=== PATIENT | male | born 1940 | race Caucasian/White ===

== ENCOUNTER 2017-01-03 06:49 | Day surgery (SDC) | payer OTHER ==
[~2017-01-03] VITALS: Ht 172.7 cm; Wt 67.7 kg
[~2017-01-03 06:49] MED LIST: AMLO5TAB96 PO; CLOP75 PO; LEVA500T33 PO; LOVA1TAB47 PO; METO25 PO
[2017-01-03] MEDS ORDERED: diphenhydrAMINE HCL 50 MG CAP PO SCH (07:15)
[2017-01-03] MEDS ORDERED: NS 1000P @30 MLS/HR (KVO) IV SCH (07:15)
[2017-01-03 07:23] VITALS: BP 145/77; PULSE 89; RESP 16; TEMP 97.9; O2SAT 95
[2017-01-03 07:30] LABS: AUTOMATED NEUTROPHIL # 6.4 TH/MM3 (1.8-7.7); BASOPHIL # 0.1 TH/MM3 (0-0.2); BASOPHIL % 0.6 % (0.0-2.0); EOSINOPHIL # 0.3 TH/MM3 (0-0.4); EOSINOPHIL % 3.9 % (0.0-4.0); HEMO FLAGS DIFF FINAL; LYMPH % 10.7 % (9.0-44.0); LYMPHOCYTE # 0.9 TH/MM3 (1.0-4.8); MEAN CELL VOLUME 94.4 FL (80.0-100.0); MEAN CORPUSCULAR HEMOGLOBIN 31.4 PG (27.0-34.0); MEAN CORPUSCULAR HGB CONC 33.3 % (32.0-36.0); MONO % 9.2 % (0.0-8.0); NEUT % 75.6 % (16.0-70.0); PLATELET COUNT 218 TH/MM3 (150-450); RED BLOOD COUNT 4.77 MIL/MM3 (4.50-5.90); RED CELL DISTRIBUTION WIDTH 14.3 % (11.6-17.2); WHITE BLOOD COUNT 8.5 TH/MM3 (4.0-11.0)
[2017-01-03] MEDS ORDERED: PRAM0.5T PO (07:32)
[2017-01-03] MEDS ORDERED: LISI10TA3 PO (07:32)
[2017-01-03] MEDS ORDERED: LAMO100T PO (07:32)
[2017-01-03] MEDS ORDERED: DICL1GEL TOPICAL (07:32)
[2017-01-03] MEDS ORDERED: OMEP20CA2 (07:32)
[2017-01-03] MEDS ORDERED: CYCL5TAB PO (07:32)
[2017-01-03] MEDS ORDERED: FERR1TAB36 PO (07:32)
[2017-01-03] MEDS ORDERED: DONE10TA7 PO (07:32)
[2017-01-03] MEDS ORDERED: ASPI1TAB69 PO (07:32)
[2017-01-03] MEDS ORDERED: AMLO2.5T PO (07:32)
[2017-01-03] MEDS ORDERED: COCO1000 PO (07:32)
[2017-01-03] MEDS ORDERED: B-650TAB (07:32)
[2017-01-03] MEDS ORDERED: HYDR-3583 PO (07:32)
[2017-01-03] MEDS ORDERED: TRAZ100T4 PO (07:32)
[2017-01-03] MEDS ORDERED: ESSE250T (07:32)
[2017-01-03] MEDS ORDERED: ZOCO20TA PO (07:32)
[2017-01-03] MEDS ORDERED: GLUT500T (07:32)
[2017-01-03] MEDS ORDERED: GABA300C5 PO (07:32)
[2017-01-03] MEDS ORDERED: CLON.5 PO (07:32)
[2017-01-03] MEDS ORDERED: [UNRECOGNIZED DRUG - CODE] PO (07:32)
[2017-01-03] MEDS ORDERED: CHEL50TA (07:32)
[2017-01-03] MEDS ORDERED: [UNRECOGNIZED DRUG - OTHER] PO (07:32)
[2017-01-03 07:37] LABS: APTT (PATIENT) 31.3 SEC (24.3-30.1); PROTHROMBIN TIME - PATIENT 10.7 SEC (9.8-11.6)
[2017-01-03 07:43] LABS: BICARBONATE 31.1 MEQ/L (21.0-32.0); POTASSIUM 4.4 MEQ/L (3.5-5.1)
[2017-01-03] MEDS ORDERED: IOHEXOL 350 MG/ML 50 ML BTL (for Cath Lab) OTHER ONE (08:27)
[2017-01-03] MEDS ORDERED: MIDAZOLAM HCL 2 MG/2 ML VIAL ONE (08:36)
[2017-01-03] MEDS ORDERED: HEPARIN-NS/PF INJ 500 ML ONE (08:36)
[2017-01-03] MEDS ORDERED: VERAPAMIL HCL 5 MG/2 ML VIAL ONE (08:41)
[2017-01-03] MEDS ORDERED: HEPARIN SODIUM - IV 10,000 UNITS/10 ML VIAL ONE (08:41)
[2017-01-03] MEDS ORDERED: ONDANSETRON HCL 4 MG/2 ML VIAL IV PRN (09:45)
[2017-01-03] MEDS ORDERED: ATROPINE SULFATE 1 MG/ML VIAL IV PRN (09:45)
--- NOTE | 2017-01-03 09:55 | MA ---
cc: PRATIBHA CARRILLO DATE: 01/03/2017 DATE OF : 1940 PROCEDURE PERFORMED 1. Left heart catheterization. 2. Selective right and left coronary angiography. 3. Right common femoral artery angiography. INDICATION Pre-op evaluation, severe aortic stenosis symptomatic, low ejection fraction PROCEDURE DESCRIPTION Consent was signed. The patient was brought into the cardiac laboratory secretary in a fasting state. The right groin was prepped and draped in a sterile fashion. Using 1% lidocaine for local anesthesia and a micropuncture kit a 5-Trinidadian sheath was inserted into the right common femoral artery. A right common femoral artery angiography was performed to confirm position of the sheath then selective right and left coronary angiography was performed with JR4 and JL4 diagnostic catheters. Angiography was taken in multiple views. The aortic valve was not crossed given that the patient has a history of known severe aortic stenosis calcified with preserved ejection fraction. The patient tolerated the procedure well without complications. Estimated blood loss less than 30 cc. Total contrast used was 40 cc. The right groin access site was closed with a Vascade closure device. RESULTS The aortic pressure was 145/62 with a mean of 95. ANGIOGRAPHY 1. The left main has minimal calcification with a 10% lesion proximally. 2. The LAD is a transapical vessel. It has minimal luminal irregularities throughout. It is patent with GEOVANNA-III flow. It has one prominent diagonal which has minimal luminal irregularities, however, no obstructive coronary artery disease. 3. The left circumflex artery has minimal luminal irregularities throughout. The AV groove segment of the circumflex is giving two OM vessels. OM1 has a patent stent in its proximal segment. This OM1 bifurcates in its midsegment. The OM2 is patent and small with minimal luminal irregularities. 4. The ramus is a small ramus vessel which is patent. 5. The right coronary artery is a dominant vessel which is tortuous and giving off the PDA. It has minimal luminal irregularities throughout and has a patent stent in its proximal segment. In this proximal segment there is 20% lesion in its proximal portion. There is another 20% lesion in its midportion and distally in the right coronary artery is a 10% lesion. CONCLUSIONS 1. [place] coronary artery disease with patent stents in the right coronary artery and the OM. RECOMMENDATIONS The patient will be consulted to CT surgery for AVR evaluation. He will go to the DOC unit for post-cath care and if stable he will be able to go home today. MD YAMILE Rae/BT /9:30 AM /9:46 AM YAJAIRA
[2017-01-03 12:30] LABS: BLOOD, URINE NEG (NEG); GLUCOSE,URINE NEG (NEG); KETONE, URINE NEG (NEG); NITRITE,URINE NEG (NEG); SQUAMOUS EPITHELIAL CELL URINE <1 /hpf (0-5); URINE COLOR YELLOW (YELLW/STRAW)
[2017-01-03 12:32] LABS: COMMENT (UR) CULT NOT INDICATED; CULTURE IF INDICATED CULT NOT INDICATED
--- NOTE | 2017-01-03 12:44 | RADRPT ---
EXAM DATE/TIME: 01/03/2017 11:54 [facility] COMPARISON: No previous studies available for comparison. INDICATIONS : Preop aortic valve replacement. MEDICAL HISTORY : Hypertension. CVA. SURGICAL HISTORY : Tonsillectomy. Appendectomy. Cholecystectomy. ENCOUNTER: Initial ACUITY: 1 day PAIN SCORE: 110 LOCATION: Bilateral neck PEAK SYSTOLIC VELOCITIES (cm/sec): ICA/CCA RATIO: Right: 1.7 Left: 1.0 ICA: Right: 86 Left: 63 CCA: Right: 50 Left: 65 ECA: Right: 88 Left: 65 VERTEBRAL: Right: 61 antegrade Left: 51 antegrade Elevated flow velocities and ICA/CCA ratios have been found to correlate with increased degrees of vessel stenosis, calculated as percentage of diameter relative to a normal segment of distal ICA/CCA FINDINGS: RIGHT CAROTID: Mild calcific plaquing. No significant stenosis is visualized. The waveforms are within normal limit s. LEFT CAROTID: Mild calcific plaquing. No significant stenosis is visualized. The waveforms are within normal limit s. VERTEBRAL ARTERIES: Antegrade flow is seen in both vertebral arteries. MISCELLANEOUS: None. CONCLUSION: No evidence of flow-limiting carotid stenosis. Jose Fernandez MD on January 03, 2017 at 12:41 Board Certified Radiologist. This report was verified electronically.
--- NOTE | 2017-01-03 12:44 | PD.CAR.PN ---
CVT Progress Note Subjective/Hospital Course: sts discussed with pt RISK SCORES About the STS Risk Calculator Procedure: AV Replacement Risk of Mortality: 2.26% Morbidity or Mortality: 15.794% Long Length of Stay: 6.04% Short Length of Stay: 38.523% Permanent Stroke: 1.263% Prolonged Ventilation: 8.84% DSW Infection: 0.411% Renal Failure: 3.365% Reoperation: 8.457% Objective: Vital Signs Date Time Temp Pulse Resp B/P Pulse Ox O2 Delivery O2 Flow Rate FiO2 01/03/17 10:29 94 Room Air 01/03/17 07:23 97.9 89 16 145/77 95 Labs: Laboratory Tests Test 01/03/17 01/03/17 07:15 11:45 White Blood Count 8.5 TH/MM3 (4.0-11.0) Red Blood Count 4.77 MIL/MM3 (4.50-5.90) Hemoglobin 15.0 GM/DL (13.0-17.0) Hematocrit 45.0 % (39.0-51.0) Mean Corpuscular Volume 94.4 FL (80.0-100.0) Mean Corpuscular Hemoglobin 31.4 PG (27.0-34.0) Mean Corpuscular Hemoglobin 33.3 % Concent (32.0-36.0) Red Cell Distribution Width 14.3 % (11.6-17.2) Platelet Count 218 TH/MM3 (150-450) Mean Platelet Volume 7.0 FL (7.0-11.0) Neutrophils (%) (Auto) 75.6 % (16.0-70.0) Lymphocytes (%) (Auto) 10.7 % (9.0-44.0) Monocytes (%) (Auto) 9.2 % (0.0-8.0) Eosinophils (%) (Auto) 3.9 % (0.0-4.0) Basophils (%) (Auto) 0.6 % (0.0-2.0) Neutrophils # (Auto) 6.4 TH/MM3 (1.8-7.7) Lymphocytes # (Auto) 0.9 TH/MM3 (1.0-4.8) Monocytes # (Auto) 0.8 TH/MM3 (0-0.9) Eosinophils # (Auto) 0.3 TH/MM3 (0-0.4) Basophils # (Auto) 0.1 TH/MM3 (0-0.2) CBC Comment DIFF FINAL Differential Comment Prothrombin Time 10.7 SEC (9.8-11.6) Prothromb Time International 1.0 RATIO Ratio Activated Partial 31.3 SEC Thromboplast Time (24.3-30.1) Sodium Level 137 MEQ/L (136-145) Potassium Level 4.4 MEQ/L (3.5-5.1) Chloride Level 101 MEQ/L (98-107) Carbon Dioxide Level 31.1 MEQ/L (21.0-32.0) Anion Gap 5 MEQ/L (5-15) Blood Urea Nitrogen 16 MG/DL (7-18) Creatinine 0.87 MG/DL (0.60-1.30) Estimat Glomerular Filtration 85 ML/MIN (>89) Rate Random Glucose 110 MG/DL (74-106) Calcium Level 9.1 MG/DL (8.5-10.1) Urine Color YELLOW (YELLW/STRAW) Urine Turbidity CLEAR (CLEAR) Urine pH 7.0 (5.0-8.5) Urine Specific [place] 1.045 (1.002-1.035) Urine Protein NEG mg/dL (NEG-TRACE) Urine Glucose (UA) NEG mg/dL (NEG) Urine Ketones NEG mg/dL (NEG) Urine Occult Blood NEG (NEG) Urine Nitrite NEG (NEG) Urine Bilirubin NEG (NEG) Urine Urobilinogen LESS THAN 2.0 MG/DL (LESS THAN 2.0) Urine Leukocyte Esterase NEG (NEG) Urine RBC LESS THAN 1 /hpf (0-3) Urine WBC 1 /hpf (0-5) Urine Squamous Epithelial <1 /hpf (0-5) Cells Microscopic Urinalysis Comment CULT NOT INDICATED Result Diagram: 01/03/17 0715 01/03/17 0715 Dilcia Saucedo January 03, 2017 12:44
--- NOTE | 2017-01-03 14:13 | RADRPT ---
EXAM DATE/TIME: 01/03/2017 13:55 [facility] COMPARISON: CHEST PA & LAT, January 03, 2017, 13:46. INDICATIONS : Evaluate for preop AVR. RADIATION DOSE: 4.13 CTDIvol (mGy) MEDICAL HISTORY : Cardiovascular disease. Hypertension. Hepatitis. SURGICAL HISTORY : Appendectomy. Cholecystectomy. ENCOUNTER: Initial ACUITY: 1 day PAIN SCALE: 1/10 LOCATION: Bilateral chest TECHNIQUE: Volumetric scanning of the chest was performed. Using automated exposure control and adjustment of t he mA and/or kV according to patient size, radiation dose was kept as low as reasonably achievable to obtain optimal diagnostic quality images. FINDINGS: There is linear scarring noted in the lingula and right middle lobe as well as right lower lobe. Ther e is no consolidation or effusion. Coronary artery calcification is noted, atherosclerotic calcificat ions of the aorta, and moderate elevation of the right hemidiaphragm. There is dense calcification at the expected location of the aortic valve as well as the mitral anulus. 6.2 cm right renal cyst. The re is a nodule of the left adrenal gland measuring 2.3 cm and 14 Hounsfield units, incompletely kayce cterized on this study but likely an adenoma in the absence of known malignancy. The osseous structur es are intact. CONCLUSION: 1. Atherosclerotic disease. 2. Right renal cysts. 3. Pulmonary scarring. 4. Elevated right hemidiaphragm. 5. Indeterminate left adrenal nodule likely an adenoma in the absence of known malignancy. This could be further characterized with MRI of the abdomen. Balwinder Mart MD on January 03, 2017 at 14:09 Board Certified Radiologist. This report was verified electronically.
--- NOTE | 2017-01-03 14:34 | RADRPT ---
EXAM DATE/TIME: 01/03/2017 13:46 [facility] COMPARISON: CT THORAX W/O CONTRAST, January 03, 2017, 13:55. INDICATIONS : Pre op aortic valve replacement. MEDICAL HISTORY : None. SURGICAL HISTORY : None. ENCOUNTER: Initial ACUITY: 1 day PAIN SCORE: 0/10 LOCATION: Bilateral chest FINDINGS: Streaky bibasilar parenchymal opacities are present, likely subsegmental atelectasis worse on the rig ht than the left. There is eventration or asymmetric elevation of the right diaphragm of undetermined chronicity. There is no evidence of effusion. Cardiac contours are satisfactory. Thoracic skeleton i s grossly intact. CONCLUSION: Mild basilar atelectasis. Elevated right diaphragm of undetermined chronicity. Jose Fernandez MD on January 03, 2017 at 14:30 Board Certified Radiologist. This report was verified electronically.
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
[2017-01-03 16:24] LABS: HEMOGLOBIN A1a 1.5 %; HEMOGLOBIN A1b 1.7 %; HEMOGLOBIN Ao 84.5 %; HEMOGLOBIN LA1C 2.2 %; HEMOGLOBIN P3 3.7 %
--- NOTE | 2017-01-03 19:25 | EKG ---
Date Performed: 01/03/2017 Time Performed: 07:41:06 PTAGE: 76 years EKG: Sinus rhythm Normal ECG NO PREVIOUS TRACING DOCTOR: Yanelis Mccallum Interpretating Date/Time 01/03/2017 19:22:55
--- NOTE | 2017-01-04 15:33 | CATHPROC ---
[facility] HIS Report Study Information Study Number Admission Scheduled Start Study Start [id number] 01/03/2017 01/03/2017 Jan 03 2017 8:30AM Referring Institution Admit Source Facility Department 1 Other [facility] - Senior Loan Officer Physician and Clinical Staff Initial Prashant Baez Counterintelligence Analyst Jaspreet MAHAJAN, Matt Mcdonough cathlab, cathlab Recorder Tano Brown RCIS(BS) Gabriela Tyson RCIS TECH2 Procedures Performed Procedure Location (Site) Vessel Name Coronary Angiograms LCA Left Coronary Coronary Angiograms RCA Right Coronary L Heart Cath Equipment Time Calender Wind Up Helper Description Size Mfg Part Number Used/Scraped TRANSDUCER, TRUWAVE 08:32 ALEGRE VALLE * [id number] Used W/[employer] [id number] 09:15 CARDI[employer] MEDICAL VASCADE, FR5 CLOSURE SYSTEM FR 5 Used *[id number]- INTRODUCER SET, 09:07 [employer]. FR 5 SC-NT-U-SST Used MICROPUNCTURE, STIFFENED *[id number] *[id number] [id number] *[id number] 08:32 [email or web address] PACK, CCL CUSTOM * Used *[id number] 08:42 [email or web address] PACK, CCL CUSTOM * Used *[id number] 08:42 Trellise MEDICAL WIRE, 3MMJ .035 180CM 180CM Used *[id number] 08:42 NAMIC MANIFOLD, 4 PORT * Used *[id number] 08:32 NYCOMED OMNIPAQUE, 350 MG, 150ML 150ML [id number] Used [id number] 08:32 ZELI[employer] MEDICAL BLANKET,WARM AIR CCL * Used *[id number] 08:51 TERUMO MEDICAL SHEATH, FR5 TERUMO (10CM) FR 5 [id number] Used SHEATH, FR6 TRANSRADIAL 08:42 TERUMO MEDICAL FR 6 [id number] Used SLENDER 10CM History: Allergies Allergy Reaction MRI PRECAUTION shrapnel in brain and orbit mpw per Dr Rincon No Known Allergies Namenda History: Risk Factors Family History of Hypertension Dyslipidemia Previous UT Previous Heart Failure Premature CAD Yes Yes No No No Prior Valve Prior PCI Prior PCIDate Prior CABG Surgery No Yes 08/13/2006 No Cerebrovascular Peripheral Artery Chronic Lung On Dialysis Diabetes Disease Disease Disease No No No No No History: Stress Tests Stress or Imaging Studies Performed No History: Other Current Smoker Method Packs a Day Years Used Pack Years Yes Cigarettes 1 60 60 Labs Hgb (g/dl) Hct (%) WBC (l/cumm) Platelets (thousands) 12.00-18.00 37.00-55.00 4.80-10.80 140.00-450.00 15.0 45 8.5 218 Glucose (mg/dl) BUN (mg/dl) Creatinine (mg/dl) BUN:Creatinine (1:x) 60.00-110.00 8.00-20.00 0.10-9.00 10.00-20.00 110 16 0.8 20 Na (meq/l) K (meq/l) 138.00-146.00 3.80-5.10 137 4.4 INR (PTT:PT) 0.50-2.00 1 CPK-MB (ng/ML) 0.00-7.00 Not Drawn Medication Medication Total Dose (Bolus/Oral) Medication Total Dosage/Unit 1% XYLOCAINE 20 mL FENTANYL 50 mcg OXYGEN 2 l/min VERSED 2 mg Medications (Bolus/Oral) Medication Time Given Dosage/Unit Administered By Reason FENTANYL 01/03/2017 9:03:02 AM 50 mcg Matt Vogel RN Patient arrived on 50 mcg FENTANYL given by Matt Vogel RN in Right Antecubital via Peripheral IV. O rdered by Prashant Giang. 1% XYLOCAINE 01/03/2017 9:03:30 AM 20 mL Prashant Giang Patient arrived on 20 mL 1% XYLOCAINE given by Prashant Giang in Right Groin via Subcutaneous. Ord ered by Prashant Giang. VERSED 01/03/2017 9:04:03 AM 2 mg Matt Vogel RN 2 mg VERSED given in lab by Matt Vogel RN in Right Antecubital via Peripheral IV. Ordered by Prashant Mason. OXYGEN 01/03/2017 9:07:49 AM 2 l/min Matt Vogel RN 2 l/min OXYGEN given in lab by Matt Vogel RN via Nasal. Ordered by Prashant Giang. Medication (Drip) Medication Time Given Dosage/Unit Concentration/Unit Diluent (ml) Solution IV Solutions 01/03/2017 8:32:34 AM 0 mL (IV) NaCl .9 Patient arrived on IV Solutions in Right Antecubital via Peripheral IV. Pump/Drip Flow = 20 ml/hr usi ng NaCl .9. Ordered by Prashant Giang. Initial Case Assessment Cardiovascular HR Rhythm NIBP Chest Pain 81 SR 145/79 0 Edema Present Skin color Skin None Normal Warm Dry Circulatory - Right Pulses Dorsalis Pedis Femoral Radial 2 2 2 Scale (0,1,2,3,4,d) Circulatory - Left Pulses Dorsalis Pedis Femoral Radial 2 2 Scale (0,1,2,3,4,d) Circulatory - Lower Extremities Color Lower Right Color Lower Left Normal Normal Neurological State Oriented to time-place- Alert Moves all extremities person Respiration - General Respiration Rate SpO2 (%) (B/min) 14 94 Final Case Assessment Cardiovascular HR Rhythm NIBP Chest Pain 103 SR 138/73 0 Edema Present Skin color Skin None Normal Warm Dry Circulatory - Right Pulses Dorsalis Pedis Femoral Radial 2 2 2 Scale (0,1,2,3,4,d) Circulatory - Left Pulses Dorsalis Pedis Femoral Radial 2 2 Scale (0,1,2,3,4,d) Circulatory - Lower Extremities Color Lower Right Color Lower Left Normal Normal Neurological State Oriented to time-place- Alert Moves all extremities person Respiration - General Respiration Rate SpO2 (%) (B/min) 14 94 Chronological Log Time Study Chronological Log 8:27:45 Patient arrived via Bed. 8:32:21 Patient Name, D.O.B, / Armband Verified By R.N. 8:32:22 Consent signed by the physician and the patient and verified by the Senior Loan Officer staff. 8:32:24 Pre-op and post- op instructions given; patient acknowledges understanding of instructions. 8:32:26 Patient has been NPO for More than 6Hrs. 8:32:26 Skin Breakdown- 8:32:29 Patient Warmer Placed on the Table. 8:32:30 Yumiko Prominences Protected 8:32:33 A # 20 IV was noted in the Antecubital (right). Grade = 0 Patient arrived on IV Solutions in Right Antecubital via Peripheral IV. Pump/Drip Flow = 20 ml/ hr using NaCl .9. Ordered 8:32:34 by Prashant Giang. 8:32:35 History and physical on the chart or being dictated. Vitals capture started with the following parameters, Patient=Adult, Interval=15 min, Initial P gjofnqg=426 mmHg, 8:33:07 Deflation Rate=5 mmHg 8:34:37 HR=86 bpm, JNHD=813/82 mmhg, SpO2=92.0 %, Resp=21 B/min, Pain=0, Jacquelyn=10, Rosa=2 8:38:41 HR=88 bpm, RXVV=170/82 mmhg, SpO2=94.0 %, Resp=25 B/min, Pain=0, Jacquelyn=10, Rosa=2 8:40:16 Reference ECG taken Assessment: Initial Case, HR=81 BPM, Rhythm=SR, LXMK=775/79 mmhg, Chest Pain=0, Edema=None, [place] r=Normal, Skin = Warm, Dry Right Pulses: Carmine Ped=2, Femoral=2, Radial=2 Left Pulses: Carmine Ped=2, Femoral=2 8:43:16 Lower Right Extremities: Color=Normal Lower Left Extremities: Color=Normal Neurological: State=Alert, Ox3, [place] Respiration: Resp=14 B/min, SpO2=94 % 8:43:44 HR=81 bpm, QIYB=211/79 mmhg, SpO2=92.0 %, Resp=32 B/min, Pain=0, Jacquelyn=10, Rosa=2 8:45:20 Pressure channel 1 zeroed. 8:45:42 MD arrived. 8:48:45 HR=79 bpm, MFUF=795/71 mmhg, SpO2=94.0 %, Resp=14 B/min, Pain=0, Jacquelyn=10, Rosa=2 8:53:44 HR=81 bpm, TOIA=774/71 mmhg, SpO2=93.0 %, Resp=15 B/min, Pain=0, Jacquelyn=10, Rosa=2 8:58:45 HR=82 bpm, THLI=621/76 mmhg, SpO2=92.0 %, Resp=14 B/min, Pain=0, Jacquelyn=10, Rosa=2 9:00:03 Right Radial and groin(s) prepped with 2% chlorhexidine, and with a 3 min. waiting time. Time Out. Correct patient, correct procedure,correct physician, power injector not loaded with c ontrast with surgical 9::44 team present. Time Out Concurred by , individual staff in procedure 9:02:51 Case Start Patient arrived on 50 mcg FENTANYL given by Matt Vogel RN in Right Antecubital via Peripheral IV. Ordered by Shasta 9:03:02 Prashant Wong. Patient arrived on 20 mL 1% XYLOCAINE given by Prashant Giang in Right Groin via Subcutaneous . Ordered by 9:03:30 Prashant Giang. 9::44 HR=87 bpm, THXG=367/80 mmhg, SpO2=97.0 %, Resp=17 B/min, Pain=0, Jacquelyn=10, Rosa=2 9:04:03 2 mg VERSED given in lab by Matt Vogel RN in Right Antecubital via Peripheral IV. Ordered by Prashant Giang. 9:06:13 Access site was Right Femoral Artery. A INTRODUCER SET, MICROPUNCTURE, STIFFENED FR 5 was advanced into the Fem Art (right) using the ::23 Percutaneous technique. Recorded Pressure: Ao, HR=90, Condition=Condition 1 9:06:53 (Aorta) Ao 145/62/95 A SHEATH, FR5 TERUMO (10CM) FR 5 was exchanged in the Fem Art (right). This was necessary in ord er to 9:07:03 accomodate a larger catheter. A JR 4.0 INFINITI CATHETER FR 5 was advanced over a wire. OMNIPAQUE, 350 MG, 150ML 150ML was use d for 9:07:22 injections. 9:07:49 2 l/min OXYGEN given in lab by Matt Vogel RN via Nasal. Ordered by Prashant Giang. 9:08:18 The RCA was injected and visualized at various angles. OMNIPAQUE, 350 MG, 150ML 150ML used. 9:08:43 HR=88 bpm, DOSU=193/80 mmhg, SpO2=86.0 %, Resp=14 B/min, Pain=0, Jacquelyn=10, Rosa=2 9:09:17 Catheter was removed A JL 4.0 INFINITI CATHETER FR 5 was advanced over a wire. OMNIPAQUE, 350 MG, 150ML 150ML was use d for 9:09:24 injections. 9:09:47 The LCA was injected and visualized at various angles. OMNIPAQUE, 350 MG, 150ML 150ML used. 9:13:46 HR=98 bpm, BBAI=274/73 mmhg, SpO2=86.0 %, Resp=14 B/min, Pain=0, Jacquelyn=10, Rosa=2 9:14:14 Catheter was removed Assessment: Final Case, PO=240 BPM, Rhythm=SR, RBGX=944/73 mmhg, Chest Pain=0, Edema=None, Color =Normal, Skin = Warm, Dry Right Pulses: Carmine Ped=2, Femoral=2, Radial=2 Left Pulses: Carmine Ped=2, Femoral=2 9:14:31 Lower Right Extremities: Color=Normal Lower Left Extremities: Color=Normal Neurological: State=Alert, Ox3, [place] Respiration: Resp=14 B/min, SpO2=94 % 9:14:58 VASCADE, FR5 CLOSURE SYSTEM FR 5 placement in the Fem Art (right) 9:16:24 Case End 9:16:25 Sterile dressing applied to site 9:16:26 No case complications noted. 9:16:27 Cine recording checked. 9:16:37 Contrast Scanned 9:18:45 HR=91 bpm, GEHW=291/74 mmhg, SpO2=90.0 %, Resp=15 B/min, Pain=0, Jacquelyn=10, Rosa=2 9:20:00 A Left Heart Cath was performed. 9:23:42 MZXH=755/79 mmhg, SpO2=91.0 %, Pain=0, Jacquelyn=10, Rosa=2 9:30:00 [facility] Study - Contrast Media Used In Study Contrast Total Opened (mL) Total Used (mL) Total Wasted (mL) Omnipaque 40 40 0 End Study - Maximum Contrast Load Max Contrast Load (mL) 423.0 End Study - Radiation Exposure Fluoro Time (minutes) 2.4 End Study - Patient Disposition Complications Transferred To Telemetry Bed
--- NOTE | 2017-01-09 08:57 | RSPPFT ---
DATE OF PROCEDURE: 01/03/17 COMMENTS: VOLUMES DYNAMIC: FVC and FEV1 severely reduced. FLOWS: FEV1% normal; FEF 25-75 normal. IMPRESSION: This appears to be a moderate to severe restrictive ventilatory defect although full lung volumes would be necessary if needed to clarify. No significant airways obstruction is noted.
== END 2017-01-03 14:35 | disposition home or self-care (01) ==
LOC: HDOC 06:49 → HDIC 06:49 → HDOC 14:35
PROVIDERS: ATTEND Radiology Vascular & Interventional Radiology
DX: I25.10 Atherosclerotic heart disease of native coronary artery without angina pectoris (principal); I25.84 Coronary atherosclerosis due to calcified coronary lesion; I13.10 Hypertensive heart and chronic kidney disease without heart failure, with stage 1 through stage 4 chronic kidney disease, or unspecified chronic kidney disease; N18.9 Chronic kidney disease, unspecified; I35.2 Nonrheumatic aortic (valve) stenosis with insufficiency; F41.9 Anxiety disorder, unspecified; J44.9 Chronic obstructive pulmonary disease, unspecified; E78.5 Hyperlipidemia, unspecified; E78.00 Pure hypercholesterolemia, unspecified; F17.210 Nicotine dependence, cigarettes, uncomplicated; Z85.038 Personal history of other malignant neoplasm of large intestine; Z95.5 Presence of coronary angioplasty implant and graft; Z79.82 Long term (current) use of aspirin; Z86.73 Personal history of transient ischemic attack (TIA), and cerebral infarction without residual deficits; Z79.51 Long term (current) use of inhaled steroids
CPT/HCPCS: 71020; 71250; 80048; 81001; 83036; 85025; 85610; 85730; 86850; 86900; 86901; 87641; 93005; 93454; 93880; 94060; C1760; C1769; C1893; G0269; J1644; J2250; J3010; J7030; Q0163; Q9967

== ENCOUNTER 2017-01-09 16:17 | Inpatient (IN) | payer OTHER, MEDICARE ==
[~2017-01-09] VITALS: Ht 172.1 cm; Wt 68.5 kg
[~2017-01-09 16:17] MED LIST changes: +AMLO2.5T PO; -AMLO5TAB96 PO; +ASPI1TAB69 PO; +B-650TAB; +CHEL50TA; +CLON.5 PO; -CLOP75 PO; +COCO1000 PO; +CYCL5TAB PO; +DICL1GEL TOPICAL; +DONE10TA7 PO; +ESSE250T; +FERR1TAB36 PO; +GABA300C5 PO; +GLUT500T; +HYDR-3583 PO; +LAMO100T PO; -LEVA500T33 PO; +LISI10TA3 PO; -LOVA1TAB47 PO; -METO25 PO; +OMEP20CA2; +PRAM0.5T PO; +TRAZ100T4 PO; +ZOCO20TA PO; +[UNRECOGNIZED DRUG - CODE] PO; +[UNRECOGNIZED DRUG - OTHER] PO
[2017-01-24] VITALS (14 sets, daily range): BP systolic 102–162; BP diastolic 49–77; PULSE 64–97; RESP 16–20; TEMP 97.8–98.6; O2SAT 90–100
[2017-01-24] MEDS ORDERED: PROTAMINE SULFATE 250 MG/25 ML VIAL IV ONE ×2 (05:00→11:52)
[2017-01-24] MEDS ORDERED: PHENYLEPHRINE HCL 10 MG/ML VIAL IV ONE (05:00)
[2017-01-24] MEDS ORDERED: AMINOCAPROIC ACID INJ 250 MG/ML 20 ML VIAL IV ONE (05:00)
[2017-01-24] MEDS ORDERED: HEPARIN SODIUM - SQ 10,000 UNITS/ML VIAL SQ ONE (05:00)
[2017-01-24] MEDS ORDERED: ACETAMINOPHEN 1000 MG/100 ML VIAL IV ONE (05:00)
[2017-01-24] MEDS ORDERED: GLYCOPYRROLATE 0.2 MG/ML VIAL IV ONE (05:00)
[2017-01-24] MEDS ORDERED: LIDOCAINE HCL 1% 30 ML VIAL OTHER ONE (05:00)
[2017-01-24] MEDS ORDERED: NITROGLYCERIN-DEXTROSE INJ 250 ML IV ONE (05:00)
[2017-01-24] MEDS ORDERED: MAGNESIUM SULFATE 1000 MG/2 ML VIAL (PED) IV ONE (05:00)
[2017-01-24] MEDS ORDERED: CALCIUM CHLORIDE 10% SOLN 1 GRAM/10 ML SYR IV ONE (05:00)
[2017-01-24] MEDS ORDERED: DEXMEDETOMIDINE INJ 50 ML IV ONE (05:00)
[2017-01-24] MEDS ORDERED: VECURONIUM BROMIDE 10 MG VIAL IV ONE (05:00)
[2017-01-24] MEDS ORDERED: ESMOLOL HCL 100 MG/10 ML VIAL IV ONE (05:00)
[2017-01-24] MEDS ORDERED: ceFAZolin 2 GM PREMIX 50 ML IV SCH ×2 (06:00→16:00)
[2017-01-24] MEDS ORDERED: POVIDONE IODINE 5% (ANTISEPSIS KIT) 4 APPLICATIONS EACH NARE PRN (06:00)
[2017-01-24] MEDS ORDERED: SODIUM CHLORIDE 0.9% FLUSH 10 ML FLUSH IV FLUSH PRN ×3 (06:00→12:15)
[2017-01-24] MEDS ORDERED: CEFAZOLIN 500 MG in NS IRR BTL 500 ML IRRIGATION SCH (06:00)
[2017-01-24] MEDS ORDERED: INSULIN REGULAR 100 UNITS in NS 100 ML IV SCH (06:00)
[2017-01-24] MEDS ORDERED: CHLORHEXIDINE GLUCONATE 2 % 1 PACK (2 CLOTHS) TOPICAL PRN (06:00)
[2017-01-24] MEDS ORDERED: CHLORHEXIDINE GLUCONATE 4% SOLN 120 ML BTL TOPICAL SCH (06:00)
[2017-01-24] MEDS ORDERED: METOPROLOL TARTRATE 25 MG TAB PO PRN (06:00)
[2017-01-24] MEDS ORDERED: METOPROLOL TARTRATE 25 MG TAB PO SCH (06:00)
[2017-01-24] MEDS ORDERED: INSULIN HUMAN REGULAR 1,000 UNITS/10 ML VIAL SQ PRN (06:00)
[2017-01-24] MEDS ORDERED: SODIUM CHLORID 0.9% 500 ML IV PRN (06:00)
[2017-01-24] MEDS ORDERED: LACTATED RINGER'S 1000 ML IV PRN (06:00)
[2017-01-24] MEDS ORDERED: HEPARIN SODIUM - SQ 10,000 UNITS/ML VIAL ONE (06:25)
[2017-01-24] MEDS ORDERED: ceFAZolin 2 GM PREMIX 50 ML ONE (06:25)
[2017-01-24] MEDS ORDERED: ASPI81CH CHEW (06:26)
[2017-01-24] MEDS ORDERED: TRAZ100T6 PO (06:26)
[2017-01-24] MEDS ORDERED: VITA10002 PO (06:26)
[2017-01-24] MEDS ORDERED: FERR200T PO (06:26)
[2017-01-24] MEDS ORDERED: MELO7.5T4 PO (06:26)
[2017-01-24] MEDS ORDERED: MANNITOL INJ 50 ML ONE (07:05)
[2017-01-24] MEDS ORDERED: SODIUM BICARBONATE 8.4% INJ 50 ML ONE (07:05)
[2017-01-24] MEDS ORDERED: CUSTODIOL HTK IRR SOLN 1,000 ML ONE (07:05)
[2017-01-24] MEDS ORDERED: POTASSIUM CHLORIDE 40 MEQ/20 ML VIAL ONE (07:06)
[2017-01-24] MEDS ORDERED: HEPARIN SODIUM - IV 10,000 UNITS/10 ML VIAL ONE (07:06)
[2017-01-24] MEDS ORDERED: ALBUMIN HUMAN 25% 12.5 GM/50 ML BAGP IV ONE (07:06)
[2017-01-24] MEDS ORDERED: BUPIVACAINE LIPOSO PF 1.3% INJ 20 ML, DEXAMETHASONE INJ 4 MG, MORPHINE INJ 10 MG in SOD... P-ARTICULR SCH (07:30)
--- NOTE | 2017-01-24 10:32 | PD.CAR.PN ---
CVT Progress Note Subjective/Hospital Course: 76/ male hx of CAD/ prior stent , heart Murmur and valvular heart disease. Severe with depressed LV function . underwent cardia cath / patent stents to RCA and OM . Here for elective Mini AVR today. PMH: CAD/ stent OM, RCA, AAA ( 3 CM) , iron deficiency anemia ( HGB 15/45) , anxiety , / EF 54 %, LINETTE, Strickland's palsy, COPD, CKD, HTN, HLP, ICH /fall Objective: Vital Signs Date Time Temp Pulse Resp B/P Pulse Ox O2 Delivery O2 Flow Rate FiO2 01/24/17 06:40 98.6 86 16 144/77 96 Labs: Laboratory Tests Test 01/24/17 06:18 Blood Type O POSITIVE Antibody Screen NEGATIVE Crossmatch Leukocyte-Reduced Red Blood Cells Blood Bank Comment Dilcia Saucedo Jan 24, 2017 10:32
[2017-01-24] MEDS ORDERED: VANCOMYCIN HCL 1000 MG VIAL ONE (10:50)
--- NOTE | 2017-01-24 11:08 | HHI.FF ---
Face to Face Verification Diagnosis: (1) Aortic stenosis (2) S/P AVR (aortic valve replacement) (3) Hyperlipemia (4) Hypertension (5) COPD (chronic obstructive pulmonary disease) (6) Anxiety Home Health Nursing Order: Signs/symptoms of disease process Wound care and dressing changes Nursing assessment with vital signs Instructions: Heart and Vascular Surgery patients *Special attention to sternal dressing Mandatory frequency Assess and evaluation, 4 days in a row The next week 3X week 2 times a week for 4 weeks 1 time a week for 5 weeks Schedule Heart and Vascular patients for full 60 day certification period Initial visit Review Open Heart Surgery Discharge Instructions (Sternal precautions, Activity, Elastic hose, Incision care, Driving, Incentive spirometry, Smoking, [place], Work and other) Need Betadine to paint incision Medication reconciliation Importance of follow up care/ check on appointments Make calendar record temperature daily When to call [facility] at Home nurse, review instructions, phone list Incentive Spirometry, demonstration Visit 1- Begin discharge instruction for patient family and/ or caregiver using teach back method- Signs and symptoms of infection Disease characteristics Medicines and side effects Foods and nutrition/ appetite Infection control/ hand washing/ hygiene Visit 2- Continue teaching Discharge instructions- include additional information on smoking cessation , sternal dressing (sternal vac) Visit 3- Continue teaching- Cough and deep breathing, incision monitoring. Choose my plate Visit 4- Continue teaching- Discuss limitations Discuss how they are feeling Discuss progress toward goals Remaining visits- continue teaching and monitoring Incentive spirometry Q1 hr x 10, while awake, also use acapella device hourly whole awake Sternal Breast Bone Precautions: NO pushing or pulling, ( pt must use sternal pillow to support chest with all activities and with coughing ( takes up to 3 months breast bone to heal ) Daily incision care: ok to shower daily, no tub bath. Wash all incisions with liquid dial soap, clean wash cloth to each site, rinse and pat dry. Observe for any signs of infection, such as drainage which is dark yellow, henriquez, green or foul smelling. Immediately report to the surgeon any drainage from the chest incision, or legs, and for any abnormal drainage from the chest tube sites. Notify surgeon if any temp >101.5 degrees F. When specialty dressing removed/ or if you do not have one, continue to shower daily as above, then rinse and pat incision dry and paint with betadine daily x 5 days. Allow steri strips to fall off if you have any. Avoid lotions, creams, salves, oils, etc. for the first month For Dr. Salgado patients , please obtain CBC, BMP, PA & Lat CXR in 2 weeks, results to Dr. Salgado ( prescription will be given) ( ) (Tele: [phone]) , Valve replacement pts will need 2decho in 2 weeks with results to Dr. Salgado . Please obtain 2 d echo at your financial compliance examiner office if possible F/U appointment: as per DC instructions: PCP in 2 weeks, CV surgeon 2 weeks, Manager Business Continuity 3-4 weeks For any questions regarding incisions/ dressing / meds / post op care or above Symptoms, Sunday 8am-5pm Heart & Vascular Surgery Office ( Dr. Demarco & Dr. Salgado), After Hours / Nights (5pm -8am) Weekends and Holidays Please call [facility] ([facility]) Charge Nurse I have seen patient Kar Estrada on 01/24/17. My clinical findings support the need for the requested home health care services because: Deconditioned w/ increased weakness I certify that my clinical findings support that this patient is homebound because: Post-op weakness Dilcia Saucedo Jan 24, 2017 11:08
[2017-01-24] MEDS ORDERED: SODIUM CHLOR 0.9% 250 ML INJ 250 ML IV ONE (11:52)
[2017-01-24] MEDS ORDERED: SODIUM CHLORID 0.9% 500 ML INJ 500 ML IV ONE (11:52)
[2017-01-24] MEDS ORDERED: LACTATED RINGER'S 1000 ML INJ 2,000 ML IV ONE (11:52)
[2017-01-24] MEDS ORDERED: PHENYLEPH/NS 1000 MCG/10 ML SYR IV ONE (11:52)
[2017-01-24] MEDS ORDERED: NEOSTIGMINE METHYLSULFATE 10 MG/10 ML VIAL IV PUSH ONE (11:52)
[2017-01-24] MEDS ORDERED: NORMOSOL R INJ 2,000 ML IV ONE (11:52)
[2017-01-24] MEDS ORDERED: SUGAMMADEX SODIUM 200 MG/2 ML VIAL IV PUSH ONE ×2 (11:52)
[2017-01-24] MEDS ORDERED: VECURONIUM BROMIDE 20 MG VIAL IV ONE (11:52)
[2017-01-24] MEDS ORDERED: DOBUTamine PREMIX DRIP 250 ML IV SCH (12:08)
[2017-01-24] MEDS ORDERED: LACTATED RINGER'S 1000 ML INJ 500 ML IV PRN (12:08)
[2017-01-24] MEDS ORDERED: INSULIN REGULAR (IV INFUSION) 100 UNITS in SODIUM CHLORIDE 0.9% INJ 99 ML IV SCH (12:15)
[2017-01-24] MEDS ORDERED: POTASSIUM CHLORIDE 20 MEQ CONTROLLED RELEASE TAB PO PRN ×2 (12:15)
[2017-01-24] MEDS ORDERED: ACETAMINOPHEN 650 MG SUPP RECTAL PRN (12:15)
[2017-01-24] MEDS ORDERED: DEXTROSE 50% IN WATER 50 ML VIAL(D50) IV PUSH PRN (12:15)
[2017-01-24] MEDS ORDERED: ACETAMINOPHEN 325 MG TAB PO PRN (12:15)
[2017-01-24] MEDS ORDERED: ALBUMIN HUMAN 5% 12.5 GM/250 ML BOTTLE IV PRN (12:15)
[2017-01-24] MEDS ORDERED: PHENYLEPHRINE INJ 40 MG in DEXTROSE 5% IN WATE 500 ML INJ 496 ML IV SCH ×2 (12:15)
[2017-01-24] MEDS ORDERED: ACETAMINOPHEN/HYDROcodone 325 MG/5 MG TAB PO PRN ×2 (12:15)
[2017-01-24] MEDS ORDERED: MAGNESIUM SULFATE INJ 2 GM in SODIUM CHLORIDE 0.9% INJ 100 ML IV PRN ×4 (12:15)
[2017-01-24] MEDS ORDERED: CALCIUM CHLORIDE 10% 1 GRAM/10 ML VIAL IV PRN (12:15)
[2017-01-24] MEDS ORDERED: CALCIUM CHLORIDE INJ 1 GM in SODIUM CHLORIDE 0.9% INJ 100 ML IV PRN (12:15)
[2017-01-24] MEDS ORDERED: DEXMEDETOMIDINE INJ 200 MCG in SODIUM CHLORIDE 0.9% INJ 50 ML IV SCH (12:15)
[2017-01-24] MEDS ORDERED: DOPamine INJ PREMIX 500 ML IV SCH (12:15)
[2017-01-24] MEDS ORDERED: METOPROLOL TARTRATE 5 MG/5 ML VIAL IV PUSH PRN (12:15)
[2017-01-24] MEDS ORDERED: RESP: RACEPINEPHRINE 2.25% 0.5 ML NEB NEB PRN ×2 (12:15→15:15)
[2017-01-24] MEDS ORDERED: RESP: ALBUTEROL 2.5 MG/IPRATROPIUM 0.5 MG NEB (PRN) NEB ×2 (12:15→15:15)
[2017-01-24] MEDS ORDERED: Post-op Orders (for Pharmacy) MISC OTHER ONE (12:15)
[2017-01-24] MEDS ORDERED: CLEVIDIPINE INJ 50 ML IV SCH (12:15)
[2017-01-24] MEDS ORDERED: MEPERIDINE HCL 25 MG/ML VIAL IV PRN (12:15)
[2017-01-24] MEDS ORDERED: KETOROLAC TROMETHAMINE 30 MG/ML (IVP) VIAL IV PUSH PRN (12:15)
[2017-01-24] MEDS ORDERED: POTASSIUM CHLOR 20 MEQ PREMIX 100 ML IV PRN ×3 (12:15)
[2017-01-24] MEDS ORDERED: NITROGLYCERIN-DEXTROSE INJ 250 ML IV SCH (12:15)
[2017-01-24] MEDS ORDERED: ONDANSETRON HCL 4 MG/2 ML VIAL IV PUSH PRN (12:15)
[2017-01-24] MEDS ORDERED: MORPHINE SULFATE 4 MG/ML INJ IV PRN (12:15)
[2017-01-24] MEDS ORDERED: EPINEPHrine (1:1000) INJ 4 MG in DEXTROSE 5% IN WATER INJ 246 ML IV SCH ×2 (12:15)
[2017-01-24] MEDS ORDERED: hydrALAZINE HCL 20 MG/ML VIAL IV PRN (12:15)
--- NOTE | 2017-01-24 12:39 | PD.OP ---
cc: Prashant Giang MD; Sommer Demarco MD Operative Report Date of Surgery: Jan 24, 2017 Preoperative Diagnosis: Postoperative Diagnosis: Procedure: 1. Ricardo-Sternotomy 2. Minimally Invasive Aortic Valve Replacement with a 23mm Mosaic Cinch II valve . Surgeon: Sommer Demarco Manager Diversity(s): Do Reynolds Operation and Findings: PREOPERATIVE DIAGNOSES 1. Severe Aortic Stenosis. 2. Moderate Aortic Insufficiency 3. CHF POSTOPERATIVE DIAGNOSES Same SURGICAL PROCEDURE 1. Ricardo-Sternotomy 2. Minimally Invasive Aortic Valve Replacement with a 23mm Mosaic Cinch II valve BACTERIOLOGIST INDUSTRIAL DORIS Sandoval ANESTHESIA General endotracheal. OPERATIONS SPECIALISTS Priscilla Diaz CRNA, Jonathan Morgan MD PREPARATION ChloraPrep. NEEDLE, SPONGE AND INSTRUMENT COUNT Correct. DRAINS One 24-Sinhala mediastinal Mick drain. COMPLICATIONS None. INDICATIONS The patient is an 77-year-old gentleman with severe aortic stenosis and CHF, presenting for surgical correction of the above pathology. DESCRIPTION OF PROCEDURE The patient was brought to the operating room and placed supine on the OR table. Following the induction of adequate general endotracheal anesthesia and placement of appropriate monitoring devices, the patient was then prepped and draped in the standard sterile fashion. Physical examination as well as direct ultrasound evaluation of bilateral femoral arteries revealed heavily calcified vessels with no palpable pulse. Pedal pulses were dopplerable but not palpable as well. Therefore, plans were made to proceed with a ricardo-sternotomy approach with central cannulation. A 7 cm incision was made overlying the manubrium and the superior aspect of the sternum. Ricardo-sternotomy was performed upto the 3rd ICS and the sternotomy T-ed at that point. The pericardium was divided in the midline and the cradle created. The patient was systemically heparinized and anticoagulation monitored by serial ACT measurements. Then 2 pursestring sutures of 2-0 Ethibond were placed on the aorta proximal to the takeoff of the innominate artery, another was placed in the right atrial appendage. At this point, aortic and 3-stage venous cannulas were introduced and attached to the arterial and venous components of the bypass circuit respectively. Antegrade cardioplegia cannula and a left ventricular vent, through the right superior pulmonary vein, were also placed. The patient was placed on cardiopulmonary bypass and core cooling initiated to a temperature of 32 degrees centigrade. The crossclamp was applied and 600 mL of antegrade cardioplegia solution ( Residential HTK) given in an antegrade fashion in addition to topical cooling with slushed saline. Due to his significant AI plans were made to give the remaining dose of cardioplegia directly into the ostia. A transverse aortotomy was performed and the remaining 1000 mls given intracoronary through the LM and RCA ostia with resultant excellent diastolic arrest of the myocardium. The aortic valve was then excised and sent for microbiologic analysis. The valve was very heavily calcified with the calcific process extending into the anterior leaflet of the mitral valve and the subannular space. Circumferential decalcification of the annulus was performed. Horizontal mattress sutures of interrupted 2-0 Ethibond were placed on the aortic annulus with pledgets on the ventricular side. After adequate sizing, a 23 mm Mosaic Cinch II tissue valve was brought in the surgical field and the sutures passed through the skirt and the valve was situated using the Cor-Knot device. This appeared to be a good fit. Gradual rewarming was initiated and the aortotomy closed in 2 layers. This was with 4-0 Prolene; the 1st layer being horizontal mattress, the 2nd layer being running baseball stitch. The cross clamp was removed and upon achieving normothermic cardiac activity, transesophageal echocardiography revealed a well- situated aortic prosthesis with no evidence of perivalvular leak and no aortic stenosis or aortic regurgitation. Protamine was administered. Decannulation was performed and all sites were inspected for hemostasis. At this point the closure was undertaken. The pericardium was reapproximated in the midline. Two ventricular pacing wires and 1 chest tube placed, and the sternum was reapproximated using stainless steel sternal wires. The musculo-fascial layer was then closed in 3 layers. The patient tolerated the procedure well and was transferred to open heart recovery in stable condition. Sommer Demarco MD Jan 24, 2017 12:39
[2017-01-24] MEDS ORDERED: ceFAZolin INJ 1,000 MG VIAL ONE (12:49)
[2017-01-24] MEDS ORDERED: MIDAZOLAM HCL 5 MG/5 ML VIAL ONE ×2 (13:04)
[2017-01-24] MEDS ORDERED: fentaNYL CITRATE 1000 MCG/20 ML VIAL ONE (13:04)
[2017-01-24] MEDS: GABAPENTIN 300 MG CAP PO SCH ×2 (14:00→17:14)
[2017-01-24] MEDS: CYCLOBENZAPRINE HCL 10 MG TAB PO SCH ×2 (14:00→17:14)
--- NOTE | 2017-01-24 14:33 | RADRPT ---
EXAM DATE/TIME: 01/24/2017 13:17 [facility] COMPARISON: CHEST PA & LAT, January 03, 2017, 13:46. INDICATIONS : S/p cabg. MEDICAL HISTORY : Cardiovascular disease. Hypertension SURGICAL HISTORY : None. ENCOUNTER: Initial ACUITY: 1 day PAIN SCORE: 0/10 LOCATION: Bilateral chest FINDINGS: The introducer sheath in the jugular veins in satisfactory position. There is a mediastinal drain. Th e patient is post median sternotomy. The lungs are clear. The osseous structures are grossly intact. There are degenerative changes in the shoulders CONCLUSION: 1. Stable post operative chest. Casey Yeung MD on January 24, 2017 at 14:30 Board Certified Radiologist. This report was verified electronically.
[2017-01-24] MEDS: ACETAMINOPHEN 1000 MG/100 ML VIAL IV SCH ×2 (15:47→20:49)
[2017-01-24] MEDS ORDERED: RESP: ALBUTEROL 2.5 MG/IPRATROPIUM 0.5 MG NEB (SCH) NEB (16:00)
[2017-01-24] MEDS: RESP: ALBUTEROL 2.5 MG/IPRATROPIUM 0.5 MG NEB (SCH) NEB ×2 (16:06→22:03)
[2017-01-24] MEDS: PRAMIPEXOLE DIHYDROCHLORIDE 0.25 MG TAB PO SCH (20:49)
[2017-01-24] MEDS: DONEPEZIL HCL 5 MG TAB PO SCH (20:49)
[2017-01-24] MEDS: lamoTRIgine 100 MG TAB PO SCH (20:49)
[2017-01-24] MEDS: AMIODARONE 200 MG TAB PO SCH (20:49)
[2017-01-24] MEDS: ceFAZolin 2 GM PREMIX 50 ML IV SCH (20:50)
[2017-01-24] MEDS: SODIUM CHLORIDE 0.9% FLUSH 10 ML FLUSH IV FLUSH SCH (20:50)
[2017-01-24] MEDS ORDERED: clonazePAM 0.5 MG TAB PO SCH (21:00)
[2017-01-24] MEDS ORDERED: traZODone HCL 100 MG TAB PO SCH (21:00)
[2017-01-25] VITALS (20 sets, daily range): BP systolic 71–150; BP diastolic 38–78; PULSE 67–104; RESP 14–18; TEMP 98–98.8; O2SAT 88–99
[2017-01-25] MEDS: ACETAMINOPHEN 1000 MG/100 ML VIAL IV SCH ×2 (02:00→08:55)
[2017-01-25] MEDS: RESP: ALBUTEROL 2.5 MG/IPRATROPIUM 0.5 MG NEB (SCH) NEB ×2 (03:46→20:08)
[2017-01-25 04:54] LABS: HEMATOCRIT 35.1 % (39.0-51.0); MEAN CELL VOLUME 95.5 FL (80.0-100.0); MEAN CORPUSCULAR HEMOGLOBIN 31.9 PG (27.0-34.0); MEAN CORPUSCULAR HGB CONC 33.4 % (32.0-36.0); PLATELET COUNT 164 TH/MM3 (150-450); RED BLOOD COUNT 3.68 MIL/MM3 (4.50-5.90); RED CELL DISTRIBUTION WIDTH 14.9 % (11.6-17.2); REVIEW FLAG FINAL; WHITE BLOOD COUNT 17.8 TH/MM3 (4.0-11.0)
--- NOTE | 2017-01-25 04:59 | RADRPT ---
EXAM DATE/TIME: 01/25/2017 03:29 [facility] COMPARISON: CHEST SINGLE AP, January 24, 2017, 13:17. INDICATIONS : Shortness of breath, possible pulmonary disease. MEDICAL HISTORY : Hypertension. Cardiovascular disease. SURGICAL HISTORY : CABG. ENCOUNTER: Subsequent ACUITY: 2 days PAIN SCORE: Non-responsive. LOCATION: Bilateral chest FINDINGS: Right IJ line is present with tip overlapping the expected region of the SVC. There is moderate pulmo nary edema not present previously. Pleural effusions are difficult to exclude. CONCLUSION: Interval development of moderate pulmonary edema. Chadwick Shields MD on January 25, 2017 at 4:57 Board Certified Radiologist. This report was verified electronically.
[2017-01-25 05:16] LABS: BICARBONATE 26.2 MEQ/L (21.0-32.0); MAGNESIUM 2.1 MG/DL (1.5-2.5); POTASSIUM 4.6 MEQ/L (3.5-5.1)
[2017-01-25] MEDS: PANTOPRAZOLE SOD 40 MG DELAYED RELEASE TAB PO SCH (07:28)
[2017-01-25] MEDS: ceFAZolin 2 GM PREMIX 50 ML IV SCH ×3 (07:28→22:32)
[2017-01-25] MEDS ORDERED: FUROSEMIDE 20 MG/2 ML VIAL IV PUSH ONE ×2 (08:30→14:00)
[2017-01-25] MEDS: CLOPIDOGREL 75 MG TAB PO SCH (08:53)
[2017-01-25] MEDS: CYCLOBENZAPRINE HCL 10 MG TAB PO SCH (08:53)
[2017-01-25] MEDS: lamoTRIgine 100 MG TAB PO SCH ×2 (08:53→22:34)
[2017-01-25] MEDS: ASPIRIN 81 MG CHEW TAB PO SCH (08:53)
[2017-01-25] MEDS: GABAPENTIN 300 MG CAP PO SCH ×3 (08:54→18:00)
[2017-01-25] MEDS: AMIODARONE 200 MG TAB PO SCH ×2 (08:54→22:33)
[2017-01-25] MEDS: FERROUS SULFATE 325 MG (65 MG ELEMENTAL IRON) TAB PO SCH (08:54)
[2017-01-25] MEDS: PRAVASTATIN SOD 40 MG TAB PO SCH (08:54)
[2017-01-25] MEDS: PRAMIPEXOLE DIHYDROCHLORIDE 0.25 MG TAB PO SCH ×2 (08:54→22:33)
[2017-01-25] MEDS: SODIUM CHLORIDE 0.9% FLUSH 10 ML FLUSH IV FLUSH SCH ×2 (08:55→22:32)
[2017-01-25] MEDS ORDERED: CYCLOBENZAPRINE HCL 10 MG TAB PO PRN (09:00)
[2017-01-25] MEDS ORDERED: amLODIPine BESYLATE 5 MG TAB PO SCH (09:00)
[2017-01-25] MEDS ORDERED: MELOXICAM 7.5 MG TAB PO SCH (09:00)
[2017-01-25] MEDS ORDERED: DEXTROSE 50% IN WATER 50 ML VIAL(D50) IV PRN (09:00)
[2017-01-25] MEDS ORDERED: SOD PHOSPHATE/SOD BIPHOSPHATE (ADULT) ENEMA 133ML RECTAL PRN (09:00)
[2017-01-25] MEDS ORDERED: METOPROLOL TARTRATE 25 MG TAB PO SCH (09:00)
[2017-01-25] MEDS ORDERED: GLUCAGON 1 MG/ML VIAL OTHER PRN (09:00)
[2017-01-25] MEDS: MULTIVITAMINS/MINERALS THERAPEUTIC TAB PO SCH (09:00)
[2017-01-25] MEDS ORDERED: BISACODYL 10 MG SUPP RECTAL PRN (09:00)
[2017-01-25] MEDS ORDERED: PILL SPLITTER OTHER PRN (09:30)
[2017-01-25] MEDS: DOCUSATE SODIUM 100 MG CAP PO SCH ×2 (09:35→21:00)
[2017-01-25] MEDS: MAGNESIUM HYDROXIDE SUSP 30 ML CUP PO SCH (09:35)
[2017-01-25] MEDS: INSULIN ASPART SUPPLEMENTAL SCALE SQ SCH ×4 (09:36→22:39)
[2017-01-25] MEDS ORDERED: DOPamine INJ PREMIX 500 ML ONE (13:17)
[2017-01-25] MEDS ORDERED: NALOXONE HCL 0.4 MG/ML AMP ONE (13:26)
[2017-01-25 13:41] LABS: HEMATOCRIT 31.3 % (39.0-51.0)
[2017-01-25] MEDS ORDERED: NOREPINEPHRINE-DEXTROSE DRIP 250 ML IV ONE (13:53)
[2017-01-25 13:56] LABS: BICARBONATE 29.1 MEQ/L (21.0-32.0); MAGNESIUM 2.6 MG/DL (1.5-2.5); POTASSIUM 4.6 MEQ/L (3.5-5.1)
[2017-01-25] MEDS ORDERED: POTASSIUM CHLORIDE 10 MEQ CONTROLLED RELEASE TAB PO ONE (14:00)
[2017-01-25] MEDS ORDERED: RESP: ALBUTEROL 2.5 MG/IPRATROPIUM 0.5 MG NEB (SCH) NEB (14:00)
[2017-01-25] MEDS ORDERED: NALOXONE HCL 0.4 MG/ML AMP IV ONE (14:00)
[2017-01-25] MEDS ORDERED: DOBUTamine 250 MG/D5W 250 ML PREMIX DRIP IV SCH (14:00)
[2017-01-25] MEDS ORDERED: MIDAZOLAM HCL 5 MG/ML VIAL (1 ML) ONE (14:06)
--- NOTE | 2017-01-25 14:15 | RADRPT ---
EXAM DATE/TIME: 01/25/2017 13:28 [facility] COMPARISON: CHEST SINGLE AP, January 25, 2017, 3:29. INDICATIONS : Shortness of breath. MEDICAL HISTORY : Hypertension. Cardiovascular disease. SURGICAL HISTORY : CABG. ENCOUNTER: Subsequent ACUITY: 2 days PAIN SCORE: 0/10 LOCATION: Bilateral chest FINDINGS: There is a large right pleural effusion and small left effusion these are similar previous exam. The patient's right jugular lines in good position. As mediastinal drain. The patient is post median ster notomy. The heart is enlarged. The bony structures are grossly intact. CONCLUSION: 1. Cardiomegaly and sizable bilateral effusions. Casey Yeung MD on January 25, 2017 at 14:12 Board Certified Radiologist. This report was verified electronically.
[2017-01-25] MEDS ORDERED: PROPOFOL 1000 MG/100 ML INJ 100 ML IV SCH (14:30)
[2017-01-25] MEDS ORDERED: fentaNYL DRIP 250 ML IV SCH (14:30)
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
--- NOTE | 2017-01-25 14:57 | PD.PROCEDR ---
Procedure Note Procedure DATE: 01/25/2017 PROCEDURE: Right femoral arterial catheter placement INDICATION: Hypertension/vascular access DETAILS OF PROCEDURE The patient was placed in supine position. The skin was cleansed with Chloraprep. Additional barrier precautions included large sterile drape, sterile gloves, sterile gown, face mask, and hat. 1% lidocaine was used for local anesthesia. Under direct ultrasound guidance and on the initial attempt, the artery was accessed with an introducer needle. The guide wire was advanced. Using Seldinger technique 20 gauge arterial catheter was placed. The guide wire was removed. The catheter was connected to a transducer line and flushed with saline. The video monitor displayed normal arterial wave forms. The catheter was secured with 2-0 silk. A sterile dressing with antibiotic disc was applied. ESTIMATED BLOOD LOSS: minimal COMPLICATIONS: None Scotty Zavala MD Jan 25, 2017 14:57
[2017-01-25 15:08] LABS: BLOOD GAS BASE EXCESS -2.6 mmol/L (-2-2); BLOOD GAS CARBOXYHEMOGLOBIN 1.3 % (0-4); BLOOD GAS HCO3 23 mmol/L (22-26); BLOOD GAS O2 HGB SATURATION 86 % (90-100); BLOOD GAS OXYGEN CONTENT 13.1 Vol % (12.0-20.0); BLOOD GAS PCO2 49 mmHg (38-42); BLOOD GAS PO2 62 mmHg (61-120); BLOOD GAS TOTAL HGB 10.8 G/DL (12.0-16.0); CRITICAL VALUE YES; TEMP CORR TO 98.6
[2017-01-25 15:09] LABS: DRAW SITE ART LINE; FIO2 100 %; LITER FLOW 15 L/M; STAT NO
[2017-01-25] MEDS ORDERED: PHENYLEPHRINE INJ 160 MG in DEXTROSE 5% IN WATE 500 ML INJ 484 ML IV SCH ×2 (15:15)
[2017-01-25] MEDS ORDERED: TERBUTALINE INJ 1 MG/ML AMP SQ PRN (15:15)
[2017-01-25] MEDS ORDERED: PHENYLEPHRINE HCL 10 MG/ML VIAL ONE (15:24)
--- NOTE | 2017-01-25 15:27 | EKG ---
Date Performed: 01/25/2017 Time Performed: 03:55:06 PTAGE: 77 years EKG: Sinus tachycardia Normal ECG except for rate Compared to prior tracing no significant chavez e PREVIOUS TRACING : 01/03/2017 07.41 DOCTOR: Benjamin Sun Interpretating Date/Time 01/25/2017 15:26:19
[2017-01-25 16:24] LABS: AUTOMATED NEUTROPHIL # 16.4 TH/MM3 (1.8-7.7); BASOPHIL % 0.1 % (0.0-2.0); HEMATOCRIT 32.7 % (39.0-51.0); HEMO FLAGS DIFF FINAL; LYMPH % 3.1 % (9.0-44.0); LYMPHOCYTE # 0.6 TH/MM3 (1.0-4.8); MEAN CELL VOLUME 95.3 FL (80.0-100.0); MEAN CORPUSCULAR HGB CONC 33.5 % (32.0-36.0); MONO % 9.2 % (0.0-8.0); NEUT % 87.6 % (16.0-70.0); PLATELET COUNT 172 TH/MM3 (150-450); RED BLOOD COUNT 3.43 MIL/MM3 (4.50-5.90); RED CELL DISTRIBUTION WIDTH 14.7 % (11.6-17.2); WHITE BLOOD COUNT 18.8 TH/MM3 (4.0-11.0)
--- NOTE | 2017-01-25 16:44 | ECHRPT ---
Indication: EVALUATE EF CONCLUSIONS BP: / HR: 86 Rhythm: Sinus MEASUREMENTS (Male / Female) Normal Values Technical Quality:Good 2D ECHO LV Diastolic Diameter PLAX 3.9 cm 4.2 - 5.9 / 3.9 - 5.3 cm LV Systolic Diameter PLAX 3.1 cm IVS Diastolic Thickness 1.1 cm 0.6 - 1.0 / 0.6 - 0.9 cm LVPW Diastolic Thickness 1.1 cm 0.6 - 1.0 / 0.6 - 0.9 cm LV Relative Wall Thickness 0.6 LV Ejection Fraction MOD BP 52.1 % >= 55 % LV Cardiac Index MOD BP 1808.3 cm/minm LV Ejection Fraction MOD 4C 52.7 % LV Cardiac Index MOD 4C 1906.1 cm/minm LV Ejection Fraction 4C AL 51.7 % LV Cardiac Index 4C AL 1932.7 cm/minm LV Ejection Fraction MOD 2C 46.6 % LV Cardiac Index MOD 2C 1319.6 cm/minm LV Ejection Fraction 2C AL 48.9 % LV Cardiac Index 2C AL 1441.4 cm/minm FINDINGS LEFT VENTRICLE The left ventricular systolic function is normal with an estimated ejection fraction in the range of 60-65%. The left ventricular systolic function is low normal with an estimated ejection fraction in the rang e of 50- 55%. Wall thickness is measured at the upper limits of normal. Normal left ventricular size. MITRAL VALVE Moderate mitral annular calcification. Dinesh Bhardwaj MD (Electronically Signed) Final Date:25 January 2017 16:43
[2017-01-25 17:00] LABS: ALT (GPT) 64 U/L (12-78); ANION GAP 10 MEQ/L (5-15); AST (GOT) 50 U/L (15-37); BLOOD UREA NITROGEN 28 MG/DL (7-18); CHLORIDE 101 MEQ/L (98-107); GLOMERULAR FILTRATION RATE 55 ML/MIN (>89); MAGNESIUM 2.6 MG/DL (1.5-2.5); POTASSIUM 4.5 MEQ/L (3.5-5.1); SODIUM (NA) 136 MEQ/L (136-145)
[2017-01-25 17:10] LABS: ALKALINE PHOSPHATASE 79 U/L (45-117); CREATINE KINASE 560 U/L (39-308); TOTAL BILIRUBIN ADULT 0.5 MG/DL (0.2-1.0)
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
--- NOTE | 2017-01-25 17:37 | PD.PROCEDR ---
Procedure Note Procedure DATE: 01/25/2017 PROCEDURE: Orotracheal intubation INDICATION: Aspiration with acute hypoxia and respiratory failure DETAILS OF PROCEDURE The patient was placed in optimal position and preoxygenated with 100% FiO2 via bag valve mask. At the start oxygen saturation was 92%. The patient was administered 25 g fentanyl IV and 2 mg Versed IV. I entered the oropharynx with a size 4 GVL glidescope blade and obtained a grade 3 view of the airway. On single attempt a size 7.5 cuffed endotracheal tube was passed through the vocal cords. Correct tube location was confirmed with end tidal CO2 detector and by auscultating over bilateral lung aguirre. The endotracheal tube was secured with adhesive tape at a depth of 23 cm at the lips. The patient was connected to the ventilator. The patient tolerated the procedure well without any apparent complications. Oxygen saturations were maintained greater than 88% all times. STAT chest x-ray pending at time of dictation. Scotty Zavala MD Jan 25, 2017 17:37
--- NOTE | 2017-01-25 18:12 | RADRPT ---
EXAM DATE/TIME: 01/25/2017 17:38 [facility] COMPARISON: No previous studies available for comparison. INDICATIONS : Post intubation. MEDICAL HISTORY : None. SURGICAL HISTORY : None. ENCOUNTER: Subsequent ACUITY: 1 day PAIN SCORE: 0/10 LOCATION: Bilateral chest FINDINGS: Patient is now intubated. Endotracheal tube tip is about 4 cm above the anna. Unchanged right inter nal jugular central venous catheter, tip at atriocaval junction. Moderate right and small left pleural effusions are again noted with basilar consolidation, not signi ficantly changed. No pneumothorax. CONCLUSION: Endotracheal tube tip is about 4 cm above the anna. No significant change bibasilar consolidation a nd pleural effusions. Jose Hernandez MD on January 25, 2017 at 18:09 Board Certified Radiologist. This report was verified electronically.
[2017-01-25] MEDS ORDERED: VANCOMYCIN INJ 1,000 MG in SODIUM CHLOR 0.9% 250 ML INJ 250 ML IV ONE (18:30)
[2017-01-25] MEDS: PIPERACIL-TAZO 4.5 GM PREMIX 100 ML IV SCH (18:35)
[2017-01-25 18:50] LABS: BLOOD GAS CARBOXYHEMOGLOBIN 1.4 % (0-4); BLOOD GAS HCO3 23 mmol/L (22-26); BLOOD GAS METHEMOGLOBIN 1.2 % (0-2); BLOOD GAS O2 HGB SATURATION 94 % (90-100); BLOOD GAS OXYGEN CONTENT 14.3 Vol % (12.0-20.0); BLOOD GAS PCO2 35 mmHg (38-42); BLOOD GAS PO2 86 mmHg (61-120); BLOOD GAS TOTAL HGB 10.7 G/DL (12.0-16.0); CRITICAL VALUE NO; FIO2 100 %; OXYGEN DEVICE VENTILATOR; TEMP CORR TO 98.6; VENT SETTINGS PRVC18/600/5PEEP
[2017-01-25 18:51] LABS: DRAW SITE ART LINE; STAT NO
[2017-01-25 19:58] LABS: CKMB 13.7 NG/ML (0.5-3.6)
[2017-01-25] MEDS: CHLORHEXIDINE 0.12% (ORAL KIT) 15 ML CUP MT SCH (22:32)
[2017-01-25] MEDS: SENNOSIDES 8.6 MG TAB PO SCH (22:33)
[2017-01-25] MEDS: DONEPEZIL HCL 5 MG TAB PO SCH (22:33)
[2017-01-26] VITALS (14 sets, daily range): BP systolic 102–145; BP diastolic 47–67; PULSE 78–137; RESP 16–20; TEMP 98.2–100.5; O2SAT 83–99
[2017-01-26] MEDS: PIPERACIL-TAZO 4.5 GM PREMIX 100 ML IV SCH ×3 (01:21→17:00)
[2017-01-26] MEDS: INSULIN ASPART SUPPLEMENTAL SCALE SQ SCH ×5 (02:00→22:00)
[2017-01-26] MEDS: ceFAZolin 2 GM PREMIX 50 ML IV SCH (04:27)
[2017-01-26] MEDS: PANTOPRAZOLE SOD 40 MG DELAYED RELEASE TAB PO SCH (04:27)
[2017-01-26 04:36] LABS: AUTOMATED NEUTROPHIL # 14.2 TH/MM3 (1.8-7.7); BASOPHIL % 0.2 % (0.0-2.0); EOSINOPHIL % 0.1 % (0.0-4.0); HEMATOCRIT 30.9 % (39.0-51.0); HEMO FLAGS DIFF FINAL; LYMPH % 4.9 % (9.0-44.0); LYMPHOCYTE # 0.8 TH/MM3 (1.0-4.8); MEAN CELL VOLUME 94.8 FL (80.0-100.0); MEAN CORPUSCULAR HEMOGLOBIN 31.2 PG (27.0-34.0); MEAN CORPUSCULAR HGB CONC 32.9 % (32.0-36.0); MONO % 7.5 % (0.0-8.0); NEUT % 87.3 % (16.0-70.0); PLATELET COUNT 149 TH/MM3 (150-450); RED BLOOD COUNT 3.26 MIL/MM3 (4.50-5.90); RED CELL DISTRIBUTION WIDTH 14.7 % (11.6-17.2); WHITE BLOOD COUNT 16.3 TH/MM3 (4.0-11.0)
[2017-01-26] MEDS: RESP: ALBUTEROL 2.5 MG/IPRATROPIUM 0.5 MG NEB (SCH) NEB ×4 (04:46→21:49)
[2017-01-26 05:01] LABS: BICARBONATE 27.8 MEQ/L (21.0-32.0); MAGNESIUM 2.5 MG/DL (1.5-2.5); POTASSIUM 3.7 MEQ/L (3.5-5.1)
--- NOTE | 2017-01-26 05:44 | RADRPT ---
EXAM DATE/TIME: 01/26/2017 04:30 [facility] COMPARISON: CHEST SINGLE AP, January 25, 2017, 17:38. INDICATIONS : Evaluate intubation and respiratory failure. MEDICAL HISTORY : None. SURGICAL HISTORY : None. ENCOUNTER: Subsequent ACUITY: 3 days PAIN SCORE: Non-responsive. LOCATION: Bilateral chest FINDINGS: The cardiac silhouette is enlarged in transverse diameter. Support lines and tubes are in satisfactor y position. Moderate size bilateral pleural effusions are identified. There is bilateral lower lobe a telectasis versus pneumonia. CONCLUSION: 1. Bilateral lower lobe atelectasis versus pneumonia. Bilateral effusions. There has been no signific ant change when compared to the prior exam. Jonathan Gimenez MD on January 26, 2017 at 5:42 Board Certified Radiologist. This report was verified electronically.
[2017-01-26] MEDS ORDERED: TERBUTALINE INJ 1 MG/ML AMP SQ PRN (07:15)
[2017-01-26] MEDS ORDERED: POTASSIUM CHLOR 20 MEQ PREMIX 100 ML IV ONE ×2 (07:15→08:00)
[2017-01-26] MEDS ORDERED: Vancomycin Consult Pharmacy 1 EA OTHER SCH (07:15)
[2017-01-26] MEDS ORDERED: NOREPINEPHRINE INJ 4 MG in SODIUM CHLOR 0.9% 250 ML INJ 246 ML IV SCH (07:15)
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
[2017-01-26] MEDS ORDERED: AMIODARONE 150 MG/D5W 97 ML BOLUS 10 MINUTES IV ONE ×2 (07:45)
[2017-01-26] MEDS: CHLORHEXIDINE 0.12% (ORAL KIT) 15 ML CUP MT SCH ×2 (08:00→20:00)
[2017-01-26] MEDS ORDERED: VANCOMYCIN 1,000 MG/NS 250 ML IV ONE ×2 (08:00)
[2017-01-26] MEDS: PRAVASTATIN SOD 40 MG TAB PO SCH (08:13)
[2017-01-26] MEDS: ASPIRIN 81 MG CHEW TAB PO SCH (08:14)
[2017-01-26] MEDS: DOCUSATE SODIUM 100 MG CAP PO SCH ×2 (08:14→21:00)
[2017-01-26] MEDS: GABAPENTIN 300 MG CAP PO SCH ×2 (08:14→13:00)
[2017-01-26] MEDS: lamoTRIgine 100 MG TAB PO SCH ×2 (08:14→21:00)
[2017-01-26] MEDS: MAGNESIUM HYDROXIDE SUSP 30 ML CUP PO SCH (08:15)
[2017-01-26] MEDS: CLOPIDOGREL 75 MG TAB PO SCH (08:15)
[2017-01-26] MEDS: PRAMIPEXOLE DIHYDROCHLORIDE 0.25 MG TAB PO SCH ×2 (08:18→21:00)
[2017-01-26] MEDS: AMIODARONE INJ 450 MG in D5W (EXCEL BAG) 241 ML IV SCH (08:19)
[2017-01-26] MEDS: POLYETHYLENE GLYCOL 17 GM PKG PO SCH (09:00)
[2017-01-26] MEDS: SODIUM CHLORIDE 0.9% FLUSH 10 ML FLUSH IV FLUSH SCH ×2 (09:00→21:00)
[2017-01-26] MEDS: AMIODARONE 200 MG TAB PO SCH ×2 (09:00→21:00)
[2017-01-26] MEDS: MULTIVITAMINS/MINERALS THERAPEUTIC TAB PO SCH (09:00)
[2017-01-26] MEDS: FERROUS SULFATE 325 MG (65 MG ELEMENTAL IRON) TAB PO SCH (09:00)
[2017-01-26] MEDS ORDERED: DILTIAZEM HCL 25 MG/5 ML VIAL IV ONE (12:30)
[2017-01-26] MEDS ORDERED: DILTIAZEM INJ 125 MG in SODIUM CHLORIDE 0.9% INJ 100 ML IV SCH (12:45)
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
[2017-01-26] MEDS: SODIUM CHLOR 0.9% 1000 ML INJ 1,000 ML IV SCH (20:00)
[2017-01-26] MEDS: DONEPEZIL HCL 5 MG TAB PO SCH (21:00)
[2017-01-26] MEDS: SENNOSIDES 8.6 MG TAB PO SCH (21:00)
--- NOTE | 2017-01-26 22:23 | EKG ---
Date Performed: 01/26/2017 Time Performed: 07:27:54 PTAGE: 77 years EKG: Atrial fibrillation with rapid ventricular response. Abnormal ECG PREVIOUS TRACING : 01/25/2017 19.34 DOCTOR: Kim Zuniga Interpretating Date/Time 01/26/2017 22:22:43
--- NOTE | 2017-01-26 22:39 | EKG ---
Date Performed: 01/25/2017 Time Performed: 19:34:58 PTAGE: 77 years EKG: Sinus rhythm with bigeminal PACs with borderline 1st degree A-V block. Consider left atrial abnormality Abnormal ECG PREVIOUS TRACING : 01/25/2017 13.18 DOCTOR: Kim Zuniga Interpretating Date/Time 01/26/2017 22:38:19
--- NOTE | 2017-01-26 22:52 | EKG ---
Date Performed: 01/25/2017 Time Performed: 13:18:46 PTAGE: 77 years EKG: Sinus rhythm with frequent PACs. Borderline ECG PREVIOUS TRACING : 01/25/2017 03.55 DOCTOR: Kim Zuniga Interpretating Date/Time 01/26/2017 22:50:24
[2017-01-27] VITALS (11 sets, daily range): BP systolic 124–166; BP diastolic 50–118; PULSE 69–122; RESP 16–24; TEMP 97.6–98.8; O2SAT 92–99
[2017-01-27] MEDS ORDERED: VANCOMYCIN INJ 1,500 MG in SODIUM CHLORID 0.9% 500 ML INJ 500 ML IV SCH ×2
[2017-01-27] MEDS: RESP: ALBUTEROL 2.5 MG/IPRATROPIUM 0.5 MG NEB (SCH) NEB ×4 (03:07→21:02)
[2017-01-27] MEDS: PIPERACIL-TAZO 4.5 GM PREMIX 100 ML IV SCH ×3 (04:15→17:25)
[2017-01-27 04:27] LABS: BASOPHIL % 0.3 % (0.0-2.0); EOSINOPHIL % 0.2 % (0.0-4.0); HEMATOCRIT 25.8 % (39.0-51.0); HEMO FLAGS DIFF FINAL; LYMPH % 4.9 % (9.0-44.0); LYMPHOCYTE # 0.6 TH/MM3 (1.0-4.8); MEAN CELL VOLUME 95.2 FL (80.0-100.0); MEAN CORPUSCULAR HEMOGLOBIN 31.5 PG (27.0-34.0); MONO % 7.6 % (0.0-8.0); PLATELET COUNT 116 TH/MM3 (150-450); RED BLOOD COUNT 2.71 MIL/MM3 (4.50-5.90); RED CELL DISTRIBUTION WIDTH 14.6 % (11.6-17.2); WHITE BLOOD COUNT 11.6 TH/MM3 (4.0-11.0)
--- NOTE | 2017-01-27 04:27 | RADRPT ---
EXAM DATE/TIME: 01/27/2017 03:10 [facility] COMPARISON: CHEST SINGLE AP, January 26, 2017, 4:30. INDICATIONS : Shortness of breath, possible pulmonary disease. MEDICAL HISTORY : None. SURGICAL HISTORY : None. ENCOUNTER: Subsequent ACUITY: 4 - 6 days PAIN SCORE: Non-responsive. LOCATION: Bilateral chest FINDINGS: Right central line in superior vena cava. Bilateral mostly basilar airspace disease present with pleu ral effusions. No pneumothorax. Heart size mildly enlarged. CONCLUSION: 1. Right central line in superior vena cava. Bilateral mostly basilar airspace disease with small eff usions. Mehdi Michaels MD on January 27, 2017 at 4:24 Board Certified Radiologist. This report was verified electronically.
[2017-01-27 04:50] LABS: MAGNESIUM 2.4 MG/DL (1.5-2.5); POTASSIUM 4.3 MEQ/L (3.5-5.1)
[2017-01-27 05:12] LABS: CALCIUM-PROTEIN CORRECTED 8.4 MG/DL (8.5-10.1)
[2017-01-27] MEDS: INSULIN ASPART SUPPLEMENTAL SCALE SQ SCH ×5 (06:00→23:46)
[2017-01-27] MEDS: PANTOPRAZOLE SOD 40 MG DELAYED RELEASE TAB PO SCH ×2 (06:00→14:01)
[2017-01-27] MEDS: CHLORHEXIDINE 0.12% (ORAL KIT) 15 ML CUP MT SCH ×2 (08:00→20:00)
[2017-01-27] MEDS: AMIODARONE INJ 450 MG in D5W (EXCEL BAG) 241 ML IV SCH ×2 (08:27→23:33)
--- NOTE | 2017-01-27 08:40 | PQ ---
Physician Query Response Document PATIENT: AILYN BE : 1940 ADMIT DATE: 01/24/2017 5:28 AM DISCH DATE: RESPONDING PROVIDER #: [email or web address] QUERY TEXT: CHF Acuity and Type Congestive Heart Failure is documented in the Medical Record. Please document the type and acuity (in cludes probable or suspected) Such as: Type: -- Systolic -- Diastolic -- Combined -- Other, please specify Acuity: -- Acute -- Chronic -- Acute on chronic -- Other, please specify The patient's Clinical Indicators include: PER OPERATIVE RESPORT: PREOPERATIVE DIAGNOSES 1. Severe Aortic Stenosis. 2. Moderate Aortic Insufficiency 3. CHF PER [facility] PROGRESS NOTE 02/23/17: Severe with depressed LV function PMH: / EF 54 % CHEST X RAY 01/25/17 SHOWS INTERVAL DEVELOPMENT OF MODERATE PULMONARY EDEMA LASIX ADMINISTERED NO BNP REPORTED NO ECHO IN MEDICAL RECORD Query created by: Keily Vincent on 01/25/2017 11:22 AM RESPONSE TEXT: Acute exacerbation of chronic combined CHF Electronically signed by: Sommer Demarco MD 01/27/2017 8:37 AM
[2017-01-27] MEDS ORDERED: ACETAMINOPHEN 1000 MG/100 ML VIAL IV PRN (09:00)
[2017-01-27] MEDS ORDERED: GLUCAGON 1 MG/ML VIAL OTHER PRN (09:00)
[2017-01-27] MEDS: AMIODARONE 200 MG TAB PO SCH ×3 (09:00→20:06)
[2017-01-27] MEDS: POLYETHYLENE GLYCOL 17 GM PKG PO SCH (09:00)
[2017-01-27] MEDS ORDERED: BISACODYL 10 MG SUPP RECTAL PRN (09:00)
[2017-01-27] MEDS: MULTIVITAMINS/MINERALS THERAPEUTIC TAB PO SCH ×3 (09:00→14:13)
[2017-01-27] MEDS ORDERED: SOD PHOSPHATE/SOD BIPHOSPHATE (ADULT) ENEMA 133ML RECTAL PRN (09:00)
[2017-01-27] MEDS: SODIUM CHLOR 0.9% 1000 ML INJ 1,000 ML IV SCH ×2 (09:00→23:33)
[2017-01-27] MEDS ORDERED: DEXTROSE 50% IN WATER 50 ML VIAL(D50) IV PRN (09:00)
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
[2017-01-27 10:22] LABS: BLOOD GAS BASE EXCESS -0.7 mmol/L (-2-2); BLOOD GAS CARBOXYHEMOGLOBIN 1.7 % (0-4); BLOOD GAS HCO3 23 mmol/L (22-26); BLOOD GAS METHEMOGLOBIN 1.2 % (0-2); BLOOD GAS O2 HGB SATURATION 96 % (90-100); BLOOD GAS OXYGEN CONTENT 12.8 Vol % (12.0-20.0); BLOOD GAS PCO2 38 mmHg (38-42); BLOOD GAS PO2 140 mmHg (61-120); BLOOD GAS TOTAL HGB 9.3 G/DL (12.0-16.0); TEMP CORR TO 98.6
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
[2017-01-27 10:23] LABS: CRITICAL VALUE NO
[2017-01-27 10:24] LABS: DRAW SITE ART LINE; LITER FLOW 15 L/M; OXYGEN DEVICE PRB MASK; STAT NO
[2017-01-27] MEDS ORDERED: SODIUM PHOSPHATE INJ 30 MMOL in SODIUM CHLOR 0.9% 250 ML INJ 250 ML IV ONE (11:00)
--- NOTE | 2017-01-27 13:29 | RADRPT ---
EXAM DATE/TIME: 01/27/2017 11:36 [facility] COMPARISON: CHEST SINGLE AP, January 27, 2017, 3:10. INDICATIONS : Post NG tube placement MEDICAL HISTORY : None. SURGICAL HISTORY : None. ENCOUNTER: Initial ACUITY: 1 day PAIN SCORE: Non-responsive. LOCATION: Left upper quadrant FINDINGS: Single frontal view of the abdomen demonstrates feeding tube with weighted tip overlying the gastric cardia region of the stomach. There is a nonobstructive bowel gas pattern. There are pleural-parenchy mal opacities at both lung bases. CONCLUSION: Feeding tube distal tip is in the proximal stomach in the gastric cardia region. Jose Mcmahan MD on January 27, 2017 at 13:25 Board Certified Radiologist. This report was verified electronically.
[2017-01-27] MEDS: MAGNESIUM HYDROXIDE SUSP 30 ML CUP PO SCH ×2 (14:01→14:05)
[2017-01-27] MEDS: lamoTRIgine 100 MG TAB PO SCH ×2 (14:02→20:50)
[2017-01-27] MEDS: GABAPENTIN 300 MG CAP PO SCH ×2 (14:02→17:26)
[2017-01-27] MEDS: PRAMIPEXOLE DIHYDROCHLORIDE 0.25 MG TAB PO SCH ×2 (14:02→20:08)
[2017-01-27] MEDS: ASPIRIN 81 MG CHEW TAB PO SCH (14:02)
[2017-01-27] MEDS: CLOPIDOGREL 75 MG TAB PO SCH (14:03)
[2017-01-27] MEDS: PRAVASTATIN SOD 40 MG TAB PO SCH (14:03)
[2017-01-27] MEDS: DOCUSATE SODIUM 100 MG CAP PO SCH ×3 (14:11→20:06)
[2017-01-27] MEDS: FERROUS SULFATE 325 MG (65 MG ELEMENTAL IRON) TAB PO SCH (14:11)
[2017-01-27] MEDS: SODIUM CHLORIDE 0.9% FLUSH 10 ML FLUSH IV FLUSH SCH ×2 (14:44→20:50)
--- NOTE | 2017-01-27 15:51 | RADRPT ---
EXAM DATE/TIME: 01/27/2017 15:12 [facility] COMPARISON: CT THORAX W/O CONTRAST, January 03, 2017, 13:55. ABDOMEN SINGLE VIEW, January 27, 2017, 11:36. INDICATIONS : Evaluate NG tube placement. MEDICAL HISTORY : None. SURGICAL HISTORY : None. ENCOUNTER: Subsequent ACUITY: 1 day PAIN SCORE: 0/10 LOCATION: abdomen FINDINGS: There has been interval repositioning of the feeding-type nasoenteric catheter. The catheter appears coiled in the stomach although review of prior chest CT demonstrates a nearly C-shaped stomach. Remai nder of the exam is unchanged. CONCLUSION: 1. Interval repositioning of feeding type nasoenteric catheter. The catheter appears coiled in the st omach although it may be in the duodenal jejunal junction given gastric anatomy on prior CT exam. Adv ancing catheter with repeat radiograph may more definitively confirm position. Alternatively, a small amount of contrast may be injected through the catheter prior to radiograph to determine tip positio nDonna Velasco MD on January 27, 2017 at 15: 2. 45 Board Certified Radiologist. This report was verified electronically.
[2017-01-27] MEDS: RESP: ALBUTEROL 2.5 MG/IPRATROPIUM 0.5 MG NEB (PRN) NEB ×3 (16:24→23:51)
[2017-01-27] MEDS: RESP: SODIUM CHLORIDE 3% 4 ML NEB NEB SCH (16:25)
[2017-01-27] MEDS: NYSTATIN SUSP 500,000 U/5 ML CUP SWISH-SPIT SCH ×2 (18:34→20:06)
[2017-01-27] MEDS: DONEPEZIL HCL 5 MG TAB PO SCH (20:06)
[2017-01-27] MEDS: SENNOSIDES 8.6 MG TAB PO SCH ×2 (20:06)
[2017-01-27] MEDS ORDERED: ISOPROTERENOL INJ 2 MG in DEXTROSE 5% IN WATER INJ 250 ML IV SCH ×2 (20:30)
[2017-01-27] MEDS ORDERED: ENALAPRILAT 1.25 MG/ML VIAL IV PUSH PRN (21:30)
[2017-01-27] MEDS ORDERED: ENALAPRILAT 2.5 MG/2 ML VIAL ONE (21:32)
[2017-01-27] MEDS: methylPREDNISolone SOD SUCC 40 MG/1 ML VIAL IV PUSH SCH (22:00)
[2017-01-27] MEDS ORDERED: DEXMEDETOMIDINE HCL 200 MCG/2 ML VIAL ONE (23:03)
[2017-01-27] MEDS: DEXMEDETOMIDINE INJ 200 MCG in SODIUM CHLORIDE 0.9% INJ 50 ML IV SCH (23:33)
[2017-01-28] VITALS (8 sets, daily range): BP systolic 106–136; BP diastolic 47–67; PULSE 68–80; RESP 16–20; TEMP 97.4–98.2; O2SAT 90–97
[2017-01-28] MEDS: PIPERACIL-TAZO 4.5 GM PREMIX 100 ML IV SCH ×3 (01:55→17:00)
[2017-01-28] MEDS: DEXMEDETOMIDINE INJ 200 MCG in SODIUM CHLORIDE 0.9% INJ 50 ML IV SCH ×2 (02:24→09:41)
[2017-01-28] MEDS: INSULIN ASPART SUPPLEMENTAL SCALE SQ SCH ×6 (02:32→22:35)
[2017-01-28] MEDS: RESP: SODIUM CHLORIDE 3% 4 ML NEB NEB SCH ×4 (03:38→20:44)
[2017-01-28 04:49] LABS: AUTOMATED NEUTROPHIL # 9.8 TH/MM3 (1.8-7.7); BASOPHIL % 0.1 % (0.0-2.0); HEMATOCRIT 25.9 % (39.0-51.0); LYMPH % 1.9 % (9.0-44.0); LYMPHOCYTE # 0.2 TH/MM3 (1.0-4.8); MEAN CELL VOLUME 94.5 FL (80.0-100.0); MEAN CORPUSCULAR HEMOGLOBIN 31.6 PG (27.0-34.0); MEAN CORPUSCULAR HGB CONC 33.4 % (32.0-36.0); MONO % 3.6 % (0.0-8.0); NEUT % 94.4 % (16.0-70.0); PLATELET COUNT 134 TH/MM3 (150-450); RED BLOOD COUNT 2.74 MIL/MM3 (4.50-5.90); RED CELL DISTRIBUTION WIDTH 14.5 % (11.6-17.2); WHITE BLOOD COUNT 10.3 TH/MM3 (4.0-11.0)
--- NOTE | 2017-01-28 04:54 | RADRPT ---
EXAM DATE/TIME: 01/28/2017 03:32 [facility] COMPARISON: CHEST SINGLE AP, January 27, 2017, 3:10. INDICATIONS : Evaluate for aspiration, shortness of breath. MEDICAL HISTORY : None. SURGICAL HISTORY : None. ENCOUNTER: Subsequent ACUITY: 1 week PAIN SCORE: 8/10 LOCATION: Bilateral chest FINDINGS: Single AP view of the chest. Nasogastric tube is now in place with tip below the [id number] of the radiograph. Right IJ central venous catheter remains in place and unchanged. Median sternotomy wires noted. Bilateral perihilar and basilar pulmonary opacity is again seen with slight increase in perih ilar component from prior study. Small bilateral pleural effusions unchanged. No evidence of pneumoth orax. CONCLUSION: Persistent bilateral pulmonary opacity with slight increase in perihilar component in dicating possible increased pulmonary edema. Feliciano Addison MD on January 28, 2017 at 4:51 Board Certified Radiologist. This report was verified electronically.
[2017-01-28 04:55] LABS: HEMO FLAGS DIFF FINAL
[2017-01-28 05:18] LABS: MAGNESIUM 2.6 MG/DL (1.5-2.5); POTASSIUM 3.8 MEQ/L (3.5-5.1)
[2017-01-28] MEDS: PANTOPRAZOLE SOD 40 MG DELAYED RELEASE TAB PO SCH (05:43)
[2017-01-28] MEDS: methylPREDNISolone SOD SUCC 40 MG/1 ML VIAL IV PUSH SCH (05:43)
[2017-01-28] MEDS ORDERED: POTASSIUM PHOSPHATE INJ 15 MMOL in SODIUM CHLORIDE 0.9% INJ 150 ML IV ONE (06:45)
[2017-01-28] MEDS ORDERED: POTASSIUM CHLORIDE 20 MEQ PWD PACKET PO ONE (06:45)
[2017-01-28] MEDS ORDERED: POTASSIUM CHLOR 20 MEQ PREMIX 100 ML IV ONE ×2 (06:45→17:15)
[2017-01-28] MEDS ORDERED: FUROSEMIDE 40 MG/4 ML VIAL IV PUSH ONE (06:45)
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
[2017-01-28] MEDS ORDERED: LABETALOL HCL 100 MG/20 ML VIAL IV PUSH PRN (07:00)
[2017-01-28] MEDS: RESP: ALBUTEROL 2.5 MG/IPRATROPIUM 0.5 MG NEB (SCH) NEB ×3 (07:38→20:44)
[2017-01-28] MEDS: CHLORHEXIDINE 0.12% (ORAL KIT) 15 ML CUP MT SCH ×2 (08:00→20:00)
[2017-01-28] MEDS: AMIODARONE 200 MG TAB PO SCH ×2 (09:00→20:52)
[2017-01-28] MEDS: POLYETHYLENE GLYCOL 17 GM PKG PO SCH (09:00)
[2017-01-28] MEDS: MAGNESIUM HYDROXIDE SUSP 30 ML CUP PO SCH (09:00)
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
[2017-01-28] MEDS: NYSTATIN SUSP 500,000 U/5 ML CUP SWISH-SPIT SCH ×4 (09:40→20:52)
[2017-01-28] MEDS: GABAPENTIN 300 MG CAP PO SCH ×3 (09:41→18:27)
[2017-01-28] MEDS: PRAMIPEXOLE DIHYDROCHLORIDE 0.25 MG TAB PO SCH ×2 (09:41→20:52)
[2017-01-28] MEDS: CLOPIDOGREL 75 MG TAB PO SCH (09:41)
[2017-01-28] MEDS: PRAVASTATIN SOD 40 MG TAB PO SCH (09:41)
[2017-01-28] MEDS: LANSOPRAZOLE SOLUTAB 30 MG TAB NG SCH (09:41)
[2017-01-28] MEDS: LISINOPRIL 5 MG TAB NG SCH ×2 (09:41→20:52)
[2017-01-28] MEDS: lamoTRIgine 100 MG TAB PO SCH ×2 (09:41→20:52)
[2017-01-28] MEDS: amLODIPine BESYLATE 5 MG TAB PO SCH (09:41)
[2017-01-28] MEDS: MULTIVITAMINS/MINERALS THERAPEUTIC TAB PO SCH (09:41)
[2017-01-28] MEDS: ASPIRIN 81 MG CHEW TAB PO SCH (09:42)
[2017-01-28] MEDS: DOCUSATE SODIUM 100 MG CAP PO SCH ×2 (09:42→20:52)
[2017-01-28] MEDS: SODIUM CHLORIDE 0.9% FLUSH 10 ML FLUSH IV FLUSH SCH ×2 (09:42→20:53)
[2017-01-28] MEDS: FERROUS SULFATE 300 MG /5ML UDC PO SCH (10:18)
[2017-01-28] MEDS: AMIODARONE INJ 450 MG in D5W (EXCEL BAG) 241 ML IV SCH (14:08)
[2017-01-28] MEDS: guaiFENesin SOLUTION 200 MG/10 ML CUP NG SCH ×2 (14:36→21:27)
[2017-01-28 16:05] LABS: BICARBONATE 27.8 MEQ/L (21.0-32.0); POTASSIUM 3.8 MEQ/L (3.5-5.1)
[2017-01-28] MEDS: DONEPEZIL HCL 5 MG TAB PO SCH (20:52)
[2017-01-28] MEDS: SENNOSIDES 8.6 MG TAB PO SCH (20:53)
[2017-01-28] MEDS ORDERED: PHARMACY ORDERED LAB ONE (23:45)
[2017-01-29] VITALS (8 sets, daily range): BP systolic 123–159; BP diastolic 58–71; PULSE 67–88; RESP 16–24; TEMP 97.3–98.7; O2SAT 92–97
[2017-01-29] MEDS: PIPERACIL-TAZO 4.5 GM PREMIX 100 ML IV SCH ×3 (01:19→16:55)
[2017-01-29] MEDS: INSULIN ASPART SUPPLEMENTAL SCALE SQ SCH ×5 (02:28→22:40)
[2017-01-29] MEDS: RESP: SODIUM CHLORIDE 3% 4 ML NEB NEB SCH ×4 (03:27→21:38)
[2017-01-29] MEDS: AMIODARONE INJ 450 MG in D5W (EXCEL BAG) 241 ML IV SCH (05:38)
[2017-01-29] MEDS: guaiFENesin SOLUTION 200 MG/10 ML CUP NG SCH ×3 (05:38→21:19)
--- NOTE | 2017-01-29 06:39 | RADRPT ---
EXAM DATE/TIME: 01/29/2017 04:59 [facility] COMPARISON: CHEST SINGLE AP, January 28, 2017, 3:32. INDICATIONS : Shortness of breath, possible pulmonary disease. MEDICAL HISTORY : None. SURGICAL HISTORY : None. ENCOUNTER: Subsequent ACUITY: 1 week PAIN SCORE: 6/10 LOCATION: Bilateral chest FINDINGS: Mild to moderate bibasilar consolidation and small effusions persist without significant change. No p neumothorax. Heart size stable, mildly enlarged. Nasogastric tube remains, tip in the stomach. There is a right internal jugular central venous cathet er again noted, tip in the right atrium. CONCLUSION: No significant change. Jose Hernandez MD on January 29, 2017 at 6:37 Board Certified Radiologist. This report was verified electronically.
[2017-01-29 06:43] LABS: AUTOMATED NEUTROPHIL # 10.5 TH/MM3 (1.8-7.7); BASOPHIL % 0.1 % (0.0-2.0); EOSINOPHIL % 0.3 % (0.0-4.0); HEMATOCRIT 25.8 % (39.0-51.0); HEMO FLAGS DIFF FINAL; LYMPH % 4.5 % (9.0-44.0); LYMPHOCYTE # 0.5 TH/MM3 (1.0-4.8); MEAN CELL VOLUME 96.1 FL (80.0-100.0); MEAN CORPUSCULAR HEMOGLOBIN 30.8 PG (27.0-34.0); MEAN CORPUSCULAR HGB CONC 32.1 % (32.0-36.0); MONO % 9.5 % (0.0-8.0); NEUT % 85.6 % (16.0-70.0); PLATELET COUNT 180 TH/MM3 (150-450); RED BLOOD COUNT 2.69 MIL/MM3 (4.50-5.90); RED CELL DISTRIBUTION WIDTH 14.4 % (11.6-17.2); WHITE BLOOD COUNT 12.2 TH/MM3 (4.0-11.0)
[2017-01-29 06:57] LABS: BICARBONATE 28.9 MEQ/L (21.0-32.0); MAGNESIUM 2.6 MG/DL (1.5-2.5); POTASSIUM 4.3 MEQ/L (3.5-5.1)
[2017-01-29] MEDS: RESP: ALBUTEROL 2.5 MG/IPRATROPIUM 0.5 MG NEB (SCH) NEB (07:25)
[2017-01-29 07:29] LABS: CALCIUM-PROTEIN CORRECTED 8.5 MG/DL (8.5-10.1)
[2017-01-29] MEDS: CHLORHEXIDINE 0.12% (ORAL KIT) 15 ML CUP MT SCH (08:00)
[2017-01-29] MEDS: AMIODARONE 200 MG TAB PO SCH ×2 (08:52→21:19)
[2017-01-29] MEDS: PRAMIPEXOLE DIHYDROCHLORIDE 0.25 MG TAB PO SCH ×2 (08:52→21:19)
[2017-01-29] MEDS: ASPIRIN 81 MG CHEW TAB PO SCH (08:52)
[2017-01-29] MEDS: POLYETHYLENE GLYCOL 17 GM PKG PO SCH (08:52)
[2017-01-29] MEDS: NYSTATIN SUSP 500,000 U/5 ML CUP SWISH-SPIT SCH ×4 (08:52→21:19)
[2017-01-29] MEDS: MAGNESIUM HYDROXIDE SUSP 30 ML CUP PO SCH (08:52)
[2017-01-29] MEDS: LISINOPRIL 5 MG TAB NG SCH ×2 (08:52→21:22)
[2017-01-29] MEDS: GABAPENTIN 300 MG CAP PO SCH ×3 (08:52→18:24)
[2017-01-29] MEDS: FERROUS SULFATE 300 MG /5ML UDC PO SCH (08:52)
[2017-01-29] MEDS: CLOPIDOGREL 75 MG TAB PO SCH (08:52)
[2017-01-29] MEDS: PRAVASTATIN SOD 40 MG TAB PO SCH (08:52)
[2017-01-29] MEDS: lamoTRIgine 100 MG TAB PO SCH ×2 (08:53→21:19)
[2017-01-29] MEDS: amLODIPine BESYLATE 5 MG TAB PO SCH (08:53)
[2017-01-29] MEDS: MULTIVITAMINS/MINERALS THERAPEUTIC TAB PO SCH (08:53)
[2017-01-29] MEDS: LANSOPRAZOLE SOLUTAB 30 MG TAB NG SCH (08:53)
[2017-01-29] MEDS: DOCUSATE SODIUM 100 MG CAP PO SCH ×2 (08:53→21:20)
[2017-01-29] MEDS: SODIUM CHLORIDE 0.9% FLUSH 10 ML FLUSH IV FLUSH SCH ×2 (08:54→21:21)
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
[2017-01-29] MEDS: RESP: ALBUTEROL 2.5 MG/IPRATROPIUM 0.5 MG NEB (PRN) NEB ×3 (11:02→21:38)
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
--- NOTE | 2017-01-29 12:45 | RADRPT ---
EXAM DATE/TIME: 01/29/2017 12:02 [facility] COMPARISON: CT THORAX W/O CONTRAST, January 03, 2017, 13:55. INDICATIONS : Evaluate for Pleural effusion. RADIATION DOSE: 5.6 CTDIvol (mGy) MEDICAL HISTORY : Cardiovascular disease. Hypertension. Alzheimer's. SURGICAL HISTORY : Appendectomy. ENCOUNTER: Subsequent ACUITY: 1 day PAIN SCALE: 0/10 LOCATION: Chest TECHNIQUE: Volumetric scanning of the chest was performed. Using automated exposure control and adjustment of t he mA and/or kV according to patient size, radiation dose was kept as low as reasonably achievable to obtain optimal diagnostic quality images. FINDINGS: There has been deterioration in the appearance of the chest. Patchy airspace disease is seen in both the right and left lungs. Consolidative changes present in both lung bases. Small bilateral pleural effusions are evident. These are larger on the left than the right. The effusion on the left occupies approximately 15% of the le ft hemithorax. Most of the consolidative changes seen by chest radiograph are in the lung. There is elevation of th e left hemidiaphragm. Marked coronary artery calcifications are noted. Valvular calcifications are evident as well. CONCLUSION: Deterioration in appearance of the chest with increasing consolidative changes in both lung bases and small bilateral pleural effusions worse on the left than the right. Eris Yeung MD FACR on January 29, 2017 at 12:15 Board Certified Radiologist. This report was verified electronically.
[2017-01-29] MEDS ORDERED: FUROSEMIDE 40 MG/4 ML VIAL IV PUSH STA (14:44)
--- NOTE | 2017-01-29 14:44 | PD.PROCEDR ---
Procedure Note Procedure PROCEDURE PERFORMED: Thoracentesis. INDICATIONS FOR PROCEDURE: Moderate L Pleural effusion. The patient has dyspnea , with hypoxemic respiratory failure and aspiration pneumonia DESCRIPTION OF PROCEDURE: After obtaining written informed consent, the Left lower chest site was marked with US and sterilely prepared. Full barrier and sterile precautions were used. 1% lidocaine was used for local anesthesia to infiltrate skin and subcutaneous tissue. A small skin thang was made with scalpel and thoracentesis Angiocath was introduced into pleural fluid under US guidance. Slightly blood tinged pleural fluid was aspirated. Needle was removed leaving catheter in pleural space. Approximately 30 ml pleural fluid was collected for lab studies. Catheter was connected to Vacutainer via tubing. A total of 700 mL of blood-tinged, slightly cloudy fluid was removed without difficulty. There were no immediate complications. Patient tolerated procedure well. Blood loss for the procedure was less than 1 mL Ricardo Garcia MD Jan 29, 2017 14:44
[2017-01-29] MEDS ORDERED: MORPHINE SULFATE 4 MG/ML INJ IV PUSH ONE (15:00)
--- NOTE | 2017-01-29 15:11 | RADRPT ---
EXAM DATE/TIME: 01/29/2017 14:29 [facility] COMPARISON: CT THORAX W/O CONTRAST, January 29, 2017, 12:02. CHEST SINGLE AP, January 29, 2017, 4:59. INDICATIONS : Status post thoracentesis. MEDICAL HISTORY : Cardiovascular disease. Hypertension. Alzheimer's. SURGICAL HISTORY : Appendectomy. ENCOUNTER: Subsequent ACUITY: 1 week PAIN SCORE: Non-responsive. LOCATION: Bilateral chest FINDINGS: The heart is enlarged the patient is post median sternotomy. There are bilateral effusions and diffus e interstitial prominence suggesting congestive failure. The nasogastric tube has been removed. Right jugular lines in good position. CONCLUSION: 1. Congestive failure. Stable compared to previous examination. Casey Yeung MD on January 29, 2017 at 15:08 Board Certified Radiologist. This report was verified electronically.
[2017-01-29] MEDS ORDERED: methylPREDNISolone SOD SUCC 125 MG/2 ML VIAL IV PUSH ONE (16:00)
[2017-01-29] MEDS: POTASSIUM CHLORIDE 25 MEQ EFFERVESCENT TAB PO SCH (16:55)
[2017-01-29 16:59] LABS: PLEURAL FLUID LYMPHS 0 %
[2017-01-29] MEDS: TIOTROPIUM BROMIDE 18 MCG INH INH SCH (17:00)
[2017-01-29 17:21] LABS: BLOOD, URINE MOD (NEG); GLUCOSE,URINE NEG (NEG); KETONE, URINE NEG (NEG); NITRITE,URINE NEG (NEG); PH, URINE 7.5 (5.0-8.5); URINE COLOR YELLOW (YELLW/STRAW)
[2017-01-29 17:23] LABS: COMMENT (UR) CATH-CULTURE IND; CULTURE IF INDICATED CATH CULTURE IND
[2017-01-29] MEDS: FUROSEMIDE 40 MG/4 ML VIAL IV PUSH SCH (18:24)
[2017-01-29] MEDS: SENNOSIDES 8.6 MG TAB PO SCH (21:00)
[2017-01-29] MEDS: methylPREDNISolone SOD SUCC 125 MG/2 ML VIAL IV PUSH SCH (21:19)
[2017-01-29] MEDS: DONEPEZIL HCL 5 MG TAB PO SCH (21:20)
[2017-01-29] MEDS: BUDESONIDE-FORMOTEROL 160/4.5 MCG INHALER INH SCH (21:21)
[2017-01-29] MEDS: METOPROLOL TARTRATE 25 MG TAB PO SCH (21:22)
[2017-01-30] VITALS (10 sets, daily range): BP systolic 128–145; BP diastolic 57–72; PULSE 62–78; RESP 15–18; TEMP 97.9–98.5; O2SAT 91–99
[2017-01-30] MEDS: PIPERACIL-TAZO 4.5 GM PREMIX 100 ML IV SCH ×3 (01:48→16:53)
[2017-01-30] MEDS: INSULIN ASPART SUPPLEMENTAL SCALE SQ SCH ×5 (01:51→20:37)
[2017-01-30] MEDS: RESP: SODIUM CHLORIDE 3% 4 ML NEB NEB SCH (04:17)
[2017-01-30] MEDS: RESP: ALBUTEROL 2.5 MG/IPRATROPIUM 0.5 MG NEB (PRN) NEB ×2 (04:17→09:25)
[2017-01-30 04:27] LABS: HEMATOCRIT 25.2 % (39.0-51.0); MEAN CELL VOLUME 93.6 FL (80.0-100.0); MEAN CORPUSCULAR HEMOGLOBIN 31.9 PG (27.0-34.0); MEAN CORPUSCULAR HGB CONC 34.1 % (32.0-36.0); PLATELET COUNT 248 TH/MM3 (150-450); RED BLOOD COUNT 2.69 MIL/MM3 (4.50-5.90); RED CELL DISTRIBUTION WIDTH 14.6 % (11.6-17.2); REVIEW FLAG FINAL; WHITE BLOOD COUNT 13.3 TH/MM3 (4.0-11.0)
[2017-01-30 04:50] LABS: BICARBONATE 35.1 MEQ/L (21.0-32.0); POTASSIUM 4.3 MEQ/L (3.5-5.1)
[2017-01-30] MEDS: guaiFENesin SOLUTION 200 MG/10 ML CUP NG SCH ×3 (06:33→21:05)
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
[2017-01-30] MEDS: NYSTATIN SUSP 500,000 U/5 ML CUP SWISH-SPIT SCH ×4 (10:08→20:34)
[2017-01-30] MEDS: LISINOPRIL 5 MG TAB NG SCH ×2 (10:08→20:34)
[2017-01-30] MEDS: lamoTRIgine 100 MG TAB PO SCH ×2 (10:08→20:35)
[2017-01-30] MEDS: MAGNESIUM HYDROXIDE SUSP 30 ML CUP PO SCH (10:08)
[2017-01-30] MEDS: POLYETHYLENE GLYCOL 17 GM PKG PO SCH (10:08)
[2017-01-30] MEDS: GABAPENTIN 300 MG CAP PO SCH ×2 (10:09→13:50)
[2017-01-30] MEDS: PRAVASTATIN SOD 40 MG TAB PO SCH (10:09)
[2017-01-30] MEDS: DOCUSATE SODIUM 100 MG CAP PO SCH ×2 (10:09→20:35)
[2017-01-30] MEDS: AMIODARONE 200 MG TAB PO SCH ×2 (10:09→20:35)
[2017-01-30] MEDS: POTASSIUM CHLORIDE 25 MEQ EFFERVESCENT TAB PO SCH (10:10)
[2017-01-30] MEDS: METOPROLOL TARTRATE 25 MG TAB PO SCH ×2 (10:11→20:35)
[2017-01-30] MEDS: FERROUS SULFATE 300 MG /5ML UDC PO SCH (10:12)
[2017-01-30] MEDS: DONEPEZIL HCL 5 MG TAB PO SCH ×2 (10:12→20:34)
[2017-01-30] MEDS: BUDESONIDE-FORMOTEROL 160/4.5 MCG INHALER INH SCH (10:12)
[2017-01-30] MEDS: PRAMIPEXOLE DIHYDROCHLORIDE 0.25 MG TAB PO SCH ×2 (10:14→20:33)
[2017-01-30] MEDS: TIOTROPIUM BROMIDE 18 MCG INH INH SCH (10:15)
--- NOTE | 2017-01-30 10:31 | RADRPT ---
EXAM DATE/TIME: 01/30/2017 09:18 [place] COMPARISON: CHEST SINGLE AP, January 29, 2017, 14:29. INDICATIONS : Patient is short of breath. MEDICAL HISTORY : Cardiovascular disease. Hypertension SURGICAL HISTORY : None. ENCOUNTER: Subsequent ACUITY: 1 week PAIN SCORE: 0/10 LOCATION: Bilateral chest FINDINGS: The patient is status-post sternotomy. There is a right internal jugular central line in place with the tip overlying the SVC. The heart size is upper limits of normal. There is increased density at the right base with some elevation of the right hemidiaphragm. There is also some increased density in the medial left base and the retrocardiac region. There is degenerative change at the glenohumera l joints. CONCLUSION: 1. Right base atelectasis or consolidation. Some degree of effusion on the right side can not be exc luded. 2. Mild increased density at the medial left base representing some focal consolidation or atelectasi s. Jose Stephens MD on January 30, 2017 at 9:58 Board Certified Radiologist. This report was verified electronically.
[2017-01-30] MEDS: methylPREDNISolone SOD SUCC 125 MG/2 ML VIAL IV PUSH SCH ×2 (10:33→20:34)
[2017-01-30] MEDS: FUROSEMIDE 40 MG/4 ML VIAL IV PUSH SCH ×2 (10:34→18:00)
[2017-01-30] MEDS: CLOPIDOGREL 75 MG TAB PO SCH (10:48)
[2017-01-30] MEDS: LANSOPRAZOLE SOLUTAB 30 MG TAB NG SCH (10:48)
[2017-01-30] MEDS: ASPIRIN 81 MG CHEW TAB PO SCH (10:48)
[2017-01-30] MEDS: MULTIVITAMINS/MINERALS THERAPEUTIC TAB PO SCH (10:48)
[2017-01-30] MEDS: amLODIPine BESYLATE 5 MG TAB PO SCH (10:49)
[2017-01-30] MEDS: SODIUM CHLORIDE 0.9% FLUSH 10 ML FLUSH IV FLUSH SCH ×2 (10:50→20:34)
[2017-01-30] MEDS: RESP: ALBUTEROL 2.5 MG/IPRATROPIUM 0.5 MG NEB (SCH) NEB ×2 (13:12→19:37)
[2017-01-30] MEDS ORDERED: ALPRAZolam 0.25 MG TAB PO PRN (16:30)
[2017-01-30] MEDS: SENNOSIDES 8.6 MG TAB PO SCH (20:34)
[2017-01-31] VITALS (17 sets, daily range): BP systolic 147–156; BP diastolic 64–80; PULSE 58–78; RESP 15–18; TEMP 97.3–98.4; O2SAT 92–96
[2017-01-31] MEDS: PIPERACIL-TAZO 4.5 GM PREMIX 100 ML IV SCH ×3 (00:56→15:32)
[2017-01-31] MEDS: guaiFENesin SOLUTION 200 MG/10 ML CUP NG SCH ×3 (06:16→20:42)
[2017-01-31] MEDS: INSULIN ASPART SUPPLEMENTAL SCALE SQ SCH ×4 (06:18→20:54)
[2017-01-31] MEDS ORDERED: RESP: ALBUTEROL 2.5 MG/3 ML NEB (PRN) NEB (07:00)
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
[2017-01-31 07:55] LABS: AUTOMATED NEUTROPHIL # 14.3 TH/MM3 (1.8-7.7); BASOPHIL # 0.1 TH/MM3 (0-0.2); BASOPHIL % 0.6 % (0.0-2.0); HEMATOCRIT 29.1 % (39.0-51.0); LYMPH % 3.9 % (9.0-44.0); LYMPHOCYTE # 0.6 TH/MM3 (1.0-4.8); MEAN CELL VOLUME 93.3 FL (80.0-100.0); MEAN CORPUSCULAR HEMOGLOBIN 31.4 PG (27.0-34.0); MEAN CORPUSCULAR HGB CONC 33.6 % (32.0-36.0); MONO % 6.6 % (0.0-8.0); NEUT % 88.9 % (16.0-70.0); PLATELET COUNT 368 TH/MM3 (150-450); RED BLOOD COUNT 3.11 MIL/MM3 (4.50-5.90); RED CELL DISTRIBUTION WIDTH 14.6 % (11.6-17.2); WHITE BLOOD COUNT 16.1 TH/MM3 (4.0-11.0)
[2017-01-31 08:07] LABS: HEMO FLAGS AUTO DIFF
[2017-01-31 08:27] LABS: BICARBONATE 33.8 MEQ/L (21.0-32.0); POTASSIUM 3.6 MEQ/L (3.5-5.1)
[2017-01-31] MEDS: POLYETHYLENE GLYCOL 17 GM PKG PO SCH (08:37)
[2017-01-31] MEDS: FERROUS SULFATE 300 MG /5ML UDC PO SCH (08:37)
[2017-01-31] MEDS: NYSTATIN SUSP 500,000 U/5 ML CUP SWISH-SPIT SCH ×4 (08:37→20:42)
[2017-01-31] MEDS: methylPREDNISolone SOD SUCC 125 MG/2 ML VIAL IV PUSH SCH (08:37)
[2017-01-31] MEDS: MAGNESIUM HYDROXIDE SUSP 30 ML CUP PO SCH (08:37)
[2017-01-31] MEDS: PRAVASTATIN SOD 40 MG TAB PO SCH (08:38)
[2017-01-31] MEDS: PRAMIPEXOLE DIHYDROCHLORIDE 0.25 MG TAB PO SCH ×2 (08:38→20:41)
[2017-01-31] MEDS: PANTOPRAZOLE SOD 40 MG DELAYED RELEASE TAB PO SCH (08:38)
[2017-01-31] MEDS: LISINOPRIL 5 MG TAB NG SCH ×2 (08:38→20:41)
[2017-01-31] MEDS: MULTIVITAMINS/MINERALS THERAPEUTIC TAB PO SCH (08:38)
[2017-01-31] MEDS: CLOPIDOGREL 75 MG TAB PO SCH (08:38)
[2017-01-31] MEDS: DOCUSATE SODIUM 100 MG CAP PO SCH ×2 (08:38→20:41)
[2017-01-31] MEDS: SODIUM CHLORIDE 0.9% FLUSH 10 ML FLUSH IV FLUSH SCH ×2 (08:38→20:54)
[2017-01-31] MEDS: METOPROLOL TARTRATE 25 MG TAB PO SCH ×2 (08:39→20:41)
[2017-01-31] MEDS: ASPIRIN 81 MG CHEW TAB PO SCH (08:39)
[2017-01-31] MEDS: amLODIPine BESYLATE 5 MG TAB PO SCH (08:39)
[2017-01-31] MEDS: AMIODARONE 200 MG TAB PO SCH ×2 (08:39→20:41)
[2017-01-31] MEDS: lamoTRIgine 100 MG TAB PO SCH ×2 (08:39→20:41)
[2017-01-31] MEDS: TIOTROPIUM BROMIDE 18 MCG INH INH SCH (08:40)
[2017-01-31] MEDS ORDERED: POTASSIUM CHLORIDE 25 MEQ EFFERVESCENT TAB PO ONE (09:30)
[2017-01-31] MEDS: RESP: ALBUTEROL 2.5 MG/IPRATROPIUM 0.5 MG NEB (SCH) NEB ×3 (09:44→20:00)
[2017-01-31 10:04] LABS: POLYCHROMASIA 2.1 % (0.0-1.9); SCAN/DIFF AUTO DIFF CONFIRMED
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
[2017-01-31 15:01] LABS: BODY FLUID LDH 313 U/L (()); BODY FLUID LDH SOURCE PLEURAL (())
[2017-01-31] MEDS: SENNOSIDES 8.6 MG TAB PO SCH (20:42)
[2017-01-31] MEDS: DONEPEZIL HCL 5 MG TAB PO SCH (20:49)
[2017-02-01] VITALS (26 sets, daily range): BP systolic 122–159; BP diastolic 46–76; PULSE 55–72; RESP 16–20; TEMP 97.5–98.6; O2SAT 91–95
[2017-02-01] MEDS: PIPERACIL-TAZO 4.5 GM PREMIX 100 ML IV SCH ×2 (00:13→07:46)
--- NOTE | 2017-02-01 05:40 | RADRPT ---
EXAM DATE/TIME: 02/01/2017 04:18 [facility] COMPARISON: CHEST SINGLE AP, January 30, 2017, 9:18. INDICATIONS : Shortness of breath, possible pulmonary disease. MEDICAL HISTORY : Cardiovascular disease. Hypertension SURGICAL HISTORY : CABG. ENCOUNTER: Subsequent ACUITY: 2 weeks PAIN SCORE: Non-responsive. LOCATION: Bilateral chest FINDINGS: Mild bibasilar atelectasis not significantly changed. No large effusion. No pneumothorax. Heart size stable, upper limits of normal. Median sternotomy changes are again noted. The right internal jugular central venous catheter seen yesterday has been intermittent. CONCLUSION: Right IJ line out. Otherwise no significant change. Mild bibasilar atelectasis again noted. Jose Hernandez MD on February 01, 2017 at 5:37 Board Certified Radiologist. This report was verified electronically.
[2017-02-01 06:23] LABS: AUTOMATED NEUTROPHIL # 9.6 TH/MM3 (1.8-7.7); BASOPHIL % 0.3 % (0.0-2.0); EOSINOPHIL # 0.3 TH/MM3 (0-0.4); EOSINOPHIL % 2.6 % (0.0-4.0); HEMATOCRIT 30.9 % (39.0-51.0); HEMO FLAGS DIFF FINAL; LYMPH % 8.2 % (9.0-44.0); MEAN CELL VOLUME 93.7 FL (80.0-100.0); MEAN CORPUSCULAR HEMOGLOBIN 31.2 PG (27.0-34.0); MEAN CORPUSCULAR HGB CONC 33.3 % (32.0-36.0); MONO % 9.4 % (0.0-8.0); NEUT % 79.5 % (16.0-70.0); PLATELET COUNT 448 TH/MM3 (150-450); RED CELL DISTRIBUTION WIDTH 14.4 % (11.6-17.2); WHITE BLOOD COUNT 12.1 TH/MM3 (4.0-11.0)
[2017-02-01 06:48] LABS: ALT (GPT) 58 U/L (12-78); ANION GAP 10 MEQ/L (5-15); AST (GOT) 33 U/L (15-37); BICARBONATE 28.5 MEQ/L (21.0-32.0); BLOOD UREA NITROGEN 24 MG/DL (7-18); CHLORIDE 97 MEQ/L (98-107); GLOMERULAR FILTRATION RATE 115 ML/MIN (>89); MAGNESIUM 2.3 MG/DL (1.5-2.5); POTASSIUM 3.5 MEQ/L (3.5-5.1); SODIUM (NA) 135 MEQ/L (136-145)
[2017-02-01 06:49] LABS: ALKALINE PHOSPHATASE 81 U/L (45-117); TOTAL BILIRUBIN ADULT 0.3 MG/DL (0.2-1.0)
[2017-02-01] MEDS: INSULIN ASPART SUPPLEMENTAL SCALE SQ SCH ×4 (06:50→21:00)
[2017-02-01] MEDS: guaiFENesin SOLUTION 200 MG/10 ML CUP NG SCH ×3 (06:50→21:50)
[2017-02-01] MEDS: SODIUM CHLORIDE 0.9% FLUSH 10 ML FLUSH IV FLUSH SCH ×2 (07:46→21:00)
[2017-02-01] MEDS: LEVOFLOXACIN 750 MG TAB PO SCH (07:46)
[2017-02-01] MEDS: FERROUS SULFATE 300 MG /5ML UDC PO SCH (07:46)
[2017-02-01] MEDS: POLYETHYLENE GLYCOL 17 GM PKG PO SCH (07:46)
[2017-02-01] MEDS: NYSTATIN SUSP 500,000 U/5 ML CUP SWISH-SPIT SCH ×4 (07:46→21:51)
[2017-02-01] MEDS: PANTOPRAZOLE SOD 40 MG DELAYED RELEASE TAB PO SCH (07:46)
[2017-02-01] MEDS: MAGNESIUM HYDROXIDE SUSP 30 ML CUP PO SCH (07:46)
[2017-02-01] MEDS: PRAVASTATIN SOD 40 MG TAB PO SCH (07:47)
[2017-02-01] MEDS: AMIODARONE 200 MG TAB PO SCH ×2 (07:47→21:52)
[2017-02-01] MEDS: PRAMIPEXOLE DIHYDROCHLORIDE 0.25 MG TAB PO SCH ×2 (07:47→21:52)
[2017-02-01] MEDS: CLOPIDOGREL 75 MG TAB PO SCH (07:47)
[2017-02-01] MEDS: predniSONE 20 MG TAB PO SCH (07:47)
[2017-02-01] MEDS: MULTIVITAMINS/MINERALS THERAPEUTIC TAB PO SCH (07:47)
[2017-02-01] MEDS: LISINOPRIL 5 MG TAB NG SCH ×2 (07:47→21:53)
[2017-02-01] MEDS: lamoTRIgine 100 MG TAB PO SCH ×2 (07:48→21:53)
[2017-02-01] MEDS: DOCUSATE SODIUM 100 MG CAP PO SCH ×2 (07:48→21:52)
[2017-02-01] MEDS: METOPROLOL TARTRATE 25 MG TAB PO SCH ×2 (07:48→21:52)
[2017-02-01] MEDS: TIOTROPIUM BROMIDE 18 MCG INH INH SCH (07:48)
[2017-02-01] MEDS: amLODIPine BESYLATE 5 MG TAB PO SCH (07:48)
[2017-02-01] MEDS: ASPIRIN 81 MG CHEW TAB PO SCH (07:48)
[2017-02-01] MEDS: RESP: ALBUTEROL 2.5 MG/IPRATROPIUM 0.5 MG NEB (SCH) NEB ×3 (08:27→20:00)
[2017-02-01] MEDS ORDERED: LEVA750T9 PO (08:49)
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
[2017-02-01] MEDS: DONEPEZIL HCL 5 MG TAB PO SCH (21:51)
[2017-02-01] MEDS: SENNOSIDES 8.6 MG TAB PO SCH (21:52)
[2017-02-02] VITALS (21 sets, daily range): BP systolic 116–151; BP diastolic 51–72; PULSE 55–71; RESP 16–18; TEMP 97.5–98.6; O2SAT 92–100
[2017-02-02] MEDS: guaiFENesin SOLUTION 200 MG/10 ML CUP NG SCH ×2 (05:58→14:30)
[2017-02-02] MEDS: INSULIN ASPART SUPPLEMENTAL SCALE SQ SCH ×3 (06:04→16:00)
[2017-02-02] MEDS: RESP: ALBUTEROL 2.5 MG/IPRATROPIUM 0.5 MG NEB (SCH) NEB ×2 (07:55→13:51)
[2017-02-02] MEDS: SODIUM CHLORIDE 0.9% FLUSH 10 ML FLUSH IV FLUSH SCH (09:53)
[2017-02-02] MEDS: ASPIRIN 81 MG CHEW TAB PO SCH (09:53)
[2017-02-02] MEDS: PRAVASTATIN SOD 40 MG TAB PO SCH (09:53)
[2017-02-02] MEDS: PANTOPRAZOLE SOD 40 MG DELAYED RELEASE TAB PO SCH (09:54)
[2017-02-02] MEDS: DOCUSATE SODIUM 100 MG CAP PO SCH (09:54)
[2017-02-02] MEDS: MULTIVITAMINS/MINERALS THERAPEUTIC TAB PO SCH (09:54)
[2017-02-02] MEDS: amLODIPine BESYLATE 5 MG TAB PO SCH (09:55)
[2017-02-02] MEDS: CLOPIDOGREL 75 MG TAB PO SCH (09:55)
[2017-02-02] MEDS: predniSONE 20 MG TAB PO SCH (09:56)
[2017-02-02] MEDS: LEVOFLOXACIN 750 MG TAB PO SCH (09:56)
[2017-02-02] MEDS: FERROUS SULFATE 300 MG /5ML UDC PO SCH (09:56)
[2017-02-02] MEDS: AMIODARONE 200 MG TAB PO SCH (09:56)
[2017-02-02] MEDS: MAGNESIUM HYDROXIDE SUSP 30 ML CUP PO SCH (09:57)
[2017-02-02] MEDS: LISINOPRIL 5 MG TAB NG SCH (09:57)
[2017-02-02] MEDS: TIOTROPIUM BROMIDE 18 MCG INH INH SCH (09:58)
[2017-02-02] MEDS: NYSTATIN SUSP 500,000 U/5 ML CUP SWISH-SPIT SCH ×3 (09:58→17:55)
[2017-02-02] MEDS: POLYETHYLENE GLYCOL 17 GM PKG PO SCH (09:59)
[2017-02-02] MEDS: lamoTRIgine 100 MG TAB PO SCH (09:59)
[2017-02-02] MEDS: METOPROLOL TARTRATE 25 MG TAB PO SCH (09:59)
[2017-02-02] MEDS: PRAMIPEXOLE DIHYDROCHLORIDE 0.25 MG TAB PO SCH (09:59)
== END 2017-02-02 18:19 | DRG 219 ==
LOC: HSDI 01-24 05:28 → HCVR 01-24 12:51 → HCIN 01-25 10:00 → HCVR 01-25 14:20 → HCIN 01-31 11:52
PROVIDERS: ADMIT Thoracic Surgery (Cardiothoracic Vascular Surgery); ATTEND Thoracic Surgery (Cardiothoracic Vascular Surgery)
PROC: 5A1221Z Performance of Cardiac Output, Continuous (ICD-10-PCS; 2017-01-24)
PROC: B246ZZ4 Ultrasonography of Right and Left Heart, Transesophageal (ICD-10-PCS; 2017-01-24)
PROC: 02RF08Z Replacement of Aortic Valve with Zooplastic Tissue, Open Approach (ICD-10-PCS; principal; 2017-01-24 06:58)
PROC: 5A1935Z Respiratory Ventilation, Less than 24 Consecutive Hours (ICD-10-PCS; 2017-01-25)
PROC: 0BH17EZ Insertion of Endotracheal Airway into Trachea, Via Natural or Artificial Opening (ICD-10-PCS; 2017-01-25)
PROC: 04HY32Z Insertion of Monitoring Device into Lower Artery, Percutaneous Approach (ICD-10-PCS; 2017-01-25)
PROC: 0W9B3ZZ Drainage of Left Pleural Cavity, Percutaneous Approach (ICD-10-PCS; 2017-01-29)
DX: I35.0 Nonrheumatic aortic (valve) stenosis (principal); I50.43 Acute on chronic combined systolic (congestive) and diastolic (congestive) heart failure; J96.01 Acute respiratory failure with hypoxia; J69.0 Pneumonitis due to inhalation of food and vomit; J90 Pleural effusion, not elsewhere classified; N17.9 Acute kidney failure, unspecified; I95.9 Hypotension, unspecified; E87.2 Acidosis; D69.6 Thrombocytopenia, unspecified; I13.0 Hypertensive heart and chronic kidney disease with heart failure and stage 1 through stage 4 chronic kidney disease, or unspecified chronic kidney disease; J44.9 Chronic obstructive pulmonary disease, unspecified; J44.1 Chronic obstructive pulmonary disease with (acute) exacerbation; I25.10 Atherosclerotic heart disease of native coronary artery without angina pectoris; I35.1 Nonrheumatic aortic (valve) insufficiency; N18.9 Chronic kidney disease, unspecified; R13.10 Dysphagia, unspecified; I48.91 Unspecified atrial fibrillation; D50.9 Iron deficiency anemia, unspecified; I71.4 Abdominal aortic aneurysm, without rupture; G47.33 Obstructive sleep apnea (adult) (pediatric); E78.5 Hyperlipidemia, unspecified; I65.21 Occlusion and stenosis of right carotid artery; K21.9 Gastro-esophageal reflux disease without esophagitis; R73.9 Hyperglycemia, unspecified; E87.6 Hypokalemia; E83.39 Other disorders of phosphorus metabolism; R74.8 Abnormal levels of other serum enzymes; I65.29 Occlusion and stenosis of unspecified carotid artery; F17.210 Nicotine dependence, cigarettes, uncomplicated; F03.90 Unspecified dementia, unspecified severity, without behavioral disturbance, psychotic disturbance, mood disturbance, and anxiety; F32.9 Major depressive disorder, single episode, unspecified; F41.9 Anxiety disorder, unspecified; Z90.01 Acquired absence of eye; Z91.19 Patient's noncompliance with other medical treatment and regimen; Z95.5 Presence of coronary angioplasty implant and graft
CPT/HCPCS: 31500; 71010; 71250; 74000; 76937; 80048; 80053; 81001; 82150; 82550; 82552; 82805; 82945; 82948; 83605; 83615; 83735; 83986; 84100; 84132; 84155; 84157; 84443; 84484; 85014; 85018; 85025; 85027; 86850; 86900; 86901; 86920; 87015; 87070; 87077; 87086; 87102; 87116; 87186; 87205; 87206; 88112; 88305; 88311; 89051; 93005; 93308; 93318; 94002; 94003; 94150; 94640; 94664; 94667; 94668; C9290; C9399; J0131; J0282; J0360; J0690; J1100; J1265; J1644; J1815; J1940; J2150; J2250; J2270; J2310; J2370; J2543; J2710; J2720; J2920; J2930; J3010; J3370; J3475; J3480; J7030; J7040; J7050; J7060; J7120; J7512; P9047

== ENCOUNTER 2017-04-01 19:18 | Inpatient (IN) | payer OTHER, MEDICARE ==
[~2017-04-01] VITALS: Ht 170.2 cm; Wt 68.2 kg
[~2017-04-01 19:18] MED LIST changes: -ASPI1TAB69 PO; +ASPI81CH CHEW; -DICL1GEL TOPICAL; -FERR1TAB36 PO; +FERR200T PO; +LEVA750T9 PO; +MELO7.5T4 PO; -TRAZ100T4 PO; +TRAZ100T6 PO; +VITA10002 PO; -[UNRECOGNIZED DRUG - CODE] PO; -[UNRECOGNIZED DRUG - OTHER] PO
[2017-04-01 19:40] VITALS: BP 153/70; PULSE 59; RESP 18; O2SAT 95
[2017-04-01] MEDS ORDERED: CYCL5TAB PO (19:56)
[2017-04-01] MEDS ORDERED: SODIUM CHLOR 0.9% 1000 ML INJ 1,000 ML IV SCH ×3 (19:59→23:20)
[2017-04-01] MEDS ORDERED: SODIUM CHLORIDE 0.9% FLUSH 5 ML FLUSH IV FLUSH PRN ×2 (20:00→21:30)
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
--- NOTE | 2017-04-01 20:22 | RADRPT ---
EXAM DATE/TIME: 04/01/2017 20:15 [facility] COMPARISON: CHEST SINGLE AP, February 01, 2017, 4:18. INDICATIONS : Chest pain. MEDICAL HISTORY : Cardiovascular disease. Hypertension SURGICAL HISTORY : CABG. ENCOUNTER: Initial ACUITY: 1 day PAIN SCORE: 0/10 LOCATION: Bilateral chest FINDINGS: Mild right lung base atelectasis and/or infiltrate is seen. There is evidence for prior median sterno alejandro. There are atherosclerotic calcifications of the aorta due to chronic atherosclerotic disease. H eart and mediastinum are unremarkable for technique. Chronic degenerative changes are present in the left shoulder and not changed. CONCLUSION: Mild right lung base atelectasis and/or infiltrate is seen. Chadwick Shields MD on April 01, 2017 at 20:20 Board Certified Radiologist. This report was verified electronically.
[2017-04-01] MEDS ORDERED: cefTRIAXone INJ 1,000 MG in SODIUM CHLORIDE 0.9% INJ 100 ML IV ONE (20:30)
[2017-04-01] MEDS ORDERED: AZITHROMYCIN INJ 500 MG in SODIUM CHLOR 0.9% 250 ML INJ 250 ML IV ONE (20:30)
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
[2017-04-01 20:43] LABS: AUTOMATED NEUTROPHIL # 21.6 TH/MM3 (1.8-7.7); BASOPHIL # 0.1 TH/MM3 (0-0.2); BASOPHIL % 0.5 % (0.0-2.0); EOSINOPHIL # 0.1 TH/MM3 (0-0.4); EOSINOPHIL % 0.4 % (0.0-4.0); HEMATOCRIT 34.1 % (39.0-51.0); HEMO FLAGS DIFF FINAL; LYMPH % 3.9 % (9.0-44.0); LYMPHOCYTE # 0.9 TH/MM3 (1.0-4.8); MEAN CELL VOLUME 88.4 FL (80.0-100.0); MEAN CORPUSCULAR HEMOGLOBIN 26.4 PG (27.0-34.0); MONO % 5.3 % (0.0-8.0); NEUT % 89.9 % (16.0-70.0); PLATELET COUNT 296 TH/MM3 (150-450); RED BLOOD COUNT 3.86 MIL/MM3 (4.50-5.90); RED CELL DISTRIBUTION WIDTH 19.7 % (11.6-17.2); WHITE BLOOD COUNT 24.1 TH/MM3 (4.0-11.0)
[2017-04-01 20:48] LABS: MEAN CORPUSCULAR HGB CONC 29.9 % (32.0-36.0)
[2017-04-01 20:54] LABS: APTT (PATIENT) 24.6 SEC (24.3-30.1); INTERNATIONAL NORMALIZED RATIO 1.1 RATIO; PROTHROMBIN TIME - PATIENT 12.2 SEC (9.8-11.6)
[2017-04-01 21:12] LABS: ANION GAP 6 MEQ/L (5-15); AST (GOT) 30 U/L (15-37); BICARBONATE 28.6 MEQ/L (21.0-32.0); BLOOD UREA NITROGEN 21 MG/DL (7-18); CHLORIDE 100 MEQ/L (98-107); GLOMERULAR FILTRATION RATE 75 ML/MIN (>89); POTASSIUM 4.5 MEQ/L (3.5-5.1); SODIUM (NA) 135 MEQ/L (136-145)
[2017-04-01 21:13] LABS: ALT (GPT) 21 U/L (12-78)
[2017-04-01 21:15] LABS: ALKALINE PHOSPHATASE 113 U/L (45-117); CREATINE KINASE 355 U/L (39-308); TOTAL BILIRUBIN ADULT 0.5 MG/DL (0.2-1.0)
[2017-04-01 21:36] LABS: CKMB 4.1 NG/ML (0.5-3.6)
--- NOTE | 2017-04-01 21:38 | EKG ---
Date Performed: 04/01/2017 Time Performed: 19:42:02 PTAGE: 77 years EKG: SINUS BRADYCARDIA NONSPECIFIC ST & T-WAVE ABNORMALITY BORDERLINE ECG PREVIOUS TRACING : 01/26/2017 07.27 Compared to previous tracing, Sinus rhythm has replaced atrial fibrillation, heart rate has slowed. DOCTOR: Valentin Hill Interpretating Date/Time 04/01/2017 21:35:55
[2017-04-01 21:56] LABS: BLOOD, URINE NEG (NEG); GLUCOSE,URINE NEG (NEG); KETONE, URINE NEG (NEG); MUCUS URINE FEW /lpf (OCC); NITRITE,URINE NEG (NEG); SQUAMOUS EPITHELIAL CELL URINE 1 /hpf (0-5); URINE COLOR YELLOW (YELLW/STRAW)
[2017-04-01 21:57] LABS: COMMENT (UR) CATH-CULT NOT IND; CULTURE IF INDICATED CATH CULTURE NOT IND
[2017-04-01] MEDS ORDERED: SODIUM CHLORIDE 0.9% FLUSH 10 ML FLUSH IV FLUSH PRN (23:30)
[2017-04-01] MEDS ORDERED: CALCIUM CARBONATE 500 MG CHEWABLE TAB CHEW PRN (23:30)
[2017-04-01] MEDS ORDERED: MAGNESIUM HYDROXIDE SUSP 30 ML CUP PO PRN (23:30)
[2017-04-01] MEDS ORDERED: guaiFENesin/DEXTROMETHORPHAN 200 MG/20 MG/10 ML CUP PO PRN (23:30)
[2017-04-01] MEDS ORDERED: LACTULOSE SYRUP 20 GM/30 ML CUP PO PRN (23:30)
[2017-04-01] MEDS ORDERED: RESP: ALBUTEROL 2.5 MG/IPRATROPIUM 0.5 MG NEB (PRN) INH (23:30)
[2017-04-01] MEDS ORDERED: ONDANSETRON HCL 4 MG/2 ML VIAL IV PRN (23:30)
[2017-04-01] MEDS ORDERED: ACETAMINOPHEN/HYDROcodone 325 MG/10 MG TAB PO PRN (23:30)
[2017-04-01] MEDS ORDERED: SENNOSIDES 8.6 MG TAB PO PRN (23:30)
[2017-04-01] MEDS ORDERED: ACETAMINOPHEN 325 MG TAB PO PRN (23:30)
[2017-04-02] VITALS (26 sets, daily range): BP systolic 162–204; BP diastolic 64–81; PULSE 62–120; RESP 16–18; TEMP 97.7–98.6; O2SAT 92–99
[2017-04-02] MEDS: HEPARIN SODIUM - SQ 10,000 UNITS/ML VIAL SQ SCH ×3 (00:18→15:30)
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
[2017-04-02 04:13] LABS: AUTOMATED NEUTROPHIL # 13.7 TH/MM3 (1.8-7.7); BASOPHIL # 0.1 TH/MM3 (0-0.2); BASOPHIL % 0.6 % (0.0-2.0); EOSINOPHIL # 0.3 TH/MM3 (0-0.4); EOSINOPHIL % 1.7 % (0.0-4.0); HEMATOCRIT 26.2 % (39.0-51.0); HEMO FLAGS DIFF FINAL; LYMPH % 4.8 % (9.0-44.0); LYMPHOCYTE # 0.7 TH/MM3 (1.0-4.8); MEAN CELL VOLUME 88.7 FL (80.0-100.0); MEAN CORPUSCULAR HEMOGLOBIN 27.8 PG (27.0-34.0); MEAN CORPUSCULAR HGB CONC 31.3 % (32.0-36.0); MONO % 5.5 % (0.0-8.0); NEUT % 87.4 % (16.0-70.0); PLATELET COUNT 229 TH/MM3 (150-450); RED BLOOD COUNT 2.96 MIL/MM3 (4.50-5.90); RED CELL DISTRIBUTION WIDTH 19.3 % (11.6-17.2); WHITE BLOOD COUNT 15.7 TH/MM3 (4.0-11.0)
[2017-04-02 04:36] LABS: BICARBONATE 28.6 MEQ/L (21.0-32.0); POTASSIUM 3.9 MEQ/L (3.5-5.1)
[2017-04-02] MEDS: SODIUM CHLORIDE 0.9% FLUSH 10 ML FLUSH IV FLUSH SCH ×2 (09:00→22:22)
[2017-04-02] MEDS ORDERED: GABAPENTIN 300 MG CAP PO SCH (09:00)
[2017-04-02] MEDS: DOCUSATE SODIUM 50 MG/SENNA 8.6 MG TAB PO SCH ×2 (10:40→22:21)
[2017-04-02] MEDS: PRAMIPEXOLE DIHYDROCHLORIDE 0.25 MG TAB PO SCH ×2 (10:40→22:21)
[2017-04-02] MEDS: GABAPENTIN 300 MG CAP PO SCH ×3 (10:41→16:58)
[2017-04-02] MEDS: PRAVASTATIN SOD 20 MG TAB PO SCH (10:42)
[2017-04-02] MEDS: PANTOPRAZOLE SOD 40 MG DELAYED RELEASE TAB PO SCH (10:42)
[2017-04-02] MEDS: lamoTRIgine 100 MG TAB PO SCH ×2 (10:43→22:21)
[2017-04-02] MEDS: FERROUS SULFATE 300 MG /5ML UDC PO SCH (10:43)
[2017-04-02] MEDS: ACETAMINOPHEN/HYDROcodone 325 MG/10 MG TAB PO PRN (10:43)
[2017-04-02] MEDS: ASPIRIN 81 MG CHEW TAB CHEW SCH (10:43)
[2017-04-02] MEDS ORDERED: LISINOPRIL 20 MG TAB PO ONE (11:45)
[2017-04-02] MEDS: LISINOPRIL 10 MG TAB PO SCH (13:08)
[2017-04-02] MEDS ORDERED: cefTRIAXone INJ 1,000 MG in SODIUM CHLORIDE 0.9% INJ 100 ML IV SCH (21:00)
[2017-04-02] MEDS ORDERED: traZODone HCL 100 MG TAB PO SCH (21:00)
[2017-04-02] MEDS ORDERED: AZITHROMYCIN INJ 500 MG in SODIUM CHLOR 0.9% 250 ML INJ 250 ML IV SCH (22:00)
[2017-04-02] MEDS: traZODone HCL 100 MG TAB PO SCH (22:22)
[2017-04-02] MEDS: DONEPEZIL HCL 5 MG TAB PO SCH (22:22)
[2017-04-03] VITALS (20 sets, daily range): BP systolic 142–187; BP diastolic 65–82; PULSE 72–96; RESP 16–20; TEMP 97.6–98.3; O2SAT 90–97
[2017-04-03] MEDS: HEPARIN SODIUM - SQ 10,000 UNITS/ML VIAL SQ SCH ×4 (00:02→23:27)
[2017-04-03] MEDS: ACETAMINOPHEN/HYDROcodone 325 MG/10 MG TAB PO PRN ×2 (00:11→21:19)
[2017-04-03] MEDS ORDERED: LISINOPRIL 20 MG TAB PO SCH (09:00)
[2017-04-03] MEDS: SODIUM CHLORIDE 0.9% FLUSH 10 ML FLUSH IV FLUSH SCH ×2 (09:00→21:00)
[2017-04-03] MEDS: PANTOPRAZOLE SOD 40 MG DELAYED RELEASE TAB PO SCH (09:04)
[2017-04-03] MEDS: ASPIRIN 81 MG CHEW TAB CHEW SCH (09:04)
[2017-04-03] MEDS: PRAVASTATIN SOD 20 MG TAB PO SCH (09:04)
[2017-04-03] MEDS: lamoTRIgine 100 MG TAB PO SCH ×2 (09:05→21:19)
[2017-04-03] MEDS: DOCUSATE SODIUM 50 MG/SENNA 8.6 MG TAB PO SCH ×2 (09:05→21:19)
[2017-04-03] MEDS: PRAMIPEXOLE DIHYDROCHLORIDE 0.25 MG TAB PO SCH ×2 (09:05→21:00)
[2017-04-03] MEDS: GABAPENTIN 100 MG CAP PO SCH ×3 (09:05→15:10)
[2017-04-03] MEDS: LISINOPRIL 10 MG TAB PO SCH (09:05)
[2017-04-03] MEDS: FERROUS SULFATE 300 MG /5ML UDC PO SCH (09:06)
--- NOTE | 2017-04-03 17:48 | HHI.PR ---
Subjective Remarks Follow up for generalized weakness, probable aspiration pneumonia. Patient is currently doing well. No fever, chills. Tolerating diet well. We discussed about his home situation. He has caregivers who provides care 24 hours a day. Objective Vitals Vital Signs Date Time Temp Pulse Resp B/P (MAP) Pulse Ox O2 Delivery O2 Flow Rate FiO2 04/03/17 16:00 97.7 85 20 182/76 (111) 93 04/03/17 13:00 87 04/03/17 12:00 80 04/03/17 11:42 98.3 83 16 142/65 (90) 90 04/03/17 11:23 96 21 04/03/17 11:00 83 04/03/17 10:00 82 04/03/17 09:00 72 04/03/17 08:05 97.6 74 16 161/82 (108) 95 04/03/17 08:00 78 04/03/17 07:00 83 04/03/17 05:00 79 04/03/17 04:00 75 04/03/17 03:00 85 04/03/17 02:00 81 04/03/17 01:00 83 04/03/17 00:00 96 04/03/17 00:00 98.1 96 18 158/74 (102) 97 04/02/17 23:00 90 04/02/17 22:00 83 04/02/17 21:00 79 04/02/17 20:00 98.0 72 18 162/81 (108) 97 04/02/17 20:00 72 04/02/17 19:44 94 21 04/02/17 19:00 78 04/02/17 18:36 97 04/02/17 18:00 68 I/O 04/02/17 04/02/17 04/02/17 04/03/17 04/03/17 04/03/17 07:00 15:00 23:00 07:00 15:00 23:00 Intake Total 1070 ml 420 ml 800 ml Output Total 700 ml 975 ml 400 ml Balance 370 ml -555 ml 400 ml Intake Oral 420 ml IV Total 1070 ml 800 ml Output Urine Total 700 ml 975 ml 400 ml # Voids 6 # Bowel Movements 1 0 Result Diagram: 04/02/170 04/02/17 0400 Imaging Last Impressions Head CT 04/01/171958 Signed Impressions: Service Date/Time: Saturday, April 01, 2017 20:13 - CONCLUSION: Chronic changes without hemorrhage or mass effect. Chadwick Shields MD Chest X-Ray 04/01/171958 Signed Impressions: Service Date/Time: Saturday, April 01, 2017 20:15 - CONCLUSION: Mild right lung base atelectasis and/or infiltrate is seen. Chadwick Shields MD Objective Remarks GENERAL: Alert, NAD. SKIN: Warm and dry. HEAD: Normocephalic. EYES: No scleral icterus. No injection or drainage. NECK: Supple, trachea midline. No JVD or lymphadenopathy. CARDIOVASCULAR: Regular rate and rhythm without murmurs, gallops, or rubs. RESPIRATORY: Breath sounds equal bilaterally. No accessory muscle use. GASTROINTESTINAL: Abdomen soft, non-tender, nondistended. MUSCULOSKELETAL: No cyanosis, or edema. BACK: Nontender without obvious deformity. No CVA tenderness. Procedures None. A/P Problem List: (1) Acute aspiration pneumonia ICD Code: J69.0 - Pneumonitis due to inhalation of food and vomit Status: Acute (2) Hypertension ICD Code: I10 - Essential (primary) hypertension Status: Acute Assessment and Plan Mr. Estrada is a 77 year old male with multiple medical problems who was brought to the hospital by the caregivers due to declining functional status. Chest x- ray with right lower lung atelectasis and possible infiltrate. - Probable acute aspiration pneumonia - D/C Ceftriaxone and Azithromycin - Start Levaquin 750mg Qday + Flagyl 500mg Q8hrs. - Continue breathing tx, supplemental O2 to keep O2 sat > 90%. - Hypertension - Continue Lisinopril 20mg Qday. - Hyperlipidemia - Continue statin. Full code. Heparin SQ. Discharge plan: Possible discharge tomorrow with oral abx. Crystal Carey DO Apr 03, 2017 17:48
[2017-04-03] MEDS: LEVOFLOXACIN 750 MG TAB PO SCH (20:00)
[2017-04-03] MEDS: DONEPEZIL HCL 5 MG TAB PO SCH (21:18)
[2017-04-03] MEDS: metroNIDAZOLE 500 MG TAB PO SCH (21:18)
[2017-04-03] MEDS: traZODone HCL 100 MG TAB PO SCH (21:20)
[2017-04-04 04:39] VITALS: BP 169/86; PULSE 95; RESP 16; TEMP 97.3; O2SAT 92
[2017-04-04] MEDS: ACETAMINOPHEN/HYDROcodone 325 MG/10 MG TAB PO PRN (04:48)
[2017-04-04] MEDS: metroNIDAZOLE 500 MG TAB PO SCH (04:48)
[2017-04-04 08:00] VITALS: BP 196/96; PULSE 88; RESP 20; TEMP 97.5; O2SAT 93
[2017-04-04] MEDS ORDERED: amLODIPine BESYLATE 5 MG TAB PO SCH (09:00)
[2017-04-04] MEDS: PANTOPRAZOLE SOD 40 MG DELAYED RELEASE TAB PO SCH (09:17)
[2017-04-04] MEDS: DOCUSATE SODIUM 50 MG/SENNA 8.6 MG TAB PO SCH (09:17)
[2017-04-04] MEDS: PRAVASTATIN SOD 20 MG TAB PO SCH (09:17)
[2017-04-04] MEDS: LEVOFLOXACIN 750 MG TAB PO SCH (09:18)
[2017-04-04] MEDS: lamoTRIgine 100 MG TAB PO SCH (09:18)
[2017-04-04] MEDS: GABAPENTIN 100 MG CAP PO SCH (09:18)
[2017-04-04] MEDS: PRAMIPEXOLE DIHYDROCHLORIDE 0.25 MG TAB PO SCH (09:19)
[2017-04-04] MEDS: ASPIRIN 81 MG CHEW TAB CHEW SCH (09:20)
[2017-04-04] MEDS: SODIUM CHLORIDE 0.9% FLUSH 10 ML FLUSH IV FLUSH SCH (09:21)
[2017-04-04] MEDS: HEPARIN SODIUM - SQ 10,000 UNITS/ML VIAL SQ SCH (09:21)
[2017-04-04] MEDS: FERROUS SULFATE 300 MG /5ML UDC PO SCH (09:22)
[2017-04-04] MEDS: LISINOPRIL 10 MG TAB PO SCH (09:25)
--- NOTE | 2017-04-04 09:36 | HHI.PR ---
Subjective Remarks Follow up for generalized weakness, probable aspiration pneumonia. Patient is currently doing well. He is ambulating some in the room. Sitting in the chair. Caregiver is at bedside. No fever or chills. He is not requiring any supplemental oxygen. Objective Vitals Vital Signs Date Time Temp Pulse Resp B/P (MAP) Pulse Ox O2 Delivery O2 Flow Rate FiO2 04/04/17 08:00 97.5 88 20 196/96 (129) 93 04/04/17 04:39 97.3 95 16 169/86 (113) 92 04/04/17 04:26 Room Air 04/04/17 00:53 Room Air 04/04/17 00:14 21 04/03/17 23:05 97.7 86 16 167/74 (105) 92 04/03/17 20:24 86 04/03/17 20:00 Room Air 04/03/17 19:32 97.9 90 16 187/78 (114) 93 148/78 (101) 04/03/17 16:00 97.7 85 20 182/76 (111) 93 04/03/17 13:00 87 04/03/17 12:00 80 04/03/17 11:42 98.3 83 16 142/65 (90) 90 04/03/17 11:23 96 21 04/03/17 11:00 83 04/03/17 10:00 82 I/O 04/03/17 04/03/17 04/03/17 04/04/17 04/04/17 04/04/17 06:59 14:59 22:59 06:59 14:59 22:59 Intake Total 420 ml 800 ml 240 ml 240 ml Output Total 975 ml 400 ml 400 ml 1300 ml Balance -555 ml 400 ml -160 ml -1060 ml Intake Oral 420 ml 240 ml 240 ml IV Total 800 ml Output Urine Total 975 ml 400 ml 400 ml 1300 ml # Bowel Movements 0 0 0 Result Diagram: 04/02/1739904/02/17399 Imaging Last Impressions Head CT 04/01/171958 Signed Impressions: Service Date/Time: Saturday, April 01, 2017 20:13 - CONCLUSION: Chronic changes without hemorrhage or mass effect. Chadwick Shields MD Chest X-Ray 04/01/171958 Signed Impressions: Service Date/Time: Saturday, April 01, 2017 20:15 - CONCLUSION: Mild right lung base atelectasis and/or infiltrate is seen. Chadwick Shields MD Objective Remarks GENERAL: Alert, NAD. SKIN: Warm and dry. HEAD: Normocephalic. EYES: No scleral icterus. No injection or drainage. NECK: Supple, trachea midline. No JVD or lymphadenopathy. CARDIOVASCULAR: Regular rate and rhythm without murmurs, gallops, or rubs. RESPIRATORY: Breath sounds equal bilaterally. No accessory muscle use. GASTROINTESTINAL: Abdomen soft, non-tender, nondistended. MUSCULOSKELETAL: No cyanosis, or edema. BACK: Nontender without obvious deformity. No CVA tenderness. Procedures None. A/P Problem List: (1) Acute aspiration pneumonia ICD Code: J69.0 - Pneumonitis due to inhalation of food and vomit Status: Acute (2) Hypertension ICD Code: I10 - Essential (primary) hypertension Status: Acute Assessment and Plan Mr. Estrada is a 77 year old male with multiple medical problems who was brought to the hospital by the caregivers due to declining functional status. Chest x- ray with right lower lung atelectasis and possible infiltrate. - Probable acute aspiration pneumonia - D/C Ceftriaxone and Azithromycin -Continue Levaquin 750mg Qday + Flagyl 500mg Q8hrs. - Continue breathing tx, supplemental O2 to keep O2 sat > 90%. - Repeat chest x-ray in 3 weeks. - Discussed with caregiver regarding the importance of eating food upright to reduce chances of aspiration. - Hypertension - Continue Lisinopril 20mg Qday. -Start amlodipine 5 mg daily. Titrate up as necessary. - Hyperlipidemia - Continue statin. Full code. Heparin SQ. Discharge plan: If the blood pressure is improved (equal or less than 160/90), patient can be discharged home. Crystal Carey DO Apr 04, 2017 09:35
[2017-04-04] MEDS ORDERED: AMLO5 PO (09:59)
[2017-04-04] MEDS ORDERED: LEVA750T9 PO (09:59)
[2017-04-04] MEDS ORDERED: METR-1 PO (09:59)
[2017-04-04] MEDS ORDERED: REST15CA PO (09:59)
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
[2017-04-04] MEDS ORDERED: cloNIDine HCL 0.1 MG TAB PO PRN (10:30)
[2017-04-04 11:41] VITALS: BP 140/64; PULSE 94; RESP 20; TEMP 97.8; O2SAT 93
[2017-04-04 11:45] VITALS: PULSE 90
[2017-04-04 11:47] VITALS: O2SAT 95
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
== END 2017-04-04 13:16 | disposition home health service (06) | DRG 177 ==
LOC: NEPC 19:18 → NEDA 23:25 → NEDH 04-02 03:28 → HCIS 04-02 06:07 → N04B 04-03 13:50
PROVIDERS: ADMIT Hospitalist; ATTEND Hospitalist
DX: J69.0 Pneumonitis due to inhalation of food and vomit (principal); G93.40 Encephalopathy, unspecified; G20 Parkinson's disease; I13.0 Hypertensive heart and chronic kidney disease with heart failure and stage 1 through stage 4 chronic kidney disease, or unspecified chronic kidney disease; I50.22 Chronic systolic (congestive) heart failure; F02.80 Dementia in other diseases classified elsewhere, unspecified severity, without behavioral disturbance, psychotic disturbance, mood disturbance, and anxiety; J44.9 Chronic obstructive pulmonary disease, unspecified; E86.0 Dehydration; E78.5 Hyperlipidemia, unspecified; I25.10 Atherosclerotic heart disease of native coronary artery without angina pectoris; F41.9 Anxiety disorder, unspecified; K21.9 Gastro-esophageal reflux disease without esophagitis; N18.9 Chronic kidney disease, unspecified; I65.29 Occlusion and stenosis of unspecified carotid artery; I71.4 Abdominal aortic aneurysm, without rupture; F17.210 Nicotine dependence, cigarettes, uncomplicated; H54.0 Blindness, both eyes; Z95.5 Presence of coronary angioplasty implant and graft; Z95.2 Presence of prosthetic heart valve; Z86.73 Personal history of transient ischemic attack (TIA), and cerebral infarction without residual deficits; Z95.1 Presence of aortocoronary bypass graft
CPT/HCPCS: 70450; 71010; 76937; 80048; 80053; 81001; 82550; 82552; 83605; 85025; 85610; 85730; 87040; 87070; 87205; 87449; 87804; 93005; 94150; 96361; 96365; 96367; J0456; J0696; J1644; J7030; J7050

== ENCOUNTER 2018-03-28 12:34 | Inpatient (IN) ==
[2018-03-28] MEDS ORDERED: MethylPREDNISolone Sod Succinate Inj 125 MG/2 ML Vial IV.PUSH ONE ×2 (13:13→23:42)
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
[2018-03-28 14:00] LABS: Baso # (Auto) 0.1 th/mm3 (0.0-0.2); Baso % (Auto) 0.4 % (0.0-2.0); Eos # (Auto) 0.2 th/mm3 (0.0-0.4); Eos % (Auto) 0.9 % (0.0-4.0); Hematocrit 31.5 % (39.0-51.0); Hemoglobin 10.3 gm/dL (13.0-17.0); Lymph # (Auto) 0.6 th/mm3 (1.0-4.8); Lymph % (Auto) 3.1 % (9.0-44.0); Mean Corpuscular HGB Conc 32.7 % (32.0-36.0); Mean Corpuscular Hemoglobin 27.8 pg (27.0-34.0); Mean Corpuscular Volume 84.9 fL (80.0-100.0); Mean Platelet Volume 6.8 fL (7.0-11.0); Mono # (Auto) 1.7 th/mm3 (0.0-0.9); Mono % (Auto) 9.2 % (0.0-8.0); Neut % (Auto) 86.4 % (16.0-70.0); Platelet Count 321 th/mm3 (150-450); Red Blood Count 3.71 mil/mm3 (4.50-5.90); Red Cell Distribution Width 15.2 % (11.6-17.2); White Blood Count 18.4 th/mm3 (4.0-11.0)
[2018-03-28 14:11] LABS: Activated Partial Thrombo Time 29.1 sec (24.3-30.1); INR 1.1 Ratio
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
[2018-03-28 14:15] LABS: Magnesium 2.3 mg/dL (1.5-2.5)
[2018-03-28 14:16] LABS: Alkaline Phosphatase 89 U/L (45-117)
[2018-03-28 14:17] LABS: Alanine Aminotransferase 29 U/L (12-78); Albumin 3.6 g/dL (3.4-5.0); Anion Gap 5 meq/L (5-15); Aspartate Aminotransferase 25 U/L (15-37); Blood Urea Nitrogen 25 mg/dL (7-18); Calcium 8.3 mg/dL (8.5-10.1); Carbon Dioxide 28.6 meq/L (21.0-32.0); Chloride 100 meq/L (98-107); Glomerular Filtration Rate 61 mL/min (>89); Glucose,Random 124 mg/dL (74-106); Potassium 5.4 meq/L (3.5-5.1); Sodium 134 meq/L (136-145)
[2018-03-28 14:18] LABS: Creatine Kinase 224 U/L (39-308)
--- NOTE | 2018-03-28 14:27 | XR ---
EXAM DATE: 03/28/2018 2:22 PM EDT AGE/SEX: 78 years / Male INDICATIONS: Fever CLINICAL DATA: This is the patient's initial encounter. Patient reports that signs and symptoms have been present for 1 day and indicates a pain score of 0/10. MEDICAL/SURGICAL HISTORY: Cardiovascular disease. Hypertension. CABG. COMPARISON: [facility], XR CHEST PA AND LAT, 02/07/2018. . FINDINGS: There is persistent elevation of the right diaphragm. Mild bibasilar parenchymal opacities are presen t, similar to prior. Cardiac contours are grossly unchanged accounting for differences in technique a nd projection. There are sternotomy wires present.. Significant degenerative changes in the shoulders . CONCLUSION: Elevated right diaphragm and persistent bibasilar parenchymal opacities Electronically signed by: Jose Fernandez MD 03/28/2018 2:26 PM EDT
[2018-03-28 14:30] LABS: Creatine Kinase MB 5.4 ng/mL (0.5-3.6)
[2018-03-28] MEDS ORDERED: Azithromycin Inj 500 MG in Sodium Chlor 0.9% Inj 250 ML IV.SIG STA (14:35)
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
--- NOTE | 2018-03-28 15:03 | CT ---
EXAM DATE: 03/28/2018 2:57 PM EDT AGE/SEX: 78 years / Male INDICATIONS: Altered mental status. CLINICAL DATA: This is the patient's initial encounter. Patient reports that signs and symptoms have been present for 1 day and indicates a pain score of 8/10. MEDICAL/SURGICAL HISTORY: None. None. RADIATION DOSE: 43.15 CTDI (mGy) COMPARISON: [facility] [place], CT BRAIN W/O CONTRAST, 04/01/2017. . TECHNIQUE: CT of the head without contrast. Using automated exposure control and adjustment of the mA and/or kV according to patient size, radiation dose was kept as low as reasonably achievable to ob tain optimal diagnostic quality images. DICOM format image data is available electronically for revi ew and comparison. FINDINGS: There is stable right temporoparietal encephalomalacia with metallic fragments unchanged in position within the temporal brain and Carrillo region of the posterior fossa. There has been previous right tem poral craniotomy. There is mild right orbital frontal encephalomalacia. Some type of calvarial recons truction has occurred in the right supraorbital region and there are small metallic fragments in the orbit itself. Prosthetic globes are present bilaterally. There is stable symmetric mild ventriculomegaly and diminished periventricular white matter density w hich appears stable and benign. There is no evidence of intracranial hemorrhage. No evidence of brain mass. Nothing to suggest acute infarction. CONCLUSION: No acute intracranial findings. Basically stable abnormal brain appearance as above. . Electronically signed by: Jose Fernandez MD 03/28/2018 3:01 PM EDT
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
[2018-03-28] MEDS ORDERED: Enoxaparin Inj 30 MG/0.3 ML Syringe SQ ONE (17:00)
[2018-03-28 23:00] LABS: Thyroid Stimulating Hormone 0.869 uIU/mL (0.358-3.740)
[2018-03-29] MEDS: Budesonide-Formoterol 160/4.5 MCG 6 GM Inhaler INH SCH ×3 (03:28→21:56)
[2018-03-29 07:17] LABS: Baso # (Auto) 0.1 th/mm3 (0.0-0.2); Baso % (Auto) 0.3 % (0.0-2.0); Hematocrit 28.9 % (39.0-51.0); Hemoglobin 9.2 gm/dL (13.0-17.0); Lymph # (Auto) 0.4 th/mm3 (1.0-4.8); Lymph % (Auto) 1.9 % (9.0-44.0); Mean Corpuscular HGB Conc 31.9 % (32.0-36.0); Mean Corpuscular Hemoglobin 27.3 pg (27.0-34.0); Mean Corpuscular Volume 85.6 fL (80.0-100.0); Mean Platelet Volume 7.2 fL (7.0-11.0); Mono # (Auto) 0.6 th/mm3 (0.0-0.9); Neut # (Auto) 20.5 th/mm3 (1.8-7.7); Neut % (Auto) 94.8 % (16.0-70.0); Platelet Count 298 th/mm3 (150-450); Red Blood Count 3.37 mil/mm3 (4.50-5.90); Red Cell Distribution Width 15.1 % (11.6-17.2); White Blood Count 21.6 th/mm3 (4.0-11.0)
[2018-03-29 07:37] LABS: Calcium 8.8 mg/dL (8.5-10.1); Carbon Dioxide 25.8 meq/L (21.0-32.0); Potassium 3.8 meq/L (3.5-5.1)
[2018-03-29] MEDS ORDERED: Dextrose 50% in Water 50 ML Vial IV.PUSH PRN (07:50)
[2018-03-29] MEDS: Insulin NovoLOG Aspart Correctional Sugar Inj SQ SCH ×5 (08:00→21:53)
[2018-03-29] MEDS: MethylPREDNISolone Sod Succinate Inj 125 MG/2 ML Vial IV.PUSH SCH ×2 (09:04→21:54)
--- NOTE | 2018-03-29 13:01 | ECG ---
Date Performed: 03/28/2018 Time Performed: 14:23:20 PTAGE: 78 years EKG: Sinus rhythm WITH OCCASIONAL VENTRICULAR PREMATURE COMPLEXES BORDERLINE ECG Compared to PREVIOUS TRACING , ST-T abnormalities have resolved. PREVIOUS TRACIN04/01/2017 19.42 DOCTOR: Dinesh Bhardwaj Interpretating Date/Time 03/29/2018 13:00:56
[2018-03-29 14:36] LABS: Hemoglobin A1c 6.5 % (4.3-6.0)
[2018-03-29] MEDS: Azithromycin Inj 500 MG in Sodium Chlor 0.9% Inj 250 ML IV.SIG SCH (16:42)
--- NOTE | 2018-03-29 18:05 | P.PN ---
Subjective Interval history: late entry, patient seen earlier today. Patient seen and examined. Demanding he be discharged today. He states his breathing is much improved. He denies any complaints of shortness of breath. He denies any fever or chills. He denies chest pain or shortness of breath. He denies any nausea, vomiting or abdominal pain. He does report pain in the left foot. Physical Exam Vital signs: Vital Signs 03/28/18 18:21 03/28/18 19:01 03/28/18 20:00 Temperature 98.8 F 97.9 F Pulse Rate 94 H 99 H 117 H Respiratory Rate 23 18 18 Blood Pressure 139/67 137/63 140/65 Pulse Oximetry 94 L 96 92 L 03/28/18 21:00 03/28/18 21:09 03/29/18 00:00 Temperature 97.8 F Pulse Rate 90 97 H Respiratory Rate 18 18 Blood Pressure 143/67 H Pulse Oximetry 98 98 95 03/29/18 04:00 03/29/18 05:26 03/29/18 08:00 Temperature 98.1 F 98.7 F Pulse Rate 91 H 85 109 H Respiratory Rate 18 20 16 Blood Pressure 133/61 134/62 Pulse Oximetry 98 96 03/29/18 09:52 03/29/18 10:17 03/29/18 12:00 Temperature 97.4 F L Pulse Rate 104 H 79 Respiratory Rate 14 18 Blood Pressure 125/84 Pulse Oximetry 97 97 Intake & Output 03/28/18 03/29/18 03/29/18 18:59 06:59 18:59 Intake Total 450 / 450 480 / 480 Output Total 250 / 250 Balance 450 / 450 230 / 230 Weight 75.296 kg 75.296 kg Intake: IV 450 / 450 Azithromycin Inj 500 MG In NS 250 / 250 Inj 250 ML @ 250 mls/hr IV.SIG STAT STA Rx#:[id number] Rocephin Inj 1,000 MG In NS Inj 100 / 100 100 ML @ 200 mls/hr IV.SIG ONCE ONE Rx#:[id number] Flagyl 500 MG Inj 100 ML @ 100 100 / 100 mls/hr IV.SIG STAT STA Rx#: [id number] Oral 480 / 480 Output: Urine 250 / 250 Narrative: GENERAL: WDWN elderly male, INAD. Awake and alert. Appears comfortable at present on 3L NC. Oriented. SKIN: Warm and dry. +steristrips in place on left anterior stokes and sutures on top of left foot with mild erythema noted over top of foot. +Mild edema left foot. HEAD: Atraumatic. Normocephalic. EYES: Patient is blind in both eyes, pupils nonreactive. No scleral icterus. No injection or drainage. ENT: No nasal bleeding or discharge. Mucous membranes pink and moist. NECK: Trachea midline. CARDIOVASCULAR: Regular rate and rhythm. RESPIRATORY: No accessory muscle use. Mild diffuse wheezing noted with expiration, coarse BS at bases. GASTROINTESTINAL: Abdomen soft, non-tender, nondistended. +BS. MUSCULOSKELETAL: Extremities without clubbing, cyanosis, or edema. No obvious deformities. NEUROLOGICAL: Awake and alert. No obvious cranial nerve deficits. Motor grossly within normal limits. Able to move all extremities spontaneously. Normal speech. PSYCHIATRIC: Agitated but cooperative with exam. Results - Labs CBC & Chem 7: 03/29/18 06:33 03/29/18 06:33 Laboratory Results - last 24 hr 03/28/18 03/29/18 03/29/18 13:50 06:33 06:33 WBC 21.6 H RBC 3.37 L Hgb 9.2 L Hct 28.9 L MCV 85.6 MCH 27.3 MCHC 31.9 L RDW 15.1 Plt Count 298 MPV 7.2 Neut % (Auto) 94.8 H Lymph % (Auto) 1.9 L [place] % (Auto) 3.0 Eos % (Auto) 0.0 Baso % (Auto) 0.3 Neut # (Auto) 20.5 H Lymph # (Auto) 0.4 L [place] # (Auto) 0.6 Eos # (Auto) 0.0 Baso # (Auto) 0.1 WBC Differential . Differential Comment Auto diff final Sodium 134 L Potassium 3.8 D Chloride 100 Carbon Dioxide 25.8 Anion Gap 8 BUN 24 H Creatinine 0.90 Estimated GFR 81 L POC Glucose Random Glucose 192 H Hemoglobin A1c Calcium 8.8 Vitamin B12 1290 H TSH 0.869 03/29/18 03/29/18 06:33 13:19 WBC RBC Hgb Hct MCV MCH MCHC RDW Plt Count MPV Neut % (Auto) Lymph % (Auto) [place] % (Auto) Eos % (Auto) Baso % (Auto) Neut # (Auto) Lymph # (Auto) [place] # (Auto) Eos # (Auto) Baso # (Auto) WBC Differential Differential Comment Sodium Potassium Chloride Carbon Dioxide Anion Gap BUN Creatinine Estimated GFR POC Glucose 201 H Random Glucose Hemoglobin A1c 6.5 H Calcium Vitamin B12 TSH Microbiology 03/28/18 13:55 Blood - Peripheral Aerobic Blood Culture - Preliminary No growth in 1 day 03/28/18 13:55 Blood - Peripheral Anaerobic Blood Culture - Preliminary No growth in 1 day 03/28/18 13:50 Blood - Peripheral Aerobic Blood Culture - Preliminary No growth in 1 day 03/28/18 13:50 Blood - Peripheral Anaerobic Blood Culture - Preliminary No growth in 1 day - Imaging ITS Impressions Chest X-Ray 03/28/18 13:12 CONCLUSION: Elevated right diaphragm and persistent bibasilar parenchymal opacities Tibia/Fibula X-Ray 03/28/18 13:13 CONCLUSION: 1. No acute fracture or radiopaque foreign bodies. Venous Doppler Study 03/28/18 13:13 CONCLUSION: No venous thrombosis is identified in the left lower extremity. Head CT 03/28/18 13:18 CONCLUSION: No acute intracranial findings. Basically stable abnormal brain appearance as above. . Assessment and Plan - Assessment (1) Encephalopathy Code(s): G93.40 - Encephalopathy, unspecified Status: Acute (2) COPD exacerbation Code(s): J44.1 - Chronic obstructive pulmonary disease with (acute) exacerbation Status: Acute (3) Pneumonia Code(s): J18.9 - Pneumonia, unspecified organism Status: Acute (4) Leukocytosis Code(s): D72.829 - Elevated white blood cell count, unspecified Status: Acute - Plan 78-year-old white male being admitted for acute COPD exacerbation and PNA Sepsis at admission with elevated white count, tachycardia, elevated RR with source of PNA -blood cx show no growth x 1 day, continue to follow -white count trending up but patient is on steroids Acute COPD exacerbation Pneumonia Ongoing tobaccoism CXR shows bibasilar opacities -Continue high-dose IV steroids, begin to taper -Continue on IV Ceftriaxone and Azithromycin -monitor respiratory status -continue on supplemental oxygen -discussed smoking cessation Hypertension, controlled Continue home medications of lisinopril and amlodipine Hyperglycemia, possibly due to steroid effect -obtain HgbA1c -accuchek and ISS Confusion, resolved suspect secondary to infection and hypoxia -monitor DVT prophylaxis -Heparin Code Status: FULL Discussed Condition With: patient, RN, Dr. Cox Discharge Planning: Not ready for discharge (3) Pneumonia Qualifiers: Pneumonia type: due to unspecified organism Laterality: bilateral Lung location: lower lobe of lung Qualified Code(s): J18.1 - Lobar pneumonia, unspecified organism (4) Leukocytosis Qualifiers: Leukocytosis type: unspecified Qualified Code(s): D72.829 - Elevated white blood cell count, unspecified
[2018-03-29 18:48] LABS: Bilirubin,Urine Negative (Negative); Clarity,Urine Clear (Clear); Color,Urine Yellow (Yellw/Straw); Glucose,Urine (UA) 50 mg/dL (Negative); Leukocyte Esterase,Urine Negative (Negative); Mucus,Urine Few /lpf (Occasional); Nitrite,Urine Negative (Negative); Specific Gravity,Urine 1.021 (1.002-1.035)
--- NOTE | 2018-03-30 07:32 | P.PN ---
Subjective Interval history: Follow up on patient with PNA, AECOPD. Patient seen and examined. Patient denies any complaints and states he wants to go home. Discussed diabetic diagnosis with patient - patient adamantly denies that he has diabetes. Discussed smoking cessation with patient again today and he replied by telling me he is "going to go smoke as soon as he can". He denies any fever or chills. He denies any chest pain or shortness of breath. He denies any complaints of claudication but reports "sciatica" He remains on 3L NC with sats of 97%. His caregiver is at the bedside and is requesting a pulmonary consultation. DW nursing staff, episodes of confusion last night and early this am. Physical Exam Vital signs: Vital Signs 03/29/18 08:00 03/29/18 09:52 03/29/18 10:17 Temperature 98.7 F Pulse Rate 109 H 104 H Respiratory Rate 16 14 Blood Pressure 134/62 Pulse Oximetry 96 97 03/29/18 12:00 03/29/18 16:00 03/29/18 20:00 Temperature 97.4 F L 98.4 F 97.6 F Pulse Rate 79 102 H 91 H Respiratory Rate 18 20 18 Blood Pressure 125/84 119/56 L 128/60 Pulse Oximetry 97 96 96 03/29/18 21:10 03/30/18 00:00 03/30/18 01:20 Temperature 97.8 F Pulse Rate 64 106 H Respiratory Rate 16 18 20 Blood Pressure 119/57 L Pulse Oximetry 98 96 03/30/18 04:00 03/30/18 05:20 Temperature 98.4 F Pulse Rate 96 H 96 H Respiratory Rate 20 16 Blood Pressure 116/56 L Pulse Oximetry 95 Intake & Output 03/29/18 03/30/18 03/30/18 18:59 06:59 18:59 Intake Total 350 / 350 Output Total 1300 / 1300 Balance -950 / -950 Weight 77.9 kg Intake: IV 350 / 350 Azithromycin Inj 500 MG In NS 250 / 250 Inj 250 ML @ 250 mls/hr IV.SIG Q24H LUCIANA Rx#:[id number] Rocephin Inj 1,000 MG In NS Inj 100 / 100 100 ML @ 200 mls/hr IV.SIG Q24H LUCIANA Rx#:[id number] Output: Urine 1300 / 1300 Other: # Voids 5 Date of Last Bowel Movement 03/30/18 # Bowel Movements 1 Narrative: GENERAL: WDWN elderly male, INAD. Awake and alert. Appears comfortable at present on 3L NC. Oriented. Caregiver at the bedside. SKIN: Warm and dry. +steristrips in place on left anterior stokes and sutures on top of left foot with worsening erythema noted over top of foot extending up the lower leg to mid stokes. +sutures on top of foot with small amount of purulence noted. +Edema left foot. Unable to palpate distal pulses. HEAD: Atraumatic. Normocephalic. EYES: Patient is blind in both eyes, pupils nonreactive. No scleral icterus. No injection or drainage. ENT: No nasal bleeding or discharge. Mucous membranes pink and moist. NECK: Trachea midline. CARDIOVASCULAR: Regular rate and rhythm. RESPIRATORY: No accessory muscle use. Tight air entry. Mild diffuse wheezing noted with expiration. GASTROINTESTINAL: Abdomen soft, non-tender, nondistended. +BS. MUSCULOSKELETAL: Extremities without clubbing, cyanosis, or edema except as stated above. No obvious deformities. NEUROLOGICAL: Awake and alert. No obvious cranial nerve deficits. Motor grossly within normal limits. Able to move all extremities spontaneously. Normal speech. PSYCHIATRIC: Agitated but cooperative with exam. Results - Labs CBC & Chem 7: 03/30/18 09:11 03/29/18 06:33 Laboratory Results - last 24 hr 03/29/18 03/29/18 03/29/18 06:33 06:33 13:19 Sodium 134 L Potassium 3.8 D Chloride 100 Carbon Dioxide 25.8 Anion Gap 8 BUN 24 H Creatinine 0.90 Estimated GFR 81 L POC Glucose 201 H Random Glucose 192 H Hemoglobin A1c 6.5 H Calcium 8.8 Urine Color Urine Clarity Urine pH Ur Specific [place] Urine Protein Urine Glucose (UA) Urine Ketones Urine Occult Blood Urine Nitrate Urine Bilirubin Urine Urobilinogen Ur Leukocyte Esterase Urine RBC Urine WBC Urine Mucus Micro UA Comment Urine Culture Comments 03/29/18 03/29/18 03/29/18 18:12 18:20 21:53 Sodium Potassium Chloride Carbon Dioxide Anion Gap BUN Creatinine Estimated GFR POC Glucose 173 H 148 H Random Glucose Hemoglobin A1c Calcium Urine Color Yellow Urine Clarity Clear Urine pH 6.0 Ur Specific [place] 1.021 Urine Protein Negative Urine Glucose (UA) 50 Urine Ketones Negative Urine Occult Blood Negative Urine Nitrate Negative Urine Bilirubin Negative Urine Urobilinogen 2.0 H Ur Leukocyte Esterase Negative Urine RBC Less than 1 Urine WBC 2 Urine Mucus Few H Micro UA Comment Cath-culture not ind Urine Culture Comments Cath-cult not ind Microbiology 03/28/18 13:55 Blood - Peripheral Aerobic Blood Culture - Preliminary No growth in 1 day 03/28/18 13:55 Blood - Peripheral Anaerobic Blood Culture - Preliminary No growth in 1 day 03/28/18 13:50 Blood - Peripheral Aerobic Blood Culture - Preliminary No growth in 1 day 03/28/18 13:50 Blood - Peripheral Anaerobic Blood Culture - Preliminary No growth in 1 day Assessment and Plan - Assessment (1) Encephalopathy Code(s): G93.40 - Encephalopathy, unspecified Status: Acute (2) COPD exacerbation Code(s): J44.1 - Chronic obstructive pulmonary disease with (acute) exacerbation Status: Acute (3) Pneumonia Code(s): J18.9 - Pneumonia, unspecified organism Status: Acute (4) Leukocytosis Code(s): D72.829 - Elevated white blood cell count, unspecified Status: Acute - Plan 78-year-old white male being admitted for acute COPD exacerbation and PNA Sepsis at admission with elevated white count, tachycardia, elevated RR with source of PNA -blood cx show no growth x 2 days, continue to follow -white count remains elevated but patient is on steroids Acute COPD exacerbation Pneumonia Ongoing tobaccoism CXR shows bibasilar opacities -Continue IV steroids -Continue on IV Ceftriaxone and Azithromycin -Consult Pulmonary medicine, appreciate assistance -continue on Symbicort. Add Spiriva. Add Mucinex. IS and acapella. -monitor respiratory status -continue on supplemental oxygen, wean down as tolerated -discussed smoking cessation Hypertension, controlled Continue home medications of lisinopril and amlodipine Diabetes, new diagnosis A1c 6.5 hyperglycemia worse while on steroids -discussed lifestyle modification -changed to diabetic diet -consult referral rn for diabetes -continue on accuchek and ISS -begin NPH 5u BID while on steroids -recommend patient have A1c rechecked in 3 mos LLE cellulitis, concern for underlying abscess -Consult ID, appreciate assistance -obtain soft tissue US Suspected PVD patient denies any complaints of claudication but reports "sciatica" unable to palpate distal pulses -obtain arterial studies Dementia, chronic Confusion, acute, suspect secondary to infection and hypoxia, improved -patient resumed on home dose of Aricept Anemia, chronic Hgb appears stable -no active bleeding -monitor as indicated DVT prophylaxis -Heparin Code Status: FULL Discussed Condition With: patient, nursing staff, Dr. Cox, caregiver at bedside Discharge Planning: Not ready for discharge. D/C pending clinical improvement, pulmonary and ID clearance. (3) Pneumonia Qualifiers: Pneumonia type: due to unspecified organism Laterality: bilateral Lung location: lower lobe of lung Qualified Code(s): J18.1 - Lobar pneumonia, unspecified organism (4) Leukocytosis Qualifiers: Leukocytosis type: unspecified Qualified Code(s): D72.829 - Elevated white blood cell count, unspecified
[2018-03-30] MEDS: Gabapentin 300 MG Capsule PO SCH ×3 (09:41→17:07)
[2018-03-30] MEDS: Metoprolol Tartrate 25 MG Tablet PO SCH (09:41)
[2018-03-30] MEDS: FLUoxetine 10 MG Capsule PO SCH (09:42)
[2018-03-30] MEDS: Pantoprazole Sodium 20 MG DR Tablet PO SCH (09:42)
[2018-03-30] MEDS: MethylPREDNISolone Sod Succinate Inj 125 MG/2 ML Vial IV.PUSH SCH (09:43)
[2018-03-30 09:44] LABS: Baso % (Auto) 0.2 % (0.0-2.0); Hematocrit 28.4 % (39.0-51.0); Lymph # (Auto) 0.3 th/mm3 (1.0-4.8); Lymph % (Auto) 1.7 % (9.0-44.0); Mean Corpuscular HGB Conc 31.9 % (32.0-36.0); Mean Corpuscular Hemoglobin 27.3 pg (27.0-34.0); Mean Corpuscular Volume 85.6 fL (80.0-100.0); Mean Platelet Volume 6.9 fL (7.0-11.0); Mono # (Auto) 0.7 th/mm3 (0.0-0.9); Neut # (Auto) 17.3 th/mm3 (1.8-7.7); Neut % (Auto) 94.1 % (16.0-70.0); Platelet Count 331 th/mm3 (150-450); Red Blood Count 3.31 mil/mm3 (4.50-5.90); Red Cell Distribution Width 15.3 % (11.6-17.2); White Blood Count 18.4 th/mm3 (4.0-11.0)
[2018-03-30] MEDS: Insulin NovoLOG Aspart Correctional Sugar Inj SQ SCH ×3 (09:44→18:12)
[2018-03-30] MEDS: Tiotropium Bromide 18 MCG/ACT Inhaler INH SCH (11:05)
[2018-03-30] MEDS: Budesonide-Formoterol 160/4.5 MCG 6 GM Inhaler INH SCH (11:05)
[2018-03-30] MEDS: guaiFENesin 600 MG ER Tablet PO SCH (11:05)
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
[2018-03-30 14:17] LABS: Bilirubin,Urine Negative (Negative); Clarity,Urine Clear (Clear); Color,Urine Yellow (Yellw/Straw); Glucose,Urine (UA) 500 or Greater mg/dL (Negative); Leukocyte Esterase,Urine Negative (Negative); Mucus,Urine Few /lpf (Occasional); Nitrite,Urine Negative (Negative); Specific Gravity,Urine 1.021 (1.002-1.035); Squamous Epithelial Cell,Urine <1 /hpf (0-5)
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
[2018-03-30] MEDS: Azithromycin Inj 500 MG in Sodium Chlor 0.9% Inj 250 ML IV.SIG SCH (17:06)
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
[2018-03-30] MEDS ORDERED: Bisacodyl 10 MG Supp RECTAL PRN (20:08)
[2018-03-31] MEDS: MethylPREDNISolone Sod Succinate Inj 125 MG/2 ML Vial IV.PUSH SCH ×2 (00:40→09:55)
[2018-03-31] MEDS: Senna/Docusate Sodium 8.6/50 MG Tablet PO SCH ×3 (00:41→22:43)
[2018-03-31] MEDS: guaiFENesin 600 MG ER Tablet PO SCH ×3 (00:41→22:43)
[2018-03-31] MEDS: Metoprolol Tartrate 25 MG Tablet PO SCH ×3 (00:41→22:44)
[2018-03-31] MEDS: Budesonide-Formoterol 160/4.5 MCG 6 GM Inhaler INH SCH ×3 (00:44→22:47)
[2018-03-31] MEDS: Insulin NovoLOG Aspart Correctional Sugar Inj SQ SCH ×5 (00:45→22:47)
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
[2018-03-31] MEDS: FLUoxetine 10 MG Capsule PO SCH (09:55)
[2018-03-31] MEDS: Gabapentin 300 MG Capsule PO SCH ×3 (09:55→17:56)
[2018-03-31] MEDS: Pantoprazole Sodium 20 MG DR Tablet PO SCH (09:55)
[2018-03-31] MEDS: Tiotropium Bromide 18 MCG/ACT Inhaler INH SCH (09:55)
[2018-03-31] MEDS ORDERED: MethylPREDNISolone Sod Succinate Inj 40 MG/ML Vial IV.PUSH SCH (15:12)
--- NOTE | 2018-03-31 16:06 | P.PN ---
Subjective Interval history: Better today . Off o2 sat 96. On antibiotics for cellulitis. CT chest noted . Stable chronic diaphragm elevation Physical Exam Vital signs: Vital Signs 03/30/18 20:00 03/30/18 21:24 03/31/18 00:00 Temperature 97.6 F 97.8 F Pulse Rate 81 90 96 H Respiratory Rate 18 22 20 Blood Pressure 131/80 112/57 L Pulse Oximetry 96 95 03/31/18 03:05 03/31/18 04:00 03/31/18 08:00 Temperature 97.5 F L 98.4 F Pulse Rate 75 73 80 Respiratory Rate 18 17 18 Blood Pressure 135/63 151/75 H Pulse Oximetry 92 L 93 L 03/31/18 09:36 03/31/18 12:00 Temperature 97.4 F L Pulse Rate 78 68 Respiratory Rate 18 18 Blood Pressure 133/65 Pulse Oximetry 95 Intake & Output 03/30/18 03/31/18 03/31/18 18:59 06:59 18:59 Intake Total 100 / 100 730 / 730 Output Total 300 / 300 650 / 650 Balance -200 / -200 80 / 80 Weight 77.5 kg Intake: IV 100 / 100 250 / 250 Azithromycin Inj 500 MG In NS 250 / 250 Inj 250 ML @ 250 mls/hr IV.SIG Q24H [facility] Rx#:[id number] Rocephin Inj 1,000 MG In NS Inj 100 / 100 100 ML @ 200 mls/hr IV.SIG Q24H [facility] Rx#:[id number] Oral 480 / 480 Output: Urine 300 / 300 650 / 650 Other: Date of Last Bowel Movement 03/30/18 03/30/18 Narrative: GENERAL: WDWN elderly male, INAD. Awake and alert. Appears comfortable on RA. Oriented GENERAL: SKIN: Warm and dry. has healing lesions of left foot.Dressings noted HEAD: Atraumatic. Normocephalic. EYES: Pupils equal and round. No scleral icterus. No injection or drainage. ENT: No nasal bleeding or discharge. Mucous membranes pink and moist. NECK: Trachea midline. No JVD. CARDIOVASCULAR: Regular rate and rhythm. RESPIRATORY: No accessory muscle use. Occ wheeze upper chest. Breath sounds equal bilaterally. GASTROINTESTINAL: Abdomen soft, non-tender, nondistended. Hepatic and splenic margins not palpable. MUSCULOSKELETAL: Extremities without clubbing, cyanosis, or edema. No obvious deformities. NEUROLOGICAL: Awake and alert. No obvious cranial nerve deficits. Motor grossly within normal limits. Five out of 5 muscle strength in the arms and legs. Normal speech. PSYCHIATRIC: Appropriate mood and affect. PSYCHIATRIC: Calm and cooperative. Results - Labs CBC & Chem 7: 03/30/18 09:11 03/29/18 06:33 Laboratory Results - last 24 hr 03/30/18 03/31/18 03/31/18 17:05 00:44 08:03 POC Glucose 188 H 186 H 194 H 03/31/18 11:51 POC Glucose 396 H Microbiology 03/30/18 12:50 Sputum - Expectorated Sputum Gram Stain - Final 03/30/18 12:50 Sputum - Expectorated Sputum Sputum Culture - Preliminary Heavy growth normal respiratory chen at 24 hours 03/28/18 13:55 Blood - Peripheral Aerobic Blood Culture - Preliminary No growth in 3 days 03/28/18 13:55 Blood - Peripheral Anaerobic Blood Culture - Preliminary No growth in 3 days 03/28/18 13:50 Blood - Peripheral Aerobic Blood Culture - Preliminary No growth in 3 days 03/28/18 13:50 Blood - Peripheral Anaerobic Blood Culture - Preliminary No growth in 3 days - Imaging Impressions Chest CT 03/30/18 00:00 CONCLUSION: 1. Moderate L1 vertebral body compression fracture, new since February 2017. If patient has pain on palpation of the spinous process, consider MRI examination to determine acuity. 2. Otherwise, stable CT examination of the chest. 3. Stable elevation of the right hemidiaphragm with right lower lobe atelectasis/scarring. 4. Minimal left lung base atelectasis/scarring. 5. Stable 17 mm left adrenal adenoma. Assessment and Plan - Assessment (1) Cellulitis and abscess of foot excluding toe Code(s): L03.119 - Cellulitis of unspecified part of limb; L02.619 - Cutaneous abscess of unspecified foot Status: Acute (2) Foot laceration involving tendon Code(s): S91.319A - Laceration without foreign body, unspecified foot, initial encounter; S96.929A - Laceration of unspecified muscle and tendon at ankle and foot level, unspecified foot, initial encounter Status: Acute (3) Pneumonia Code(s): J18.9 - Pneumonia, unspecified organism Status: Acute (4) Leukocytosis Code(s): D72.829 - Elevated white blood cell count, unspecified Status: Acute (5) Altered mental status Code(s): R41.82 - Altered mental status, unspecified Status: Acute (6) Encephalopathy Code(s): G93.40 - Encephalopathy, unspecified Status: Acute (7) COPD exacerbation Code(s): J44.1 - Chronic obstructive pulmonary disease with (acute) exacerbation Status: Acute - Plan 1. O2 PRN 1 L. 2. Continue Duonebs qid . and PRN 3. Antibiotics per ID 4. IS at Bedside qid 5. Adv to quit smoking 6. Symbicort 160/4.5 mcg , 2 puffs BID 7. PFT in am. (3) Pneumonia Qualifiers: Pneumonia type: due to unspecified organism Laterality: bilateral Lung location: lower lobe of lung Qualified Code(s): J18.1 - Lobar pneumonia, unspecified organism (4) Leukocytosis Qualifiers: Leukocytosis type: unspecified Qualified Code(s): D72.829 - Elevated white blood cell count, unspecified (5) Altered mental status Qualifiers: Altered mental status type: unspecified Qualified Code(s): R41.82 - Altered mental status, unspecified
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
--- NOTE | 2018-03-31 16:45 | P.DCO ---
- Physical Therapy Order: Evaluate and treat, Improve ambulation, Strength and gait training - Occupational Therapy Order: Evaluate and treat, Improve ADL, Gross motor coordination, Fine motor coordination - Home Health Nursing Order: Signs/symptoms of disease process, Diabetic education, Medication education-adverse effect, Wound care and dressing changes, Nursing assessment with vital signs - Hand Spring Repairer Helper Order: To evaluate: Living conditions/environment (please assess home safety) - Certification I have seen patient Kar Estrada on 03/31/18. My clinical findings support the need for the requested home health care services because: Patient has SOB, Deconditioned with increased weakness, Medication compliance is questionable, Limited ability to care for self, Impaired cognition/judgement , High risk of falls I certify that my clinical findings support that this patient is homebound because: Impaired cognitive ability/safety, Hx COPD - exertion dyspnea/weakness, Unsteady gait/balance, Unsafe to leave home unassisted, Unable to use public transportation, Poor cardiac reserve
[2018-03-31] MEDS: Azithromycin Inj 500 MG in Sodium Chlor 0.9% Inj 250 ML IV.SIG SCH (18:58)
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
[2018-03-31] MEDS: DOXYCYCLINE 25 MG/5 ML PO SCH (22:45)
[2018-04-01] MEDS: Senna/Docusate Sodium 8.6/50 MG Tablet PO SCH ×2 (09:17→20:25)
[2018-04-01] MEDS: guaiFENesin 600 MG ER Tablet PO SCH ×2 (09:17→20:26)
[2018-04-01] MEDS: Pantoprazole Sodium 20 MG DR Tablet PO SCH (09:17)
[2018-04-01] MEDS: Metoprolol Tartrate 25 MG Tablet PO SCH ×2 (09:17→20:26)
[2018-04-01] MEDS: predniSONE 20 MG Tablet PO SCH (09:17)
[2018-04-01] MEDS: Gabapentin 300 MG Capsule PO SCH ×3 (09:17→17:41)
[2018-04-01] MEDS: FLUoxetine 10 MG Capsule PO SCH (09:17)
[2018-04-01] MEDS: Insulin NovoLOG Aspart Correctional Sugar Inj SQ SCH ×4 (09:18→20:27)
[2018-04-01] MEDS: DOXYCYCLINE 25 MG/5 ML PO SCH ×2 (09:19→20:27)
[2018-04-01] MEDS: Budesonide-Formoterol 160/4.5 MCG 6 GM Inhaler INH SCH ×2 (09:19→20:27)
[2018-04-01] MEDS: Tiotropium Bromide 18 MCG/ACT Inhaler INH SCH (09:19)
--- NOTE | 2018-04-01 12:51 | US ---
EXAM DATE: 04/01/2018 12:25 PM EDT AGE/SEX: 78 years / Male INDICATIONS: Stenosis. CLINICAL DATA: This is the patient's initial encounter. Patient reports that signs and symptoms have been present for 1 day and indicates a pain score of 0/10. MEDICAL/SURGICAL HISTORY: . Blindness. COPD. Hypertension. None. COMPARISON: No prior exams available for comparison. VELOCITY PARAMETERS: ICA/CCA Ratio: Right 0.96 , Left 0.79 ICA: Right 48 cm/sec, Left 58 cm/sec CCA: Right 50 cm/sec, Left 73 cm/sec ECA: Right 90 cm/sec, Left 96 cm/sec Vertebral: Right 57 cm/sec antegrade, Left 65 cm/sec antegrade FINDINGS: Right Carotid: Mild arteriosclerotic plaque is visualized.The waveforms are within normal limits. Left Carotid: Mild arteriosclerotic plaque is visualized. The waveforms are within normal limits. Other: None. CONCLUSION: Mild plaque without a significant stenosis seen. Electronically signed by: Jose Stephens MD 04/01/2018 12:50 PM EDT
--- NOTE | 2018-04-01 16:24 | P.PNID ---
Subjective Remarks: Mr. Estrada is a 78-year-old white male who was admitted for acute shortness of breath secondary to COPD exacerbation and possible pneumonia. Patient was in his usual state of health until about 1-2 days prior to admission when he started experiencing short of breath. He went to an urgent care and was referred to an emergency department. Patient goes on to report that approximately 2 days prior to his admission he had an injury at home. He goes on to report that he is legally blind and has a caregiver at home and may have injured himself while trying to navigate. He went to the urgent care at that time and got sutures in place. Per his caregiver and notes it appears that patient was initially more confused on admission. At the present time patient is alert oriented 3 and is able to provide me the entire history. Reportedly has a caregiver that is present at home 24 7 for nursing care. Patient otherwise has no relatives at home and lives by himself. At baseline it appears that patient uses a walker at home. In the emergency department he was noted to have a white count of about 18,000. Patient underwent evaluation for sepsis. Patient underwent an ultrasound of his leg which shows fluid collection possible tenosynovitis of the foot. Patient was started on empiric antibiotics due to his recent injury and concern for cellulitis in his left leg as well as left foot. Pulmonology has been consulted as a chest x-ray shows some degree of atelectasis. This appears to be chronic there is no obvious mucous plug. Patient is currently asymptomatic at the time of my evaluation. Infectious disease is consulted for evaluation of left lower extremity infection. Overnight events reviewed No fever No rash No diarrhea Left leg improved but left foot suture site with blistering of skin and swelling noted. Diminished pulses. Antibiotics: Ceftriaxone Iv Azithro Lines: Line sites okay Past Medical History: Reviewed Allergies/Adverse Reactions: Allergies memantine Allergy (Unknown, Verified 03/28/18 14:38) Rash MRI PRECAUTION Adverse Reaction (Severe, Uncoded 04/01/17 19:48) shrapnel in brain and orbit mpw per Dr Rincon Objective Vital Signs 03/31/18 17:29 03/31/18 20:00 03/31/18 20:42 Temperature 98.3 F Pulse Rate 96 H 80 79 Respiratory Rate 22 20 20 Blood Pressure 146/70 H Pulse Oximetry 96 97 04/01/18 00:00 04/01/18 04:00 04/01/18 08:00 Temperature 98.1 F 97.6 F 98.0 F Pulse Rate 92 H 85 79 Respiratory Rate 18 18 18 Blood Pressure 131/61 140/91 H 159/72 H Pulse Oximetry 94 L 94 L 96 04/01/18 10:34 04/01/18 12:00 04/01/18 15:56 Temperature 99.3 F 98.5 F Pulse Rate 74 84 83 Respiratory Rate 08 01 18 Blood Pressure 132/55 L 148/62 H Pulse Oximetry 98 95 95 Intake & Output 03/31/18 04/01/18 04/01/18 18:59 06:59 18:59 Intake Total 100 / 100 Output Total 100 / 100 Balance 0 / 0 Weight 77.2 kg Intake: IV 100 / 100 Rocephin Inj 2,000 MG In NS Inj 100 / 100 100 ML @ 200 mls/hr IV.SIG Q24H [facility] Rx#:[id number] Output: Urine 100 / 100 Other: # Voids 1 3 # Incontinent Voids 1 Date of Last Bowel Movement 03/30/18 04/01/18 03/30/18 12:50 Sputum - Expectorated Sputum Gram Stain - Final 03/30/18 12:50 Sputum - Expectorated Sputum Sputum Culture - Final Heavy growth normal respiratory chen 03/28/18 13:55 Blood - Peripheral Aerobic Blood Culture - Preliminary No growth in 4 days 03/28/18 13:55 Blood - Peripheral Anaerobic Blood Culture - Preliminary No growth in 4 days 03/28/18 13:50 Blood - Peripheral Aerobic Blood Culture - Preliminary No growth in 4 days 03/28/18 13:50 Blood - Peripheral Anaerobic Blood Culture - Preliminary No growth in 4 days Lab - Chemistry Results 03/30/18 03/31/18 03/31/18 17:05 00:44 08:03 POC Glucose 188 H 186 H 194 H 03/31/18 03/31/18 03/31/18 11:51 17:19 22:43 POC Glucose 396 H 126 H 173 H 04/01/18 04/01/18 07:16 11:16 POC Glucose 82 117 H Imaging: ITS Impressions Chest X-Ray 03/28/18 13:12 CONCLUSION: Elevated right diaphragm and persistent bibasilar parenchymal opacities Tibia/Fibula X-Ray 03/28/18 13:13 CONCLUSION: 1. No acute fracture or radiopaque foreign bodies. Venous Doppler Study 03/28/18 13:13 CONCLUSION: No venous thrombosis is identified in the left lower extremity. Head CT 03/28/18 13:18 CONCLUSION: No acute intracranial findings. Basically stable abnormal brain appearance as above. . Chest CT 03/30/18 00:00 CONCLUSION: 1. Moderate L1 vertebral body compression fracture, new since February 2017. If patient has pain on palpation of the spinous process, consider MRI examination to determine acuity. 2. Otherwise, stable CT examination of the chest. 3. Stable elevation of the right hemidiaphragm with right lower lobe atelectasis/scarring. 4. Minimal left lung base atelectasis/scarring. 5. Stable 17 mm left adrenal adenoma. Extremity Arterial Study 03/30/18 00:00 CONCLUSION: 1. Moderately reduced left lower extremity ankle-brachial indices. Consider CTA examination if patient has left-sided symptoms. 2. Normal range right ankle-brachial index. 3. Normal range bilateral toe brachial indices. Lower Extremity Ultrasound 03/30/18 00:00 CONCLUSION: 1. Complex fluid collection surrounding extensor tendons of the foot adjacent to area of wound. Findings suggest tenosynovitis. MRI of the foot could be performed to further evaluate integrity of the tendons. 2. Negative ultrasound in the area of the anterior lower leg wound. Carotid Doppler Study 04/01/18 00:00 CONCLUSION: Mild plaque without a significant stenosis seen. Physical Exam: GENERAL: Sedated, on the vent, NAD SKIN: Cool and dry, no generalized rash HEAD: Atraumatic. Normocephalic. No temporal or scalp tenderness. EYES: Pupils equal round and reactive. Scleral icterus. No injection or drainage. No petechia ENT: Orally intubated NECK: Trachea midline. Supple, nontender, no meningeal signs. CARDIOVASCULAR: HS audible. RESPIRATORY: Air entry equal bilaterally. Clear to auscultation bilaterally. GASTROINTESTINAL: Abdomen soft,NT MUSCULOSKELETAL: Left leg with minimal erythema noted at this site of sutures. Left foot induration area minimal erythema and swelling noted but skin over sutures is blistering. NEUROLOGICAL: Sedated Psych cooperative IV line sites ok. Assessment and Plan - Plan Left lower extremity cellulitis Left foot possible tenosynovitis versus hematoma Possible pneumonia versus atelectasis Recommendations Continue Rocephin Continue Doxy oral (helps COPD and foot) Await vascular workup Needs podiatry follow up. elaina Zavala PA-C
--- NOTE | 2018-04-01 17:13 | P.PN ---
Subjective Interval history: Late entry patient seen earlier today. Patient seen and examined. He appears comfortable sitting up in bedside chair. Caregivers at the bedside. Patient denies any medical complaints. He states he feels well and is hoping he can go home. Discussed with nursing staff, no acute issues. Physical Exam Vital signs: Vital Signs 03/31/18 17:29 03/31/18 20:00 03/31/18 20:42 Temperature 98.3 F Pulse Rate 96 H 80 79 Respiratory Rate 22 20 20 Blood Pressure 146/70 H Pulse Oximetry 96 97 04/01/18 00:00 04/01/18 04:00 04/01/18 08:00 Temperature 98.1 F 97.6 F 98.0 F Pulse Rate 92 H 85 79 Respiratory Rate 18 18 18 Blood Pressure 131/61 140/91 H 159/72 H Pulse Oximetry 94 L 94 L 96 04/01/18 10:34 04/01/18 12:00 04/01/18 15:56 Temperature 99.3 F 98.5 F Pulse Rate 74 84 83 Respiratory Rate 12 20 18 Blood Pressure 132/55 L 148/62 H Pulse Oximetry 98 95 95 Intake & Output 03/31/18 04/01/18 04/01/18 18:59 06:59 18:59 Intake Total 100 / 100 Output Total 100 / 100 Balance 0 / 0 Weight 77.2 kg Intake: IV 100 / 100 Rocephin Inj 2,000 MG In NS Inj 100 / 100 100 ML @ 200 mls/hr IV.SIG Q24H [facility] Rx#:[id number] Output: Urine 100 / 100 Other: # Voids 1 3 # Incontinent Voids 1 Date of Last Bowel Movement 03/30/18 04/01/18 Narrative: GENERAL: WDWN elderly male, INAD. Awake and alert. Caregivers at the bedside. SKIN: Warm and dry. +steristrips in place on left anterior stokes and sutures on top of left foot with less erythema noted over top of foot extending up the lower leg to mid stokes. +sutures on top of foot with worsening purulence noted and blistering of the skin. +Edema left foot much improved. Unable to palpate distal pulses. HEAD: Atraumatic. Normocephalic. EYES: Patient is blind in both eyes, pupils nonreactive. No scleral icterus. No injection or drainage. ENT: No nasal bleeding or discharge. Mucous membranes pink and moist. NECK: Trachea midline. CARDIOVASCULAR: Regular rate and rhythm. RESPIRATORY: No accessory muscle use. Fair air entry. No wheezing. GASTROINTESTINAL: Abdomen soft, non-tender, nondistended. +BS. MUSCULOSKELETAL: Extremities without clubbing, cyanosis, or edema except as stated above. No obvious deformities. NEUROLOGICAL: Awake and alert. No obvious cranial nerve deficits. Motor grossly within normal limits. Able to move all extremities spontaneously. Normal speech. PSYCHIATRIC: Calm and cooperative. Results - Labs CBC & Chem 7: 03/30/18 09:11 03/29/18 06:33 Laboratory Results - last 24 hr 03/31/18 03/31/18 04/01/18 17:19 22:43 07:16 POC Glucose 126 H 173 H 82 04/01/18 11:16 POC Glucose 117 H Microbiology 03/30/18 12:50 Sputum - Expectorated Sputum Gram Stain - Final 03/30/18 12:50 Sputum - Expectorated Sputum Sputum Culture - Final Heavy growth normal respiratory chen 03/28/18 13:55 Blood - Peripheral Aerobic Blood Culture - Preliminary No growth in 4 days 03/28/18 13:55 Blood - Peripheral Anaerobic Blood Culture - Preliminary No growth in 4 days 03/28/18 13:50 Blood - Peripheral Aerobic Blood Culture - Preliminary No growth in 4 days 03/28/18 13:50 Blood - Peripheral Anaerobic Blood Culture - Preliminary No growth in 4 days - Imaging Impressions Extremity Arterial Study 03/30/18 00:00 CONCLUSION: 1. Moderately reduced left lower extremity ankle-brachial indices. Consider CTA examination if patient has left-sided symptoms. 2. Normal range right ankle-brachial index. 3. Normal range bilateral toe brachial indices. Carotid Doppler Study 04/01/18 00:00 CONCLUSION: Mild plaque without a significant stenosis seen. Assessment and Plan - Assessment (1) Blind in both eyes Code(s): H54.3 - Unqualified visual loss, both eyes Status: Acute (2) Impaired activities of daily living Status: Acute (3) Risk for falls Code(s): Z91.81 - History of falling Status: Acute (4) Gait instability Code(s): R26.81 - Unsteadiness on feet Status: Acute (5) Poor balance Code(s): R26.89 - Other abnormalities of gait and mobility Status: Acute (6) Pneumonia Code(s): J18.9 - Pneumonia, unspecified organism Status: Acute (7) Leukocytosis Code(s): D72.829 - Elevated white blood cell count, unspecified Status: Acute (8) Encephalopathy Code(s): G93.40 - Encephalopathy, unspecified Status: Acute (9) COPD exacerbation Code(s): J44.1 - Chronic obstructive pulmonary disease with (acute) exacerbation Status: Acute - Plan 78-year-old white male being admitted for acute COPD exacerbation and PNA Sepsis at admission with elevated white count, tachycardia, elevated RR with source of PNA -blood cx show no growth x 3 days, continue to follow -white count remains elevated but patient is on steroids Acute COPD exacerbation Pneumonia Ongoing tobaccoism CXR shows bibasilar opacities Chest CT stable, elevated right hemidiaphragm, possible phrenic nerve palsy sputum cx with heavy growth of nl resp chen Patient satting well on RA -Continue po steroids per pulmonary -Continue on IV Ceftriaxone and doxycycline per ID -Pulmonary medicine following, appreciate assistance. They have signed off -continue on Symbicort, Spiriva and Mucinex. IS and acapella. -monitor respiratory status -discussed smoking cessation Hypertension, controlled Continue home medications of lisinopril and amlodipine Diabetes, new diagnosis A1c 6.5 hyperglycemia worse while on steroids -discussed lifestyle modification -consult caramel cutter hand for diabetes -continue on accuchek and ISS -Blood sugars much improved now that IV steroids have been discontinued. Hold NPH. Doubt patient will require insulin off of IV steroids. -recommend patient have A1c rechecked in 3 mos LLE cellulitis Left foot possible tenosynovitis versus hematoma soft tissue US's complex fluid collection surrounding extensor tendons of the foot adjacent to the wound, MRI recommended patient unable to have secondary to shrapnel her head. -ID following, appreciate assistance -Podiatry following, appreciate assistance Suspected PVD patient denies any complaints of claudication but reports "sciatica" unable to palpate distal pulses -abnormal left ROSHNI -Consult vascular surgery, appreciate assistance Dementia, chronic Confusion, acute, suspect secondary to infection and hypoxia, improved -patient resumed on home dose of Aricept Anemia, chronic Hgb appears stable -no active bleeding -monitor as indicated DVT prophylaxis -Heparin Code Status: FULL Discussed Condition With: patient, caregiver, Dr. Navas, Dr. Grieper Discharge Planning: Not ready for discharge. D/C pending clinical improvement, vascular, podiatry and ID clearance. (6) Pneumonia Qualifiers: Pneumonia type: due to unspecified organism Laterality: bilateral Lung location: lower lobe of lung Qualified Code(s): J18.1 - Lobar pneumonia, unspecified organism (7) Leukocytosis Qualifiers: Leukocytosis type: unspecified Qualified Code(s): D72.829 - Elevated white blood cell count, unspecified
--- NOTE | 2018-04-01 17:46 | P.PN ---
Subjective Interval history: Alert and breathing better. Off O2 now. On antibiotics for cellulitis. Physical Exam Vital signs: Vital Signs 03/31/18 20:00 03/31/18 20:42 04/01/18 00:00 Temperature 98.3 F 98.1 F Pulse Rate 80 79 92 H Respiratory Rate 20 20 18 Blood Pressure 146/70 H 131/61 Pulse Oximetry 96 97 94 L 04/01/18 04:00 04/01/18 08:00 04/01/18 10:34 Temperature 97.6 F 98.0 F Pulse Rate 85 79 74 Respiratory Rate 18 18 12 Blood Pressure 140/91 H 159/72 H Pulse Oximetry 94 L 96 98 04/01/18 12:00 04/01/18 15:56 Temperature 99.3 F 98.5 F Pulse Rate 84 83 Respiratory Rate 20 18 Blood Pressure 132/55 L 148/62 H Pulse Oximetry 95 95 Intake & Output 03/31/18 04/01/18 04/01/18 18:59 06:59 18:59 Intake Total 100 / 100 Output Total 100 / 100 Balance 0 / 0 Weight 77.2 kg Intake: IV 100 / 100 Rocephin Inj 2,000 MG In NS Inj 100 / 100 100 ML @ 200 mls/hr IV.SIG Q24H LUCIANA Rx#:[id number] Output: Urine 100 / 100 Other: # Voids 1 3 # Incontinent Voids 1 Date of Last Bowel Movement 03/30/18 04/01/18 Narrative: GENERAL: Alert elderly male, no distress. SKIN: Warm and dry. +steri strips in place on left anterior stokes and sutures on top of left foot with less erythema noted over top of foot extending up the lower leg to mid stokes. + Edema left foot much improved. HEAD: Atraumatic. Normocephalic. EYES: Patient is blind in both eyes, pupils nonreactive. No scleral icterus. No injection or drainage. ENT: No nasal bleeding or discharge. Mucous membranes pink and moist. NECK: Trachea midline. CARDIOVASCULAR: Regular rate and rhythm. RESPIRATORY: No accessory muscle use. Occ wheezing. GASTROINTESTINAL: Abdomen soft, non-tender, nondistended. +BS. MUSCULOSKELETAL: Extremities without clubbing, cyanosis, or edema except as stated above. No obvious deformities. NEUROLOGICAL: Awake and alert. No cranial nerve deficits. Motor grossly within normal limits. Able to move all extremities spontaneously. Normal speech. PSYCHIATRIC: Calm and cooperative. Results - Labs CBC & Chem 7: 03/30/18 09:11 03/29/18 06:33 Laboratory Results - last 24 hr 03/31/18 04/01/18 04/01/18 22:43 07:16 11:16 POC Glucose 173 H 82 117 H 04/01/18 17:24 POC Glucose 239 H Microbiology 03/30/18 12:50 Sputum - Expectorated Sputum Gram Stain - Final 03/30/18 12:50 Sputum - Expectorated Sputum Sputum Culture - Final Heavy growth normal respiratory chen 03/28/18 13:55 Blood - Peripheral Aerobic Blood Culture - Preliminary No growth in 4 days 03/28/18 13:55 Blood - Peripheral Anaerobic Blood Culture - Preliminary No growth in 4 days 03/28/18 13:50 Blood - Peripheral Aerobic Blood Culture - Preliminary No growth in 4 days 03/28/18 13:50 Blood - Peripheral Anaerobic Blood Culture - Preliminary No growth in 4 days - Imaging Impressions Extremity Arterial Study 03/30/18 00:00 CONCLUSION: 1. Moderately reduced left lower extremity ankle-brachial indices. Consider CTA examination if patient has left-sided symptoms. 2. Normal range right ankle-brachial index. 3. Normal range bilateral toe brachial indices. Carotid Doppler Study 04/01/18 00:00 CONCLUSION: Mild plaque without a significant stenosis seen. Assessment and Plan - Assessment (1) Cellulitis and abscess of foot excluding toe Code(s): L03.119 - Cellulitis of unspecified part of limb; L02.619 - Cutaneous abscess of unspecified foot Status: Acute (2) Foot laceration involving tendon Code(s): S91.319A - Laceration without foreign body, unspecified foot, initial encounter; S96.929A - Laceration of unspecified muscle and tendon at ankle and foot level, unspecified foot, initial encounter Status: Acute (3) Pneumonia Code(s): J18.9 - Pneumonia, unspecified organism Status: Acute (4) Leukocytosis Code(s): D72.829 - Elevated white blood cell count, unspecified Status: Acute (5) Altered mental status Code(s): R41.82 - Altered mental status, unspecified Status: Acute (6) Encephalopathy Code(s): G93.40 - Encephalopathy, unspecified Status: Acute (7) COPD exacerbation Code(s): J44.1 - Chronic obstructive pulmonary disease with (acute) exacerbation Status: Acute - Plan 1. O2 PRN 1 L. at HS 2. Continue Symbicort 160/4.5 mcg 2 puffs bid 3. Antibiotics per ID 4. IS at Bedside qid 5. Nicotine patch 14 mg / day 6. Symbicort 160/4.5 mcg , 2 puffs BID 7. To rehab soon. (3) Pneumonia Qualifiers: Pneumonia type: due to unspecified organism Laterality: bilateral Lung location: lower lobe of lung Qualified Code(s): J18.1 - Lobar pneumonia, unspecified organism (4) Leukocytosis Qualifiers: Leukocytosis type: unspecified Qualified Code(s): D72.829 - Elevated white blood cell count, unspecified (5) Altered mental status Qualifiers: Altered mental status type: unspecified Qualified Code(s): R41.82 - Altered mental status, unspecified
--- NOTE | 2018-04-02 07:00 | P.PN ---
Subjective Interval history: Follow-up on patient with COPD exacerbation, left partially cellulitis. Patient seen and examined. Patient denies any medical complaints. States he feels well. He denies any fever chills. Denies any chest pain or shortness of breath. Denies any nausea, vomiting or abdominal pain. He is afebrile. Vital signs are stable. Physical Exam Vital signs: Vital Signs 04/01/18 08:00 04/01/18 10:34 04/01/18 12:00 Temperature 98.0 F 99.3 F Pulse Rate 79 74 84 Respiratory Rate 18 12 20 Blood Pressure 159/72 H 132/55 L Pulse Oximetry 96 98 95 04/01/18 15:56 04/01/18 20:01 04/01/18 21:06 Temperature 98.5 F 97.9 F Pulse Rate 83 83 19 L Respiratory Rate 18 18 Blood Pressure 148/62 H 137/83 Pulse Oximetry 95 95 Intake & Output 04/01/18 04/02/18 04/02/18 18:59 06:59 18:59 Intake Total 580 / 580 Output Total 800 / 800 450 / 450 Balance -220 / -220 -450 / -450 Intake: IV 100 / 100 Rocephin Inj 2,000 MG In NS Inj 100 / 100 100 ML @ 200 mls/hr IV.SIG Q24H LUCIANA Rx#:[id number] Oral 480 / 480 Output: Urine 800 / 800 450 / 450 Other: # Voids 3 Date of Last Bowel Movement 04/01/18 04/01/18 # Bowel Movements 1 Narrative: GENERAL: WDWN elderly male patient. Awake and alert. Sitting up in bedside chair eating breakfast. Not in any distress. Caregiver at the bedside. SKIN: Warm and dry. +steri strips in place on left anterior stokes with less erythema, left foot with increased erythema and edema over the site of the sutures with blistering of the skin suture line. HEAD: Atraumatic. Normocephalic. EYES: Patient is blind in both eyes, pupils nonreactive. No scleral icterus. No injection or drainage. ENT: No nasal bleeding or discharge. Mucous membranes pink and moist. NECK: Trachea midline. CARDIOVASCULAR: Regular rate and rhythm. RESPIRATORY: No accessory muscle use. Fair air entry. Occ wheezing. GASTROINTESTINAL: Abdomen soft, non-tender, nondistended. +BS. MUSCULOSKELETAL: Extremities without clubbing, cyanosis, or edema except as stated above. No obvious deformities. NEUROLOGICAL: Awake and alert. No cranial nerve deficits. Motor grossly within normal limits. Able to move all extremities spontaneously. Normal speech. PSYCHIATRIC: Calm and cooperative. Results - Labs CBC & Chem 7: 03/30/18 09:11 03/29/18 06:33 Laboratory Results - last 24 hr 04/01/18 04/01/18 04/01/18 07:16 11:16 17:24 POC Glucose 82 117 H 239 H 04/01/18 20:18 POC Glucose 197 H Microbiology 03/30/18 12:50 Sputum - Expectorated Sputum Gram Stain - Final 03/30/18 12:50 Sputum - Expectorated Sputum Sputum Culture - Final Heavy growth normal respiratory chen 03/28/18 13:55 Blood - Peripheral Aerobic Blood Culture - Preliminary No growth in 4 days 03/28/18 13:55 Blood - Peripheral Anaerobic Blood Culture - Preliminary No growth in 4 days 03/28/18 13:50 Blood - Peripheral Aerobic Blood Culture - Preliminary No growth in 4 days 03/28/18 13:50 Blood - Peripheral Anaerobic Blood Culture - Preliminary No growth in 4 days - Imaging Impressions Carotid Doppler Study 04/01/18 00:00 CONCLUSION: Mild plaque without a significant stenosis seen. Assessment and Plan - Assessment (1) Blind in both eyes Code(s): H54.3 - Unqualified visual loss, both eyes Status: Acute (2) Impaired activities of daily living Status: Acute (3) Risk for falls Code(s): Z91.81 - History of falling Status: Acute (4) Gait instability Code(s): R26.81 - Unsteadiness on feet Status: Acute (5) Poor balance Code(s): R26.89 - Other abnormalities of gait and mobility Status: Acute (6) Pneumonia Code(s): J18.9 - Pneumonia, unspecified organism Status: Acute (7) Leukocytosis Code(s): D72.829 - Elevated white blood cell count, unspecified Status: Acute (8) Encephalopathy Code(s): G93.40 - Encephalopathy, unspecified Status: Acute (9) COPD exacerbation Code(s): J44.1 - Chronic obstructive pulmonary disease with (acute) exacerbation Status: Acute - Plan 78-year-old white male being admitted for acute COPD exacerbation and PNA Sepsis at admission with elevated white count, tachycardia, elevated RR with source of PNA, resolved -blood cx show no growth -white count remains elevated but patient is on steroids LLE cellulitis Left foot possible tenosynovitis versus hematoma soft tissue US's complex fluid collection surrounding extensor tendons of the foot adjacent to the wound, MRI recommended patient unable to have secondary to shrapnel her head. -ID following, appreciate assistance. 04/02 area over foot clinically worsening with more induration, erythema and edema. Rocephin and doxycycline discontinued. Patient started on IV Zosyn and Vancomycin (target 10-15). Monitor kidney function. -Podiatry following, appreciate assistance. Dr. Markham to see patient today. Suspected PVD patient denies any complaints of claudication but reports "sciatica" unable to palpate distal pulses -abnormal left ROSHNI -Vascular surgery following, appreciate assistance. Carotid Doppler ordered showing mild plaque without any significant stenosis. Acute COPD exacerbation, resolved Pneumonia Ongoing tobaccoism CXR shows bibasilar opacities Chest CT stable, elevated right hemidiaphragm, possible phrenic nerve palsy sputum cx with heavy growth of nl resp chen Patient satting well on RA -Continue po steroids per pulmonary -Pulmonary medicine following, appreciate assistance. -continue on Symbicort, Spiriva and Mucinex. IS and acapella. -monitor respiratory status -discussed smoking cessation Hypertension, controlled Continue home medications of lisinopril and amlodipine Diabetes, new diagnosis A1c 6.5 hyperglycemia worse while on steroids -discussed lifestyle modification -consult dj instructor for diabetes -continue on accuchek and ISS -Blood sugars running in low 200s. Resume NPH 5u BID. -recommend patient have A1c rechecked in 3 mos Dementia, chronic Confusion, acute, suspect secondary to infection and hypoxia, improved -patient resumed on home dose of Aricept Anemia, chronic Hgb appears stable -no active bleeding -monitor as indicated DVT prophylaxis -Heparin Code Status: FULL Discussed Condition With: patient, nursing staff, healthcare social worker, Dr. Ng, Dr. Navas Discharge Planning: Not ready for discharge. D/C pending clinical improvement, vascular, podiatry and ID clearance. (6) Pneumonia Qualifiers: Pneumonia type: due to unspecified organism Laterality: bilateral Lung location: lower lobe of lung Qualified Code(s): J18.1 - Lobar pneumonia, unspecified organism (7) Leukocytosis Qualifiers: Leukocytosis type: unspecified Qualified Code(s): D72.829 - Elevated white blood cell count, unspecified
[2018-04-02] MEDS: Gabapentin 300 MG Capsule PO SCH ×3 (08:46→17:57)
[2018-04-02] MEDS: Metoprolol Tartrate 25 MG Tablet PO SCH ×2 (08:47→23:49)
[2018-04-02] MEDS: guaiFENesin 600 MG ER Tablet PO SCH ×2 (08:48→23:49)
[2018-04-02] MEDS: predniSONE 20 MG Tablet PO SCH (08:48)
[2018-04-02] MEDS: FLUoxetine 10 MG Capsule PO SCH (08:48)
[2018-04-02] MEDS: Senna/Docusate Sodium 8.6/50 MG Tablet PO SCH ×2 (08:48→23:51)
[2018-04-02] MEDS: Pantoprazole Sodium 20 MG DR Tablet PO SCH (08:48)
[2018-04-02] MEDS: Budesonide-Formoterol 160/4.5 MCG 6 GM Inhaler INH SCH ×2 (08:49→23:51)
[2018-04-02] MEDS: Insulin NovoLOG Aspart Correctional Sugar Inj SQ SCH ×4 (08:49→23:43)
[2018-04-02] MEDS: Tiotropium Bromide 18 MCG/ACT Inhaler INH SCH (08:50)
[2018-04-02] MEDS ORDERED: Vancomycin Consult Pharmacy 1 EACH OTHER SCH (09:30)
--- NOTE | 2018-04-02 09:36 | P.PNID ---
Subjective Remarks: Mr. Estrada is a 78-year-old white male who was admitted for acute shortness of breath secondary to COPD exacerbation and possible pneumonia. Patient was in his usual state of health until about 1-2 days prior to admission when he started experiencing short of breath. He went to an urgent care and was referred to an emergency department. Patient goes on to report that approximately 2 days prior to his admission he had an injury at home. He goes on to report that he is legally blind and has a caregiver at home and may have injured himself while trying to navigate. He went to the urgent care at that time and got sutures in place. Per his caregiver and notes it appears that patient was initially more confused on admission. At the present time patient is alert oriented 3 and is able to provide me the entire history. Reportedly has a caregiver that is present at home 24 7 for nursing care. Patient otherwise has no relatives at home and lives by himself. At baseline it appears that patient uses a walker at home. In the emergency department he was noted to have a white count of about 18,000. Patient underwent evaluation for sepsis. Patient underwent an ultrasound of his leg which shows fluid collection possible tenosynovitis of the foot. Patient was started on empiric antibiotics due to his recent injury and concern for cellulitis in his left leg as well as left foot. Pulmonology has been consulted as a chest x-ray shows some degree of atelectasis. This appears to be chronic there is no obvious mucous plug. Patient is currently asymptomatic at the time of my evaluation. Infectious disease is consulted for evaluation of left lower extremity infection. Overnight events reviewed No fever No rash No diarrhea Left leg improved but left foot suture site with blistering of skin and swelling noted. Appears more erythematous and swollen today. Antibiotics: Ceftriaxone Iv Azithro Lines: Line sites okay Past Medical History: Reviewed Allergies/Adverse Reactions: Allergies memantine Allergy (Unknown, Verified 03/28/18 14:38) Rash MRI PRECAUTION Adverse Reaction (Severe, Uncoded 04/01/17 19:48) shrapnel in brain and orbit mpw per Dr Rincon Objective Vital Signs 04/01/18 10:34 04/01/18 12:00 04/01/18 15:56 Temperature 99.3 F 98.5 F Pulse Rate 74 84 83 Respiratory Rate 12 20 18 Blood Pressure 132/55 L 148/62 H Pulse Oximetry 98 95 95 04/01/18 20:01 04/01/18 21:06 04/02/18 08:00 Temperature 97.9 F 98.2 F Pulse Rate 83 19 L 82 Respiratory Rate 18 20 Blood Pressure 137/83 147/66 H Pulse Oximetry 95 95 Intake & Output 04/01/18 04/02/18 04/02/18 18:59 06:59 18:59 Intake Total 580 / 580 480 / 480 Output Total 800 / 800 1250 / 1250 Balance -220 / -220 -770 / -770 Weight 77.2 kg Intake: IV 100 / 100 Rocephin Inj 2,000 MG In NS Inj 100 / 100 100 ML @ 200 mls/hr IV.SIG Q24H LUCIANA Rx#:[id number] Oral 480 / 480 480 / 480 Output: Urine 800 / 800 1250 / 1250 Other: # Voids 4 Date of Last Bowel Movement 04/01/18 04/01/18 # Bowel Movements 1 1 03/30/18 12:50 Sputum - Expectorated Sputum Gram Stain - Final 03/30/18 12:50 Sputum - Expectorated Sputum Sputum Culture - Final Heavy growth normal respiratory chen 03/28/18 13:55 Blood - Peripheral Aerobic Blood Culture - Preliminary No growth in 4 days 03/28/18 13:55 Blood - Peripheral Anaerobic Blood Culture - Preliminary No growth in 4 days 03/28/18 13:50 Blood - Peripheral Aerobic Blood Culture - Preliminary No growth in 4 days 03/28/18 13:50 Blood - Peripheral Anaerobic Blood Culture - Preliminary No growth in 4 days Lab - Chemistry Results 03/31/18 03/31/18 03/31/18 11:51 17:19 22:43 POC Glucose 396 H 126 H 173 H 04/01/18 04/01/18 04/01/18 07:16 11:16 17:24 POC Glucose 82 117 H 239 H 04/01/18 04/02/18 20:18 08:06 POC Glucose 197 H 232 H Imaging: ITS Impressions Chest X-Ray 03/28/18 13:12 CONCLUSION: Elevated right diaphragm and persistent bibasilar parenchymal opacities Tibia/Fibula X-Ray 03/28/18 13:13 CONCLUSION: 1. No acute fracture or radiopaque foreign bodies. Venous Doppler Study 03/28/18 13:13 CONCLUSION: No venous thrombosis is identified in the left lower extremity. Head CT 03/28/18 13:18 CONCLUSION: No acute intracranial findings. Basically stable abnormal brain appearance as above. . Chest CT 03/30/18 00:00 CONCLUSION: 1. Moderate L1 vertebral body compression fracture, new since February 2017. If patient has pain on palpation of the spinous process, consider MRI examination to determine acuity. 2. Otherwise, stable CT examination of the chest. 3. Stable elevation of the right hemidiaphragm with right lower lobe atelectasis/scarring. 4. Minimal left lung base atelectasis/scarring. 5. Stable 17 mm left adrenal adenoma. Extremity Arterial Study 03/30/18 00:00 CONCLUSION: 1. Moderately reduced left lower extremity ankle-brachial indices. Consider CTA examination if patient has left-sided symptoms. 2. Normal range right ankle-brachial index. 3. Normal range bilateral toe brachial indices. Lower Extremity Ultrasound 03/30/18 00:00 CONCLUSION: 1. Complex fluid collection surrounding extensor tendons of the foot adjacent to area of wound. Findings suggest tenosynovitis. MRI of the foot could be performed to further evaluate integrity of the tendons. 2. Negative ultrasound in the area of the anterior lower leg wound. Carotid Doppler Study 04/01/18 00:00 CONCLUSION: Mild plaque without a significant stenosis seen. Physical Exam: GENERAL: Sedated, on the vent, NAD SKIN: Cool and dry, no generalized rash HEAD: Atraumatic. Normocephalic. No temporal or scalp tenderness. EYES: Pupils equal round and reactive. Scleral icterus. No injection or drainage. No petechia ENT: Orally intubated NECK: Trachea midline. Supple, nontender, no meningeal signs. CARDIOVASCULAR: HS audible. RESPIRATORY: Air entry equal bilaterally. Clear to auscultation bilaterally. GASTROINTESTINAL: Abdomen soft,NT MUSCULOSKELETAL: Left leg with minimal erythema noted at this site of sutures. Left foot induration area increased erythema and swelling noted skin over sutures is blistering. NEUROLOGICAL: Sedated Psych cooperative IV line sites ok. Assessment and Plan - Plan Left lower extremity cellulitis Left foot possible tenosynovitis versus hematoma Possible pneumonia versus atelectasis Recommendations DC rocephin and doxy Start Zosyn IV Start Vanco IV (10-15 target) CBC with diff,CMP stat, CRP Await vascular workup Nadeem Pérez he will see pt today. nadeem Zavala PA-C
[2018-04-02] MEDS: Piperacil/Tazo 4.5 GM Premix 4.5 GM/100 ML BAG IV.SIG SCH ×2 (11:16→17:56)
[2018-04-02 11:28] LABS: Baso % (Auto) 0.2 % (0.0-2.0); Eos # (Auto) 0.2 th/mm3 (0.0-0.4); Eos % (Auto) 1.3 % (0.0-4.0); Hematocrit 34.4 % (39.0-51.0); Lymph # (Auto) 0.5 th/mm3 (1.0-4.8); Lymph % (Auto) 3.9 % (9.0-44.0); Mean Corpuscular HGB Conc 32.1 % (32.0-36.0); Mean Corpuscular Volume 84.2 fL (80.0-100.0); Mean Platelet Volume 6.8 fL (7.0-11.0); Mono # (Auto) 1.4 th/mm3 (0.0-0.9); Mono % (Auto) 10.2 % (0.0-8.0); Neut # (Auto) 11.3 th/mm3 (1.8-7.7); Neut % (Auto) 84.4 % (16.0-70.0); Platelet Count 429 th/mm3 (150-450); Red Blood Count 4.08 mil/mm3 (4.50-5.90); Red Cell Distribution Width 15.6 % (11.6-17.2); White Blood Count 13.3 th/mm3 (4.0-11.0)
[2018-04-02 11:57] LABS: Alanine Aminotransferase 80 U/L (12-78); Anion Gap 4 meq/L (5-15); Aspartate Aminotransferase 24 U/L (15-37); Blood Urea Nitrogen 19 mg/dL (7-18); Calcium 8.3 mg/dL (8.5-10.1); Carbon Dioxide 30.9 meq/L (21.0-32.0); Chloride 97 meq/L (98-107); Glomerular Filtration Rate 84 mL/min (>89); Glucose,Random 120 mg/dL (74-106); Potassium 3.9 meq/L (3.5-5.1); Sodium 132 meq/L (136-145)
[2018-04-02 11:58] LABS: Alkaline Phosphatase 96 U/L (45-117); Total Protein 6.5 g/dL (6.4-8.2)
[2018-04-02] MEDS: DOXYCYCLINE 25 MG/5 ML PO SCH (12:02)
[2018-04-02] MEDS: Vancomycin Inj 1,000 MG in Sodium Chlor 0.9% Inj 250 ML IV.SIG SCH (14:04)
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
[2018-04-02] MEDS ORDERED: Chlorhexidine Gluconate 2% 1 Pack (2 Cloths) TOPICAL SCH (18:45)
[2018-04-02] MEDS ORDERED: Sodium Chlor 0.9% Inj 500 ML IV.SIG SCH (19:00)
--- NOTE | 2018-04-02 19:13 | P.PN ---
Subjective Interval history: He is alert and sitting up. Off O2 . leg swelling and tissue redness is worse. No Fever Physical Exam Vital signs: Vital Signs 04/01/18 20:01 04/01/18 21:06 04/02/18 08:00 Temperature 97.9 F 98.2 F Pulse Rate 83 19 L 82 Respiratory Rate 18 20 Blood Pressure 137/83 147/66 H Pulse Oximetry 95 95 04/02/18 12:00 04/02/18 16:00 Temperature 97.5 F L 97.6 F Pulse Rate 93 H 78 Respiratory Rate 18 18 Blood Pressure 137/65 130/68 Pulse Oximetry 92 L 96 Intake & Output 04/02/18 04/02/18 04/03/18 06:59 18:59 06:59 Intake Total 480 / 480 1070 / 1070 Output Total 1250 / 1250 700 / 700 Balance -770 / -770 370 / 370 Weight 77.2 kg Intake: IV 350 / 350 Zosyn 4.5 GM Premix 4.5 gm In 100 / 100 100 ml @ 200 mls/hr IV.SIG Q8H [facility] Rx#:[id number] Vancomycin Inj 1,000 MG In NS 250 / 250 Inj 250 ML @ 250 mls/hr IV.SIG Q18H [facility] Rx#:[id number] Oral 480 / 480 720 / 720 Output: Urine 1250 / 1250 700 / 700 Other: # Voids 4 Date of Last Bowel Movement 04/01/18 04/02/18 # Bowel Movements 1 1 Narrative: GENERAL: elderly male, In NAD. SKIN: Warm and dry. +steri strips in place on left anterior stokes and sutures on top of left foot . +sutures on top of foot with small amount of purulence noted. +Edema left foot much improved. Unable to palpate distal pulses. HEAD: Atraumatic. Normocephalic. EYES: Patient is blind in both eyes, pupils nonreactive. No scleral icterus. No injection or drainage. ENT: No nasal bleeding or discharge. Mucous membranes pink and moist. NECK: Trachea midline. CARDIOVASCULAR: Regular rate and rhythm. RESPIRATORY: No accessory muscle use. Decreased BS. Mild bilateral wheezing noted with prolonged expiration. GASTROINTESTINAL: Abdomen soft, non-tender, nondistended. +BS. MUSCULOSKELETAL: Extremities without clubbing, cyanosis, or edema except as stated above. No obvious deformities. NEUROLOGICAL: Awake and alert. No obvious cranial nerve deficits. Motor grossly within normal limits. Normal speech. PSYCHIATRIC: Calm and cooperative. Results - Labs CBC & Chem 7: 04/02/18 11:02 04/02/18 11:02 Laboratory Results - last 24 hr 04/01/18 04/02/18 04/02/18 20:18 08:06 11:02 WBC 13.3 H RBC 4.08 L Hgb 11.0 L Hct 34.4 L MCV 84.2 MCH 27.0 MCHC 32.1 RDW 15.6 Plt Count 429 MPV 6.8 L Neut % (Auto) 84.4 H Lymph % (Auto) 3.9 L [place] % (Auto) 10.2 H Eos % (Auto) 1.3 Baso % (Auto) 0.2 Neut # (Auto) 11.3 H Lymph # (Auto) 0.5 L [place] # (Auto) 1.4 H Eos # (Auto) 0.2 Baso # (Auto) 0.0 WBC Differential . Differential Comment Auto diff final Sodium Potassium Chloride Carbon Dioxide Anion Gap BUN Creatinine Estimated GFR POC Glucose 197 H 232 H Random Glucose Calcium Total Bilirubin AST ALT Alkaline Phosphatase C-Reactive Protein Total Protein Albumin 04/02/18 04/02/18 04/02/18 11:02 11:02 12:30 WBC RBC Hgb Hct MCV MCH MCHC RDW Plt Count MPV Neut % (Auto) Lymph % (Auto) [place] % (Auto) Eos % (Auto) Baso % (Auto) Neut # (Auto) Lymph # (Auto) [place] # (Auto) Eos # (Auto) Baso # (Auto) WBC Differential Differential Comment Sodium 132 L Potassium 3.9 Chloride 97 L Carbon Dioxide 30.9 Anion Gap 4 L BUN 19 H Creatinine 0.88 Estimated GFR 84 L POC Glucose 117 H Random Glucose 120 H Calcium 8.3 L Total Bilirubin 0.3 AST 24 ALT 80 H Alkaline Phosphatase 96 C-Reactive Protein 2.80 H Total Protein 6.5 Albumin 3.0 L 04/02/18 16:23 WBC RBC Hgb Hct MCV MCH MCHC RDW Plt Count MPV Neut % (Auto) Lymph % (Auto) [place] % (Auto) Eos % (Auto) Baso % (Auto) Neut # (Auto) Lymph # (Auto) [place] # (Auto) Eos # (Auto) Baso # (Auto) WBC Differential Differential Comment Sodium Potassium Chloride Carbon Dioxide Anion Gap BUN Creatinine Estimated GFR POC Glucose 167 H Random Glucose Calcium Total Bilirubin AST ALT Alkaline Phosphatase C-Reactive Protein Total Protein Albumin Microbiology 03/28/18 13:55 Blood - Peripheral Aerobic Blood Culture - Final No growth in 5 days 03/28/18 13:55 Blood - Peripheral Anaerobic Blood Culture - Final No growth in 5 days 03/28/18 13:50 Blood - Peripheral Aerobic Blood Culture - Final No growth in 5 days 03/28/18 13:50 Blood - Peripheral Anaerobic Blood Culture - Final No growth in 5 days Assessment and Plan - Assessment (1) Cellulitis and abscess of foot excluding toe Code(s): L03.119 - Cellulitis of unspecified part of limb; L02.619 - Cutaneous abscess of unspecified foot Status: Acute (2) Foot laceration involving tendon Code(s): S91.319A - Laceration without foreign body, unspecified foot, initial encounter; S96.929A - Laceration of unspecified muscle and tendon at ankle and foot level, unspecified foot, initial encounter Status: Acute (3) Pneumonia Code(s): J18.9 - Pneumonia, unspecified organism Status: Acute (4) Leukocytosis Code(s): D72.829 - Elevated white blood cell count, unspecified Status: Acute (5) Altered mental status Code(s): R41.82 - Altered mental status, unspecified Status: Acute (6) Encephalopathy Code(s): G93.40 - Encephalopathy, unspecified Status: Acute (7) COPD exacerbation Code(s): J44.1 - Chronic obstructive pulmonary disease with (acute) exacerbation Status: Acute - Plan 1. Cont O2 PRN 1 L. at HS 2. Continue Symbicort 160/4.5 mcg 2 puffs bid 3. Antibiotics per ID 4. IS at Bedside qid 5. Vascular surgical consult 6. Symbicort 160/4.5 mcg , 2 puffs BID (3) Pneumonia Qualifiers: Pneumonia type: due to unspecified organism Laterality: bilateral Lung location: lower lobe of lung Qualified Code(s): J18.1 - Lobar pneumonia, unspecified organism (4) Leukocytosis Qualifiers: Leukocytosis type: unspecified Qualified Code(s): D72.829 - Elevated white blood cell count, unspecified (5) Altered mental status Qualifiers: Altered mental status type: unspecified Qualified Code(s): R41.82 - Altered mental status, unspecified
--- NOTE | 2018-04-02 19:18 | P.PNVS ---
Subjective Subjective/Hospital Course: Patient seen and full consult has been dictated CTA with runoff is pending and we will see how we can improve the blood supply to the feet. Patient has barely detectable distal pulses and poor proximal pulses Thanks J Objective Vital Signs / I&O: Vital Signs 04/01/18 20:01 04/01/18 21:06 04/02/18 08:00 Temperature 97.9 F 98.2 F Pulse Rate 83 19 L 82 Respiratory Rate 18 20 Blood Pressure 137/83 147/66 H Pulse Oximetry 95 95 04/02/18 12:00 04/02/18 16:00 Temperature 97.5 F L 97.6 F Pulse Rate 93 H 78 Respiratory Rate 18 18 Blood Pressure 137/65 130/68 Pulse Oximetry 92 L 96 Intake & Output 04/02/18 04/02/18 04/03/18 06:59 18:59 06:59 Intake Total 480 / 480 1170 / 1170 Output Total 1250 / 1250 700 / 700 Balance -770 / -770 470 / 470 Weight 77.2 kg Intake: IV 450 / 450 Zosyn 4.5 GM Premix 4.5 gm In 200 / 200 100 ml @ 200 mls/hr IV.SIG Q8H [facility] Rx#:[id number] Vancomycin Inj 1,000 MG In NS 250 / 250 Inj 250 ML @ 250 mls/hr IV.SIG Q18H [facility] Rx#:[id number] Oral 480 / 480 720 / 720 Output: Urine 1250 / 1250 700 / 700 Other: # Voids 4 Date of Last Bowel Movement 04/01/18 04/02/18 # Bowel Movements 1 1 Laboratory Results - last 24 hr 04/01/18 04/02/18 04/02/18 20:18 08:06 11:02 WBC 13.3 H RBC 4.08 L Hgb 11.0 L Hct 34.4 L MCV 84.2 MCH 27.0 MCHC 32.1 RDW 15.6 Plt Count 429 MPV 6.8 L Neut % (Auto) 84.4 H Lymph % (Auto) 3.9 L [place] % (Auto) 10.2 H Eos % (Auto) 1.3 Baso % (Auto) 0.2 Neut # (Auto) 11.3 H Lymph # (Auto) 0.5 L [place] # (Auto) 1.4 H Eos # (Auto) 0.2 Baso # (Auto) 0.0 WBC Differential . Differential Comment Auto diff final Sodium Potassium Chloride Carbon Dioxide Anion Gap BUN Creatinine Estimated GFR POC Glucose 197 H 232 H Random Glucose Calcium Total Bilirubin AST ALT Alkaline Phosphatase C-Reactive Protein Total Protein Albumin 04/02/18 04/02/18 04/02/18 11:02 11:02 12:30 WBC RBC Hgb Hct MCV MCH MCHC RDW Plt Count MPV Neut % (Auto) Lymph % (Auto) [place] % (Auto) Eos % (Auto) Baso % (Auto) Neut # (Auto) Lymph # (Auto) [place] # (Auto) Eos # (Auto) Baso # (Auto) WBC Differential Differential Comment Sodium 132 L Potassium 3.9 Chloride 97 L Carbon Dioxide 30.9 Anion Gap 4 L BUN 19 H Creatinine 0.88 Estimated GFR 84 L POC Glucose 117 H Random Glucose 120 H Calcium 8.3 L Total Bilirubin 0.3 AST 24 ALT 80 H Alkaline Phosphatase 96 C-Reactive Protein 2.80 H Total Protein 6.5 Albumin 3.0 L 04/02/18 16:23 WBC RBC Hgb Hct MCV MCH MCHC RDW Plt Count MPV Neut % (Auto) Lymph % (Auto) [place] % (Auto) Eos % (Auto) Baso % (Auto) Neut # (Auto) Lymph # (Auto) [place] # (Auto) Eos # (Auto) Baso # (Auto) WBC Differential Differential Comment Sodium Potassium Chloride Carbon Dioxide Anion Gap BUN Creatinine Estimated GFR POC Glucose 167 H Random Glucose Calcium Total Bilirubin AST ALT Alkaline Phosphatase C-Reactive Protein Total Protein Albumin Microbiology 03/28/18 13:55 Aerobic Blood Culture - Final Blood - Peripheral No growth in 5 days Anaerobic Blood Culture - Final No growth in 5 days 03/28/18 13:50 Aerobic Blood Culture - Final Blood - Peripheral No growth in 5 days Anaerobic Blood Culture - Final No growth in 5 days Impressions Carotid Doppler Study 04/01/18 00:00 CONCLUSION: Mild plaque without a significant stenosis seen.
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
[2018-04-03] MEDS: Piperacil/Tazo 4.5 GM Premix 4.5 GM/100 ML BAG IV.SIG SCH ×3 (01:27→19:20)
--- NOTE | 2018-04-03 04:10 | CT ---
EXAM DATE: 04/03/2018 2:59 AM EDT AGE/SEX: 78 years / Male INDICATIONS: Left lower extremity pain for one week. CLINICAL DATA: This is the patient's initial encounter. Patient reports that signs and symptoms have been present for 1 week and indicates a pain score of 7/10. MEDICAL/SURGICAL HISTORY: Chronic obstructive pulmonary disease. Hypertension. None. RADIATION DOSE: 10.10 CTDI (mGy) COMPARISON: No prior exams available for comparison. TECHNIQUE: Volumetric scanning was performed using a multi-row detector CT scanner during bolus infu hermelindo of 99 ml Omnipaque 350 (iohexol) nonionic water-soluble contrast as a single exam dose. The d pal was post processed with a variety of visualization algorithms including full volume maximum inten sity projection, multi-planar sliding thin slab reformation, curved planar reformation, and surface r endering techniques. Using automated exposure control and adjustment of the mA and/or kV according t o patient size, radiation dose was kept as low as reasonably achievable to obtain optimal diagnostic quality images. DICOM format image data is available electronically for review and comparison. FINDINGS: AORTA: Diffuse calcified atherosclerotic plaque throughout the aorta and its major branches includin g inflow vessels. No aneurysmal change. There is a 40% stenosis involving the left common iliac arter y origin. There is a 50% stenosis involving the distal right common iliac artery. Both are secondary to calcified plaque. A 50% stenosis is seen at the junction of the external iliac artery and common f emoral artery on the right. This occurs at the origin of the inferior epigastric artery. A similar st enosis is seen on the contralateral side. There is variant anatomy involving the celiac origin. 3 sep arate origins are seen involving the common hepatic, left gastric, and splenic arteries. All show mil d luminal narrowing. The SMA shows a 30% stenosis due to calcified plaque. Both renal arteries are pa tent. RIGHT LOWER EXTREMITY: Heavily calcified plaque involving the common femoral artery generating a 20% stenosis. There is a high-grade stenosis involving the profunda femoris origin secondary to calcified plaque. Scattered calcified and noncalcified atheromatous plaque throughout the SFA most pronounced within the abductor canal. The most significant stenosis is within the abductor canal measuring 40%. The popliteal artery is patent. Three-vessel runoff is seen to the foot. The posterior tibial artery is dominant. LEFT LOWER EXTREMITY: Heavily calcified plaque is seen involving the common femoral artery generating a 50% stenosis superiorly within that vessel but a high-grade stenosis more inferiorly. There is a h igh-grade stenosis involving the profunda femoris origin. Scattered calcified plaque throughout the S FA most abundant within the abductor canal. The most significant stenosis is 60-70% at the beginning of the abductor canal secondary to calcified plaque. Multiple areas of 50% stenosis is seen throughou t the canal and into the immediate [id number] popliteal artery. The remaining popliteal artery is patent. Three-vessel runoff to the foot. OTHER STRUCTURES: Linear atelectasis involving both lung bases. The gallbladder is absent. Bilateral cortical renal cysts. CONCLUSION: 1. Calcified atherosclerotic plaque generating bilateral inflow and outflow stenoses as detailed abo ve. This is more pronounced on the left. Three-vessel runoff to each foot. 2. Prior cholecystectomy. Electronically signed by: Tae Pedraza MD 04/03/2018 4:09 AM EDT
[2018-04-03 06:26] LABS: Calcium 8.1 mg/dL (8.5-10.1); Carbon Dioxide 29.3 meq/L (21.0-32.0); Potassium 3.6 meq/L (3.5-5.1)
[2018-04-03] MEDS: Vancomycin Inj 1,000 MG in Sodium Chlor 0.9% Inj 250 ML IV.SIG SCH (07:27)
--- NOTE | 2018-04-03 07:39 | P.PN ---
Subjective Interval history: Patient states he is doing well. He denies any new complaints. He is n.p.o. for podiatry surgical intervention later today. He is afebrile. Vital signs stable. Physical Exam Vital signs: Vital Signs 04/02/18 08:00 04/02/18 12:00 04/02/18 16:00 Temperature 98.2 F 97.5 F L 97.6 F Pulse Rate 82 93 H 78 Respiratory Rate 20 18 18 Blood Pressure 147/66 H 137/65 130/68 Pulse Oximetry 95 92 L 96 04/02/18 21:45 04/03/18 00:40 Temperature 98 F 98 F Pulse Rate 88 80 Respiratory Rate 18 20 Blood Pressure 140/70 138/67 Pulse Oximetry 96 95 Intake & Output 04/02/18 04/03/18 04/03/18 18:59 06:59 18:59 Intake Total 1170 / 1170 542 / 542 Output Total 700 / 700 200 / 200 Balance 470 / 470 342 / 342 Intake: IV 450 / 450 100 / 100 Zosyn 4.5 GM Premix 4.5 gm In 200 / 200 100 / 100 100 ml @ 200 mls/hr IV.SIG Q8H LUCIANA Rx#:[id number] Vancomycin Inj 1,000 MG In NS 250 / 250 Inj 250 ML @ 250 mls/hr IV.SIG Q18H LUCIANA Rx#:[id number] Oral 720 / 720 442 / 442 Output: Urine 700 / 700 200 / 200 Other: # Incontinent Voids 1 Date of Last Bowel Movement 04/02/18 04/02/18 # Bowel Movements 1 0 Narrative: GENERAL: WDWN elderly male patient. Awake and alert. Sitting up in bedside chair. Not in any distress. SKIN: Warm and dry. +steri strips in place on left anterior stokes with less erythema, left foot with increased erythema and edema over the site of the sutures with blistering of the skin suture line. +increased fluctuance. HEAD: Atraumatic. Normocephalic. EYES: Patient is blind in both eyes, pupils nonreactive. No scleral icterus. No injection or drainage. ENT: No nasal bleeding or discharge. Mucous membranes pink and moist. NECK: Trachea midline. CARDIOVASCULAR: Regular rate and rhythm. RESPIRATORY: No accessory muscle use. Fair air entry. Occ expiratory wheezing. GASTROINTESTINAL: Abdomen soft, non-tender, nondistended. +BS. MUSCULOSKELETAL: Extremities without clubbing, cyanosis, or edema except as stated above. No obvious deformities. NEUROLOGICAL: Awake and alert. No cranial nerve deficits. Motor grossly within normal limits. Able to move all extremities spontaneously. Normal speech. PSYCHIATRIC: Calm and cooperative. Results - Labs CBC & Chem 7: 04/02/18 11:02 04/03/18 05:30 Laboratory Results - last 24 hr 04/02/18 04/02/18 04/02/18 08:06 11:02 11:02 WBC 13.3 H RBC 4.08 L Hgb 11.0 L Hct 34.4 L MCV 84.2 MCH 27.0 MCHC 32.1 RDW 15.6 Plt Count 429 MPV 6.8 L Neut % (Auto) 84.4 H Lymph % (Auto) 3.9 L Lassen % (Auto) 10.2 H Eos % (Auto) 1.3 Baso % (Auto) 0.2 Neut # (Auto) 11.3 H Lymph # (Auto) 0.5 L Lassen # (Auto) 1.4 H Eos # (Auto) 0.2 Baso # (Auto) 0.0 WBC Differential . Differential Comment Auto diff final Sodium 132 L Potassium 3.9 Chloride 97 L Carbon Dioxide 30.9 Anion Gap 4 L BUN 19 H Creatinine 0.88 Estimated GFR 84 L POC Glucose 232 H Random Glucose 120 H Calcium 8.3 L Total Bilirubin 0.3 AST 24 ALT 80 H Alkaline Phosphatase 96 C-Reactive Protein Total Protein 6.5 Albumin 3.0 L 04/02/18 04/02/18 04/02/18 11:02 12:30 16:23 WBC RBC Hgb Hct MCV MCH MCHC RDW Plt Count MPV Neut % (Auto) Lymph % (Auto) Lassen % (Auto) Eos % (Auto) Baso % (Auto) Neut # (Auto) Lymph # (Auto) Lassen # (Auto) Eos # (Auto) Baso # (Auto) WBC Differential Differential Comment Sodium Potassium Chloride Carbon Dioxide Anion Gap BUN Creatinine Estimated GFR POC Glucose 117 H 167 H Random Glucose Calcium Total Bilirubin AST ALT Alkaline Phosphatase C-Reactive Protein 2.80 H Total Protein Albumin 04/02/18 04/03/18 23:41 05:30 WBC RBC Hgb Hct MCV MCH MCHC RDW Plt Count MPV Neut % (Auto) Lymph % (Auto) Lassen % (Auto) Eos % (Auto) Baso % (Auto) Neut # (Auto) Lymph # (Auto) Lassen # (Auto) Eos # (Auto) Baso # (Auto) WBC Differential Differential Comment Sodium 134 L Potassium 3.6 Chloride 98 Carbon Dioxide 29.3 Anion Gap 7 BUN 19 H Creatinine 0.89 Estimated GFR 82 L POC Glucose 144 H Random Glucose 91 Calcium 8.1 L Total Bilirubin AST ALT Alkaline Phosphatase C-Reactive Protein Total Protein Albumin Microbiology 03/28/18 13:55 Blood - Peripheral Aerobic Blood Culture - Final No growth in 5 days 03/28/18 13:55 Blood - Peripheral Anaerobic Blood Culture - Final No growth in 5 days 03/28/18 13:50 Blood - Peripheral Aerobic Blood Culture - Final No growth in 5 days 03/28/18 13:50 Blood - Peripheral Anaerobic Blood Culture - Final No growth in 5 days - Imaging Impressions Aorta w/Runoff CTA 04/03/18 00:00 CONCLUSION: 1. Calcified atherosclerotic plaque generating bilateral inflow and outflow stenoses as detailed above. This is more pronounced on the left. Three-vessel runoff to each foot. 2. Prior cholecystectomy. Assessment and Plan - Assessment (1) Encephalopathy Code(s): G93.40 - Encephalopathy, unspecified Status: Acute (2) COPD exacerbation Code(s): J44.1 - Chronic obstructive pulmonary disease with (acute) exacerbation Status: Acute (3) Pneumonia Code(s): J18.9 - Pneumonia, unspecified organism Status: Acute (4) Leukocytosis Code(s): D72.829 - Elevated white blood cell count, unspecified Status: Acute - Plan 78-year-old white male being admitted for acute COPD exacerbation and PNA Sepsis at admission with elevated white count, tachycardia, elevated RR with source of PNA, resolved -blood cx show no growth -white count remains elevated but patient is on steroids LLE cellulitis Left foot possible tenosynovitis versus hematoma soft tissue US's complex fluid collection surrounding extensor tendons of the foot adjacent to the wound, MRI recommended patient unable to have secondary to shrapnel her head. -ID following, appreciate assistance. 04/02 area over foot clinically worsening with more induration, erythema and edema. Rocephin and doxycycline discontinued. Patient started on IV Zosyn and Vancomycin (target 10-15). Monitor kidney function. -Podiatry following, appreciate assistance. Dr. Markham to take patient to the OR today. PVD patient denies any complaints of claudication but reports "sciatica" unable to palpate distal pulses -abnormal left ROSHNI -Vascular surgery following, appreciate assistance. Carotid Doppler ordered showing mild plaque without any significant stenosis. CTA runoff Shows calcified atherosclerotic plaque generating bilateral inflow and outflow stenosis, more pronounced on the left Acute COPD exacerbation, resolved Pneumonia Ongoing tobaccoism CXR shows bibasilar opacities Chest CT stable, elevated right hemidiaphragm, possible phrenic nerve palsy sputum cx with heavy growth of nl resp chen Patient satting well on RA -Continue po steroids per pulmonary -Pulmonary medicine following, appreciate assistance. -continue on Symbicort, Spiriva and Mucinex. IS and acapella. -monitor respiratory status -discussed smoking cessation Hypertension, controlled Continue home medications of lisinopril and amlodipine Diabetes, new diagnosis A1c 6.5 hyperglycemia worse while on steroids -discussed lifestyle modification -consult dross skimmer for diabetes -continue on accuchek and ISS -Blood sugars running in low 200s. Hold NPH, patient is NPO for surgical intervention. -recommend patient have A1c rechecked in 3 mos Dementia, chronic Confusion, acute, suspect secondary to infection and hypoxia, improved -patient resumed on home dose of Aricept Anemia, chronic Hgb appears stable -no active bleeding -monitor as indicated DVT prophylaxis -Heparin Code Status: FULL Discussed Condition With: patient, nursing staff, Dr. Ng Discharge Planning: Not ready for discharge. D/C pending clinical improvement, podiatry, ID and vascular sx clearance. (3) Pneumonia Qualifiers: Pneumonia type: due to unspecified organism Laterality: bilateral Lung location: lower lobe of lung Qualified Code(s): J18.1 - Lobar pneumonia, unspecified organism (4) Leukocytosis Qualifiers: Leukocytosis type: unspecified Qualified Code(s): D72.829 - Elevated white blood cell count, unspecified
[2018-04-03] MEDS: Insulin NovoLOG Aspart Correctional Sugar Inj SQ SCH ×4 (08:38→22:09)
[2018-04-03] MEDS: FLUoxetine 10 MG Capsule PO SCH (09:40)
[2018-04-03] MEDS: Senna/Docusate Sodium 8.6/50 MG Tablet PO SCH ×2 (09:40→22:08)
[2018-04-03] MEDS: guaiFENesin 600 MG ER Tablet PO SCH ×2 (09:40→22:07)
[2018-04-03] MEDS: Gabapentin 300 MG Capsule PO SCH ×3 (09:41→19:20)
[2018-04-03] MEDS: Pantoprazole Sodium 20 MG DR Tablet PO SCH (09:41)
[2018-04-03] MEDS: predniSONE 20 MG Tablet PO SCH (09:41)
[2018-04-03] MEDS: Metoprolol Tartrate 25 MG Tablet PO SCH ×2 (09:42→22:07)
[2018-04-03] MEDS: Budesonide-Formoterol 160/4.5 MCG 6 GM Inhaler INH SCH ×2 (09:43→22:11)
[2018-04-03] MEDS: Tiotropium Bromide 18 MCG/ACT Inhaler INH SCH (09:43)
--- NOTE | 2018-04-03 10:35 | P.DIET ---
Nutritional Evaluation Screening comments: MDC for diet education acknowledged. Pt is currently npo for procedure. He has been on an 1800 ADA diet and has a HgA1c of 6.5 (on prednisone). RD will instruct on diet at a later date. RD following.
[2018-04-03] MEDS ORDERED: Phenylephrine/NS 1000 MCG/10ML Syringe IV.PUSH ONE (12:00)
[2018-04-03] MEDS ORDERED: Lidocaine PF 1% Inj 5 ML Syringe INFILTRATN ONE (12:00)
--- NOTE | 2018-04-03 16:40 | P.PNID ---
Subjective Remarks: Mr. Estrada is a 78-year-old white male who was admitted for acute shortness of breath secondary to COPD exacerbation and possible pneumonia. Patient was in his usual state of health until about 1-2 days prior to admission when he started experiencing short of breath. He went to an urgent care and was referred to an emergency department. Patient goes on to report that approximately 2 days prior to his admission he had an injury at home. He goes on to report that he is legally blind and has a caregiver at home and may have injured himself while trying to navigate. He went to the urgent care at that time and got sutures in place. Per his caregiver and notes it appears that patient was initially more confused on admission. At the present time patient is alert oriented 3 and is able to provide me the entire history. Reportedly has a caregiver that is present at home 24 7 for nursing care. Patient otherwise has no relatives at home and lives by himself. At baseline it appears that patient uses a walker at home. In the emergency department he was noted to have a white count of about 18,000. Patient underwent evaluation for sepsis. Patient underwent an ultrasound of his leg which shows fluid collection possible tenosynovitis of the foot. Patient was started on empiric antibiotics due to his recent injury and concern for cellulitis in his left leg as well as left foot. Pulmonology has been consulted as a chest x-ray shows some degree of atelectasis. This appears to be chronic there is no obvious mucous plug. Patient is currently asymptomatic at the time of my evaluation. Infectious disease is consulted for evaluation of left lower extremity infection. Delayed entry patient seen prior to surgery. Overnight events reviewed No fever No rash No diarrhea Left leg improved but left foot suture site with blistering of skin and swelling noted. Appears more erythematous and swollen today. Antibiotics: Ceftriaxone Iv Azithro Lines: Line sites okay Past Medical History: Reviewed Allergies/Adverse Reactions: Allergies memantine Allergy (Unknown, Verified 03/28/18 14:38) Rash MRI PRECAUTION Adverse Reaction (Severe, Uncoded 04/01/17 19:48) shrapnel in brain and orbit mpw per Dr Rincon Objective Vital Signs 04/02/18 21:45 04/03/18 00:40 04/03/18 04:45 Temperature 98 F 98 F 98 F Pulse Rate 88 80 80 Respiratory Rate 18 20 19 Blood Pressure 140/70 138/67 123/65 Pulse Oximetry 96 95 96 04/03/18 08:00 04/03/18 12:00 Temperature 98.5 F 97.9 F Pulse Rate 78 77 Respiratory Rate 18 18 Blood Pressure 155/70 H 147/69 H Pulse Oximetry 96 95 Intake & Output 04/02/18 04/03/18 04/03/18 18:59 06:59 18:59 Intake Total 1170 / 1170 892 / 892 350 / 350 Output Total 700 / 700 850 / 850 Balance 470 / 470 42 / 42 350 / 350 Weight 77.5 kg Intake: IV 450 / 450 100 / 100 350 / 350 Zosyn 4.5 GM Premix 4.5 gm In 200 / 200 100 / 100 100 / 100 100 ml @ 200 mls/hr IV.SIG Q8H LUCIANA Rx#:[id number] Vancomycin Inj 1,000 MG In NS 250 / 250 250 / 250 Inj 250 ML @ 250 mls/hr IV.SIG Q18H LUCIANA Rx#:[id number] Oral 720 / 720 792 / 792 Output: Urine 700 / 700 850 / 850 Other: # Incontinent Voids 3 Date of Last Bowel Movement 04/02/18 04/02/18 04/02/18 # Bowel Movements 1 0 03/28/18 13:55 Blood - Peripheral Aerobic Blood Culture - Final No growth in 5 days 03/28/18 13:55 Blood - Peripheral Anaerobic Blood Culture - Final No growth in 5 days 03/28/18 13:50 Blood - Peripheral Aerobic Blood Culture - Final No growth in 5 days 03/28/18 13:50 Blood - Peripheral Anaerobic Blood Culture - Final No growth in 5 days 03/30/18 12:50 Sputum - Expectorated Sputum Gram Stain - Final 03/30/18 12:50 Sputum - Expectorated Sputum Sputum Culture - Final Heavy growth normal respiratory chen Lab - Hematology Results 04/02/18 11:02 WBC 13.3 H RBC 4.08 L Hgb 11.0 L Hct 34.4 L MCV 84.2 MCH 27.0 MCHC 32.1 RDW 15.6 Plt Count 429 MPV 6.8 L Neut % (Auto) 84.4 H Lymph % (Auto) 3.9 L Hodgeman % (Auto) 10.2 H Eos % (Auto) 1.3 Baso % (Auto) 0.2 Neut # (Auto) 11.3 H Lymph # (Auto) 0.5 L Hodgeman # (Auto) 1.4 H Eos # (Auto) 0.2 Baso # (Auto) 0.0 WBC Differential . Differential Comment Auto diff final Lab - Chemistry Results 04/01/18 04/01/18 04/02/18 17:24 20:18 08:06 Sodium Potassium Chloride Carbon Dioxide Anion Gap BUN Creatinine Estimated GFR POC Glucose 239 H 197 H 232 H Random Glucose Calcium Total Bilirubin AST ALT Alkaline Phosphatase C-Reactive Protein Total Protein Albumin 04/02/18 04/02/18 04/02/18 11:02 11:02 12:30 Sodium 132 L Potassium 3.9 Chloride 97 L Carbon Dioxide 30.9 Anion Gap 4 L BUN 19 H Creatinine 0.88 Estimated GFR 84 L POC Glucose 117 H Random Glucose 120 H Calcium 8.3 L Total Bilirubin 0.3 AST 24 ALT 80 H Alkaline Phosphatase 96 C-Reactive Protein 2.80 H Total Protein 6.5 Albumin 3.0 L 04/02/18 04/02/18 04/03/18 16:23 23:41 05:30 Sodium 134 L Potassium 3.6 Chloride 98 Carbon Dioxide 29.3 Anion Gap 7 BUN 19 H Creatinine 0.89 Estimated GFR 82 L POC Glucose 167 H 144 H Random Glucose 91 Calcium 8.1 L Total Bilirubin AST ALT Alkaline Phosphatase C-Reactive Protein Total Protein Albumin 04/03/18 04/03/18 08:37 12:38 Sodium Potassium Chloride Carbon Dioxide Anion Gap BUN Creatinine Estimated GFR POC Glucose 118 H 156 H Random Glucose Calcium Total Bilirubin AST ALT Alkaline Phosphatase C-Reactive Protein Total Protein Albumin Imaging: ITS Impressions Chest X-Ray 03/28/18 13:12 CONCLUSION: Elevated right diaphragm and persistent bibasilar parenchymal opacities Tibia/Fibula X-Ray 03/28/18 13:13 CONCLUSION: 1. No acute fracture or radiopaque foreign bodies. Venous Doppler Study 03/28/18 13:13 CONCLUSION: No venous thrombosis is identified in the left lower extremity. Head CT 03/28/18 13:18 CONCLUSION: No acute intracranial findings. Basically stable abnormal brain appearance as above. . Chest CT 03/30/18 00:00 CONCLUSION: 1. Moderate L1 vertebral body compression fracture, new since February 2017. If patient has pain on palpation of the spinous process, consider MRI examination to determine acuity. 2. Otherwise, stable CT examination of the chest. 3. Stable elevation of the right hemidiaphragm with right lower lobe atelectasis/scarring. 4. Minimal left lung base atelectasis/scarring. 5. Stable 17 mm left adrenal adenoma. Extremity Arterial Study 03/30/18 00:00 CONCLUSION: 1. Moderately reduced left lower extremity ankle-brachial indices. Consider CTA examination if patient has left-sided symptoms. 2. Normal range right ankle-brachial index. 3. Normal range bilateral toe brachial indices. Lower Extremity Ultrasound 03/30/18 00:00 CONCLUSION: 1. Complex fluid collection surrounding extensor tendons of the foot adjacent to area of wound. Findings suggest tenosynovitis. MRI of the foot could be performed to further evaluate integrity of the tendons. 2. Negative ultrasound in the area of the anterior lower leg wound. Carotid Doppler Study 04/01/18 00:00 CONCLUSION: Mild plaque without a significant stenosis seen. Aorta w/Runoff CTA 04/03/18 00:00 CONCLUSION: 1. Calcified atherosclerotic plaque generating bilateral inflow and outflow stenoses as detailed above. This is more pronounced on the left. Three-vessel runoff to each foot. 2. Prior cholecystectomy. Physical Exam: GENERAL: Sedated, on the vent, NAD SKIN: Cool and dry, no generalized rash HEAD: Atraumatic. Normocephalic. No temporal or scalp tenderness. EYES: Pupils equal round and reactive. Scleral icterus. No injection or drainage. No petechia ENT: Orally intubated NECK: Trachea midline. Supple, nontender, no meningeal signs. CARDIOVASCULAR: HS audible. RESPIRATORY: Air entry equal bilaterally. Clear to auscultation bilaterally. GASTROINTESTINAL: Abdomen soft,NT MUSCULOSKELETAL: Left leg with minimal erythema noted at this site of sutures. Left foot induration area increased erythema and swelling noted skin over sutures is blistering. NEUROLOGICAL: Sedated Psych cooperative IV line sites ok. Assessment and Plan - Plan Left lower extremity cellulitis Left foot possible tenosynovitis versus hematoma Possible pneumonia versus atelectasis Recommendations Continue Zosyn IV Continue Vanco IV (10-15 target) elaina Pérez plan for surgery today. elaina Zavala PA-C
[2018-04-03] MEDS ORDERED: Bupivacaine PF 0.25% Inj 30 ML Vial ONE (16:58)
--- NOTE | 2018-04-03 19:04 | P.BOP ---
- Preoperative Diagnosis (1) Cellulitis and abscess of foot excluding toe (2) Foot laceration involving tendon (3) Laceration of ankle, left - Postoperative Diagnosis (1) Cellulitis and abscess of foot excluding toe (2) Foot laceration involving tendon (3) Laceration of ankle, left Date of procedure: 04/03/18 Procedure: Incision drainage debridement of tendon wound exploration left ankle, repair of distal leg proximal ankle laceration Anesthesia: GETA Surgeon: Glen Trevizo DPM Estimated blood loss (mL): 10 (ml) Tourniquet time (min): 0 Pathology: other (Deep culture left ankle) Condition: stable Disposition: floor
[2018-04-03] MEDS ORDERED: fentaNYL Citrate Inj 100 MCG/2 ML Ampul ONE (19:05)
[2018-04-04] MEDS: Vancomycin Inj 1,000 MG in Sodium Chlor 0.9% Inj 250 ML IV.SIG SCH ×2 (02:15→19:13)
[2018-04-04] MEDS: Piperacil/Tazo 4.5 GM Premix 4.5 GM/100 ML BAG IV.SIG SCH ×3 (02:16→17:24)
--- NOTE | 2018-04-04 07:27 | P.PN ---
Subjective Interval history: Patient status post I&D left lower extremity by Dr. Trevizo yesterday. Patient states left leg feels good. He denies any acute medical complaints. He is afebrile. Physical Exam Vital signs: Vital Signs 04/03/18 08:00 04/03/18 12:00 04/03/18 19:00 Temperature 98.5 F 97.9 F 97.7 F Pulse Rate 78 77 83 Respiratory Rate 18 18 16 Blood Pressure 155/70 H 147/69 H 147/72 H Pulse Oximetry 96 95 96 04/03/18 19:15 04/04/18 00:00 04/04/18 04:00 Temperature 97.5 F L 97.2 F L 97.2 F L Pulse Rate 79 69 64 Respiratory Rate 14 16 18 Blood Pressure 157/78 H 153/70 H 126/61 Pulse Oximetry 93 L 96 94 L Intake & Output 04/03/18 04/04/18 04/04/18 18:59 06:59 18:59 Intake Total 350 / 350 900 / 900 Output Total 300 / 300 110 / 110 Balance 50 / 50 790 / 790 Weight 77.8 kg Intake: IV 350 / 350 350 / 350 Zosyn 4.5 GM Premix 4.5 gm In 100 / 100 100 / 100 100 ml @ 200 mls/hr IV.SIG Q8H LUCIANA Rx#:[id number] Vancomycin Inj 1,000 MG In NS 250 / 250 250 / 250 Inj 250 ML @ 250 mls/hr IV.SIG Q18H LUCIANA Rx#:[id number] Anesthesia Amount 550 / 550 Output: Urine 300 / 300 100 / 100 Estimated Blood Loss 10 / 10 Other: Date of Last Bowel Movement 04/02/18 Narrative: GENERAL: WDWN elderly male patient. Awake and alert, lying in bed Not in any distress. SKIN: Warm and dry. +s/p I&D LLE, in postop dressing. HEENT: Atraumatic. Normocephalic. Patient is blind in both eyes, pupils nonreactive. No nasal bleeding or discharge. Mucous membranes pink and moist. NECK: Trachea midline. CARDIOVASCULAR: Regular rate and rhythm. RESPIRATORY: No accessory muscle use. Fair air entry. Occ expiratory wheezing. GASTROINTESTINAL: Abdomen soft, non-tender, nondistended. +BS. MUSCULOSKELETAL: Extremities without clubbing, cyanosis, or edema except as stated above. No obvious deformities. NEUROLOGICAL: Awake and alert. No cranial nerve deficits. Motor grossly within normal limits. Able to move all extremities spontaneously. Normal speech. PSYCHIATRIC: Calm and cooperative. Results - Labs CBC & Chem 7: 04/02/18 11:02 04/04/18 10:12 Laboratory Results - last 24 hr 04/03/18 04/03/18 04/03/18 08:37 12:38 19:17 POC Glucose 118 H 156 H 129 H 04/03/18 21:10 POC Glucose 178 H - Procedures - Preoperative Diagnosis (1) Cellulitis and abscess of foot excluding toe (2) Foot laceration involving tendon (3) Laceration of ankle, left - Postoperative Diagnosis (1) Cellulitis and abscess of foot excluding toe (2) Foot laceration involving tendon (3) Laceration of ankle, left Date of procedure: 04/03/18 Procedure: Incision drainage debridement of tendon wound exploration left ankle, repair of distal leg proximal ankle laceration Anesthesia: GETA Surgeon: Glen Trevizo DPM Estimated blood loss (mL): 10 (ml) Tourniquet time (min): 0 Pathology: other (Deep culture left ankle) Condition: stable Disposition: floor Assessment and Plan - Assessment (1) Encephalopathy Code(s): G93.40 - Encephalopathy, unspecified Status: Acute (2) COPD exacerbation Code(s): J44.1 - Chronic obstructive pulmonary disease with (acute) exacerbation Status: Acute (3) Pneumonia Code(s): J18.9 - Pneumonia, unspecified organism Status: Acute (4) Leukocytosis Code(s): D72.829 - Elevated white blood cell count, unspecified Status: Acute - Plan 78-year-old white male being admitted for acute COPD exacerbation and PNA Sepsis at admission with elevated white count, tachycardia, elevated RR with source of PNA, resolved -blood cx show no growth -white count remains elevated but patient is on steroids LLE cellulitis Left foot possible tenosynovitis versus hematoma soft tissue US's complex fluid collection surrounding extensor tendons of the foot adjacent to the wound, MRI recommended patient unable to have secondary to shrapnel her head. -ID following, appreciate assistance. 04/02 area over foot clinically worsening with more induration, erythema and edema. Rocephin and doxycycline discontinued. Patient started on IV Zosyn and Vancomycin (target 10-15). Monitor kidney function. -Podiatry following, appreciate assistance. s/p I&D LLE 04/03. Await intraop cx results. PVD patient denies any complaints of claudication but reports "sciatica" unable to palpate distal pulses -abnormal left ROSHNI -Vascular surgery following, appreciate assistance. Carotid Doppler ordered showing mild plaque without any significant stenosis. CTA runoff Shows calcified atherosclerotic plaque generating bilateral inflow and outflow stenosis, more pronounced on the left. Plan for left common femoral and distal external iliac endarterectomy with profundoplasty and patch placement. Acute COPD exacerbation, resolved Pneumonia Ongoing tobaccoism CXR shows bibasilar opacities Chest CT stable, elevated right hemidiaphragm, possible phrenic nerve palsy sputum cx with heavy growth of nl resp chen Patient satting well on RA -Continue po steroids per pulmonary -Pulmonary medicine following, appreciate assistance. -continue on Symbicort, Spiriva and Mucinex. IS and acapella. -monitor respiratory status -discussed smoking cessation Hypertension overall controlled Continue home medications of lisinopril and amlodipine -Clonidine as needed with parameters -Continue to monitor BP and adjust treatment accordingly Diabetes, new diagnosis A1c 6.5 hyperglycemia worse while on steroids -discussed lifestyle modification -consult petroleum engineering teacher for diabetes -continue on accuchek and ISS -Blood sugars controlled. Continue to hold NPH. -recommend patient have A1c rechecked in 3 mos Dementia, chronic Confusion, acute, suspect secondary to infection and hypoxia, improved -patient resumed on home dose of Aricept Anemia, chronic Hgb appears stable -no active bleeding -monitor as indicated DVT prophylaxis -Heparin Code Status: FULL Discussed Condition With: patient, nursing staff, Dr. Ng Discharge Planning: Not ready for discharge. D/C pending clinical improvement, podiatry, ID and vascular sx clearance. (3) Pneumonia Qualifiers: Pneumonia type: due to unspecified organism Laterality: bilateral Lung location: lower lobe of lung Qualified Code(s): J18.1 - Lobar pneumonia, unspecified organism (4) Leukocytosis Qualifiers: Leukocytosis type: unspecified Qualified Code(s): D72.829 - Elevated white blood cell count, unspecified
--- NOTE | 2018-04-04 07:52 | MP ---
cc: Glen Markham DPM DATE OF OPERATION: 04/03/2018 PREOPERATIVE DIAGNOSIS: Left foot and ankle abscess cellulitis. Laceration involving tendon, distal leg laceration. POSTOPERATIVE DIAGNOSIS: Left foot and ankle abscess cellulitis. Laceration involving tendon, distal leg laceration. PROCEDURE PERFORMED: Incision, drainage, debridement deep to tendon, wound exploration foot and ankle, and repair of distal leg laceration proximal ankle. Deep culture was taken. ESTIMATED BLOOD LOSS: Less than 10 mL. TOURNIQUET: No tourniquet was used. COMPLICATIONS: None. DISPOSITION: Returned to floor, monitor wound. Continue medical workup and possible improvement of circulation pending vascular workup. JUSTIFICATION OF PROCEDURE: A 78-year-old male who sustained an injury. The patient is blind, unsure of the mechanism of injury, but apparently was repaired at an urgent care center. There has been worsening cellulitis. The patient has other medical comorbidities. The patient could not have an MRI; however, ultrasound showed fluid collection along the tendon. The patient was not improving. There was noted to be worsening cellulitis and edema of the ankle. We devised a plan to move forward with wound exploration and hoping to get a deep culture to further help guidance of antimicrobial intervention. No guarantees were given, or implied regarding the outcome. The patient understood. There may be a prolonged healing period due to the patient's poor circulation, as well as depth and severity of the wound, likely a puncture cavitation-type wound. PROCEDURE IN DETAIL: Under mild sedation, the patient was brought to the operating room, placed on the operating table in the supine position. Following the induction of general anesthesia, the left lower extremity was scrubbed, prepped and draped in the usual aseptic fashion. The foot was elevated and examined. There was noted to be mixed fibrotic tissue and approximately 4-5 sutures over the dorsal aspect of the foot at the midfoot area. Upon removing the sutures, there is noted to be readily exposed anterior tibialis tendon that appeared to be partially severed, but for the most part intact. Further retraction and wound exploration took place. Easily, there was a cavitation that went to the dorsum of the ankle. It appeared to stay superficial to the ankle joint and along the plantar medial aspect of the first ray. There was noted to be mixed serosanguineous type drainage. There was no obvious salma purulence. A deep culture was taken at this area. The tendon was debrided. Deep curettage of the extensor retinaculum, the deep dermis and fascial planes took place at the entrance site of the wound. The wound was then flushed with copious amounts of normal saline. Then, attention was directed to the distal tibia. There was noted to be a linear skin tear that went down to the periosteum of the tibia. There was noted to be central fibrotic tissue. This was then sharply debrided to viable bleeding tissue. Above the ankle, there was actually noted to be pretty good bleeding. The wound was flushed with copious amounts of normal saline. The laceration was then repaired utilizing 3-0 interrupted nylon suture. The distal foot wound was then packed open. A bulky bandage applied. No complications were noted. We will continue to follow the wound culture and the patient's clinical progress. No anticipation at this time for repeat surgery. We will continue to follow. DOMINICK Colmenares/nancy/jethro , 07:04 PM , 07:13 PM
[2018-04-04] MEDS: predniSONE 20 MG Tablet PO SCH (09:09)
[2018-04-04] MEDS: Metoprolol Tartrate 25 MG Tablet PO SCH ×2 (09:09→22:57)
[2018-04-04] MEDS: guaiFENesin 600 MG ER Tablet PO SCH ×2 (09:09→22:58)
[2018-04-04] MEDS: FLUoxetine 10 MG Capsule PO SCH (09:09)
[2018-04-04] MEDS: Senna/Docusate Sodium 8.6/50 MG Tablet PO SCH ×2 (09:10→22:58)
[2018-04-04] MEDS: Insulin NovoLOG Aspart Correctional Sugar Inj SQ SCH ×4 (09:10→23:00)
[2018-04-04] MEDS: Pantoprazole Sodium 20 MG DR Tablet PO SCH (09:10)
[2018-04-04] MEDS: Gabapentin 300 MG Capsule PO SCH ×3 (09:10→17:25)
[2018-04-04] MEDS: Tiotropium Bromide 18 MCG/ACT Inhaler INH SCH (09:14)
[2018-04-04] MEDS: Budesonide-Formoterol 160/4.5 MCG 6 GM Inhaler INH SCH ×2 (09:16→23:00)
[2018-04-04 11:32] LABS: Glomerular Filtration Rate Greater Than 89 mL/min (>89)
--- NOTE | 2018-04-04 12:56 | P.PNVS ---
Subjective Subjective/Hospital Course: Patient seen and full consult has been dictated CTA with runoff is pending and we will see how we can improve the blood supply to the feet. Patient has barely detectable distal pulses and poor proximal pulses Thanks J 04/04/2018 CTA with runoff confirms the clinical impression Patient has significant peripheral vascular disease left more than right While the inflow is sclerotic and diffuse stenotic areas are present in common iliac and external iliac arteries, these are not hemodynamically significant and blood flow is present. Patient has a very tight hemodynamically significant stenosis and almost occlusion of the left common femoral artery just above the and alongside the takeoff of the deep femoral artery. In addition patient has multilevel stenosis of the SFA on the left more so in the distal portion. At this point the most appropriate procedure to consider is the left common femoral and distal external iliac endarterectomy with profundoplasty and patch placement. This will probably give enough inflow for the patient to heal the rest of his wounds and if that is not sufficient in the long run, patient might need balloon angioplasty of his SFA but that is probably unlikely. We will proceed with left common femoral endarterectomy patch angioplasty this weekend. Objective Vital Signs / I&O: Vital Signs 04/03/18 19:00 04/03/18 19:15 04/04/18 00:00 Temperature 97.7 F 97.5 F L 97.2 F L Pulse Rate 83 79 69 Respiratory Rate 16 14 16 Blood Pressure 147/72 H 157/78 H 153/70 H Pulse Oximetry 96 93 L 96 04/04/18 04:00 04/04/18 08:00 04/04/18 12:00 Temperature 97.2 F L 98.0 F 97.4 F L Pulse Rate 64 63 72 Respiratory Rate 18 20 20 Blood Pressure 126/61 152/71 H 154/67 H Pulse Oximetry 94 L 93 L 93 L Intake & Output 04/03/18 04/04/18 04/04/18 18:59 06:59 18:59 Intake Total 350 / 350 900 / 900 100 / 100 Output Total 300 / 300 110 / 110 Balance 50 / 50 790 / 790 100 / 100 Weight 77.8 kg Intake: IV 350 / 350 350 / 350 100 / 100 Zosyn 4.5 GM Premix 4.5 gm In 100 / 100 100 / 100 100 / 100 100 ml @ 200 mls/hr IV.SIG Q8H LUCIANA Rx#:[id number] Vancomycin Inj 1,000 MG In NS 250 / 250 250 / 250 Inj 250 ML @ 250 mls/hr IV.SIG Q18H LUCIANA Rx#:[id number] Anesthesia Amount 550 / 550 Output: Urine 300 / 300 100 / 100 Estimated Blood Loss Other: Date of Last Bowel Movement 04/02/18 Laboratory Results - last 24 hr 04/03/18 04/03/18 04/04/18 19:17 21:10 07:49 Creatinine Estimated GFR POC Glucose 129 H 178 H 83 04/04/18 04/04/18 10:12 11:32 Creatinine 0.81 Estimated GFR Greater than 89 POC Glucose 122 H Microbiology 04/03/18 18:35 Gram Stain - Final Wound - Foot 04/03/18 18:35 Fungal Smear - Final Wound - Foot No fungal elements seen Impressions Aorta w/Runoff CTA 04/03/18 00:00 CONCLUSION: 1. Calcified atherosclerotic plaque generating bilateral inflow and outflow stenoses as detailed above. This is more pronounced on the left. Three-vessel runoff to each foot. 2. Prior cholecystectomy.
[2018-04-04] MEDS ORDERED: Pharmacy Ordered Lab Info OTHER ONE (18:45)
--- NOTE | 2018-04-04 19:13 | P.PN ---
Subjective Interval history: Breathing easy and off O2 . Had wound cleaned. will have left femoral artery endarterectomy and patch done. No SOB at rest Physical Exam Vital signs: Vital Signs 04/03/18 19:15 04/04/18 00:00 04/04/18 04:00 Temperature 97.5 F L 97.2 F L 97.2 F L Pulse Rate 79 69 64 Respiratory Rate 14 16 18 Blood Pressure 157/78 H 153/70 H 126/61 Pulse Oximetry 93 L 96 94 L 04/04/18 08:00 04/04/18 12:00 04/04/18 16:00 Temperature 98.0 F 97.4 F L 99.2 F Pulse Rate 63 72 76 Respiratory Rate 20 20 18 Blood Pressure 152/71 H 154/67 H 142/65 H Pulse Oximetry 93 L 93 L 94 L Intake & Output 04/04/18 04/04/18 04/05/18 06:59 18:59 06:59 Intake Total 900 / 900 100 / 100 Output Total 110 / 110 Balance 790 / 790 100 / 100 Weight 77.8 kg Intake: IV 350 / 350 100 / 100 Zosyn 4.5 GM Premix 4.5 gm In 100 / 100 100 / 100 100 ml @ 200 mls/hr IV.SIG Q8H LUCIANA Rx#:[id number] Vancomycin Inj 1,000 MG In NS 250 / 250 Inj 250 ML @ 250 mls/hr IV.SIG Q18H LUCIANA Rx#:[id number] Anesthesia Amount 550 / 550 Output: Urine 100 / 100 Estimated Blood Loss 10 / 10 Other: # Voids 1 Narrative: GENERAL: Elderly male patient. Awake and alert ,eating dinner SKIN: Warm and dry.has LLE dressing. HEENT: Atraumatic. Normocephalic. Patient is blind in both eyes, pupils nonreactive. No nasal bleeding or discharge. Mucous membranes pink and moist. NECK: Trachea midline. CARDIOVASCULAR: Regular rate and rhythm. RESPIRATORY: No accessory muscle use. Occ expiratory wheezing. GASTROINTESTINAL: Abdomen soft, non-tender, nondistended. +BS. MUSCULOSKELETAL: Extremities without clubbing, cyanosis, or edema except as stated above. No obvious deformities. NEUROLOGICAL: Awake and alert. No cranial nerve deficits. Motor grossly within normal limits. Able to move all extremities spontaneously. Normal speech. PSYCHIATRIC: Calm and cooperative. Results - Labs CBC & Chem 7: 04/02/18 11:02 04/04/18 10:12 Laboratory Results - last 24 hr 04/03/18 04/03/18 04/04/18 19:17 21:10 07:49 Creatinine Estimated GFR POC Glucose 129 H 178 H 83 04/04/18 04/04/18 04/04/18 10:12 11:32 17:26 Creatinine 0.81 Estimated GFR Greater than 89 POC Glucose 122 H 151 H Microbiology 04/03/18 18:35 Wound - Foot Acid Fast Bacilli Smear - Final No acid fast bacilli seen 04/03/18 18:35 Wound - Foot Gram Stain - Final 04/03/18 18:35 Wound - Foot Wound Culture - Preliminary No growth in 24 hours 04/03/18 18:35 Wound - Foot Fungal Smear - Final No fungal elements seen - Procedures - Preoperative Diagnosis (1) Cellulitis and abscess of foot excluding toe (2) Foot laceration involving tendon (3) Laceration of ankle, left - Postoperative Diagnosis (1) Cellulitis and abscess of foot excluding toe (2) Foot laceration involving tendon (3) Laceration of ankle, left Date of procedure: 04/03/18 Procedure: Incision drainage debridement of tendon wound exploration left ankle, repair of distal leg proximal ankle laceration [facility] Surgeon: Glen Trevizo DPM Estimated blood loss (mL): 10 (ml) Tourniquet time (min): 0 Pathology: other (Deep culture left ankle) Condition: stable Disposition: floor Assessment and Plan - Assessment (1) Cellulitis and abscess of foot excluding toe Code(s): L03.119 - Cellulitis of unspecified part of limb; L02.619 - Cutaneous abscess of unspecified foot Status: Acute (2) Foot laceration involving tendon Code(s): S91.319A - Laceration without foreign body, unspecified foot, initial encounter; S96.929A - Laceration of unspecified muscle and tendon at ankle and foot level, unspecified foot, initial encounter Status: Acute (3) Pneumonia Code(s): J18.9 - Pneumonia, unspecified organism Status: Acute (4) Leukocytosis Code(s): D72.829 - Elevated white blood cell count, unspecified Status: Acute (5) Altered mental status Code(s): R41.82 - Altered mental status, unspecified Status: Acute (6) Encephalopathy Code(s): G93.40 - Encephalopathy, unspecified Status: Acute (7) COPD exacerbation Code(s): J44.1 - Chronic obstructive pulmonary disease with (acute) exacerbation Status: Acute - Plan 1. Cont O2 PRN 1 L. 2. Continue Symbicort 160/4.5 mcg 2 puffs bid 3. Antibiotics per ID 4. IS at Bedside qid 5. OK for surgery as planned 6. Symbicort 160/4.5 mcg , 2 puffs BID 7. Labs in am (3) Pneumonia Qualifiers: Pneumonia type: due to unspecified organism Laterality: bilateral Lung location: lower lobe of lung Qualified Code(s): J18.1 - Lobar pneumonia, unspecified organism (4) Leukocytosis Qualifiers: Leukocytosis type: unspecified Qualified Code(s): D72.829 - Elevated white blood cell count, unspecified (5) Altered mental status Qualifiers: Altered mental status type: unspecified Qualified Code(s): R41.82 - Altered mental status, unspecified
--- NOTE | 2018-04-04 22:27 | P.PNPOD ---
Subjective Interval history: s/p Incision drainage debridement of tendon wound exploration left ankle, repair of distal leg proximal ankle laceration, Dr Trevizo 04/03/18 Physical Exam Vital signs: Vital Signs 04/04/18 00:00 04/04/18 04:00 04/04/18 08:00 Temperature 97.2 F L 97.2 F L 98.0 F Pulse Rate 69 64 63 Respiratory Rate 16 18 20 Blood Pressure 153/70 H 126/61 152/71 H Pulse Oximetry 96 94 L 93 L 04/04/18 12:00 04/04/18 16:00 Temperature 97.4 F L 99.2 F Pulse Rate 72 76 Respiratory Rate 20 18 Blood Pressure 154/67 H 142/65 H Pulse Oximetry 93 L 94 L Intake & Output 04/04/18 04/04/18 04/05/18 06:59 18:59 06:59 Intake Total 900 / 900 100 / 100 100 / 100 Output Total 110 / 110 Balance 790 / 790 100 / 100 100 / 100 Weight 77.8 kg Intake: IV 350 / 350 100 / 100 100 / 100 Zosyn 4.5 GM Premix 4.5 gm In 100 / 100 100 / 100 100 / 100 100 ml @ 200 mls/hr IV.SIG Q8H [facility] Rx#:[id number] Vancomycin Inj 1,000 MG In NS 250 / 250 Inj 250 ML @ 250 mls/hr IV.SIG Q18H [facility] Rx#:[id number] Anesthesia Amount 550 / 550 Output: Urine 100 / 100 Estimated Blood Loss 10 / 10 Other: # Voids 1 Narrative: Reduced erythema and edema left dorsomedial foot. No salma purulence noted. Laceration left leg with suture intact. No dehiscence. Medications and Allergies Active Medications: Active Medications Albuterol (Albuterol Neb (Prn)) 2.5 mg NEB Q2HR NEB PRN PRN Reason: SHORTNESS OF BREATH Bisacodyl (Dulcolax Supp) 10 mg RECTAL DAILY PRN PRN Reason: SEVERE CONSITIPATION Budesonide/Formoterol Fumarate (Symbicort 160/4.5 Mcg Inh) 2 puff INH BID [facility] Last Admin: 04/04/18 09:16 Dose: 2 puff Chlorhexidine Gluconate (Chlorhexidine 2% Cloth) 3 pack [facility] Stop: 04/05/18 18:43 Clonidine HCl (Catapres) 0.1 mg PO Q6H PRN PRN Reason: SBP>180, DBP>95 Dextrose (D50w Vial) 50 ml IV.PUSH UNSCH PRN PRN Reason: PER HYPOGLYCEMIA PROTOCOL Donepezil HCl (Aricept) 10 mg PO DAILY [facility] Last Admin: 04/04/18 09:09 Dose: 10 mg Fluoxetine HCl (Prozac) 10 mg PO DAILY [facility] Last Admin: 04/04/18 09:09 Dose: 10 mg Gabapentin (Neurontin) 300 mg PO TID [facility] Last Admin: 04/04/18 17:25 Dose: 300 mg Glucagon (Glucagon Inj) 1 mg OTHER PRN PRN PRN Reason: for Hypoglycemia Protocol Guaifenesin (Mucinex Er) 600 mg PO BID [facility] Last Admin: 04/04/18 09:09 Dose: 600 mg Pharmacy Profile Note (Vancomycin Consult Pharmacy) 0 mls @ 0 mls/hr OTHER UNSCH [facility] Piperacillin/Tazobactam/Dextrose (Zosyn 4.5 Gm Premix) 4.5 gm in 100 mls @ 200 mls/hr IV.SIG Q8H [facility] Last Infusion: 04/04/18 19:23 Dose: Infused Lactated Ringer's (Lr 1000 Ml Inj) 1,000 mls @ 30 mls/hr IV.SIG .Q24H [facility] Stop: 04/05/18 18:43 Last Admin: 04/04/18 19:31 Dose: Not Given Sodium Chloride (Ns Inj) 500 mls @ 30 mls/hr IV.SIG .Q10H [facility] Stop: 04/05/18 18:43 Vancomycin HCl 1,250 mg/ (Sodium Chloride) 275 mls @ 250 mls/hr IV.SIG Q12H [facility] Insulin Aspart (Novolog Insulin Correctional Sugar Inj) 0 unit SQ ACHS [facility]; Protocol Last Admin: 04/04/18 17:30 Dose: Not Given Insulin Human NPH (Novolin N Inj) 5 units SQ BID@0800,1700 [facility] Last Admin: 04/03/18 08:39 Dose: Not Given Lactulose (Lactulose Liq) 30 ml PO DAILY PRN PRN Reason: SEVERE CONSITIPATION Metoprolol Tartrate (Lopressor) 12.5 mg PO BID [facility] Last Admin: 04/04/18 09:09 Dose: 12.5 mg Miscellaneous Information ([facility] Ordered Lab Info) 1 each OTHER ONCE ONE Stop: 04/06/18 17:46 Nicotine (Habitrol 21 Mg Patch.24 Hr) 1 patch T-DERMAL DAILY [facility] Last Admin: 04/04/18 09:10 Dose: 1 patch Pantoprazole Sodium (Protonix) 20 mg PO DAILY [facility] Last Admin: 04/04/18 09:10 Dose: 20 mg Patch Removal (Remove Old Patch) 1 each T-DERMAL DAILY [facility] Last Admin: 04/04/18 09:11 Dose: 1 each Povidone Iodine (Betadine 5% Antisepsis Kit) 1 applicatio EACH [facility] Stop: 04/05/18 18:43 Pramipexole Dihydrochloride (Mirapex) 0.5 mg PO BID [facility] Last Admin: 04/04/18 09:10 Dose: 0.5 mg Pravastatin Sodium (Pravachol) 40 mg PO DAILY@1800 [facility] Last Admin: 04/04/18 17:25 Dose: 40 mg Prednisone (Deltasone) 20 mg PO DAILY [facility] Stop: 04/05/18 23:59 Last Admin: 04/04/18 09:09 Dose: 20 mg Senna/Docusate Sodium (Pia-Colace) 1 tab PO BID [facility] Last Admin: 04/04/18 09:10 Dose: 1 tab Sennosides (Senokot) 17.2 mg PO Q12H PRN PRN Reason: Moderate Constipation Last Admin: 03/31/18 00:41 Dose: 8.6 mg Sodium Chloride (Ns Flush) 2 ml IV.FLUSH PRN PRN PRN Reason: FLUSH AFTER USING IV ACCESS Sodium Chloride (Ns Flush) 2 ml IV.FLUSH BID [facility] Last Admin: 04/04/18 09:10 Dose: 2 ml Tiotropium [place] (Spiriva 18 Mcg Inh) 18 mcg INH DAILY [facility] Last Admin: 04/04/18 09:14 Dose: 18 mcg Allergies Allergy/AdvReac Type Severity Reaction Status Date / Time memantine Allergy Unknown Rash Verified 03/28/18 14:38 MRI PRECAUTION AdvReac 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 per Dr Rincon Home Medications Medication Instructions Recorded Confirmed Type albuterol sulfate 2.5 mg INHALATION Q4H PRN 03/28/18 03/28/18 History alprazolam 0.5 mg PO HS 03/28/18 03/28/18 History amlodipine 5 mg PO DAILY 03/28/18 03/28/18 History budesonide-formoterol [Symbicort] 2 puff INHALATION BID 03/28/18 03/28/18 History donepezil 10 mg PO DAILY 03/28/18 03/28/18 History fluoxetine 10 mg PO DAILY 03/28/18 03/28/18 History gabapentin 300 mg PO TID 03/28/18 03/28/18 History hydrocodone-acetaminophen 1 tab PO Q8H PRN 03/28/18 03/28/18 History lisinopril 20 mg PO DAILY 03/28/18 03/28/18 History metoprolol tartrate 50 mg PO BID 03/28/18 03/28/18 History yazineqh-hlg-ZF-lycopen-lutein 1 tab PO DAILY 03/28/18 03/28/18 History [Centrum Silver] omeprazole 20 mg PO DAILY 03/28/18 03/28/18 History pramipexole 0.5 mg PO BID 03/28/18 03/28/18 History sennosides-docusate sodium [Senna 1 tab PO BID PRN 03/28/18 03/28/18 History Plus] simvastatin 20 mg PO QPM 03/28/18 03/28/18 History Results - Labs CBC & Chem 7: 04/02/18 11:02 04/04/18 10:12 Laboratory Results - last 24 hr 04/04/18 04/04/18 04/04/18 07:49 10:12 11:32 Creatinine 0.81 Estimated GFR Greater than 89 POC Glucose 83 122 H Vancomycin Trough 04/04/18 04/04/18 04/04/18 17:26 18:45 21:45 Creatinine Estimated GFR POC Glucose 151 H 195 H Vancomycin Trough 5.2 Microbiology 04/03/18 18:35 Wound - Foot Acid Fast Bacilli Smear - Final No acid fast bacilli seen 04/03/18 18:35 Wound - Foot Gram Stain - Final 04/03/18 18:35 Wound - Foot Wound Culture - Preliminary No growth in 24 hours 04/03/18 18:35 Wound - Foot Fungal Smear - Final No fungal elements seen - Procedures - Preoperative Diagnosis (1) Cellulitis and abscess of foot excluding toe (2) Foot laceration involving tendon (3) Laceration of ankle, left - Postoperative Diagnosis (1) Cellulitis and abscess of foot excluding toe (2) Foot laceration involving tendon (3) Laceration of ankle, left Date of procedure: 04/03/18 Procedure: Incision drainage debridement of tendon wound exploration left ankle, repair of distal leg proximal ankle laceration Anesthesia: GETA Surgeon: Glen Trevizo DPM Estimated blood loss (mL): 10 (ml) Tourniquet time (min): 0 Pathology: other (Deep culture left ankle) Condition: stable Disposition: floor Assessment and Plan - Assessment (1) Abscess of left foot Code(s): L02.612 - Cutaneous abscess of left foot Status: Acute Plan: Changed dressing and removed packing. Ordered daily packing change per nursing left foot Will need packing change daily per home health nursing when discharged. (2) Foot laceration involving tendon Code(s): S91.319A - Laceration without foreign body, unspecified foot, initial encounter; S96.929A - Laceration of unspecified muscle and tendon at ankle and foot level, unspecified foot, initial encounter Status: Acute
[2018-04-05] MEDS: Piperacil/Tazo 4.5 GM Premix 4.5 GM/100 ML BAG IV.SIG SCH ×3 (03:17→18:23)
[2018-04-05] MEDS ORDERED: Vancomycin Inj 1,250 MG in Sodium Chlor 0.9% Inj 250 ML IV.SIG SCH (06:00)
--- NOTE | 2018-04-05 07:29 | P.PN ---
Subjective Interval history: Patient doing well. He denies any new medical complaints. Denies any left leg pain. Breathing is good. Afebrile. VSS. Physical Exam Vital signs: Vital Signs 04/04/18 08:00 04/04/18 12:00 04/04/18 16:00 Temperature 98.0 F 97.4 F L 99.2 F Pulse Rate 63 72 76 Respiratory Rate 20 20 18 Blood Pressure 152/71 H 154/67 H 142/65 H Pulse Oximetry 93 L 93 L 94 L 04/05/18 00:00 04/05/18 04:00 04/05/18 07:21 Temperature 98 F 97.5 F L 98.0 F Pulse Rate 61 66 Respiratory Rate 18 18 16 Blood Pressure 153/74 H 145/65 H 137/68 Pulse Oximetry 94 L 94 L 95 Intake & Output 04/04/18 04/05/18 04/05/18 18:59 06:59 18:59 Intake Total 100 / 100 200 / 200 Output Total 100 / 100 Balance 100 / 100 100 / 100 Weight 74.9 kg Intake: IV 100 / 100 200 / 200 Zosyn 4.5 GM Premix 4.5 gm In 100 / 100 200 / 200 100 ml @ 200 mls/hr IV.SIG Q8H [facility] Rx#:[id number] Output: Urine 100 / 100 Other: # Voids 1 # Incontinent Voids 2 Narrative: GENERAL: WDWN elderly male patient. Awake and alert, sitting up in bedside chair eating breakfast. Not in any distress. Caregiver is at the bedside. SKIN: Warm and dry. +s/p I&D LLE, in postop dressing. HEENT: Atraumatic. Normocephalic. Patient is blind in both eyes, pupils nonreactive. No nasal bleeding or discharge. Mucous membranes pink and moist. NECK: Trachea midline. CARDIOVASCULAR: Regular rate and rhythm. RESPIRATORY: No accessory muscle use. Fair air entry. Occ expiratory wheezing. GASTROINTESTINAL: Abdomen soft, non-tender, nondistended. +BS. MUSCULOSKELETAL: Extremities without clubbing, cyanosis, or edema except as stated above. No obvious deformities. NEUROLOGICAL: Awake and alert. No cranial nerve deficits. Motor grossly within normal limits. Able to move all extremities spontaneously. Normal speech. PSYCHIATRIC: Calm and cooperative. Results - Labs CBC & Chem 7: 04/02/18 11:02 04/05/18 12:00 Laboratory Results - last 24 hr 04/04/18 04/04/18 04/04/18 07:49 10:12 11:32 Creatinine 0.81 Estimated GFR Greater than 89 POC Glucose 83 122 H Vancomycin Trough 04/04/18 04/04/18 04/04/18 17:26 18:45 21:45 Creatinine Estimated GFR POC Glucose 151 H 195 H Vancomycin Trough 5.2 04/05/18 07:20 Creatinine Estimated GFR POC Glucose 142 H Vancomycin Trough Microbiology 04/03/18 18:35 Wound - Foot Acid Fast Bacilli Smear - Final No acid fast bacilli seen 04/03/18 18:35 Wound - Foot Gram Stain - Final 04/03/18 18:35 Wound - Foot Wound Culture - Preliminary No growth in 24 hours 04/03/18 18:35 Wound - Foot Fungal Smear - Final No fungal elements seen - Procedures - Preoperative Diagnosis (1) Cellulitis and abscess of foot excluding toe (2) Foot laceration involving tendon (3) Laceration of ankle, left - Postoperative Diagnosis (1) Cellulitis and abscess of foot excluding toe (2) Foot laceration involving tendon (3) Laceration of ankle, left Date of procedure: 04/03/18 Procedure: Incision drainage debridement of tendon wound exploration left ankle, repair of distal leg proximal ankle laceration [facility] Surgeon: Glen Trevizo DPM Estimated blood loss (mL): 10 (ml) Tourniquet time (min): 0 Pathology: other (Deep culture left ankle) Condition: stable Disposition: floor Assessment and Plan - Assessment (1) Encephalopathy Code(s): G93.40 - Encephalopathy, unspecified Status: Acute (2) COPD exacerbation Code(s): J44.1 - Chronic obstructive pulmonary disease with (acute) exacerbation Status: Acute (3) Pneumonia Code(s): J18.9 - Pneumonia, unspecified organism Status: Acute (4) Leukocytosis Code(s): D72.829 - Elevated white blood cell count, unspecified Status: Acute - Plan 78-year-old white male being admitted for acute COPD exacerbation and PNA Sepsis at admission with elevated white count, tachycardia, elevated RR with source of PNA, resolved -blood cx show no growth -white count remains elevated but patient is on steroids LLE cellulitis Left foot possible tenosynovitis versus hematoma soft tissue US's complex fluid collection surrounding extensor tendons of the foot adjacent to the wound, MRI recommended patient unable to have secondary to shrapnel her head. -ID following, appreciate assistance. 04/02 area over foot clinically worsening with more induration, erythema and edema. Rocephin and doxycycline discontinued. Patient started on IV Zosyn and Vancomycin (target 10-15). Monitor kidney function. -Podiatry following, appreciate assistance. s/p I&D LLE 04/03. Will need packing change daily per home health nursing at d/c. Wound cx +pseudomonas and staph. PVD patient denies any complaints of claudication but reports "sciatica" unable to palpate distal pulses -abnormal left ROSHNI -Vascular surgery following, appreciate assistance. Carotid Doppler ordered showing mild plaque without any significant stenosis. CTA runoff Shows calcified atherosclerotic plaque generating bilateral inflow and outflow stenosis, more pronounced on the left. Plan for left common femoral and distal external iliac endarterectomy with profundoplasty and patch placement. 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 -continue on Symbicort, Spiriva and Mucinex. IS and acapella. -monitor respiratory status -discussed smoking cessation Hypertension overall controlled Continue home medications of lisinopril and amlodipine -Clonidine as needed with parameters -Continue to monitor BP and adjust treatment accordingly Diabetes, new diagnosis A1c 6.5 hyperglycemia worse while on steroids -discussed lifestyle modification -consult sprinkling system installer for diabetes -continue on accuchek and ISS -Blood sugars controlled. Likely no longer needs NPH as off of IV steroids. Discontinue. -recommend patient have A1c rechecked in 3 mos Dementia, chronic Confusion, acute, suspect secondary to infection and hypoxia, improved -patient resumed on home dose of Aricept Anemia, chronic Hgb appears stable -no active bleeding -monitor as indicated DVT prophylaxis -Heparin Discharge Planning: Not ready for discharge. D/C pending clinical improvement, podiatry, ID and vascular sx clearance. (3) Pneumonia Qualifiers: Pneumonia type: due to unspecified organism Laterality: bilateral Lung location: lower lobe of lung Qualified Code(s): J18.1 - Lobar pneumonia, unspecified organism (4) Leukocytosis Qualifiers: Leukocytosis type: unspecified Qualified Code(s): D72.829 - Elevated white blood cell count, unspecified
[2018-04-05] MEDS: FLUoxetine 10 MG Capsule PO SCH (09:13)
[2018-04-05] MEDS: Pantoprazole Sodium 20 MG DR Tablet PO SCH (09:13)
[2018-04-05] MEDS: guaiFENesin 600 MG ER Tablet PO SCH ×2 (09:13→23:36)
[2018-04-05] MEDS: Metoprolol Tartrate 25 MG Tablet PO SCH ×2 (09:13→23:34)
[2018-04-05] MEDS: Gabapentin 300 MG Capsule PO SCH ×3 (09:14→18:23)
[2018-04-05] MEDS: Senna/Docusate Sodium 8.6/50 MG Tablet PO SCH ×2 (09:14→23:42)
[2018-04-05] MEDS: predniSONE 20 MG Tablet PO SCH (09:29)
[2018-04-05] MEDS: Tiotropium Bromide 18 MCG/ACT Inhaler INH SCH (09:29)
[2018-04-05] MEDS: Insulin NovoLOG Aspart Correctional Sugar Inj SQ SCH ×4 (09:29→23:42)
[2018-04-05] MEDS: Budesonide-Formoterol 160/4.5 MCG 6 GM Inhaler INH SCH ×2 (09:29→23:42)
[2018-04-05] MEDS ORDERED: Vancomycin Inj 1,250 MG in Sodium Chlor 0.9% Inj 250 ML IV.SIG ONE (16:00)
--- NOTE | 2018-04-05 16:58 | P.PNID ---
Subjective Remarks: Mr. Estrada is a 78-year-old white male who was admitted for acute shortness of breath secondary to COPD exacerbation and possible pneumonia. Patient was in his usual state of health until about 1-2 days prior to admission when he started experiencing short of breath. He went to an urgent care and was referred to an emergency department. Patient goes on to report that approximately 2 days prior to his admission he had an injury at home. He goes on to report that he is legally blind and has a caregiver at home and may have injured himself while trying to navigate. He went to the urgent care at that time and got sutures in place. Per his caregiver and notes it appears that patient was initially more confused on admission. At the present time patient is alert oriented 3 and is able to provide me the entire history. Reportedly has a caregiver that is present at home 24 7 for nursing care. Patient otherwise has no relatives at home and lives by himself. At baseline it appears that patient uses a walker at home. In the emergency department he was noted to have a white count of about 18,000. Patient underwent evaluation for sepsis. Patient underwent an ultrasound of his leg which shows fluid collection possible tenosynovitis of the foot. Patient was started on empiric antibiotics due to his recent injury and concern for cellulitis in his left leg as well as left foot. Pulmonology has been consulted as a chest x-ray shows some degree of atelectasis. This appears to be chronic there is no obvious mucous plug. Patient is currently asymptomatic at the time of my evaluation. Infectious disease is consulted for evaluation of left lower extremity infection. Delayed entry patient seen prior to surgery. Overnight events reviewed No fever No rash No diarrhea left foot s/p I&D of tendon abscess. Cx with Staph aureus and Pseudomonas susceptibility pending. Antibiotics: Ceftriaxone Iv Azithro Lines: Line sites okay Past Medical History: Reviewed Allergies/Adverse Reactions: Allergies memantine Allergy (Unknown, Verified 03/28/18 14:38) Rash MRI PRECAUTION Adverse Reaction (Severe, Uncoded 04/01/17 19:48) shrapnel in brain and orbit mpw per Dr Rincon Objective Vital Signs 04/04/18 20:00 04/05/18 00:00 04/05/18 04:00 Temperature 97.4 F L 98 F 97.5 F L Pulse Rate 80 61 Respiratory Rate 19 18 18 Blood Pressure 131/62 153/74 H 145/65 H Pulse Oximetry 95 94 L 94 L 04/05/18 07:21 Temperature 98.0 F Pulse Rate 66 Respiratory Rate 16 Blood Pressure 137/68 Pulse Oximetry 95 Intake & Output 04/04/18 04/05/18 04/05/18 18:59 06:59 18:59 Intake Total 100 / 100 450 / 450 100 / 100 Output Total 100 / 100 400 / 400 Balance 100 / 100 350 / 350 -300 / -300 Weight 74.9 kg Intake: IV 100 / 100 450 / 450 100 / 100 Zosyn 4.5 GM Premix 4.5 gm In 100 / 100 200 / 200 100 / 100 100 ml @ 200 mls/hr IV.SIG Q8H [facility] Rx#:[id number] Vancomycin Inj 1,000 MG In NS 250 / 250 Inj 250 ML @ 250 mls/hr IV.SIG Q18H [facility] Rx#:[id number] Output: Urine 100 / 100 400 / 400 Other: # Voids 1 # Incontinent Voids 2 Date of Last Bowel Movement 04/05/18 04/05/18 04/03/18 18:35 Wound - Foot Gram Stain - Final 04/03/18 18:35 Wound - Foot Wound Culture - Preliminary Pseudomonas species Staphylococcus aureus 04/03/18 18:35 Wound - Foot Acid Fast Bacilli Smear - Final No acid fast bacilli seen 04/03/18 18:35 Wound - Foot Mycobacterial Culture - Pending 04/03/18 18:35 Wound - Foot Fungal Smear - Final No fungal elements seen 04/03/18 18:35 Wound - Foot Fungal Culture - Pending Lab - Chemistry Results 04/03/18 04/03/18 04/04/18 19:17 21:10 07:49 Creatinine Estimated GFR POC Glucose 129 H 178 H 83 04/04/18 04/04/18 04/04/18 10:12 11:32 17:26 Creatinine 0.81 Estimated GFR Greater than 89 POC Glucose 122 H 151 H 04/04/18 04/05/18 04/05/18 21:45 07:20 12:00 Creatinine 0.89 Estimated GFR 82 L POC Glucose 195 H 142 H 04/05/18 04/05/18 12:41 16:32 Creatinine Estimated GFR POC Glucose 104 161 H Imaging: ITS Impressions Chest X-Ray 03/28/18 13:12 CONCLUSION: Elevated right diaphragm and persistent bibasilar parenchymal opacities Tibia/Fibula X-Ray 03/28/18 13:13 CONCLUSION: 1. No acute fracture or radiopaque foreign bodies. Venous Doppler Study 03/28/18 13:13 CONCLUSION: No venous thrombosis is identified in the left lower extremity. Head CT 03/28/18 13:18 CONCLUSION: No acute intracranial findings. Basically stable abnormal brain appearance as above. . Chest CT 03/30/18 00:00 CONCLUSION: 1. Moderate L1 vertebral body compression fracture, new since February 2017. If patient has pain on palpation of the spinous process, consider MRI examination to determine acuity. 2. Otherwise, stable CT examination of the chest. 3. Stable elevation of the right hemidiaphragm with right lower lobe atelectasis/scarring. 4. Minimal left lung base atelectasis/scarring. 5. Stable 17 mm left adrenal adenoma. Extremity Arterial Study 03/30/18 00:00 CONCLUSION: 1. Moderately reduced left lower extremity ankle-brachial indices. Consider CTA examination if patient has left-sided symptoms. 2. Normal range right ankle-brachial index. 3. Normal range bilateral toe brachial indices. Lower Extremity Ultrasound 03/30/18 00:00 CONCLUSION: 1. Complex fluid collection surrounding extensor tendons of the foot adjacent to area of wound. Findings suggest tenosynovitis. MRI of the foot could be performed to further evaluate integrity of the tendons. 2. Negative ultrasound in the area of the anterior lower leg wound. Carotid Doppler Study 04/01/18 00:00 CONCLUSION: Mild plaque without a significant stenosis seen. Aorta w/Runoff CTA 04/03/18 00:00 CONCLUSION: 1. Calcified atherosclerotic plaque generating bilateral inflow and outflow stenoses as detailed above. This is more pronounced on the left. Three-vessel runoff to each foot. 2. Prior cholecystectomy. Physical Exam: GENERAL: Sedated, on the vent, NAD SKIN: Cool and dry, no generalized rash HEAD: Atraumatic. Normocephalic. No temporal or scalp tenderness. EYES: Pupils equal round and reactive. Scleral icterus. No injection or drainage. No petechia ENT: Orally intubated NECK: Trachea midline. Supple, nontender, no meningeal signs. CARDIOVASCULAR: HS audible. RESPIRATORY: Air entry equal bilaterally. Clear to auscultation bilaterally. GASTROINTESTINAL: Abdomen soft,NT MUSCULOSKELETAL: Left leg with minimal erythema noted at this site of sutures. Left foot induration area slightly decreased. NEUROLOGICAL: Sedated Psych cooperative IV line sites ok. Assessment and Plan - Plan Left lower extremity cellulitis Left foot possible tenosynovitis versus hematoma Possible pneumonia versus atelectasis Recommendations Continue Zosyn IV Continue Vanco IV (10-15 target) Reviewed Op note and cultures. Await susceptibility of Pseudomonas and staph. Revascularization will help with delivery of antibiotics locally in an effective fashion. Patient worsened on IV antibiotics concerned about vascular issues causing delayed healing and delivery of antibiotics locally. elaina delaney RN
--- NOTE | 2018-04-05 17:52 | P.PNVS ---
Subjective Subjective/Hospital Course: Patient seen and full consult has been dictated CTA with runoff is pending and we will see how we can improve the blood supply to the feet. Patient has barely detectable distal pulses and poor proximal pulses Thanks J 04/04/2018 CTA with runoff confirms the clinical impression Patient has significant peripheral vascular disease left more than right While the inflow is sclerotic and diffuse stenotic areas are present in common iliac and external iliac arteries, these are not hemodynamically significant and blood flow is present. Patient has a very tight hemodynamically significant stenosis and almost occlusion of the left common femoral artery just above the and alongside the takeoff of the deep femoral artery. In addition patient has multilevel stenosis of the SFA on the left more so in the distal portion. At this point the most appropriate procedure to consider is the left common femoral and distal external iliac endarterectomy with profundoplasty and patch placement. This will probably give enough inflow for the patient to heal the rest of his wounds and if that is not sufficient in the long run, patient might need balloon angioplasty of his SFA but that is probably unlikely. We will proceed with left common femoral endarterectomy patch angioplasty this weekend. 04/01/2014 As above noted patient has inflow near occlusion at the level of common femoral and external iliac arteries in the groin and then additional narrowed areas in the adductor canal on the left side At this point will proceed with common femoral and external iliac endarterectomy profundoplasty and patch angioplasty and see if this improves the inflow and perfusion of the foot which is likely will and patient most likely will not need any additional procedures. Depending on clinical indicis in the future patient may have additional balloon angioplasty of SFA as an outpatient later on Discussed with the patient will proceed with surgery tomorrow Objective Vital Signs / I&O: Vital Signs 04/04/18 20:00 04/05/18 00:00 04/05/18 04:00 Temperature 97.4 F L 98 F 97.5 F L Pulse Rate 80 61 Respiratory Rate 19 18 18 Blood Pressure 131/62 153/74 H 145/65 H Pulse Oximetry 95 94 L 94 L 04/05/18 07:21 Temperature 98.0 F Pulse Rate 66 Respiratory Rate 16 Blood Pressure 137/68 Pulse Oximetry 95 Intake & Output 04/04/18 04/05/18 04/05/18 18:59 06:59 18:59 Intake Total 100 / 100 450 / 450 100 / 100 Output Total 100 / 100 400 / 400 Balance 100 / 100 350 / 350 -300 / -300 Weight 74.9 kg Intake: IV 100 / 100 450 / 450 100 / 100 Zosyn 4.5 GM Premix 4.5 gm In 100 / 100 200 / 200 100 / 100 100 ml @ 200 mls/hr IV.SIG Q8H [facility] Rx#:[id number] Vancomycin Inj 1,000 MG In NS 250 / 250 Inj 250 ML @ 250 mls/hr IV.SIG Q18H [facility] Rx#:[id number] Output: Urine 100 / 100 400 / 400 Other: # Voids 1 # Incontinent Voids 2 Date of Last Bowel Movement 04/05/18 04/05/18 Laboratory Results - last 24 hr 04/04/18 04/04/18 04/05/18 18:45 21:45 07:20 Creatinine Estimated GFR POC Glucose 195 H 142 H Vancomycin Trough 5.2 04/05/18 04/05/18 04/05/18 12:00 12:41 16:32 Creatinine 0.89 Estimated GFR 82 L POC Glucose 104 161 H Vancomycin Trough Microbiology 04/03/18 18:35 Gram Stain - Final Wound - Foot Wound Culture - Preliminary Pseudomonas species Staphylococcus aureus 04/03/18 18:35 Acid Fast Bacilli Smear - Final Wound - Foot No acid fast bacilli seen
--- NOTE | 2018-04-05 19:00 | P.PN ---
Subjective Interval history: Alert and feels better. Will go for vascular procedure in am. O2 sat 95 on RA Physical Exam Vital signs: Vital Signs 04/04/18 20:00 04/05/18 00:00 04/05/18 04:00 Temperature 97.4 F L 98 F 97.5 F L Pulse Rate 80 61 Respiratory Rate 19 18 18 Blood Pressure 131/62 153/74 H 145/65 H Pulse Oximetry 95 94 L 94 L 04/05/18 07:21 04/05/18 12:00 04/05/18 18:18 Temperature 98.0 F 97.3 F L 97.5 F L Pulse Rate 66 64 69 Respiratory Rate 16 14 16 Blood Pressure 137/68 148/65 H 151/70 H Pulse Oximetry 95 95 96 04/05/18 18:31 Temperature Pulse Rate Respiratory Rate Blood Pressure Pulse Oximetry 96 Intake & Output 04/04/18 04/05/18 04/05/18 18:59 06:59 18:59 Intake Total 100 / 100 450 / 450 375 / 375 Output Total 100 / 100 400 / 400 Balance 100 / 100 350 / 350 -25 / -25 Weight 74.9 kg Intake: IV 100 / 100 450 / 450 375 / 375 Zosyn 4.5 GM Premix 4.5 gm In 100 / 100 200 / 200 100 / 100 100 ml @ 200 mls/hr IV.SIG Q8H [facility] Rx#:[id number] Vancomycin Inj 1,000 MG In NS 250 / 250 Inj 250 ML @ 250 mls/hr IV.SIG Q18H [facility] Rx#:[id number] Vancomycin Inj 1,250 MG In NS 275 / 275 Inj 250 ML @ 275 mls/hr IV.SIG ONCE ONE Rx#:[id number] Output: Urine 100 / 100 400 / 400 Other: # Voids 1 # Incontinent Voids 2 Date of Last Bowel Movement 04/05/18 04/05/18 Narrative: GENERAL: WDWN elderly male patient. Awake and alert. SKIN: Warm and dry. +s/p I&D LLE, with dressing. HEENT: Atraumatic. Normocephalic. Patient is blind in both eyes, pupils nonreactive. No nasal bleeding or discharge. Mucous membranes pink and moist. NECK: Trachea midline. CARDIOVASCULAR: Regular rate and rhythm. RESPIRATORY: No accessory muscle use. Occ expiratory wheezing. GASTROINTESTINAL: Abdomen soft, non-tender, nondistended. +BS. MUSCULOSKELETAL: Extremities without clubbing, cyanosis, or edema except as stated above. No obvious deformities. NEUROLOGICAL: Awake and alert. No cranial nerve deficits. Motor grossly within normal limits. PSYCHIATRIC: Calm and cooperative. Results - Labs CBC & Chem 7: 04/02/18 11:02 04/05/18 12:00 Laboratory Results - last 24 hr 04/04/18 04/04/18 04/05/18 18:45 21:45 07:20 Creatinine Estimated GFR POC Glucose 195 H 142 H Vancomycin Trough 5.2 04/05/18 04/05/18 04/05/18 12:00 12:41 16:32 Creatinine 0.89 Estimated GFR 82 L POC Glucose 104 161 H Vancomycin Trough Microbiology 04/03/18 18:35 Wound - Foot Gram Stain - Final 04/03/18 18:35 Wound - Foot Wound Culture - Preliminary Pseudomonas species Staphylococcus aureus 04/03/18 18:35 Wound - Foot Acid Fast Bacilli Smear - Final No acid fast bacilli seen - Procedures - Preoperative Diagnosis (1) Cellulitis and abscess of foot excluding toe (2) Foot laceration involving tendon (3) Laceration of ankle, left - Postoperative Diagnosis (1) Cellulitis and abscess of foot excluding toe (2) Foot laceration involving tendon (3) Laceration of ankle, left Date of procedure: 04/03/18 Procedure: Incision drainage debridement of tendon wound exploration left ankle, repair of distal leg proximal ankle laceration Anesthesia: GETA Surgeon: Glen Trevizo DPM Estimated blood loss (mL): 10 (ml) Tourniquet time (min): 0 Pathology: other (Deep culture left ankle) Condition: stable Disposition: floor Assessment and Plan - Assessment (1) Cellulitis and abscess of foot excluding toe Code(s): L03.119 - Cellulitis of unspecified part of limb; L02.619 - Cutaneous abscess of unspecified foot Status: Acute (2) Foot laceration involving tendon Code(s): S91.319A - Laceration without foreign body, unspecified foot, initial encounter; S96.929A - Laceration of unspecified muscle and tendon at ankle and foot level, unspecified foot, initial encounter Status: Acute (3) Pneumonia Code(s): J18.9 - Pneumonia, unspecified organism Status: Acute (4) Leukocytosis Code(s): D72.829 - Elevated white blood cell count, unspecified Status: Acute (5) Altered mental status Code(s): R41.82 - Altered mental status, unspecified Status: Acute (6) Encephalopathy Code(s): G93.40 - Encephalopathy, unspecified Status: Acute (7) COPD exacerbation Code(s): J44.1 - Chronic obstructive pulmonary disease with (acute) exacerbation Status: Acute - Plan 1. Cont O2 PRN 2 L. 2. Continue Symbicort 160/4.5 mcg 2 puffs bid 3. Antibiotics per ID 4. IS at Bedside qid 5. OK for surgery as planned 6. Symbicort 160/4.5 mcg , 2 puffs BID 7. CXR on Sunday (3) Pneumonia Qualifiers: Pneumonia type: due to unspecified organism Laterality: bilateral Lung location: lower lobe of lung Qualified Code(s): J18.1 - Lobar pneumonia, unspecified organism (4) Leukocytosis Qualifiers: Leukocytosis type: unspecified Qualified Code(s): D72.829 - Elevated white blood cell count, unspecified (5) Altered mental status Qualifiers: Altered mental status type: unspecified Qualified Code(s): R41.82 - Altered mental status, unspecified
[2018-04-06] MEDS ORDERED: Sodium Chlor 0.9% Inj 500 ML IV.SIG SCH (03:00)
[2018-04-06] MEDS ORDERED: Chlorhexidine Gluconate 2% 1 Pack (2 Cloths) TOPICAL SCH (03:00)
[2018-04-06] MEDS: Piperacil/Tazo 4.5 GM Premix 4.5 GM/100 ML BAG IV.SIG SCH ×4 (03:37→21:21)
[2018-04-06 07:45] LABS: Calcium 7.9 mg/dL (8.5-10.1); Carbon Dioxide 29.2 meq/L (21.0-32.0); Potassium 3.9 meq/L (3.5-5.1)
[2018-04-06 07:46] LABS: Vancomycin,Random 8.9 Comment
[2018-04-06] MEDS: Insulin NovoLOG Aspart Correctional Sugar Inj SQ SCH ×4 (09:31→21:42)
[2018-04-06] MEDS: guaiFENesin 600 MG ER Tablet PO SCH ×2 (09:37→21:21)
[2018-04-06] MEDS: Pantoprazole Sodium 20 MG DR Tablet PO SCH (09:37)
[2018-04-06] MEDS: Gabapentin 300 MG Capsule PO SCH ×3 (09:37→17:16)
[2018-04-06] MEDS: FLUoxetine 10 MG Capsule PO SCH (09:37)
[2018-04-06] MEDS: Senna/Docusate Sodium 8.6/50 MG Tablet PO SCH ×2 (09:38→21:21)
[2018-04-06] MEDS: Budesonide-Formoterol 160/4.5 MCG 6 GM Inhaler INH SCH ×2 (09:46→21:27)
[2018-04-06] MEDS: Tiotropium Bromide 18 MCG/ACT Inhaler INH SCH (09:47)
[2018-04-06] MEDS: Metoprolol Tartrate 25 MG Tablet PO SCH ×2 (10:03→21:21)
--- NOTE | 2018-04-06 11:04 | P.PNIM ---
Subjective Interval history: Patient seen and examined this morning. Afebrile vital signs stable. Plan is for the patient to go to the OR for vascular surgery. He is currently n.p.o. and awaiting that procedure. He reports that he is hungry and thirsty but otherwise has no other major complaints. Denies any shortness of breath or chest pain at this time. Physical Exam Vital signs: Vital Signs 04/05/18 12:00 04/05/18 18:18 04/05/18 18:31 Temperature 97.3 F L 97.5 F L Pulse Rate 64 69 Respiratory Rate 14 16 Blood Pressure 148/65 H 151/70 H Pulse Oximetry 95 96 96 04/05/18 20:00 04/06/18 00:00 04/06/18 04:00 Temperature 98 F 98.2 F 98 F Pulse Rate 65 61 Respiratory Rate 16 16 18 Blood Pressure 137/60 135/65 150/66 H Pulse Oximetry 94 L 94 L 97 04/06/18 08:00 Temperature 97.9 F Pulse Rate 70 Respiratory Rate 16 Blood Pressure 137/68 Pulse Oximetry 93 L Intake & Output 04/05/18 04/06/18 04/06/18 18:59 06:59 18:59 Intake Total 375 / 375 200 / 200 100 / 100 Output Total 400 / 400 200 / 200 Balance -25 / -25 0 / 0 100 / 100 Weight 70.4 kg Intake: IV 375 / 375 200 / 200 100 / 100 Zosyn 4.5 GM Premix 4.5 gm In 100 / 100 200 / 200 100 / 100 100 ml @ 200 mls/hr IV.SIG Q8H [facility] Rx#:[id number] Vancomycin Inj 1,250 MG In NS 275 / 275 Inj 250 ML @ 275 mls/hr IV.SIG ONCE ONE Rx#:[id number] Output: Urine 400 / 400 200 / 200 Other: Date of Last Bowel Movement 04/05/18 Narrative: GENERAL: WDWN elderly male patient. Awake and alert. SKIN: Warm and dry. +s/p I&D LLE, with dressing. HEENT: Atraumatic. Normocephalic. Patient is blind in both eyes, pupils nonreactive. No nasal bleeding or discharge. Mucous membranes pink and moist. NECK: Trachea midline. CARDIOVASCULAR: Regular rate and rhythm. RESPIRATORY: No accessory muscle use. No wheezing noted on exam today. GASTROINTESTINAL: Abdomen soft, non-tender, nondistended. +BS. MUSCULOSKELETAL: Extremities without clubbing, cyanosis, or edema except as stated above. No obvious deformities. NEUROLOGICAL: Awake and alert. No cranial nerve deficits. Motor grossly within normal limits. PSYCHIATRIC: Calm and cooperative. Results - Labs CBC & Chem 7: 04/02/18 11:02 04/06/18 06:36 Laboratory Results - last 24 hr 04/05/18 04/05/18 04/05/18 12:00 12:41 16:32 Sodium Potassium Chloride Carbon Dioxide Anion Gap BUN Creatinine 0.89 Estimated GFR 82 L POC Glucose 104 161 H Random Glucose Calcium Random Vancomycin 04/05/18 04/06/18 04/06/18 22:11 06:01 06:36 Sodium 133 L Potassium 3.9 Chloride 96 L Carbon Dioxide 29.2 Anion Gap 8 BUN 16 Creatinine 0.94 Estimated GFR 77 L POC Glucose 133 H 123 H Random Glucose 110 H Calcium 7.9 L Random Vancomycin 8.9 04/06/18 04/06/18 08:07 10:00 Sodium Potassium Chloride Carbon Dioxide Anion Gap BUN Creatinine Estimated GFR POC Glucose 149 H 124 H Random Glucose Calcium Random Vancomycin Microbiology 04/03/18 18:35 Wound - Foot Gram Stain - Final 04/03/18 18:35 Wound - Foot Wound Culture - Final Pseudomonas aeruginosa Staphylococcus aureus - Imaging Chest X-Ray 03/28/18 13:12 CONCLUSION: Elevated right diaphragm and persistent bibasilar parenchymal opacities Tibia/Fibula X-Ray 03/28/18 13:13 CONCLUSION: 1. No acute fracture or radiopaque foreign bodies. Venous Doppler Study 03/28/18 13:13 CONCLUSION: No venous thrombosis is identified in the left lower extremity. Head CT 03/28/18 13:18 CONCLUSION: No acute intracranial findings. Basically stable abnormal brain appearance as above. . Chest CT 03/30/18 00:00 CONCLUSION: 1. Moderate L1 vertebral body compression fracture, new since February 2017. If patient has pain on palpation of the spinous process, consider MRI examination to determine acuity. 2. Otherwise, stable CT examination of the chest. 3. Stable elevation of the right hemidiaphragm with right lower lobe atelectasis/scarring. 4. Minimal left lung base atelectasis/scarring. 5. Stable 17 mm left adrenal adenoma. Extremity Arterial Study 03/30/18 00:00 CONCLUSION: 1. Moderately reduced left lower extremity ankle-brachial indices. Consider CTA examination if patient has left-sided symptoms. 2. Normal range right ankle-brachial index. 3. Normal range bilateral toe brachial indices. Lower Extremity Ultrasound 03/30/18 00:00 CONCLUSION: 1. Complex fluid collection surrounding extensor tendons of the foot adjacent to area of wound. Findings suggest tenosynovitis. MRI of the foot could be performed to further evaluate integrity of the tendons. 2. Negative ultrasound in the area of the anterior lower leg wound. Carotid Doppler Study 04/01/18 00:00 CONCLUSION: Mild plaque without a significant stenosis seen. Aorta w/Runoff CTA 04/03/18 00:00 CONCLUSION: 1. Calcified atherosclerotic plaque generating bilateral inflow and outflow stenoses as detailed above. This is more pronounced on the left. Three-vessel runoff to each foot. 2. Prior cholecystectomy. - Procedures - Preoperative Diagnosis (1) Cellulitis and abscess of foot excluding toe (2) Foot laceration involving tendon (3) Laceration of ankle, left - Postoperative Diagnosis (1) Cellulitis and abscess of foot excluding toe (2) Foot laceration involving tendon (3) Laceration of ankle, left Date of procedure: 04/03/18 Procedure: Incision drainage debridement of tendon wound exploration left ankle, repair of distal leg proximal ankle laceration [facility] Surgeon: Glen Trevizo DPM Estimated blood loss (mL): 10 (ml) Tourniquet time (min): 0 Pathology: other (Deep culture left ankle) Condition: stable Disposition: floor Assessment and Plan - Assessment (1) Encephalopathy Code(s): G93.40 - Encephalopathy, unspecified Status: Acute (2) COPD exacerbation Code(s): J44.1 - Chronic obstructive pulmonary disease with (acute) exacerbation Status: Acute (3) Pneumonia Code(s): J18.9 - Pneumonia, unspecified organism Status: Acute (4) Leukocytosis Code(s): D72.829 - Elevated white blood cell count, unspecified Status: Acute - Plan 78-year-old white male being admitted for acute COPD exacerbation and PNA Sepsis at admission with elevated white count, tachycardia, elevated RR with source of PNA, resolved -blood cx show no growth -white count remains elevated but patient is on steroids current white blood cell count is 13.3 LLE cellulitis Left foot possible tenosynovitis versus hematoma soft tissue US's complex fluid collection surrounding extensor tendons of the foot adjacent to the wound, MRI recommended patient unable to have secondary to shrapnel her head. -ID following, appreciate assistance. 04/02 area over foot clinically worsening with more induration, erythema and edema. Rocephin and doxycycline discontinued. Patient started on IV Zosyn and Vancomycin (target 10-15). Monitor kidney function. -Podiatry following, appreciate assistance. s/p I&D LLE 04/03. Will need packing change daily per home health nursing at d/c. Wound cx +pseudomonas and staph. PVD patient denies any complaints of claudication but reports "sciatica" unable to palpate distal pulses -abnormal left ROSHNI -Vascular surgery following, appreciate assistance. Carotid Doppler ordered showing mild plaque without any significant stenosis. CTA runoff Shows calcified atherosclerotic plaque generating bilateral inflow and outflow stenosis, more pronounced on the left. Plan for left common femoral and distal external iliac endarterectomy with profundoplasty and patch placement. Plan for OR today Acute COPD exacerbation, resolved Pneumonia Ongoing tobaccoism CXR shows bibasilar opacities Chest CT stable, elevated right hemidiaphragm, possible phrenic nerve palsy sputum cx with heavy growth of nl resp chen Patient satting well on RA -Continue po steroids per pulmonary - to be completed today -Pulmonary medicine following, appreciate assistance. -continue on Symbicort, Spiriva and Mucinex. IS and acapella. -monitor respiratory status -discussed smoking cessation Hypertension overall controlled Continue home medications of lisinopril and amlodipine -Clonidine as needed with parameters -Continue to monitor BP and adjust treatment accordingly Diabetes, new diagnosis A1c 6.5 hyperglycemia worse while on steroids -discussed lifestyle modification -consult med dir for diabetes -continue on accuchek and ISS -Blood sugars controlled. Likely no longer needs NPH as off of IV steroids. Discontinue. -recommend patient have A1c rechecked in 3 mos Dementia, chronic Confusion, acute, suspect secondary to infection and hypoxia, improved -patient resumed on home dose of Aricept Anemia, chronic Hgb appears stable -no active bleeding -monitor as indicated DVT prophylaxis -Heparin held at this time for procedure Discharge Planning: Not ready for discharge. D/C pending clinical improvement, podiatry, ID and vascular sx clearance. (3) Pneumonia Qualifiers: Pneumonia type: due to unspecified organism Laterality: bilateral Lung location: lower lobe of lung Qualified Code(s): J18.1 - Lobar pneumonia, unspecified organism (4) Leukocytosis Qualifiers: Leukocytosis type: unspecified Qualified Code(s): D72.829 - Elevated white blood cell count, unspecified
[2018-04-06] MEDS ORDERED: Succinylcholine Inj 100 MG/5 ML Syringe IV.PUSH ONE (12:00)
[2018-04-06] MEDS ORDERED: Lidocaine PF 1% Inj 5 ML Syringe INFILTRATN ONE (12:00)
[2018-04-06] MEDS ORDERED: Phenylephrine/NS 1000 MCG/10ML Syringe IV.PUSH ONE (12:00)
[2018-04-06] MEDS ORDERED: Glycopyrrolate Inj 1 MG/5 ML Syringe IV.PUSH ONE (12:00)
[2018-04-06] MEDS ORDERED: Sod Chloride 0.9% Inj 1,000 ML IV.SIG ONE (12:00)
[2018-04-06] MEDS ORDERED: Sugammadex Inj 200 MG/2 ML Vial IV.PUSH ONE (13:13)
[2018-04-06] MEDS ORDERED: Protamine Sulfate Inj 50 MG/5 ML Vial ONE (13:20)
[2018-04-06] MEDS ORDERED: Heparin - SQ 10,000 UNITS/ML Vial ONE (13:20)
[2018-04-06] MEDS ORDERED: Heparin 10,000 UNITS/10 ML Vial (for IV use) ONE (13:20)
[2018-04-06] MEDS ORDERED: Artificial Tears Opth Drops 15 ML Bottle ONE (14:02)
[2018-04-06] MEDS ORDERED: Albumin Human 5% Inj 250 ML IV.SIG ONE (14:43)
[2018-04-06] MEDS ORDERED: Norepinephrine Inj 4 MG/4 ML Ampul ONE (14:46)
[2018-04-06] MEDS ORDERED: fentaNYL Citrate Inj 100 MCG/2 ML Ampul ONE (15:44)
[2018-04-06] MEDS: Vancomycin Inj 1,250 MG in Sodium Chlor 0.9% Inj 250 ML IV.SIG SCH (17:10)
[2018-04-06] MEDS ORDERED: Pharmacy Ordered Lab Info OTHER ONE (17:45)
--- NOTE | 2018-04-06 18:03 | MP ---
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 OPERATIVE PROCEDURE : Common femoral, external iliac endarterectomy and bovine patch angioplasty. SURGEON: Awa King MD ANESTHESIA: General. ESTIMATED BLOOD LOSS: 100 mL DESCRIPTION OF PROCEDURE: The patient was prepped and draped in the usual fashion. Left groin incision made, deepened down to the level of the neurovascular bundle. Common femoral, deep femoral and superficial femoral arteries are isolated and vessel loops placed around each. The Ho retractor was now placed under the inguinal ligament. This one was lifted up and then external iliac is freed up above the first 2 inches as it crosses over the pelvic rim into the pelvis. There is a firm plaque in it and I decided to get above that. Above that, there is a soft spot and another vessel loop was placed around that very carefully. The patient was given 5000 units of heparin and then the Satinsky clamp is applied proximally while the profunda clamps applied distal to the deep femoral and superficial femoral arteries. The vessels are opened longitudinally with Lozoya scissors and the plaque is so hard I had to use regular suture scissors to open the vessel. Once this was done up, it is noted that the patient has a massive amount of calcific plaque in the vessel that nearly completely occludes the vessel. Plaque is dissected in the medial plane with Kabetogama dissector and then removed in about 3 pieces. Finally, I dissected up into the external iliac artery high with a Kabetogama dissector and then removed the plaque with a Schnidt. This is followed by brisk blood flow down. The Satinsky was reapplied and then the vessel is cleaned from all the debris with wick cells and heparinized saline. A 1 cm x 8 bovine patch was chosen and sewn in with running 5-0 Prolene. The vessel was now opened in the usual fashion. The area is irrigated with copious amounts of saline. Meticulous hemostasis obtained. Some Surgicel placed on the vessel. Incision closed in layers with 2-0 Vicryl and 4-0 Monocryl. Benzoin, Steri-Strips applied. The patient taken out of the operating room in a stable condition with a strong dopplerable popliteal pulse. MD THEA Hoyos/ct , 04:04 PM , 04:13 PM
[2018-04-07] MEDS: Vancomycin Inj 1,250 MG in Sodium Chlor 0.9% Inj 250 ML IV.SIG SCH ×2 (00:21→13:34)
[2018-04-07] MEDS: Piperacil/Tazo 4.5 GM Premix 4.5 GM/100 ML BAG IV.SIG SCH ×4 (04:23→21:47)
[2018-04-07 04:24] LABS: Hematocrit 29.1 % (39.0-51.0); Hemoglobin 9.3 gm/dL (13.0-17.0); Mean Corpuscular HGB Conc 31.8 % (32.0-36.0); Mean Corpuscular Hemoglobin 26.8 pg (27.0-34.0); Mean Corpuscular Volume 84.3 fL (80.0-100.0); Mean Platelet Volume 6.6 fL (7.0-11.0); Platelet Count 336 th/mm3 (150-450); Red Blood Count 3.45 mil/mm3 (4.50-5.90); Red Cell Distribution Width 15.4 % (11.6-17.2); White Blood Count 13.4 th/mm3 (4.0-11.0)
--- NOTE | 2018-04-07 08:28 | P.PNIM ---
Subjective Interval history: Patient seen and examined this morning. Temperature 98.4, pulse 60, respiratory rate 18, previous recorded blood pressure is 148/86 however while in the room blood pressure was 196/78, pulse ox 98 on room air. Discussed case with nurse and patient will receive his blood pressure medication early due to the elevated blood pressure. Patient denies any pain. Feels like his foot feels better since having the vascular surgery procedure done yesterday. Denies any complaints or issues at this time. Denies any chest pain or shortness of breath. Physical Exam Vital signs: Vital Signs 04/06/18 15:30 04/06/18 15:45 04/06/18 16:00 Temperature 97.4 F L Pulse Rate 84 90 88 Respiratory Rate 17 17 16 Blood Pressure 148/65 H 135/58 L 132/60 Pulse Oximetry 99 96 04/06/18 16:15 04/06/18 16:25 04/06/18 20:00 Temperature 97.5 F L 98.6 F Pulse Rate 86 82 73 Respiratory Rate 16 16 22 Blood Pressure 130/63 135/65 156/70 H Pulse Oximetry 95 97 04/07/18 00:00 04/07/18 04:00 Temperature 98.7 F 98.4 F Pulse Rate 60 60 Respiratory Rate 15 18 Blood Pressure 162/74 H 148/66 H Pulse Oximetry 94 L 98 Intake & Output 04/06/18 04/07/18 04/07/18 18:59 06:59 18:59 Intake Total 2680 / 2680 2680 / 2680 Output Total 600 / 600 900 / 900 Balance 2080 / 2080 1780 / 1780 Weight 76.6 kg Intake: IV 200 / 200 200 / 200 Zosyn 4.5 GM Premix 4.5 gm In 200 / 200 200 / 200 100 ml @ 200 mls/hr IV.SIG Q6H [facility] Rx#:[id number] Oral 480 / 480 480 / 480 Anesthesia Amount 1999 / 1999 Output: Urine 500 / 500 800 / 800 Estimated Blood Loss 100 / 100 100 / 100 Other: # Voids 7 # Incontinent Voids 0 Date of Last Bowel Movement 04/06/18 # Bowel Movements 0 Narrative: GENERAL: WDWN elderly male patient. Awake and alert. Lying in bed SKIN: Warm and dry. +s/p I&D LLE, with dressing. HEENT: Atraumatic. Normocephalic. Patient is blind in both eyes, pupils nonreactive. No nasal bleeding or discharge. Mucous membranes pink and moist. NECK: Trachea midline. CARDIOVASCULAR: Regular rate and rhythm. RESPIRATORY: No accessory muscle use. No wheezing noted on exam today. GASTROINTESTINAL: Abdomen soft, non-tender, nondistended. +BS. MUSCULOSKELETAL: Extremities without clubbing, cyanosis, or edema except as stated above. No obvious deformities. NEUROLOGICAL: Awake and alert. No cranial nerve deficits. Motor grossly within normal limits. PSYCHIATRIC: Calm and cooperative. Results - Labs CBC & Chem 7: 04/07/18 03:37 04/07/18 03:54 Laboratory Results - last 24 hr 04/06/18 04/06/18 04/06/18 08:07 10:00 11:27 WBC RBC Hgb Hct MCV MCH MCHC RDW Plt Count MPV Creatinine Estimated GFR POC Glucose 149 H 124 H 110 04/06/18 04/06/18 04/06/18 15:34 17:24 21:38 WBC RBC Hgb Hct MCV MCH MCHC RDW Plt Count MPV Creatinine Estimated GFR POC Glucose 121 H 107 199 H 04/07/18 04/07/18 03:37 03:54 WBC 13.4 H RBC 3.45 L Hgb 9.3 L Hct 29.1 L MCV 84.3 MCH 26.8 L MCHC 31.8 L RDW 15.4 Plt Count 336 MPV 6.6 L Creatinine 0.89 Estimated GFR 82 L POC Glucose Microbiology 04/03/18 18:35 Wound - Foot Gram Stain - Final 04/03/18 18:35 Wound - Foot Wound Culture - Final Pseudomonas aeruginosa Staphylococcus aureus - Imaging Chest X-Ray 03/28/18 13:12 CONCLUSION: Elevated right diaphragm and persistent bibasilar parenchymal opacities Tibia/Fibula X-Ray 03/28/18 13:13 CONCLUSION: 1. No acute fracture or radiopaque foreign bodies. Venous Doppler Study 03/28/18 13:13 CONCLUSION: No venous thrombosis is identified in the left lower extremity. Head CT 03/28/18 13:18 CONCLUSION: No acute intracranial findings. Basically stable abnormal brain appearance as above. . Chest CT 03/30/18 00:00 CONCLUSION: 1. Moderate L1 vertebral body compression fracture, new since February 2017. If patient has pain on palpation of the spinous process, consider MRI examination to determine acuity. 2. Otherwise, stable CT examination of the chest. 3. Stable elevation of the right hemidiaphragm with right lower lobe atelectasis/scarring. 4. Minimal left lung base atelectasis/scarring. 5. Stable 17 mm left adrenal adenoma. Extremity Arterial Study 03/30/18 00:00 CONCLUSION: 1. Moderately reduced left lower extremity ankle-brachial indices. Consider CTA examination if patient has left-sided symptoms. 2. Normal range right ankle-brachial index. 3. Normal range bilateral toe brachial indices. Lower Extremity Ultrasound 03/30/18 00:00 CONCLUSION: 1. Complex fluid collection surrounding extensor tendons of the foot adjacent to area of wound. Findings suggest tenosynovitis. MRI of the foot could be performed to further evaluate integrity of the tendons. 2. Negative ultrasound in the area of the anterior lower leg wound. Carotid Doppler Study 04/01/18 00:00 CONCLUSION: Mild plaque without a significant stenosis seen. Aorta w/Runoff CTA 04/03/18 00:00 CONCLUSION: 1. Calcified atherosclerotic plaque generating bilateral inflow and outflow stenoses as detailed above. This is more pronounced on the left. Three-vessel runoff to each foot. 2. Prior cholecystectomy. - Procedures - Preoperative Diagnosis (1) Cellulitis and abscess of foot excluding toe (2) Foot laceration involving tendon (3) Laceration of ankle, left - Postoperative Diagnosis (1) Cellulitis and abscess of foot excluding toe (2) Foot laceration involving tendon (3) Laceration of ankle, left Date of procedure: 04/03/18 Procedure: Incision drainage debridement of tendon wound exploration left ankle, repair of distal leg proximal ankle laceration Anesthesia: GETA Surgeon: Glen Trevizo DPM Estimated blood loss (mL): 10 (ml) Tourniquet time (min): 0 Pathology: other (Deep culture left ankle) Condition: stable Disposition: floor Assessment and Plan - Assessment (1) Encephalopathy Code(s): G93.40 - Encephalopathy, unspecified Status: Acute (2) COPD exacerbation Code(s): J44.1 - Chronic obstructive pulmonary disease with (acute) exacerbation Status: Acute (3) Pneumonia Code(s): J18.9 - Pneumonia, unspecified organism Status: Acute (4) Leukocytosis Code(s): D72.829 - Elevated white blood cell count, unspecified Status: Acute - Plan 78-year-old white male being admitted for acute COPD exacerbation and PNA Sepsis at admission with elevated white count, tachycardia, elevated RR with source of PNA, resolved -blood cx show no growth -white count remains elevated but patient is on steroids current white blood cell count is 13.4, however post procedure LLE cellulitis Left foot possible tenosynovitis versus hematoma soft tissue US's complex fluid collection surrounding extensor tendons of the foot adjacent to the wound, MRI recommended patient unable to have secondary to shrapnel her head. -ID following, appreciate assistance. 04/02 area over foot clinically worsening with more induration, erythema and edema. Rocephin and doxycycline discontinued. Patient started on IV Zosyn and Vancomycin (target 10-15). Monitor kidney function. -Podiatry following, appreciate assistance. s/p I&D LLE 04/03. Will need packing change daily per home health nursing at d/c. Wound cx +pseudomonas and staph. PVD patient denies any complaints of claudication but reports "sciatica" unable to palpate distal pulses -abnormal left ROSHNI -Vascular surgery following, appreciate assistance. Status post left common femoral and distal external iliac endarterectomy with profundoplasty and patch placement. 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 -continue on Symbicort, Spiriva and Mucinex. IS and acapella. -monitor respiratory status -discussed smoking cessation Hypertension overall controlled Continue home medications of lisinopril and amlodipine -Clonidine as needed with parameters -Continue to monitor BP and adjust treatment accordingly Diabetes, new diagnosis A1c 6.5 hyperglycemia worse while on steroids -discussed lifestyle modification -consult auto overhauler for diabetes -continue on accuchek and ISS -Blood sugars controlled. Likely no longer needs NPH as off of IV steroids. Discontinue. -recommend patient have A1c rechecked in 3 mos Dementia, chronic Confusion, acute, suspect secondary to infection and hypoxia, improved -patient resumed on home dose of Aricept Anemia, chronic Hgb appears stable -no active bleeding -monitor as indicated DVT prophylaxis -Heparin held at this time for procedure Code Status: Full code Discharge Planning: Not ready for discharge. D/C pending clinical improvement, podiatry, ID and vascular sx clearance. (3) Pneumonia Qualifiers: Pneumonia type: due to unspecified organism Laterality: bilateral Lung location: lower lobe of lung Qualified Code(s): J18.1 - Lobar pneumonia, unspecified organism (4) Leukocytosis Qualifiers: Leukocytosis type: unspecified Qualified Code(s): D72.829 - Elevated white blood cell count, unspecified
[2018-04-07] MEDS: Insulin NovoLOG Aspart Correctional Sugar Inj SQ SCH ×4 (08:51→21:46)
[2018-04-07] MEDS: FLUoxetine 10 MG Capsule PO SCH (08:52)
[2018-04-07] MEDS: Senna/Docusate Sodium 8.6/50 MG Tablet PO SCH ×2 (08:52→21:46)
[2018-04-07] MEDS: guaiFENesin 600 MG ER Tablet PO SCH ×2 (08:52→21:46)
[2018-04-07] MEDS: Gabapentin 300 MG Capsule PO SCH ×3 (08:52→17:20)
[2018-04-07] MEDS: Metoprolol Tartrate 25 MG Tablet PO SCH ×2 (08:53→21:46)
[2018-04-07] MEDS: Pantoprazole Sodium 20 MG DR Tablet PO SCH (09:05)
[2018-04-07] MEDS: Tiotropium Bromide 18 MCG/ACT Inhaler INH SCH (09:06)
[2018-04-07] MEDS: Budesonide-Formoterol 160/4.5 MCG 6 GM Inhaler INH SCH ×2 (09:06→21:00)
--- NOTE | 2018-04-07 10:34 | P.PNVS ---
Subjective Subjective/Hospital Course: Patient seen and full consult has been dictated CTA with runoff is pending and we will see how we can improve the blood supply to the feet. Patient has barely detectable distal pulses and poor proximal pulses Thanks J 04/04/2018 CTA with runoff confirms the clinical impression Patient has significant peripheral vascular disease left more than right While the inflow is sclerotic and diffuse stenotic areas are present in common iliac and external iliac arteries, these are not hemodynamically significant and blood flow is present. Patient has a very tight hemodynamically significant stenosis and almost occlusion of the left common femoral artery just above the and alongside the takeoff of the deep femoral artery. In addition patient has multilevel stenosis of the SFA on the left more so in the distal portion. At this point the most appropriate procedure to consider is the left common femoral and distal external iliac endarterectomy with profundoplasty and patch placement. This will probably give enough inflow for the patient to heal the rest of his wounds and if that is not sufficient in the long run, patient might need balloon angioplasty of his SFA but that is probably unlikely. We will proceed with left common femoral endarterectomy patch angioplasty this weekend. 04/05/2018 As above noted patient has inflow near occlusion at the level of common femoral and external iliac arteries in the groin and then additional narrowed areas in the adductor canal on the left side At this point will proceed with common femoral and external iliac endarterectomy profundoplasty and patch angioplasty and see if this improves the inflow and perfusion of the foot which is likely will and patient most likely will not need any additional procedures. Depending on clinical indicis in the future patient may have additional balloon angioplasty of SFA as an outpatient later on Discussed with the patient will proceed with surgery tomorrow 04/07/2018 Patient status post left external iliac common femoral endarterectomy, profundoplasty and patch angioplasty Excellent flow to the foot with dopplerable signal in dorsalis pedis posterior tibial which patient did not have before Incision clean and dry Foot warm Transfer patient to floor Keep on Plavix and for my point patient can be discharged any time to rehab SNF or home depending on the social situation Objective Vital Signs / I&O: Vital Signs 04/06/18 15:30 04/06/18 15:45 04/06/18 16:00 Temperature 97.4 F L Pulse Rate 84 90 88 Respiratory Rate 17 17 16 Blood Pressure 148/65 H 135/58 L 132/60 Pulse Oximetry 99 96 04/06/18 16:15 04/06/18 16:25 04/06/18 20:00 Temperature 97.5 F L 98.6 F Pulse Rate 86 82 73 Respiratory Rate 16 16 22 Blood Pressure 130/63 135/65 156/70 H Pulse Oximetry 95 97 04/07/18 00:00 04/07/18 04:00 Temperature 98.7 F 98.4 F Pulse Rate 60 60 Respiratory Rate 15 18 Blood Pressure 162/74 H 148/66 H Pulse Oximetry 94 L 98 Intake & Output 04/06/18 04/07/18 04/07/18 18:59 06:59 18:59 Intake Total 2680 / 2680 2680 / 2680 Output Total 600 / 600 900 / 900 Balance 2080 / 2080 1780 / 1780 Weight 76.6 kg Intake: IV 200 / 200 200 / 200 Zosyn 4.5 GM Premix 4.5 gm In 200 / 200 200 / 200 100 ml @ 200 mls/hr IV.SIG Q6H [facility] Rx#:[id number] Oral 480 / 480 480 / 480 Anesthesia Amount 1999 Output: Urine 500 / 500 800 / 800 Estimated Blood Loss 100 / 100 100 / 100 Other: # Voids 7 # Incontinent Voids 0 Date of Last Bowel Movement 04/06/18 # Bowel Movements 0 Laboratory Results - last 24 hr 04/06/18 04/06/18 04/06/18 11:27 15:34 17:24 WBC RBC Hgb Hct MCV MCH MCHC RDW Plt Count MPV Creatinine Estimated GFR POC Glucose 110 121 H 107 04/06/18 04/07/18 04/07/18 21:38 03:37 03:54 WBC 13.4 H RBC 3.45 L Hgb 9.3 L Hct 29.1 L MCV 84.3 MCH 26.8 L MCHC 31.8 L RDW 15.4 Plt Count 336 MPV 6.6 L Creatinine 0.89 Estimated GFR 82 L POC Glucose 199 H Microbiology 04/03/18 18:35 Gram Stain - Final Wound - Foot Wound Culture - Final Pseudomonas aeruginosa Staphylococcus aureus
[2018-04-07] MEDS ORDERED: Pharmacy Ordered Lab Info OTHER ONE (12:45)
[2018-04-07 14:22] LABS: Calcium 8.2 mg/dL (8.5-10.1); Carbon Dioxide 29.8 meq/L (21.0-32.0); Potassium 3.8 meq/L (3.5-5.1)
[2018-04-07 14:23] LABS: Vancomycin,Trough 7.7 mcg/mL (5.0-10.0)
--- NOTE | 2018-04-07 15:52 | P.PNID ---
Subjective Remarks: ID Coverage Mr. Estrada is a 78-year-old white male who was admitted for acute shortness of breath secondary to COPD exacerbation and possible pneumonia. Patient was in his usual state of health until about 1-2 days prior to admission when he started experiencing short of breath. He went to an urgent care and was referred to an emergency department. Patient goes on to report that approximately 2 days prior to his admission he had an injury at home. He goes on to report that he is legally blind and has a caregiver at home and may have injured himself while trying to navigate. He went to the urgent care at that time and got sutures in place. Per his caregiver and notes it appears that patient was initially more confused on admission. At the present time patient is alert oriented 3 and is able to provide me the entire history. Reportedly has a caregiver that is present at home 24 7 for nursing care. Patient otherwise has no relatives at home and lives by himself. At baseline it appears that patient uses a walker at home. In the emergency department he was noted to have a white count of about 18,000. Patient underwent evaluation for sepsis. Patient underwent an ultrasound of his leg which shows fluid collection possible tenosynovitis of the foot. Patient was started on empiric antibiotics due to his recent injury and concern for cellulitis in his left leg as well as left foot. Pulmonology has been consulted as a chest x-ray shows some degree of atelectasis. This appears to be chronic there is no obvious mucous plug. Patient is currently asymptomatic at the time of my evaluation. Infectious disease is consulted for evaluation of left lower extremity infection. Notes reviewed Had vascular surgery yesterday In [facility] currently, but cleared to transfer out Feeling better Not a lot of pain Temps ok No rash No diarrhea left foot s/p I&D of tendon abscess. Cx with Staph aureus and Pseudomonas . Antibiotics: Zosyn Vancomycin Lines: Line sites okay Past Medical History: Reviewed Allergies/Adverse Reactions: Allergies memantine Allergy (Unknown, Verified 03/28/18 14:38) Rash MRI PRECAUTION Adverse Reaction (Severe, Uncoded 04/01/17 19:48) shrapnel in brain and orbit mpw per Dr Rincon Objective Vital Signs 04/06/18 16:00 04/06/18 16:15 04/06/18 16:25 Temperature 97.5 F L Pulse Rate 88 86 82 Respiratory Rate 16 16 16 Blood Pressure 132/60 130/63 135/65 Pulse Oximetry 95 04/06/18 20:00 04/07/18 00:00 04/07/18 04:00 Temperature 98.6 F 98.7 F 98.4 F Pulse Rate 73 60 60 Respiratory Rate 22 15 18 Blood Pressure 156/70 H 162/74 H 148/66 H Pulse Oximetry 97 94 L 98 04/07/18 08:00 04/07/18 08:15 04/07/18 12:00 Temperature 98.3 F 98.4 F Pulse Rate 56 L 59 L Respiratory Rate 18 17 Blood Pressure 196/97 H 155/70 H 159/67 H Pulse Oximetry 95 94 L Intake & Output 04/06/18 04/07/18 04/07/18 18:59 06:59 18:59 Intake Total 2680 / 2680 2955 / 2955 100 / 100 Output Total 600 / 600 900 / 900 Balance 2080 / 2080 2055 / 2055 100 / 100 Weight 76.6 kg Intake: IV 200 / 200 475 / 475 100 / 100 Zosyn 4.5 GM Premix 4.5 gm In 200 / 200 200 / 200 100 / 100 100 ml @ 200 mls/hr IV.SIG Q6H [facility] Rx#:[id number] Vancomycin Inj 1,250 MG In NS 275 / 275 Inj 250 ML @ 250 mls/hr IV.SIG Q12H [facility] Rx#:[id number] Oral 480 / 480 480 / 480 Anesthesia Amount 1999 / 2000 1999 / 1999 Output: Urine 500 / 500 800 / 800 Estimated Blood Loss 100 / 100 100 / 100 Other: # Voids 7 # Incontinent Voids 0 Date of Last Bowel Movement 04/06/18 04/06/18 # Bowel Movements 0 04/03/18 18:35 Wound - Foot Gram Stain - Final 04/03/18 18:35 Wound - Foot Wound Culture - Final Pseudomonas aeruginosa Staphylococcus aureus 04/03/18 18:35 Wound - Foot Acid Fast Bacilli Smear - Final No acid fast bacilli seen 04/03/18 18:35 Wound - Foot Mycobacterial Culture - Pending Lab - Hematology Results 04/07/18 03:37 WBC 13.4 H RBC 3.45 L Hgb 9.3 L Hct 29.1 L MCV 84.3 MCH 26.8 L MCHC 31.8 L RDW 15.4 Plt Count 336 MPV 6.6 L Lab - Chemistry Results 04/05/18 04/05/18 04/06/18 16:32 22:11 06:01 Sodium Potassium Chloride Carbon Dioxide Anion Gap BUN Creatinine Estimated GFR POC Glucose 161 H 133 H 123 H Random Glucose Calcium 04/06/18 04/06/18 04/06/18 06:36 08:07 10:00 Sodium 133 L Potassium 3.9 Chloride 96 L Carbon Dioxide 29.2 Anion Gap 8 BUN 16 Creatinine 0.94 Estimated GFR 77 L POC Glucose 149 H 124 H Random Glucose 110 H Calcium 7.9 L 04/06/18 04/06/18 04/06/18 11:27 15:34 17:24 Sodium Potassium Chloride Carbon Dioxide Anion Gap BUN Creatinine Estimated GFR POC Glucose 110 121 H 107 Random Glucose Calcium 04/06/18 04/07/18 04/07/18 21:38 03:54 13:15 Sodium 133 L Potassium 3.8 Chloride 97 L Carbon Dioxide 29.8 Anion Gap 6 BUN 13 Creatinine 0.89 0.83 Estimated GFR 82 L 89 POC Glucose 199 H Random Glucose 117 H Calcium 8.2 L 04/07/18 13:20 Sodium Potassium Chloride Carbon Dioxide Anion Gap BUN Creatinine Estimated GFR POC Glucose 125 H Random Glucose Calcium Imaging: ITS Impressions Chest X-Ray 03/28/18 13:12 CONCLUSION: Elevated right diaphragm and persistent bibasilar parenchymal opacities Tibia/Fibula X-Ray 03/28/18 13:13 CONCLUSION: 1. No acute fracture or radiopaque foreign bodies. Venous Doppler Study 03/28/18 13:13 CONCLUSION: No venous thrombosis is identified in the left lower extremity. Head CT 03/28/18 13:18 CONCLUSION: No acute intracranial findings. Basically stable abnormal brain appearance as above. . Chest CT 03/30/18 00:00 CONCLUSION: 1. Moderate L1 vertebral body compression fracture, new since February 2017. If patient has pain on palpation of the spinous process, consider MRI examination to determine acuity. 2. Otherwise, stable CT examination of the chest. 3. Stable elevation of the right hemidiaphragm with right lower lobe atelectasis/scarring. 4. Minimal left lung base atelectasis/scarring. 5. Stable 17 mm left adrenal adenoma. Extremity Arterial Study 03/30/18 00:00 CONCLUSION: 1. Moderately reduced left lower extremity ankle-brachial indices. Consider CTA examination if patient has left-sided symptoms. 2. Normal range right ankle-brachial index. 3. Normal range bilateral toe brachial indices. Lower Extremity Ultrasound 03/30/18 00:00 CONCLUSION: 1. Complex fluid collection surrounding extensor tendons of the foot adjacent to area of wound. Findings suggest tenosynovitis. MRI of the foot could be performed to further evaluate integrity of the tendons. 2. Negative ultrasound in the area of the anterior lower leg wound. Carotid Doppler Study 04/01/18 00:00 CONCLUSION: Mild plaque without a significant stenosis seen. Aorta w/Runoff CTA 04/03/18 00:00 CONCLUSION: 1. Calcified atherosclerotic plaque generating bilateral inflow and outflow stenoses as detailed above. This is more pronounced on the left. Three-vessel runoff to each foot. 2. Prior cholecystectomy. Physical Exam: GENERAL: Awake and alert, NAD, on RA SKIN: Cool and dry, no generalized rash HEAD: Atraumatic. Normocephalic. No temporal or scalp tenderness. EYES: Pupils equal round and reactive. Scleral icterus. No injection or drainage. No petechia ENT: Moist mucosa NECK: Trachea midline. Supple, nontender, no meningeal signs. CARDIOVASCULAR: HS audible. RESPIRATORY: Air entry equal bilaterally. Clear to auscultation bilaterally. GASTROINTESTINAL: Abdomen soft,NT MUSCULOSKELETAL: Left leg/foot with dry and intact dressing. L groin incision is dry, no redness. NEUROLOGICAL: awake and alert Psych cooperative IV line sites ok. Assessment and Plan - Plan Impression Left lower extremity cellulitis Left foot possible tenosynovitis versus hematoma Possible pneumonia versus atelectasis Recommendations Continue Zosyn IV Continue Vanco IV (10-15 target) Follow C/S and adjust Abx S/P revascularization Monitor progress
[2018-04-08] MEDS: Vancomycin Inj 1,250 MG in Sodium Chlor 0.9% Inj 250 ML IV.SIG SCH (01:01)
[2018-04-08] MEDS: Piperacil/Tazo 4.5 GM Premix 4.5 GM/100 ML BAG IV.SIG SCH ×2 (03:51→09:06)
[2018-04-08 04:33] LABS: Hematocrit 28.1 % (39.0-51.0); Mean Corpuscular HGB Conc 31.9 % (32.0-36.0); Mean Corpuscular Hemoglobin 26.8 pg (27.0-34.0); Mean Platelet Volume 6.7 fL (7.0-11.0); Platelet Count 318 th/mm3 (150-450); Red Blood Count 3.35 mil/mm3 (4.50-5.90); Red Cell Distribution Width 15.7 % (11.6-17.2); White Blood Count 13.2 th/mm3 (4.0-11.0)
[2018-04-08] MEDS: Senna/Docusate Sodium 8.6/50 MG Tablet PO SCH ×2 (08:05→20:54)
[2018-04-08] MEDS: Pantoprazole Sodium 20 MG DR Tablet PO SCH (08:05)
[2018-04-08] MEDS: Gabapentin 300 MG Capsule PO SCH ×3 (08:05→18:12)
[2018-04-08] MEDS: guaiFENesin 600 MG ER Tablet PO SCH ×2 (08:05→20:54)
[2018-04-08] MEDS: FLUoxetine 10 MG Capsule PO SCH (08:05)
[2018-04-08] MEDS: Metoprolol Tartrate 25 MG Tablet PO SCH ×2 (08:06→20:54)
[2018-04-08] MEDS: Tiotropium Bromide 18 MCG/ACT Inhaler INH SCH (08:06)
[2018-04-08] MEDS: Budesonide-Formoterol 160/4.5 MCG 6 GM Inhaler INH SCH ×2 (08:06→20:55)
--- NOTE | 2018-04-08 08:34 | P.PNIM ---
Subjective Interval history: Patient seen and examined this morning. Afebrile vital signs stable. Patient is reporting that his foot is feeling a lot better since. He has been cleared by vascular surgery for discharge. He is hopeful for going home soon or at least to a [facility] facility. Recommendations and clearance by infectious disease. Patient denies any chest pain or shortness of breath. Denies any pain in his foot at this time. Physical Exam Vital signs: Vital Signs 04/07/18 12:00 04/07/18 16:00 04/07/18 20:00 Temperature 98.4 F 98.3 F 98.4 F Pulse Rate 59 L 56 L 66 Respiratory Rate 17 22 18 Blood Pressure 159/67 H 136/63 133/64 Pulse Oximetry 94 L 98 04/08/18 00:00 04/08/18 04:00 Temperature 98.9 F 98.1 F Pulse Rate 62 52 L Respiratory Rate 20 22 Blood Pressure 136/64 145/63 H Pulse Oximetry Intake & Output 04/07/18 04/08/18 04/08/18 18:59 06:59 18:59 Intake Total 955 / 955 715 / 715 Output Total 900 / 900 600 / 600 Balance 55 / 55 115 / 115 Weight 77.1 kg Intake: IV 475 / 475 475 / 475 Zosyn 4.5 GM Premix 4.5 gm In 200 / 200 200 / 200 100 ml @ 200 mls/hr IV.SIG Q6H LUCIANA Rx#:[id number] Vancomycin Inj 1,250 MG In NS 275 / 275 275 / 275 Inj 250 ML @ 250 mls/hr IV.SIG Q12H LUCIANA Rx#:[id number] Oral 480 / 480 240 / 240 Output: Urine 900 / 900 600 / 600 Other: # Voids 6 2 Date of Last Bowel Movement 04/06/18 Narrative: GENERAL: WDWN elderly male patient. Awake and alert. Lying in bed SKIN: Warm and dry. Left leg and Celestino wrap. Skin is warm, and patient reports being able to feel his foot once more. HEENT: Atraumatic. Normocephalic. Patient is blind in both eyes, pupils nonreactive. No nasal bleeding or discharge. Mucous membranes pink and moist. NECK: Trachea midline. CARDIOVASCULAR: Regular rate and rhythm. RESPIRATORY: No accessory muscle use. No wheezing noted on exam today. GASTROINTESTINAL: Abdomen soft, non-tender, nondistended. +BS. MUSCULOSKELETAL: Extremities without clubbing, cyanosis, or edema except as stated above. No obvious deformities. NEUROLOGICAL: Awake and alert. No cranial nerve deficits. Motor grossly within normal limits. PSYCHIATRIC: Calm and cooperative. Results - Labs CBC & Chem 7: 04/08/18 03:25 04/08/18 03:25 Laboratory Results - last 24 hr 04/07/18 04/07/18 04/07/18 13:15 13:20 20:58 WBC RBC Hgb Hct MCV MCH MCHC RDW Plt Count MPV Sodium 133 L Potassium 3.8 Chloride 97 L Carbon Dioxide 29.8 Anion Gap 6 BUN 13 Creatinine 0.83 Estimated GFR 89 POC Glucose 125 H 175 H Random Glucose 117 H Calcium 8.2 L Vancomycin Trough 7.7 04/08/18 04/08/18 03:25 03:25 WBC 13.2 H RBC 3.35 L Hgb 9.0 L Hct 28.1 L MCV 84.0 MCH 26.8 L MCHC 31.9 L RDW 15.7 Plt Count 318 MPV 6.7 L Sodium Potassium Chloride Carbon Dioxide Anion Gap BUN Creatinine 0.89 Estimated GFR 82 L POC Glucose Random Glucose Calcium Vancomycin Trough - Procedures - Preoperative Diagnosis (1) Cellulitis and abscess of foot excluding toe (2) Foot laceration involving tendon (3) Laceration of ankle, left - Postoperative Diagnosis (1) Cellulitis and abscess of foot excluding toe (2) Foot laceration involving tendon (3) Laceration of ankle, left Date of procedure: 04/03/18 Procedure: Incision drainage debridement of tendon wound exploration left ankle, repair of distal leg proximal ankle laceration Anesthesia: GETA Surgeon: Glen Trevizo DPM Estimated blood loss (mL): 10 (ml) Tourniquet time (min): 0 Pathology: other (Deep culture left ankle) Condition: stable Disposition: floor Assessment and Plan - Assessment (1) Encephalopathy Code(s): G93.40 - Encephalopathy, unspecified Status: Acute (2) COPD exacerbation Code(s): J44.1 - Chronic obstructive pulmonary disease with (acute) exacerbation Status: Acute (3) Pneumonia Code(s): J18.9 - Pneumonia, unspecified organism Status: Acute (4) Leukocytosis Code(s): D72.829 - Elevated white blood cell count, unspecified Status: Acute - Plan 78-year-old white male being admitted for acute COPD exacerbation, PNA, and LLR cellulitis Sepsis at admission with elevated white count, tachycardia, elevated RR with source of PNA, resolved -blood cx show no growth -white count remains elevated but patient is on steroids current white blood cell count is 13.4, however post procedure LLE cellulitis Left foot possible tenosynovitis versus hematoma soft tissue US's complex fluid collection surrounding extensor tendons of the foot adjacent to the wound, MRI recommended patient unable to have secondary to shrapnel her head. -ID following, appreciate assistance. 04/02 area over foot clinically worsening with more induration, erythema and edema. Rocephin and doxycycline discontinued. Patient started on IV Zosyn and Vancomycin (target 10-15). Monitor kidney function. -Podiatry following, appreciate assistance. s/p I&D LLE 04/03. Will need packing change daily per home health nursing at d/c. Wound cx +pseudomonas and staph. PVD patient denies any complaints of claudication but reports "sciatica" unable to palpate distal pulses -abnormal left ROSHNI -Vascular surgery following, appreciate assistance. Status post left common femoral and distal external iliac endarterectomy with profundoplasty and patch placement. 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 -continue on Symbicort, Spiriva and Mucinex. IS and acapella. -monitor respiratory status -discussed smoking cessation Hypertension overall controlled Continue home medications of lisinopril and amlodipine -Clonidine as needed with parameters -Continue to monitor BP and adjust treatment accordingly Diabetes, new diagnosis A1c 6.5 hyperglycemia worse while on steroids -discussed lifestyle modification -consult customer service and sales consultant for diabetes -continue on accuchek and ISS -Blood sugars controlled. Likely no longer needs NPH as off of IV steroids. Discontinue. -recommend patient have A1c rechecked in 3 mos Dementia, chronic Confusion, acute, suspect secondary to infection and hypoxia, improved -patient resumed on home dose of Aricept Anemia, chronic Hgb appears stable -no active bleeding -monitor as indicated DVT prophylaxis -Heparin held at this time for procedure Discharge Planning: Patient nearly ready for discharge, anticipate discharge to [facility] facility. D/C pending clinical improvement, awaiting clearance from infectious disease (3) Pneumonia Qualifiers: Pneumonia type: due to unspecified organism Laterality: bilateral Lung location: lower lobe of lung Qualified Code(s): J18.1 - Lobar pneumonia, unspecified organism (4) Leukocytosis Qualifiers: Leukocytosis type: unspecified Qualified Code(s): D72.829 - Elevated white blood cell count, unspecified
[2018-04-08] MEDS: Insulin NovoLOG Aspart Correctional Sugar Inj SQ SCH ×4 (08:55→20:47)
--- NOTE | 2018-04-08 12:36 | P.DCO ---
Post Hospital Infusion Therapy Location of Infusion Therapy: [facility] Infusion Therapy Order Appointment Date: 04/08/18 Patient Weight: 77.1 kg - Administer Medication Ceftriaxone Dose: 2 grams IV Directions: q 24 hours Start Treatment: 04/08/18 Stop Treatment: 05/12/18 - Additional Information Venous Access: PICC Line Additional Instructions: [x] Peripheral flush and dressing changes per protocol [x] Implanted port and central line inspector: * Implanted port: 10 ml Normal Saline followed by 5 ml Heparin 100 units/ml Heparin flush after each use and monthly to maintain. [] May leave port accessed during therapy. [] May leave peripheral site accessed for duration of therapy. [x] If patient has SOB or respiratory distress, check oxygen saturation. If less than 90% or clinical signs of respiratory distress, administer oxygen at 2 L/min. via nasal cannula and notify physician. [x] Anaphylaxis/Reaction orders: * Stop infusion. * Keep IV line open with saline flush. * Notify physician. * Monitor vital signs every 15 minutes until symptoms resolve. * Check Oxygen saturation; Oxygen at 2 L/min. via nasal cannula if less than 90% or clinical signs of respiratory distress. * Administer diphenhydramine (Benadryl) 25 mg IV STAT, (unless patient has received as pre-med). May repeat once, if necessary. * Solu-Cortef 250 mg IVP over 30-60 seconds, use 100 mg vials for each dissolution. * Epinephrine (1mg/1 ml) 0.3 mg subcutaneously or IVP now with any signs of respiratory distress. * Check with physician for new additional pre-med orders if patient is re- challenged or re-treated. [x] May remove PICC line when treatment complete, after confirming with Physician. [x] If the patient is admitted to the hospital, the ED, or transferred via [facility] , complete transfer form including medication reconciliation order sheet. Weekly Labs: CBC w/diff, Creatinine, CRP, LFTs (Hepatic Function Test) Case Management Consult: Yes Additional Information: Please draw weekly labs and fax results to Dr.Reba Blanchard at [phone]. If any abnormal labs or change in clinical condition please call at number below. . . Allergies memantine Allergy (Unknown, Verified 03/28/18 14:38) Rash MRI PRECAUTION Adverse Reaction (Severe, Uncoded 04/01/17 19:48) shrapnel in brain and orbit mpw per Dr Rincon
--- NOTE | 2018-04-08 12:40 | P.PNID ---
Subjective Remarks: ID Coverage Mr. Estrada is a 78-year-old white male who was admitted for acute shortness of breath secondary to COPD exacerbation and possible pneumonia. Patient was in his usual state of health until about 1-2 days prior to admission when he started experiencing short of breath. He went to an urgent care and was referred to an emergency department. Patient goes on to report that approximately 2 days prior to his admission he had an injury at home. He goes on to report that he is legally blind and has a caregiver at home and may have injured himself while trying to navigate. He went to the urgent care at that time and got sutures in place. Per his caregiver and notes it appears that patient was initially more confused on admission. At the present time patient is alert oriented 3 and is able to provide me the entire history. Reportedly has a caregiver that is present at home 24 7 for nursing care. Patient otherwise has no relatives at home and lives by himself. At baseline it appears that patient uses a walker at home. In the emergency department he was noted to have a white count of about 18,000. Patient underwent evaluation for sepsis. Patient underwent an ultrasound of his leg which shows fluid collection possible tenosynovitis of the foot. Patient was started on empiric antibiotics due to his recent injury and concern for cellulitis in his left leg as well as left foot. Pulmonology has been consulted as a chest x-ray shows some degree of atelectasis. This appears to be chronic there is no obvious mucous plug. Patient is currently asymptomatic at the time of my evaluation. Infectious disease is consulted for evaluation of left lower extremity infection. Notes reviewed s/p revascularization. In ISC currently, but cleared for discharge. No fevers Temps ok No rash No diarrhea left foot s/p I&D of tendon abscess. Cx with Staph aureus and Pseudomonas . Antibiotics: Zosyn Vancomycin Lines: Line sites okay Past Medical History: Reviewed Allergies/Adverse Reactions: Allergies memantine Allergy (Unknown, Verified 03/28/18 14:38) Rash MRI PRECAUTION Adverse Reaction (Severe, Uncoded 04/01/17 19:48) shrapnel in brain and orbit mpw per Dr Rincon Objective Vital Signs 04/07/18 16:00 04/07/18 20:00 04/08/18 00:00 Temperature 98.3 F 98.4 F 98.9 F Pulse Rate 56 L 66 62 Respiratory Rate 22 18 20 Blood Pressure 136/63 133/64 136/64 Pulse Oximetry 98 04/08/18 04:00 04/08/18 08:00 Temperature 98.1 F 97.4 F L Pulse Rate 52 L 54 L Respiratory Rate 22 18 Blood Pressure 145/63 H 152/70 H Pulse Oximetry Intake & Output 04/07/18 04/08/18 04/08/18 18:59 06:59 18:59 Intake Total 955 / 955 715 / 715 Output Total 900 / 900 600 / 600 Balance 55 / 55 115 / 115 Weight 77.1 kg 77.1 kg Intake: IV 475 / 475 475 / 475 Zosyn 4.5 GM Premix 4.5 gm In 200 / 200 200 / 200 100 ml @ 200 mls/hr IV.SIG Q6H LUCIANA Rx#:[id number] Vancomycin Inj 1,250 MG In NS 275 / 275 275 / 275 Inj 250 ML @ 250 mls/hr IV.SIG Q12H LUCIANA Rx#:[id number] Oral 480 / 480 240 / 240 Output: Urine 900 / 900 600 / 600 Other: # Voids 6 2 Date of Last Bowel Movement 04/06/18 04/03/18 18:35 Wound - Foot Gram Stain - Final 04/03/18 18:35 Wound - Foot Wound Culture - Final Pseudomonas aeruginosa Staphylococcus aureus Lab - Hematology Results 04/07/18 04/08/18 03:37 03:25 WBC 13.4 H 13.2 H RBC 3.45 L 3.35 L Hgb 9.3 L 9.0 L Hct 29.1 L 28.1 L MCV 84.3 84.0 MCH 26.8 L 26.8 L MCHC 31.8 L 31.9 L RDW 15.4 15.7 Plt Count 336 318 MPV 6.6 L 6.7 L Lab - Chemistry Results 04/06/18 04/06/18 04/06/18 15:34 17:24 21:38 Sodium Potassium Chloride Carbon Dioxide Anion Gap BUN Creatinine Estimated GFR POC Glucose 121 H 107 199 H Random Glucose Calcium 04/07/18 04/07/18 04/07/18 03:54 13:15 13:20 Sodium 133 L Potassium 3.8 Chloride 97 L Carbon Dioxide 29.8 Anion Gap 6 BUN 13 Creatinine 0.89 0.83 Estimated GFR 82 L 89 POC Glucose 125 H Random Glucose 117 H Calcium 8.2 L 04/07/18 04/08/18 04/08/18 20:58 03:25 08:24 Sodium Potassium Chloride Carbon Dioxide Anion Gap BUN Creatinine 0.89 Estimated GFR 82 L POC Glucose 175 H 205 H Random Glucose Calcium Imaging: ITS Impressions Chest X-Ray 03/28/18 13:12 CONCLUSION: Elevated right diaphragm and persistent bibasilar parenchymal opacities Tibia/Fibula X-Ray 03/28/18 13:13 CONCLUSION: 1. No acute fracture or radiopaque foreign bodies. Venous Doppler Study 03/28/18 13:13 CONCLUSION: No venous thrombosis is identified in the left lower extremity. Head CT 03/28/18 13:18 CONCLUSION: No acute intracranial findings. Basically stable abnormal brain appearance as above. . Chest CT 03/30/18 00:00 CONCLUSION: 1. Moderate L1 vertebral body compression fracture, new since February 2017. If patient has pain on palpation of the spinous process, consider MRI examination to determine acuity. 2. Otherwise, stable CT examination of the chest. 3. Stable elevation of the right hemidiaphragm with right lower lobe atelectasis/scarring. 4. Minimal left lung base atelectasis/scarring. 5. Stable 17 mm left adrenal adenoma. Extremity Arterial Study 03/30/18 00:00 CONCLUSION: 1. Moderately reduced left lower extremity ankle-brachial indices. Consider CTA examination if patient has left-sided symptoms. 2. Normal range right ankle-brachial index. 3. Normal range bilateral toe brachial indices. Lower Extremity Ultrasound 03/30/18 00:00 CONCLUSION: 1. Complex fluid collection surrounding extensor tendons of the foot adjacent to area of wound. Findings suggest tenosynovitis. MRI of the foot could be performed to further evaluate integrity of the tendons. 2. Negative ultrasound in the area of the anterior lower leg wound. Carotid Doppler Study 04/01/18 00:00 CONCLUSION: Mild plaque without a significant stenosis seen. Aorta w/Runoff CTA 04/03/18 00:00 CONCLUSION: 1. Calcified atherosclerotic plaque generating bilateral inflow and outflow stenoses as detailed above. This is more pronounced on the left. Three-vessel runoff to each foot. 2. Prior cholecystectomy. Physical Exam: GENERAL: Awake and alert, NAD, on RA SKIN: Cool and dry, no generalized rash HEAD: Atraumatic. Normocephalic. No temporal or scalp tenderness. EYES: Pupils equal round and reactive. Scleral icterus. No injection or drainage. No petechia ENT: Moist mucosa NECK: Trachea midline. Supple, nontender, no meningeal signs. CARDIOVASCULAR: HS audible. RESPIRATORY: Air entry equal bilaterally. Clear to auscultation bilaterally. GASTROINTESTINAL: Abdomen soft,NT MUSCULOSKELETAL: Left leg/foot with dry and intact dressing. L groin incision is dry, no redness. DP pulses diminished but still palpable. NEUROLOGICAL: awake and alert Psych cooperative IV line sites ok. Assessment and Plan - Plan Impression Left lower extremity cellulitis Left foot possible tenosynovitis versus hematoma Possible pneumonia versus atelectasis Recommendations DC Zosyn IV DC Vanco IV Ceftriaxone IV and Levaquin as outpatient regimen. Recommend SNF placement concern for safety given falls, Needs PT/OT, IV infusion of antibiotics and wound care. Post hospital infusion orders in chart. dw patient he is agreeable to SNF placement and PICC line. dw RN Mandatory ID outpatient follow up with Dr.Reba Blanchard in 10 days. Case management to help schedule appt. office notified. Will sign off please call back if any change in clinical condition or questions.
[2018-04-08] MEDS ORDERED: Pharmacy Ordered Lab Info OTHER ONE (12:45)
[2018-04-08] MEDS: levoFLOXacin 500 MG Tablet PO SCH (13:12)
--- NOTE | 2018-04-08 14:13 | P.PNVS ---
Subjective Subjective/Hospital Course: Patient seen and full consult has been dictated CTA with runoff is pending and we will see how we can improve the blood supply to the feet. Patient has barely detectable distal pulses and poor proximal pulses Thanks J 04/04/2018 CTA with runoff confirms the clinical impression Patient has significant peripheral vascular disease left more than right While the inflow is sclerotic and diffuse stenotic areas are present in common iliac and external iliac arteries, these are not hemodynamically significant and blood flow is present. Patient has a very tight hemodynamically significant stenosis and almost occlusion of the left common femoral artery just above the and alongside the takeoff of the deep femoral artery. In addition patient has multilevel stenosis of the SFA on the left more so in the distal portion. At this point the most appropriate procedure to consider is the left common femoral and distal external iliac endarterectomy with profundoplasty and patch placement. This will probably give enough inflow for the patient to heal the rest of his wounds and if that is not sufficient in the long run, patient might need balloon angioplasty of his SFA but that is probably unlikely. We will proceed with left common femoral endarterectomy patch angioplasty this weekend. 04/05/2018 As above noted patient has inflow near occlusion at the level of common femoral and external iliac arteries in the groin and then additional narrowed areas in the adductor canal on the left side At this point will proceed with common femoral and external iliac endarterectomy profundoplasty and patch angioplasty and see if this improves the inflow and perfusion of the foot which is likely will and patient most likely will not need any additional procedures. Depending on clinical indicis in the future patient may have additional balloon angioplasty of SFA as an outpatient later on Discussed with the patient will proceed with surgery tomorrow 04/07/2018 Patient status post left external iliac common femoral endarterectomy, profundoplasty and patch angioplasty Excellent flow to the foot with dopplerable signal in dorsalis pedis posterior tibial which patient did not have before Incision clean and dry Foot warm Transfer patient to floor Keep on Plavix and for my point patient can be discharged any time to rehab SNF or home depending on the social situation 04/08/2018 Left groin incision clean and dry excellent pulses distally by Doppler Foot warm From my point patient can be discharged any time but of course this depends on the other comorbidities that may be present Objective Vital Signs / I&O: Vital Signs 04/07/18 16:00 04/07/18 20:00 04/08/18 00:00 Temperature 98.3 F 98.4 F 98.9 F Pulse Rate 56 L 66 62 Respiratory Rate 22 18 20 Blood Pressure 136/63 133/64 136/64 Pulse Oximetry 98 04/08/18 04:00 04/08/18 08:00 04/08/18 12:00 Temperature 98.1 F 97.4 F L 97.8 F Pulse Rate 52 L 54 L 72 Respiratory Rate 22 18 16 Blood Pressure 145/63 H 152/70 H 153/66 H Pulse Oximetry Intake & Output 04/07/18 04/08/18 04/08/18 18:59 06:59 18:59 Intake Total 955 / 955 715 / 715 Output Total 900 / 900 600 / 600 Balance 55 / 55 115 / 115 Weight 77.1 kg 77.1 kg Intake: IV 475 / 475 475 / 475 Zosyn 4.5 GM Premix 4.5 gm In 200 / 200 200 / 200 100 ml @ 200 mls/hr IV.SIG Q6H LUCIANA Rx#:[id number] Vancomycin Inj 1,250 MG In NS 275 / 275 275 / 275 Inj 250 ML @ 250 mls/hr IV.SIG Q12H LUCIANA Rx#:[id number] Oral 480 / 480 240 / 240 Output: Urine 900 / 900 600 / 600 Other: # Voids 6 2 Date of Last Bowel Movement 04/06/18 Laboratory Results - last 24 hr 04/07/18 04/07/18 04/08/18 13:15 20:58 03:25 WBC RBC Hgb Hct MCV MCH MCHC RDW Plt Count MPV Sodium 133 L Potassium 3.8 Chloride 97 L Carbon Dioxide 29.8 Anion Gap 6 BUN 13 Creatinine 0.83 0.89 Estimated GFR 89 82 L POC Glucose 175 H Random Glucose 117 H Calcium 8.2 L Vancomycin Trough 7.7 04/08/18 04/08/18 04/08/18 03:25 08:24 12:52 WBC 13.2 H RBC 3.35 L Hgb 9.0 L Hct 28.1 L MCV 84.0 MCH 26.8 L MCHC 31.9 L RDW 15.7 Plt Count 318 MPV 6.7 L Sodium Potassium Chloride Carbon Dioxide Anion Gap BUN Creatinine Estimated GFR POC Glucose 205 H 98 Random Glucose Calcium Vancomycin Trough
[2018-04-08] MEDS ORDERED: Heparin Central Flush 100 UNIT/ML 5 ML Vial IV.FLUSH PRN (15:31)
--- NOTE | 2018-04-08 18:00 | P.PN ---
Subjective Interval history: Seen and examined. Pt had left Femoral Angioplasty and Profundoplasty. Now doing well with no SOB or cough and leg is healing. Off O2 . Physical Exam Vital signs: Vital Signs 04/07/18 20:00 04/08/18 00:00 04/08/18 04:00 Temperature 98.4 F 98.9 F 98.1 F Pulse Rate 66 62 52 L Respiratory Rate 18 20 22 Blood Pressure 133/64 136/64 145/63 H 04/08/18 08:00 04/08/18 12:00 04/08/18 16:00 Temperature 97.4 F L 97.8 F Pulse Rate 54 L 72 Respiratory Rate 18 16 20 Blood Pressure 152/70 H 153/66 H Intake & Output 04/07/18 04/08/18 04/08/18 18:59 06:59 18:59 Intake Total 955 / 955 715 / 715 Output Total 900 / 900 600 / 600 Balance 55 / 55 115 / 115 Weight 77.1 kg 77.1 kg Intake: IV 475 / 475 475 / 475 Zosyn 4.5 GM Premix 4.5 gm In 200 / 200 200 / 200 100 ml @ 200 mls/hr IV.SIG Q6H LUC[facility] Rx#:[id number] Vancomycin Inj 1,250 MG In NS 275 / 275 275 / 275 Inj 250 ML @ 250 mls/hr IV.SIG Q12H LUCIANA Rx#:[id number] Oral 480 / 480 240 / 240 Output: Urine 900 / 900 600 / 600 Other: # Voids 6 2 Date of Last Bowel Movement 04/06/18 Narrative: GENERAL: elderly male patient. Awake and alert. SKIN: Warm and dry. Left leg and Celestino wrap. Skin is warm and dry. HEENT: Atraumatic. Normocephalic. Patient is blind in both eyes, pupils nonreactive. No nasal bleeding or discharge. Mucous membranes pink and moist. NECK: Trachea midline. CARDIOVASCULAR: Regular rate and rhythm. RESPIRATORY: No accessory muscle use. Has mild wheezing. GASTROINTESTINAL: Abdomen soft, non-tender, nondistended. +BS. MUSCULOSKELETAL: Extremities without clubbing, cyanosis, or edema except as stated above. No obvious deformities. NEUROLOGICAL: Awake and alert. No cranial nerve deficits. Motor grossly within normal limits. PSYCHIATRIC: Calm and cooperative. Results - Labs CBC & Chem 7: 04/08/18 03:25 04/08/18 03:25 Laboratory Results - last 24 hr 04/07/18 04/08/18 04/08/18 20:58 03:25 03:25 WBC 13.2 H RBC 3.35 L Hgb 9.0 L Hct 28.1 L MCV 84.0 MCH 26.8 L MCHC 31.9 L RDW 15.7 Plt Count 318 MPV 6.7 L Creatinine 0.89 Estimated GFR 82 L POC Glucose 175 H 04/08/18 04/08/18 04/08/18 08:24 12:52 17:31 WBC RBC Hgb Hct MCV MCH MCHC RDW Plt Count MPV Creatinine Estimated GFR POC Glucose 205 H 98 168 H - Procedures - Preoperative Diagnosis (1) Cellulitis and abscess of foot excluding toe (2) Foot laceration involving tendon (3) Laceration of ankle, left - Postoperative Diagnosis (1) Cellulitis and abscess of foot excluding toe (2) Foot laceration involving tendon (3) Laceration of ankle, left Date of procedure: 04/03/18 Procedure: Incision drainage debridement of tendon wound exploration left ankle, repair of distal leg proximal ankle laceration Anesthesia: GETA Surgeon: Glen Trevizo DPM Estimated blood loss (mL): 10 (ml) Tourniquet time (min): 0 Pathology: other (Deep culture left ankle) Condition: stable Disposition: floor Assessment and Plan - Assessment (1) Cellulitis and abscess of foot excluding toe Code(s): L03.119 - Cellulitis of unspecified part of limb; L02.619 - Cutaneous abscess of unspecified foot Status: Acute (2) Foot laceration involving tendon Code(s): S91.319A - Laceration without foreign body, unspecified foot, initial encounter; S96.929A - Laceration of unspecified muscle and tendon at ankle and foot level, unspecified foot, initial encounter Status: Acute (3) Pneumonia Code(s): J18.9 - Pneumonia, unspecified organism Status: Acute (4) Leukocytosis Code(s): D72.829 - Elevated white blood cell count, unspecified Status: Acute (5) Altered mental status Code(s): R41.82 - Altered mental status, unspecified Status: Acute (6) Encephalopathy Code(s): G93.40 - Encephalopathy, unspecified Status: Acute (7) COPD exacerbation Code(s): J44.1 - Chronic obstructive pulmonary disease with (acute) exacerbation Status: Acute - Plan 1. Cont O2 PRN 2 L. 2. Symbicort 160/4.5 mcg 2 puffs bid 3. Antibiotics per ID 4. IS at Bedside qid 5. up with help and PT. 6. Labs in am. (3) Pneumonia Qualifiers: Pneumonia type: due to unspecified organism Laterality: bilateral Lung location: lower lobe of lung Qualified Code(s): J18.1 - Lobar pneumonia, unspecified organism (4) Leukocytosis Qualifiers: Leukocytosis type: unspecified Qualified Code(s): D72.829 - Elevated white blood cell count, unspecified (5) Altered mental status Qualifiers: Altered mental status type: unspecified Qualified Code(s): R41.82 - Altered mental status, unspecified
--- NOTE | 2018-04-08 19:41 | XR ---
EXAM DATE: 04/08/2018 7:35 PM EDT AGE/SEX: 78 years / Male INDICATIONS: Shortness of breath. CLINICAL DATA: This is the patient's subsequent encounter. Patient reports that signs and symptoms h ave been present for 2 days and indicates a pain score of 0/10. MEDICAL/SURGICAL HISTORY: . Heart issues. . Open heart surgery COMPARISON: [facility], CHEST 1V SINGLE AP, 03/28/2018. . FINDINGS: The patient is status post sternotomy. The heart size is normal. There is elevation of the right thom diaphragm. This appearance is unchanged. Lungs appear grossly clear. There is a PICC line in place fr om the right arm with the tip overlying the superior cavoatrial junction. CONCLUSION: The chest x-ray with elevation of the right hemidiaphragm. Electronically signed by: Jose Stephens MD 04/08/2018 7:40 PM EDT
--- NOTE | 2018-04-09 08:49 | P.PNIM ---
Subjective Interval history: Patient seen and examined this morning. Afebrile vital signs stable. No acute events overnight. Patient reports she is doing well and is looking forward to getting out of the hospital. Denies any chest pain or shortness of breath. Denies any pain in his leg with the procedure is done. Denies any pelvic where the catheter was placed. Patient is agreeable with going to a longterm facility upon discharge. Physical Exam Vital signs: Vital Signs 04/08/18 12:00 04/08/18 16:00 04/08/18 20:00 Temperature 97.8 F 97.8 F 98.2 F Pulse Rate 72 70 80 Respiratory Rate 16 22 Blood Pressure 153/66 H 159/69 H 166/74 H Pulse Oximetry 04/08/18 22:00 04/09/18 00:00 04/09/18 04:00 Temperature 98.1 F 98.2 F 97.2 F L Pulse Rate 79 74 73 Respiratory Rate 18 Blood Pressure 168/73 H 153/66 H 152/72 H Pulse Oximetry 95 95 95 Intake & Output 04/08/18 04/09/18 04/09/18 18:59 06:59 18:59 Intake Total 780 / 780 200 / 200 Output Total 650 / 650 500 / 500 Balance 130 / 130 -300 / -300 Weight 77.1 kg 77.1 kg Intake: IV 200 / 200 Zosyn 4.5 GM Premix 4.5 gm In 100 / 100 100 ml @ 200 mls/hr IV.SIG Q6H LUC[facility]NA Rx#:[id number] Rocephin Inj 2,000 MG In NS Inj 100 / 100 100 ML @ 200 mls/hr IV.SIG Q24H LUCIANA Rx#:[id number] Oral 580 / 580 200 / 200 Output: Urine 650 / 650 500 / 500 Other: Date of Last Bowel Movement 04/08/18 # Bowel Movements 1 Narrative: GENERAL: elderly male patient. Awake and alert. SKIN: Warm and dry. Left leg and Celestino wrap. Skin is warm and dry. HEENT: Atraumatic. Normocephalic. Patient is blind in both eyes, pupils nonreactive. No nasal bleeding or discharge. Mucous membranes pink and moist. NECK: Trachea midline. CARDIOVASCULAR: Regular rate and rhythm. RESPIRATORY: No accessory muscle use. Has mild wheezing. GASTROINTESTINAL: Abdomen soft, non-tender, nondistended. +BS. MUSCULOSKELETAL: Extremities without clubbing, cyanosis, or edema except as stated above. No obvious deformities. NEUROLOGICAL: Awake and alert. No cranial nerve deficits. Motor grossly within normal limits. PSYCHIATRIC: Calm and cooperative. Results - Labs CBC & Chem 7: 04/08/18 03:25 04/08/18 03:25 Laboratory Results - last 24 hr 04/08/18 04/08/18 04/08/18 12:52 17:31 20:45 POC Glucose 98 168 H 134 H - Imaging Impressions Chest X-Ray 04/08/18 00:00 CONCLUSION: The chest x-ray with elevation of the right hemidiaphragm. - Procedures - Preoperative Diagnosis (1) Cellulitis and abscess of foot excluding toe (2) Foot laceration involving tendon (3) Laceration of ankle, left - Postoperative Diagnosis (1) Cellulitis and abscess of foot excluding toe (2) Foot laceration involving tendon (3) Laceration of ankle, left Date of procedure: 04/03/18 Procedure: Incision drainage debridement of tendon wound exploration left ankle, repair of distal leg proximal ankle laceration Anesthesia: GETA Surgeon: Glen Trevizo DPM Estimated blood loss (mL): 10 (ml) Tourniquet time (min): 0 Pathology: other (Deep culture left ankle) Condition: stable Disposition: floor Assessment and Plan - Assessment (1) Encephalopathy Code(s): G93.40 - Encephalopathy, unspecified Status: Acute (2) COPD exacerbation Code(s): J44.1 - Chronic obstructive pulmonary disease with (acute) exacerbation Status: Acute (3) Pneumonia Code(s): J18.9 - Pneumonia, unspecified organism Status: Acute (4) Leukocytosis Code(s): D72.829 - Elevated white blood cell count, unspecified Status: Acute - Plan 78-year-old white male being admitted for acute COPD exacerbation, PNA, and LLR cellulitis LLE cellulitis Left foot possible tenosynovitis versus hematoma soft tissue US's complex fluid collection surrounding extensor tendons of the foot adjacent to the wound, MRI recommended patient unable to have secondary to shrapnel her head. -ID following, appreciate assistance. Ceftriaxone IV and Levaquin as outpatient regimen. Post hospital infusion orders been established. Cleared for discharge to longterm facility with PICC line. -Podiatry following, appreciate assistance. s/p I&D LLE 04/03. Will need packing change daily per home health nursing at d/c. Wound cx +pseudomonas and staph. PVD patient denies any complaints of claudication but reports "sciatica" unable to palpate distal pulses -abnormal left ROSHNI -Vascular surgery following, appreciate assistance. Status post left common femoral and distal external iliac endarterectomy with profundoplasty and patch placement. 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 -continue on Symbicort, Spiriva and Mucinex. IS and acapella. -monitor respiratory status -discussed smoking cessation Hypertension overall controlled Continue home medications of lisinopril and amlodipine -Clonidine as needed with parameters -Continue to monitor BP and adjust treatment accordingly Diabetes, new diagnosis A1c 6.5 hyperglycemia worse while on steroids -discussed lifestyle modification -consult regional safety manager for diabetes -continue on accuchek and ISS -Blood sugars controlled. Likely no longer needs NPH as off of IV steroids. Discontinue. -recommend patient have A1c rechecked in 3 mos Dementia, chronic Confusion, acute, suspect secondary to infection and hypoxia, improved -patient resumed on home dose of Aricept Anemia, chronic Hgb appears stable -no active bleeding -monitor as indicated DVT prophylaxis -Heparin held at this time for procedure Code Status: Full code Discharge Planning: Patient nearly ready for discharge, anticipate discharge to longterm facility. D/C pending clinical improvement, awaiting clearance from infectious disease (3) Pneumonia Qualifiers: Pneumonia type: due to unspecified organism Laterality: bilateral Lung location: lower lobe of lung Qualified Code(s): J18.1 - Lobar pneumonia, unspecified organism (4) Leukocytosis Qualifiers: Leukocytosis type: unspecified Qualified Code(s): D72.829 - Elevated white blood cell count, unspecified
[2018-04-09] MEDS: Metoprolol Tartrate 25 MG Tablet PO SCH ×2 (10:35→20:42)
[2018-04-09] MEDS: guaiFENesin 600 MG ER Tablet PO SCH ×2 (10:35→20:42)
[2018-04-09] MEDS: Gabapentin 300 MG Capsule PO SCH ×3 (10:35→18:23)
[2018-04-09] MEDS: Senna/Docusate Sodium 8.6/50 MG Tablet PO SCH ×2 (10:36→20:42)
[2018-04-09] MEDS: FLUoxetine 10 MG Capsule PO SCH (10:36)
[2018-04-09] MEDS: Heparin Central Flush 100 UNIT/ML 5 ML Vial IV.FLUSH SCH (10:38)
[2018-04-09] MEDS: Insulin NovoLOG Aspart Correctional Sugar Inj SQ SCH ×4 (10:39→20:55)
[2018-04-09] MEDS: Pantoprazole Sodium 20 MG DR Tablet PO SCH (10:40)
[2018-04-09] MEDS: Tiotropium Bromide 18 MCG/ACT Inhaler INH SCH (10:46)
[2018-04-09] MEDS: Budesonide-Formoterol 160/4.5 MCG 6 GM Inhaler INH SCH ×2 (10:46→20:43)
[2018-04-09] MEDS: levoFLOXacin 500 MG Tablet PO SCH (14:47)
--- NOTE | 2018-04-09 18:23 | P.PN ---
Subjective Interval history: No new Complaints. Off O2 and denies SOB Leg swelling is down. Good pulses . Physical Exam Vital signs: Vital Signs 04/08/18 20:00 04/08/18 22:00 04/09/18 00:00 Temperature 98.2 F 98.1 F 98.2 F Pulse Rate 80 79 74 Respiratory Rate 22 18 18 Blood Pressure 166/74 H 168/73 H 153/66 H Pulse Oximetry 95 95 04/09/18 04:00 04/09/18 08:00 04/09/18 12:00 Temperature 97.2 F L 98.1 F 97.7 F Pulse Rate 73 53 L 68 Respiratory Rate 18 20 18 Blood Pressure 152/72 H 166/74 H 148/67 H Pulse Oximetry 95 93 L 96 Intake & Output 04/08/18 04/09/18 04/09/18 18:59 06:59 18:59 Intake Total 780 / 780 200 / 200 100 / 100 Output Total 650 / 650 500 / 500 Balance 130 / 130 -300 / -300 100 / 100 Weight 77.1 kg 77.1 kg Intake: IV 200 / 200 100 / 100 Zosyn 4.5 GM Premix 4.5 gm In 100 / 100 100 ml @ 200 mls/hr IV.SIG Q6H LUCIANA Rx#:[id number] Rocephin Inj 2,000 MG In NS Inj 100 / 100 100 / 100 100 ML @ 200 mls/hr IV.SIG Q24H LUCIANA Rx#:[id number] Oral 580 / 580 200 / 200 Output: Urine 650 / 650 500 / 500 Other: Date of Last Bowel Movement 04/08/18 04/09/18 # Bowel Movements 1 Narrative: GENERAL: elderly male patient. Awake and alert. SKIN: Warm and dry. Left leg and Celestino wrap. Skin is warm and dry. HEENT: Atraumatic. Normocephalic. Patient is blind in both eyes, pupils nonreactive. No nasal bleeding or discharge. Mucous membranes pink and moist. NECK: Trachea midline. CARDIOVASCULAR: Regular rate and rhythm. RESPIRATORY: No accessory muscle use. Has mild wheezing. GASTROINTESTINAL: Abdomen soft, non-tender, nondistended. +BS. MUSCULOSKELETAL: Extremities without clubbing, cyanosis, or edema except as stated above. No obvious deformities. NEUROLOGICAL: Awake and alert. Motor grossly within normal limits. PSYCHIATRIC: Calm and cooperative. Results - Labs CBC & Chem 7: 04/08/18 03:25 04/08/18 03:25 Laboratory Results - last 24 hr 04/08/18 04/09/18 04/09/18 20:45 08:45 13:22 POC Glucose 134 H 120 H 126 H 04/09/18 16:07 POC Glucose 100 - Imaging Impressions Chest X-Ray 04/08/18 00:00 CONCLUSION: The chest x-ray with elevation of the right hemidiaphragm. - Procedures - Preoperative Diagnosis (1) Cellulitis and abscess of foot excluding toe (2) Foot laceration involving tendon (3) Laceration of ankle, left - Postoperative Diagnosis (1) Cellulitis and abscess of foot excluding toe (2) Foot laceration involving tendon (3) Laceration of ankle, left Date of procedure: 04/03/18 Procedure: Incision drainage debridement of tendon wound exploration left ankle, repair of distal leg proximal ankle laceration Anesthesia: GETA Surgeon: Glen Trevizo DPM Estimated blood loss (mL): 10 (ml) Tourniquet time (min): 0 Pathology: other (Deep culture left ankle) Condition: stable Disposition: floor Assessment and Plan - Assessment (1) Cellulitis and abscess of foot excluding toe Code(s): L03.119 - Cellulitis of unspecified part of limb; L02.619 - Cutaneous abscess of unspecified foot Status: Acute (2) Foot laceration involving tendon Code(s): S91.319A - Laceration without foreign body, unspecified foot, initial encounter; S96.929A - Laceration of unspecified muscle and tendon at ankle and foot level, unspecified foot, initial encounter Status: Acute (3) Pneumonia Code(s): J18.9 - Pneumonia, unspecified organism Status: Acute (4) Leukocytosis Code(s): D72.829 - Elevated white blood cell count, unspecified Status: Acute (5) Altered mental status Code(s): R41.82 - Altered mental status, unspecified Status: Acute (6) Encephalopathy Code(s): G93.40 - Encephalopathy, unspecified Status: Acute (7) COPD exacerbation Code(s): J44.1 - Chronic obstructive pulmonary disease with (acute) exacerbation Status: Acute - Plan 1. D/C O2 2. Cont Symbicort 160/4.5 mcg 2 puffs bid 3. Antibiotics per ID 4. IS at Bedside qid 5. up with help and PT. 6.Home per Dr Arellano. (3) Pneumonia Qualifiers: Pneumonia type: due to unspecified organism Laterality: bilateral Lung location: lower lobe of lung Qualified Code(s): J18.1 - Lobar pneumonia, unspecified organism (4) Leukocytosis Qualifiers: Leukocytosis type: unspecified Qualified Code(s): D72.829 - Elevated white blood cell count, unspecified (5) Altered mental status Qualifiers: Altered mental status type: unspecified Qualified Code(s): R41.82 - Altered mental status, unspecified
[2018-04-10 06:05] LABS: Hematocrit 27.8 % (39.0-51.0); Hemoglobin 9.3 gm/dL (13.0-17.0); Mean Corpuscular HGB Conc 33.3 % (32.0-36.0); Mean Corpuscular Hemoglobin 27.1 pg (27.0-34.0); Mean Corpuscular Volume 81.4 fL (80.0-100.0); Mean Platelet Volume 6.7 fL (7.0-11.0); Platelet Count 338 th/mm3 (150-450); Red Blood Count 3.42 mil/mm3 (4.50-5.90); Red Cell Distribution Width 15.7 % (11.6-17.2); White Blood Count 12.1 th/mm3 (4.0-11.0)
[2018-04-10 06:32] LABS: Anion Gap 10 meq/L (5-15); Blood Urea Nitrogen 14 mg/dL (7-18); Calcium 8.2 mg/dL (8.5-10.1); Carbon Dioxide 25.1 meq/L (21.0-32.0); Chloride 98 meq/L (98-107); Glomerular Filtration Rate Greater Than 89 mL/min (>89); Glucose,Random 119 mg/dL (74-106); Potassium 3.8 meq/L (3.5-5.1); Sodium 133 meq/L (136-145)
--- NOTE | 2018-04-10 08:13 | P.PN ---
Subjective Interval history: Follow-up on patient with left lower extremity cellulitis, PVD status post enterectomy. Patient seen and examined. Patient states he feels well. He is ready to be discharged to SNF facility. He denies any new medical complaints. He denies any fever or chills. Denies any chest pain or shortness of breath. He denies any groin pain. Physical Exam Vital signs: Vital Signs 04/09/18 12:00 04/09/18 20:28 04/10/18 00:00 Temperature 97.7 F 98.6 F 98.0 F Pulse Rate 68 72 60 Respiratory Rate 18 19 18 Blood Pressure 148/67 H 143/86 H 131/62 Pulse Oximetry 96 93 L 95 04/10/18 01:00 04/10/18 04:00 Temperature 98.8 F Pulse Rate 68 Respiratory Rate 17 20 Blood Pressure 162/70 H Pulse Oximetry 94 L Intake & Output 04/09/18 04/10/18 04/10/18 18:59 06:59 18:59 Intake Total 340 / 340 480 / 480 Output Total 175 / 175 100 / 100 Balance 165 / 165 380 / 380 Weight 77.1 kg Intake: IV 100 / 100 Rocephin Inj 2,000 MG In NS Inj 100 / 100 100 ML @ 200 mls/hr IV.SIG Q24H LUCIANA Rx#:[id number] Oral 240 / 240 480 / 480 Output: Urine 175 / 175 100 / 100 Other: # Voids 2 Date of Last Bowel Movement 04/09/18 04/09/18 # Bowel Movements 0 Narrative: GENERAL: WDWN elderly male patient. Awake and alert. Not in any acute distress. Caregiver is at the bedside. SKIN: Warm and dry. Left leg in ISIDRO wrap. HEENT: Atraumatic. Normocephalic. Patient is blind in both eyes, pupils nonreactive. No nasal bleeding or discharge. Mucous membranes pink and moist. NECK: Trachea midline. CARDIOVASCULAR: Regular rate and rhythm. RESPIRATORY: No accessory muscle use. Has mild wheezing. GASTROINTESTINAL: Abdomen soft, non-tender, nondistended. +BS. MUSCULOSKELETAL: Extremities without clubbing, cyanosis, or edema. No obvious deformities. NEUROLOGICAL: Awake and alert. No cranial nerve deficits. Motor grossly within normal limits. Normal speech. PSYCHIATRIC: Calm and cooperative. Appropriate mood and affect Results - Labs CBC & Chem 7: 04/10/18 05:41 04/10/18 05:41 Laboratory Results - last 24 hr 04/09/18 04/09/18 04/09/18 08:45 13:22 16:07 WBC RBC Hgb Hct MCV MCH MCHC RDW Plt Count MPV Sodium Potassium Chloride Carbon Dioxide Anion Gap BUN Creatinine Estimated GFR POC Glucose 120 H 126 H 100 Random Glucose Calcium 04/09/18 04/10/18 04/10/18 20:49 05:41 05:41 WBC 12.1 H RBC 3.42 L Hgb 9.3 L Hct 27.8 L MCV 81.4 MCH 27.1 MCHC 33.3 RDW 15.7 Plt Count 338 MPV 6.7 L Sodium 133 L Potassium 3.8 Chloride 98 Carbon Dioxide 25.1 Anion Gap 10 BUN 14 Creatinine 0.78 Estimated GFR Greater than 89 POC Glucose 161 H Random Glucose 119 H Calcium 8.2 L - Procedures - Preoperative Diagnosis (1) Cellulitis and abscess of foot excluding toe (2) Foot laceration involving tendon (3) Laceration of ankle, left - Postoperative Diagnosis (1) Cellulitis and abscess of foot excluding toe (2) Foot laceration involving tendon (3) Laceration of ankle, left Date of procedure: 04/03/18 Procedure: Incision drainage debridement of tendon wound exploration left ankle, repair of distal leg proximal ankle laceration [facility] Sur[facility]: Glen Trevizo DPM Estimated blood loss (mL): 10 (ml) Tourniquet time (min): 0 Pathology: other (Deep culture left ankle) Condition: stable Disposition: floor Assessment and Plan - Assessment (1) Encephalopathy Code(s): G93.40 - Encephalopathy, unspecified Status: Acute (2) COPD exacerbation Code(s): J44.1 - Chronic obstructive pulmonary disease with (acute) exacerbation Status: Acute (3) Pneumonia Code(s): J18.9 - Pneumonia, unspecified organism Status: Acute (4) Leukocytosis Code(s): D72.829 - Elevated white blood cell count, unspecified Status: Acute - Plan 78-year-old white male being admitted for acute COPD exacerbation and PNA 04/10 patient doing well. Patient has been cleared for discharge from ID and vascular surgery perspective. No acute events noted overnight. Patient is afebrile. Vital signs are stable. Sepsis at admission with elevated white count, tachycardia, elevated RR with source of PNA, resolved -blood cx show no growth -white count remains elevated but patient is on steroids LLE cellulitis Left foot possible tenosynovitis versus hematoma soft tissue US's complex fluid collection surrounding extensor tendons of the foot adjacent to the wound, MRI recommended patient unable to have secondary to shrapnel her head. -ID following, appreciate assistance. IV Zosyn and vancomycin discontinued. PICC line placed. Plan to continue on IV ceftriaxone and Levaquin until 05/12. IV infusion orders placed per ID. Mandatory follow-up with Dr. Yaneth Blanchard in 10 days. -Podiatry following, appreciate assistance. s/p I&D LLE 04/03. Will need packing change daily per home health nursing at d/c. Wound cx +pseudomonas and staph. PVD patient denies any complaints of claudication but reports "sciatica" unable to palpate distal pulses -abnormal left ROSHNI -Vascular surgery following, appreciate assistance. Status post left common femoral and distal external iliac endarterectomy with profundoplasty and patch placement. 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 -continue on Symbicort, Spiriva and Mucinex. IS and acapella. 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 Likely no longer needs NPH as off of IV steroids. Discontinue. -recommend patient have A1c rechecked in 3 mos Dementia, chronic Confusion, acute, suspect secondary to infection and hypoxia, improved -patient resumed on home dose of Aricept Anemia, chronic Hgb appears stable -no active bleeding -monitor as indicated DVT prophylaxis -Heparin Code Status: FULL Discussed Condition With: patient, nursing staff Discharge Planning: Medically cleared for discharge. Discharge pending SNF acceptance and insurance authorization. (3) Pneumonia Qualifiers: Pneumonia type: due to unspecified organism Laterality: bilateral Lung location: lower lobe of lung Qualified Code(s): J18.1 - Lobar pneumonia, unspecified organism (4) Leukocytosis Qualifiers: Leukocytosis type: unspecified Qualified Code(s): D72.829 - Elevated white blood cell count, unspecified
--- NOTE | 2018-04-10 08:13 | P.DS ---
Date of admission: 03/29/18 15:29 Primary care physician: Myrna Cornell Attending physician on discharge: Abdiel Arellano Anticipated date of discharge: 04/10/18 Brief History from admission: 78-year-old white male being admitted for acute shortness of breath secondary to COPD exacerbation and possible pneumonia. Patient was in his usual state of health until about 1-2 days ago when he began experiencing shortness of breath. He went to the urgent care today and they referred him to the emergency department. About 2 days ago patient did have an injury at home where he lacerated his left lower extremity, went to the urgent care at that time and got sutures in place. Patient self is reportedly more confused than baseline per his caregivers. Patient himself is not sure exactly where he is at. His caregiver mentions that he has 24/7 nursing care at home, otherwise patient lives at home by himself. They mentioned that the patient does ambulate at baseline with a walker at home. Patient denies being short of breath but on examination he is obviously dyspneic. In the emergency department he was noted to have a white count of about 18,000. Chest x-ray which I independently reviewed shows no obvious focal infiltrates. He has a temperature of about 100.1. This left lower extremity Doppler is negative for any DVT. Unable to obtain family medical history since patient is more confused than at baseline. DS: Diagnosis - Discharge Diagnosis (1) Encephalopathy Status: Acute (2) COPD exacerbation Status: Acute (3) Pneumonia Status: Acute (4) Leukocytosis Status: Acute (5) Staph aureus infection Status: Acute (6) Pseudomonas aeruginosa infection Status: Acute (7) Peripheral vascular disease Status: Acute (8) Diabetes Status: Acute (9) Cellulitis and abscess of foot excluding toe Status: Acute (10) Foot laceration involving tendon Status: Acute DS: Medications - Discharge Medications Prescriptions: alprazolam 0.5 mg PO HS #30 tab ceftriaxone 2,000 mg IV Q24H 30 Days each clopidogrel [Plavix] 75 mg PO DAILY #30 tab levofloxacin 500 mg PO DAILY #30 tab lisinopril 5 mg PO DAILY #30 tab metoprolol tartrate 12.5 mg PO BID 30 Days #30 tab nicotine 1 patch TRANSDERMAL DAILY #7 ea tiotropium bromide [Spiriva with HandiHaler] 18 mcg INH DAILY #1 inh DS: Summary Hospital Course: Patient admitted with sepsis with elevated white count, tachycardia and elevated respiratory rate with a source of pneumonia and COPD exacerbation. Patient was treated with IV ceftriaxone and azithromycin as well as IV steroids. Patient was seen in consultation by pulmonary medicine. Patient noted to have a previous injury in the left lower extremity that began to worsen during his hospitalization with increasing redness and edema. Patient was also noted to have poorly palpable pulses in the left lower extremity. He underwent soft tissue ultrasound which revealed complex fluid collection. MRI was unobtainable due to patient having metal in the head. Patient was seen in consultation by podiatry, vascular surgery as well as infectious disease. Patient's antibiotics were changed to IV Zosyn and vancomycin. Patient had a CTA with runoff which revealed calcified atherosclerotic plaque with inflow and outflow stenosis. On 04/03/2018, patient underwent incision and drainage, debridement deep to tendon, wound expiration of the foot and ankle repair of distal leg laceration proximal ankle performed by Dr. Trevizo. Intraop wound culture was positive for Pseudomonas and staph. On 04/06/2018, patient underwent common femoral, external iliac endarterectomy and bovine patch angioplasty performed by Dr. Dr. Blunt. Patient improved clinically. Additionally, patient was given a new diagnosis of diabetes and was given diabetic education. He was cleared for discharge by all specialty services. Patient was evaluated and accepted to SNF facility the time of discharge. Per infectious disease, patient had a PICC line placed and was to continue with IV ceftriaxone and Levaquin as an outpatient until 05/12/2018 with mandatory follow- up with Dr. Sherie Blanchard in 10 days from discharge. - Time Spent with Patient Total time spent providing and/or coordinating discharge services: Less than 30 minutes Exam Vital signs: Vital Signs 04/09/18 12:00 04/09/18 20:28 04/10/18 00:00 Temperature 97.7 F 98.6 F 98.0 F Pulse Rate 68 72 60 Respiratory Rate 18 19 18 Blood Pressure 148/67 H 143/86 H 131/62 Pulse Oximetry 96 93 L 95 04/10/18 01:00 04/10/18 04:00 Temperature 98.8 F Pulse Rate 68 Respiratory Rate 17 20 Blood Pressure 162/70 H Pulse Oximetry 94 L Intake & Output 04/09/18 04/10/18 04/10/18 18:59 06:59 18:59 Intake Total 340 / 340 480 / 480 Output Total 175 / 175 100 / 100 Balance 165 / 165 380 / 380 Weight 77.1 kg Intake: IV 100 / 100 Rocephin Inj 2,000 MG In NS Inj 100 / 100 100 ML @ 200 mls/hr IV.SIG Q24H LUCIANA Rx#:[id number] Oral 240 / 240 480 / 480 Output: Urine 175 / 175 100 / 100 Other: # Voids 2 Date of Last Bowel Movement 04/09/18 04/09/18 # Bowel Movements 0 Narrative: GENERAL: WDWN elderly male patient. Awake and alert. Not in any acute distress. Caregiver is at the bedside. SKIN: Warm and dry. Left leg in ISIDRO wrap. HEENT: Atraumatic. Normocephalic. Patient is blind in both eyes, pupils nonreactive. No nasal bleeding or discharge. Mucous membranes pink and moist. NECK: Trachea midline. CARDIOVASCULAR: Regular rate and rhythm. RESPIRATORY: No accessory muscle use. Has mild wheezing. GASTROINTESTINAL: Abdomen soft, non-tender, nondistended. +BS. MUSCULOSKELETAL: Extremities without clubbing, cyanosis, or edema. No obvious deformities. NEUROLOGICAL: Awake and alert. No cranial nerve deficits. Motor grossly within normal limits. Normal speech. PSYCHIATRIC: Calm and cooperative. Appropriate mood and affect Results Procedures completed during hospitalization: - Preoperative Diagnosis (1) Cellulitis and abscess of foot excluding toe (2) Foot laceration involving tendon (3) Laceration of ankle, left - Postoperative Diagnosis (1) Cellulitis and abscess of foot excluding toe (2) Foot laceration involving tendon (3) Laceration of ankle, left Date of procedure: 04/03/18 Procedure: Incision drainage debridement of tendon wound exploration left ankle, repair of distal leg proximal ankle laceration Anesthesia: GETA Surgeon: Glen Trevizo DPM Estimated blood loss (mL): 10 (ml) Tourniquet time (min): 0 Pathology: other (Deep culture left ankle) Condition: stable Disposition: floor DATE OF OPERATION: 04/06/2018 PREOPERATIVE DIAGNOSES: 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 OPERATIVE PROCEDURE : Common femoral, external iliac endarterectomy and bovine patch angioplasty. SURGEON: Awa King MD ANESTHESIA: General. ESTIMATED BLOOD LOSS: 100 mL DESCRIPTION OF PROCEDURE: The patient was prepped and draped in the usual fashion. Left groin incision made, deepened down to the level of the neurovascular bundle. Common femoral, deep femoral and superficial femoral arteries are isolated and vessel loops placed around each. The Ho retractor was now placed under the inguinal ligament. This one was lifted up and then external iliac is freed up above the first 2 inches as it crosses over the pelvic rim into the pelvis. There is a firm plaque in it and I decided to get above that. Above that, there is a soft spot and another vessel loop was placed around that very carefully. The patient was given 5000 units of heparin and then the Satinsky clamp is applied proximally while the profunda clamps applied distal to the deep femoral and superficial femoral arteries. The vessels are opened longitudinally with Lozoya scissors and the plaque is so hard I had to use regular suture scissors to open the vessel. Once this was done up, it is noted that the patient has a massive amount of calcific plaque in the vessel that nearly completely occludes the vessel. Plaque is dissected in the medial plane with [place] dissector and then removed in about 3 pieces. Finally, I dissected up into the external iliac artery high with a [place] dissector and then removed the plaque with a Schnidt. This is followed by brisk blood flow down. The Satinsky was reapplied and then the vessel is cleaned from all the debris with wick cells and heparinized saline. A 1 cm x 8 bovine patch was chosen and sewn in with running 5-0 Prolene. The vessel was now opened in the usual fashion. The area is irrigated with copious amounts of saline. Meticulous hemostasis obtained. Some Surgicel placed on the vessel. Incision closed in layers with 2-0 Vicryl and 4-0 Monocryl. Benzoin, Steri-Strips applied. The patient taken out of the operating room in a stable condition with a strong dopplerable popliteal pulse. Awa King MD SJ/ct , 04:04 PM , 04:13 PM Completed studies during hospitalization: Pending at discharge 04/06/18 08:03 Surgical [PTH] Routine Labs on day of discharge: Labs from last 24 hours 04/10/18 04/10/18 04/09/18 05:41 05:41 20:49 WBC 12.1 H RBC 3.42 L Hgb 9.3 L Hct 27.8 L MCV 81.4 MCH 27.1 MCHC 33.3 RDW 15.7 Plt Count 338 MPV 6.7 L Sodium 133 L Potassium 3.8 Chloride 98 Carbon Dioxide 25.1 Anion Gap 10 BUN 14 Creatinine 0.78 Estimated GFR Greater than 89 POC Glucose 161 H Random Glucose 119 H Calcium 8.2 L 04/09/18 04/09/18 04/09/18 16:07 13:22 08:45 WBC RBC Hgb Hct MCV MCH MCHC RDW Plt Count MPV Sodium Potassium Chloride Carbon Dioxide Anion Gap BUN Creatinine Estimated GFR POC Glucose 100 126 H 120 H Random Glucose Calcium - Impressions ITS Impressions Tibia/Fibula X-Ray 03/28/18 13:13 CONCLUSION: 1. No acute fracture or radiopaque foreign bodies. Venous Doppler Study 03/28/18 13:13 CONCLUSION: No venous thrombosis is identified in the left lower extremity. Head CT 03/28/18 13:18 CONCLUSION: No acute intracranial findings. Basically stable abnormal brain appearance as above. . Chest CT 03/30/18 00:00 CONCLUSION: 1. Moderate L1 vertebral body compression fracture, new since February 2017. If patient has pain on palpation of the spinous process, consider MRI examination to determine acuity. 2. Otherwise, stable CT examination of the chest. 3. Stable elevation of the right hemidiaphragm with right lower lobe atelectasis/scarring. 4. Minimal left lung base atelectasis/scarring. 5. Stable 17 mm left adrenal adenoma. Extremity Arterial Study 03/30/18 00:00 CONCLUSION: 1. Moderately reduced left lower extremity ankle-brachial indices. Consider CTA examination if patient has left-sided symptoms. 2. Normal range right ankle-brachial index. 3. Normal range bilateral toe brachial indices. Lower Extremity Ultrasound 03/30/18 00:00 CONCLUSION: 1. Complex fluid collection surrounding extensor tendons of the foot adjacent to area of wound. Findings suggest tenosynovitis. MRI of the foot could be performed to further evaluate integrity of the tendons. 2. Negative ultrasound in the area of the anterior lower leg wound. Carotid Doppler Study 04/01/18 00:00 CONCLUSION: Mild plaque without a significant stenosis seen. Aorta w/Runoff CTA 04/03/18 00:00 CONCLUSION: 1. Calcified atherosclerotic plaque generating bilateral inflow and outflow stenoses as detailed above. This is more pronounced on the left. Three-vessel runoff to each foot. 2. Prior cholecystectomy. Chest X-Ray 04/08/18 00:00 CONCLUSION: The chest x-ray with elevation of the right hemidiaphragm. Discharge Plan - Discharge Disposition Patient Disposition: Discharge to SNF - Discharge Condition Condition: Stable - Discharge Order Discharge Orders: Discharge Order (Routine); Ordered 04/10/18 Ordered By: Stephanie Fairbanks - Discharge Details Anticipated Discharge Date: 04/10/18 - Physicians Team Primary Care Provider: Myrna Cornell Attending Provider: Abdiel Arellano Other Providers: Mike Mckeon ; Zelda Navas MD ; Jose Tinajero MD ; Tyra Ryan DPM ; Awa King MD ; Eagle Denson MD ; [facility] ; [facility] ; [facility],[place]
[2018-04-10] MEDS: Insulin NovoLOG Aspart Correctional Sugar Inj SQ SCH ×2 (08:26→12:22)
[2018-04-10] MEDS ORDERED: Lisinopril 5 MG Tablet PO SCH (09:00)
[2018-04-10] MEDS: Senna/Docusate Sodium 8.6/50 MG Tablet PO SCH (09:25)
[2018-04-10] MEDS: Pantoprazole Sodium 20 MG DR Tablet PO SCH (09:26)
[2018-04-10] MEDS: Gabapentin 300 MG Capsule PO SCH ×2 (09:26→12:22)
[2018-04-10] MEDS: guaiFENesin 600 MG ER Tablet PO SCH (09:27)
[2018-04-10] MEDS: FLUoxetine 10 MG Capsule PO SCH (09:28)
[2018-04-10] MEDS: Metoprolol Tartrate 25 MG Tablet PO SCH (09:28)
[2018-04-10] MEDS: Tiotropium Bromide 18 MCG/ACT Inhaler INH SCH (10:00)
[2018-04-10] MEDS: Heparin Central Flush 100 UNIT/ML 5 ML Vial IV.FLUSH SCH (10:00)
[2018-04-10] MEDS: Budesonide-Formoterol 160/4.5 MCG 6 GM Inhaler INH SCH (10:00)
[2018-04-10] MEDS: levoFLOXacin 500 MG Tablet PO SCH (12:22)
--- NOTE | 2018-04-10 18:19 | P.PN ---
Subjective Interval history: seen and examined. Of O2 and seems to breathe well. Has some leg cramps. Physical Exam Vital signs: Vital Signs 04/09/18 20:28 04/10/18 00:00 04/10/18 01:00 Temperature 98.6 F 98.0 F Pulse Rate 72 60 Respiratory Rate 19 18 17 Blood Pressure 143/86 H 131/62 Pulse Oximetry 93 L 95 04/10/18 04:00 04/10/18 08:00 04/10/18 08:31 Temperature 98.8 F 97.6 F Pulse Rate 68 62 Respiratory Rate 20 18 18 Blood Pressure 162/70 H 144/73 H Pulse Oximetry 94 L 98 04/10/18 12:00 Temperature 97.4 F L Pulse Rate 98 H Respiratory Rate 18 Blood Pressure 145/86 H Pulse Oximetry 91 L Intake & Output 04/09/18 04/10/18 04/10/18 18:59 06:59 18:59 Intake Total 340 / 340 480 / 480 580 / 580 Output Total 175 / 175 100 / 100 200 / 200 Balance 165 / 165 380 / 380 380 / 380 Weight 77.1 kg Intake: IV 100 / 100 100 / 100 Rocephin Inj 2,000 MG In NS Inj 100 / 100 100 / 100 100 ML @ 200 mls/hr IV.SIG Q24H LUCIANA Rx#:[id number] Oral 240 / 240 480 / 480 480 / 480 Output: Urine 175 / 175 100 / 100 200 / 200 Other: # Voids 2 Date of Last Bowel Movement 04/09/18 04/09/18 04/09/18 # Bowel Movements 0 Narrative: GENERAL: This elderly male patient. Awake and alert. Not in any acute distress. SKIN: Warm and dry. Left leg in ISIDRO wrap. HEENT: Atraumatic. Normocephalic. Patient is blind in both eyes, pupils nonreactive. No nasal bleeding or discharge. Mucous membranes pink and moist. NECK: Trachea midline. CARDIOVASCULAR: Regular rate and rhythm. RESPIRATORY: No accessory muscle use. Has Bilateral mild wheezing. GASTROINTESTINAL: Abdomen soft, non-tender, nondistended. +BS. MUSCULOSKELETAL: Extremities without clubbing, cyanosis, or edema. No obvious deformities. NEUROLOGICAL: Awake and alert. No cranial nerve deficits. Motor grossly within normal limits. Normal speech. PSYCHIATRIC: Calm and cooperative. Appropriate mood and affect Results - Labs CBC & Chem 7: 04/10/18 05:41 04/10/18 05:41 Laboratory Results - last 24 hr 04/09/18 04/10/18 04/10/18 20:49 05:41 05:41 WBC 12.1 H RBC 3.42 L Hgb 9.3 L Hct 27.8 L MCV 81.4 MCH 27.1 MCHC 33.3 RDW 15.7 Plt Count 338 MPV 6.7 L Sodium 133 L Potassium 3.8 Chloride 98 Carbon Dioxide 25.1 Anion Gap 10 BUN 14 Creatinine 0.78 Estimated GFR Greater than 89 POC Glucose 161 H Random Glucose 119 H Calcium 8.2 L 04/10/18 04/10/18 08:17 12:13 WBC RBC Hgb Hct MCV MCH MCHC RDW Plt Count MPV Sodium Potassium Chloride Carbon Dioxide Anion Gap BUN Creatinine Estimated GFR POC Glucose 131 H 175 H Random Glucose Calcium Microbiology 04/03/18 18:35 Wound - Foot Fungal Smear - Final No fungal elements seen 04/03/18 18:35 Wound - Foot Fungal Culture - Preliminary No growth in 1 week 04/03/18 18:35 Wound - Foot Acid Fast Bacilli Smear - Final No acid fast bacilli seen 04/03/18 18:35 Wound - Foot Mycobacterial Culture - Preliminary No growth in 1 week - Procedures - Preoperative Diagnosis (1) Cellulitis and abscess of foot excluding toe (2) Foot laceration involving tendon (3) Laceration of ankle, left - Postoperative Diagnosis (1) Cellulitis and abscess of foot excluding toe (2) Foot laceration involving tendon (3) Laceration of ankle, left Date of procedure: 04/03/18 Procedure: Incision drainage debridement of tendon wound exploration left ankle, repair of distal leg proximal ankle laceration Anesthesia: GETA Surgeon: Glen Trevizo DPM Estimated blood loss (mL): 10 (ml) Tourniquet time (min): 0 Pathology: other (Deep culture left ankle) Condition: stable Disposition: floor DATE OF OPERATION: 04/06/2018 PREOPERATIVE DIAGNOSES: 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 OPERATIVE PROCEDURE : Common femoral, external iliac endarterectomy and bovine patch angioplasty. SURGEON: Awa King MD ANESTHESIA: General. ESTIMATED BLOOD LOSS: 100 mL DESCRIPTION OF PROCEDURE: The patient was prepped and draped in the usual fashion. Left groin incision made, deepened down to the level of the neurovascular bundle. Common femoral, deep femoral and superficial femoral arteries are isolated and vessel loops placed around each. The Ho retractor was now placed under the inguinal ligament. This one was lifted up and then external iliac is freed up above the first 2 inches as it crosses over the pelvic rim into the pelvis. There is a firm plaque in it and I decided to get above that. Above that, there is a soft spot and another vessel loop was placed around that very carefully. The patient was given 5000 units of heparin and then the Satinsky clamp is applied proximally while the profunda clamps applied distal to the deep femoral and superficial femoral arteries. The vessels are opened longitudinally with Lozoya scissors and the plaque is so hard I had to use regular suture scissors to open the vessel. Once this was done up, it is noted that the patient has a massive amount of calcific plaque in the vessel that nearly completely occludes the vessel. Plaque is dissected in the medial plane with [place] dissector and then removed in about 3 pieces. Finally, I dissected up into the external iliac artery high with a [place] dissector and then removed the plaque with a Schnidt. This is followed by brisk blood flow down. The Satinsky was reapplied and then the vessel is cleaned from all the debris with wick cells and heparinized saline. A 1 cm x 8 bovine patch was chosen and sewn in with running 5-0 Prolene. The vessel was now opened in the usual fashion. The area is irrigated with copious amounts of saline. Meticulous hemostasis obtained. Some Surgicel placed on the vessel. Incision closed in layers with 2-0 Vicryl and 4-0 Monocryl. Benzoin, Steri-Strips applied. The patient taken out of the operating room in a stable condition with a strong dopplerable popliteal pulse. MD THEA Hoyos/ct , 04:04 PM , 04:13 PM Assessment and Plan - Assessment (1) Cellulitis and abscess of foot excluding toe Code(s): L03.119 - Cellulitis of unspecified part of limb; L02.619 - Cutaneous abscess of unspecified foot Status: Acute (2) Foot laceration involving tendon Code(s): S91.319A - Laceration without foreign body, unspecified foot, initial encounter; S96.929A - Laceration of unspecified muscle and tendon at ankle and foot level, unspecified foot, initial encounter Status: Acute (3) Pneumonia Code(s): J18.9 - Pneumonia, unspecified organism Status: Acute (4) Leukocytosis Code(s): D72.829 - Elevated white blood cell count, unspecified Status: Acute (5) Altered mental status Code(s): R41.82 - Altered mental status, unspecified Status: Acute (6) Encephalopathy Code(s): G93.40 - Encephalopathy, unspecified Status: Acute (7) COPD exacerbation Code(s): J44.1 - Chronic obstructive pulmonary disease with (acute) exacerbation Status: Acute - Plan 1. To rehab today 2. Cont Symbicort 160/4.5 mcg 2 puffs bid 3. Antibiotics per ID for 3 weeks 4. IS at Bedside qid 5. CBC,CMP, CXR in 2 weeks 6.Will see as OP in 3 weeks (3) Pneumonia Qualifiers: Pneumonia type: due to unspecified organism Laterality: bilateral Lung location: lower lobe of lung Qualified Code(s): J18.1 - Lobar pneumonia, unspecified organism (4) Leukocytosis Qualifiers: Leukocytosis type: unspecified Qualified Code(s): D72.829 - Elevated white blood cell count, unspecified (5) Altered mental status Qualifiers: Altered mental status type: unspecified Qualified Code(s): R41.82 - Altered mental status, unspecified
== END 2018-04-10 16:17 ==
LOC: NEPC 12:34 → INTOOBSV 15:23 → NEDA 15:23 → N05 18:27 → N03 04-06 15:07 → N06 04-08 21:15
PROVIDERS: ADMIT Hospitalist; ATTEND Hospitalist

== ENCOUNTER 2018-07-13 17:04 | Inpatient (IN) ==
[2018-07-13] MEDS ORDERED: Sod Chloride 0.9% Inj 1,000 ML IV.SIG SCH ×2 (17:45→18:30)
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
[2018-07-13 18:06] LABS: Chloride 104 meq/L (98-107); Potassium 3.8 meq/L (3.5-5.1); Sodium 138 meq/L (136-145)
[2018-07-13 18:07] LABS: Baso # (Auto) 0.4 th/mm3 (0.0-0.2); Baso % (Auto) 1.8 % (0.0-2.0); Eos % (Auto) 0.1 % (0.0-4.0); Hematocrit 28.7 % (39.0-51.0); Hemoglobin 8.8 gm/dL (13.0-17.0); Lymph % (Auto) 3.9 % (9.0-44.0); Mean Corpuscular HGB Conc 30.5 % (32.0-36.0); Mean Corpuscular Hemoglobin 21.6 pg (27.0-34.0); Mean Corpuscular Volume 70.8 fL (80.0-100.0); Mean Platelet Volume 7.7 fL (7.0-11.0); Mono # (Auto) 1.6 th/mm3 (0.0-0.9); Mono % (Auto) 6.3 % (0.0-8.0); Neut # (Auto) 21.8 th/mm3 (1.8-7.7); Neut % (Auto) 87.9 % (16.0-70.0); Platelet Count 356 th/mm3 (150-450); Red Blood Count 4.05 mil/mm3 (4.50-5.90); Red Cell Distribution Width 19.5 % (11.6-17.2); White Blood Count 24.8 th/mm3 (4.0-11.0)
[2018-07-13 18:09] LABS: Calcium 8.3 mg/dL (8.5-10.1)
[2018-07-13 18:10] LABS: Albumin 3.3 g/dL (3.4-5.0); Anion Gap 7 meq/L (5-15); Blood Urea Nitrogen 40 mg/dL (7-18); Carbon Dioxide 26.9 meq/L (21.0-32.0); Glucose,Random 134 mg/dL (74-106); Magnesium 2.5 mg/dL (1.5-2.5)
[2018-07-13 18:13] LABS: Alanine Aminotransferase 24 U/L (12-78); Aspartate Aminotransferase 27 U/L (15-37); Glomerular Filtration Rate 53 mL/min (>89)
[2018-07-13 18:15] LABS: Total Protein 6.9 g/dL (6.4-8.2)
[2018-07-13 18:16] LABS: Alkaline Phosphatase 105 U/L (45-117)
[2018-07-13 18:17] LABS: Bilirubin,Urine Negative (Negative); Clarity,Urine Slightly Cloudy (Clear); Color,Urine Yellow (Yellw/Straw); Glucose,Urine (UA) Negative (Negative); Leukocyte Esterase,Urine Small (Negative); Nitrite,Urine Negative (Negative); PH,Urine 5.5 (5.0-8.5); Specific Gravity,Urine 1.025 (1.002-1.035)
[2018-07-13] MEDS ORDERED: Piperacil/Tazo 4.5 GM Premix 4.5 GM/100 ML BAG IV.SIG STA (18:17)
[2018-07-13] MEDS ORDERED: Vancomycin Inj 1,000 MG in Sodium Chlor 0.9% Inj 250 ML IV.SIG STA (18:17)
[2018-07-13 18:23] LABS: Platelet Estimate Normal (Normal); Platelet Morphology Normal (Normal)
[2018-07-13 18:26] LABS: Bacteria,Urine Many /hpf; Squamous Epithelial Cell,Urine 0-5 /hpf (0-5)
[2018-07-13 18:27] LABS: Mucus,Urine Rare /lpf (Occasional)
[2018-07-13] MEDS ORDERED: Sod Chloride 0.9% Inj 400 ML IV.SIG SCH (18:30)
--- NOTE | 2018-07-13 18:36 | CT ---
EXAM DATE: 07/13/2018 6:30 PM EST AGE/SEX: 78 years / Male INDICATIONS: Weakness, unable to ambulate since yesterday CLINICAL DATA: This is the patient's initial encounter. Patient reports that signs and symptoms have been present for 1 day and indicates a pain score of 0/10. MEDICAL/SURGICAL HISTORY: Chronic obstructive pulmonary disease. Hypertension. Blind in both eyes Appendectomy. Aortic Valve replaced RADIATION DOSE: 58.17 CTDI (mGy) [place] [facility] [place] [facility] [place]. . TECHNIQUE: CT of the head without contrast. Using automated exposure control and adjustment of the mA and/or kV according to patient size, radiation dose was kept as low as reasonably achievable to ob tain optimal diagnostic quality images. DICOM format image data is available electronically for revi ew and comparison. FINDINGS: Prosthetic globes are noted bilaterally. Extensive encephalomalacia involving the right temporal lobe is stable. Encephalomalacia is also noted involving right frontal lobe. Ventriculomegaly is again no ania consistent with central cerebral atrophy versus hydrocephalus. Moderate periventricular and subco rtical white matter small vessel ischemic changes are noted bilaterally. Metallic foreign body is not ed within the posterior fossa and is unchanged. No acute hemorrhage, acute infarct, midline shift or extra-axial bleed is noted. There is no significant change compared to 03/28/2018. CONCLUSION: 1. Extensive encephalomalacia involving the right temporal lobe is stable. Encephalomalacia is also noted involving right frontal lobe. 2. Ventriculomegaly is again noted consistent with central cerebral atrophy versus hydrocephalus. 3. Moderate periventricular and subcortical white matter small vessel ischemic changes are noted sheyla aterally. 4. Metallic foreign body is noted within the posterior fossa and is unchanged. 5. No acute hemorrhage, acute infarct, midline shift or extra-axial bleed is noted. 6. There is no significant change compared to 03/28/2018. . Electronically signed by: Delano Keating MD 07/13/2018 6:34 PM EST
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
[2018-07-13] MEDS ORDERED: Bisacodyl 10 MG Supp RECTAL PRN (18:59)
[2018-07-13] MEDS ORDERED: Vancomycin Consult Pharmacy OTHER PRN (18:59)
[2018-07-13] MEDS ORDERED: Vancomycin Inj 1,000 MG in Sodium Chlor 0.9% Inj 250 ML IV.SIG SCH (19:00)
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
[2018-07-13] MEDS ORDERED: Vancomycin Inj 500 MG in Sodium Chlor 0.9% Inj 100 ML IV.SIG ONE (21:00)
[2018-07-13] MEDS: Budesonide-Formoterol 160/4.5 MCG 6 GM Inhaler INH SCH (21:22)
[2018-07-13] MEDS: Acetaminophen 325 MG Tablet PO PRN (23:42)
[2018-07-14] MEDS ORDERED: MethylPREDNISolone Sod Succinate Inj 125 MG/2 ML Vial IV.PUSH ONE (08:02)
[2018-07-14 08:14] LABS: ABG Base Excess 0.1 mmol/L (-2-2); ABG PCO2 35 mmHg (38-42); ABG PO2 59 mmHg (61-120)
[2018-07-14] MEDS ORDERED: Vancomycin Consult Pharmacy OTHER PRN (08:24)
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
--- NOTE | 2018-07-14 08:38 | XR ---
EXAM DATE: 07/14/2018 8:25 AM EST AGE/SEX: 78 years / Male INDICATIONS: Short of breath, pneumonia CLINICAL DATA: This is the patient's subsequent encounter. Patient reports that signs and symptoms h ave been present for 2 days and indicates a pain score of 0/10. MEDICAL/SURGICAL HISTORY: . Stroke. Chronic obstructive pulmonary disease. Hypertension. [place]. Parkinson. Blind in both eyes. . Valve repair. . Valve repair. COMPARISON: [facility], CHEST 2V PA&LAT, 07/13/2018. . FINDINGS: There is a focal infiltrate in the right lung base. There is persistent elevation of the right hemidi aphragm. Otherwise I see no other new or significant changes compared to the prior examination. The l eft lung remains clear and well-aerated. There is stable interstitial changes bilaterally. There is e vidence of previous cardiothoracic surgery. The heart size is stable. No definite pleural effusions. CONCLUSION: 1. Stable focal infiltrate in the right lung base along with elevation of the right hemidiaphragm. 2. Otherwise, no significant changes are noted compared to the prior study. Electronically signed by: Pepe Rincon MD 07/14/2018 8:37 AM EST
[2018-07-14] MEDS ORDERED: Dextrose 50% in Water 50 ML Vial IV.PUSH PRN (08:41)
[2018-07-14 08:51] LABS: Potassium 3.9 meq/L (3.5-5.1)
[2018-07-14 08:53] LABS: Calcium 8.1 mg/dL (8.5-10.1)
[2018-07-14 08:54] LABS: Carbon Dioxide 24.7 meq/L (21.0-32.0)
[2018-07-14 08:59] LABS: Baso % (Auto) 0.1 % (0.0-2.0); Eos % (Auto) 0.1 % (0.0-4.0); Hemoglobin 8.5 gm/dL (13.0-17.0); Lymph # (Auto) 0.4 th/mm3 (1.0-4.8); Lymph % (Auto) 2.4 % (9.0-44.0); Mean Corpuscular HGB Conc 31.4 % (32.0-36.0); Mean Corpuscular Hemoglobin 22.7 pg (27.0-34.0); Mean Corpuscular Volume 72.4 fL (80.0-100.0); Mono # (Auto) 0.6 th/mm3 (0.0-0.9); Mono % (Auto) 4.1 % (0.0-8.0); Neut # (Auto) 14.4 th/mm3 (1.8-7.7); Neut % (Auto) 93.3 % (16.0-70.0); Platelet Count 276 th/mm3 (150-450); Red Blood Count 3.74 mil/mm3 (4.50-5.90); Red Cell Distribution Width 20.3 % (11.6-17.2); White Blood Count 15.4 th/mm3 (4.0-11.0)
[2018-07-14] MEDS ORDERED: Tiotropium Bromide 18 MCG/ACT Inhaler INH SCH (09:00)
[2018-07-14 10:17] LABS: Lymphocytes 1 % (9-44)
[2018-07-14 10:18] LABS: Monocytes 1 % (0-8); Ovalocytes 1+; Platelet Estimate Normal (Normal); Platelet Morphology Normal (Normal)
[2018-07-14] MEDS: Acetaminophen 325 MG Tablet PO PRN (11:00)
[2018-07-14] MEDS ORDERED: Acetaminophen 650 MG Supp RECTAL PRN (12:01)
--- NOTE | 2018-07-14 12:58 | ECG ---
Date Performed: 07/13/2018 Time Performed: 17:58:28 PTAGE: 78 years EKG: Sinus rhythm WITH OCCASIONAL VENTRICULAR PREMATURE COMPLEXES BORDERLINE ECG Since the PREVIOUS TRACING , no significant change noted PREVIOUS TRACIN03/28/2018 14.23 DOCTOR: Ricki Felix Interpretating Date/Time 07/14/2018 12:56:49
[2018-07-14] MEDS: Insulin NovoLOG Aspart Correctional Sugar Inj SQ SCH ×3 (13:01→21:35)
[2018-07-14] MEDS: MethylPREDNISolone Sod Succinate Inj 40 MG/ML Vial IV.PUSH SCH ×3 (13:02→23:57)
[2018-07-14] MEDS: Budesonide-Formoterol 160/4.5 MCG 6 GM Inhaler INH SCH ×2 (16:11→20:50)
[2018-07-14] MEDS: Vancomycin Inj 1,000 MG in Sodium Chlor 0.9% Inj 250 ML IV.SIG SCH (16:12)
[2018-07-14] MEDS ORDERED: Vancomycin Inj 1,000 MG in Sodium Chlor 0.9% Inj 250 ML IV.SIG SCH (19:00)
[2018-07-14] MEDS: ALPRAZolam 0.5 MG Tablet PO SCH (20:50)
[2018-07-14] MEDS: Sod Chloride 0.9% Inj 1,000 ML IV.CONT SCH (20:51)
[2018-07-14] MEDS: FLUoxetine 10 MG Capsule PO SCH (21:46)
[2018-07-15] MEDS ORDERED: Chlorhexidine Gluconate 2% 1 Pack (2 Cloths) TOPICAL PRN (04:00)
[2018-07-15] MEDS: Chlorhexidine Gluconate 2% 1 Pack (2 Cloths) TOPICAL SCH (04:01)
[2018-07-15] MEDS: MethylPREDNISolone Sod Succinate Inj 40 MG/ML Vial IV.PUSH SCH ×4 (05:58→20:17)
[2018-07-15] MEDS: Budesonide-Formoterol 160/4.5 MCG 6 GM Inhaler INH SCH ×2 (08:17→20:15)
[2018-07-15] MEDS: Insulin NovoLOG Aspart Correctional Sugar Inj SQ SCH ×4 (08:24→22:08)
[2018-07-15] MEDS: FLUoxetine 10 MG Capsule PO SCH (08:49)
[2018-07-15] MEDS: Vancomycin Inj 1,000 MG in Sodium Chlor 0.9% Inj 250 ML IV.SIG SCH (09:08)
--- NOTE | 2018-07-15 11:44 | P.PNIM ---
Subjective Interval history: Patient seen and evaluated this morning at the bedside. Patient resting comfortably in bed with no acute complaints such as subjective fever, chills, back pain, nausea, vomiting. Patient reports that he would like to eat food but after discussion with nursing staff patient appears to have episodes where he coughs after having some liquids which is concerning for possible aspiration pneumonitis/pneumonia. Rapid response called on 07/14 for respiratory distress and elevated heart rate. Patient was given a stat dose of Lasix and IV Solu-Medrol and subsequently improved dramatically. Physical Exam Vital signs: Last Vital Signs Temp 97.6 F 07/15/18 04:00 Pulse 86 07/15/18 08:00 Resp 18 07/15/18 08:00 BP 122/55 L 07/15/18 08:00 Pulse Ox 94 L 07/15/18 08:00 Intake & Output 07/13/18 07/14/18 07/15/18 07/16/18 06:59 06:59 06:59 06:59 Intake Total 1550 / 1550 1025 / 1025 100 / 100 Balance 1550 / 1550 1025 / 1025 100 / 100 Weight 74.9 kg 73.7 kg Results Labs CBC & Chem 7: 07/14/18 08:08 07/15/18 04:18 Labs: Microbiology 07/13/18 18:00 Blood - Peripheral Aerobic Blood Culture - Preliminary gram negative rods 07/13/18 18:00 Blood - Peripheral Anaerobic Blood Culture - Preliminary gram negative rods 07/14/18 17:10 Blood - Peripheral Aerobic Blood Culture - Preliminary No growth in 1 day 07/14/18 17:10 Blood - Peripheral Anaerobic Blood Culture - Preliminary No growth in 1 day 07/14/18 17:15 Blood - Peripheral Aerobic Blood Culture - Preliminary No growth in 1 day 07/14/18 17:15 Blood - Peripheral Anaerobic Blood Culture - Preliminary No growth in 1 day 07/13/18 18:05 Blood - Peripheral Aerobic Blood Culture - Preliminary No growth in 2 days 07/13/18 18:05 Blood - Peripheral Anaerobic Blood Culture - Preliminary gram negative rods 07/13/18 18:00 Clean Catch Urine Urine Culture - Final Klebsiella pneumoniae 07/13/18 09:00 Urine - Clean Catch Urine Streptococcus pneumoniae Antigen ( M - Final Presumptive negative for streptococcus pneumoniae antigen, suggesting no current or recent infection. Infection due to Streptococcus pneumoniae cannot be ruled out since the antigen present in the sample may be below the detection limit of the test. 07/13/18 09:00 Urine - Clean Catch Urine Legionella Antigen - Final Presumptive negative for Legionella pneumophila serogroup 1 antigen in urine, suggesting no recent or recurrent infection. Infection due to Legionella cannot be ruled out since other serogroups and species may cause disease, antigen may not be present in urine in early infection, and the level of antigen present in the urine may be below the detection limit of the test. Assessment and Plan Plan Infectious disease: Acute urinary tract infection secondary to gram-negative bacteria -Infectious disease consulted and recommendations appreciated via EMR. Continue ceftriaxone 2 g every 24 Continue to follow blood cultures/urine culture results Pulmonary: COPD exacerbation Continue steroids but transition to Solu-Medrol 40 mg every 12 hours from Solu- Medrol every 6 hours as previously written -Continue DuoNeb therapy Titrate oxygen 88-92% for patient with COPD Pulmonary critical CARE: Respiratory distress Suspect patient's episode of respiratory distress that occurred on 07/14 was secondary to fluid overload which improved with Lasix administration Chest x-ray reviewed via EMR. ABG as needed shortness of breath CODE STATUS: Full code DVT prophylaxis Disposition: Stepdown unit Diet: Mechanical Progress Note: Quality VTE Deep Vein Thrombosis/Pulmonary Embolism Present on Admission: No
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
--- NOTE | 2018-07-15 14:26 | ECG ---
Date Performed: 07/14/2018 Time Performed: 08:17:14 PTAGE: 78 years EKG: SINUS TACHYCARDIA WITH FREQUENT VENTRICULAR PREMATURE COMPLEXES NONSPECIFIC ST & T-WAVE ABN ORMALITY ABNORMAL RHYTHM ECG Significant increase in ventricular ectopy compared to prior tracing. Cl inical correlation is recommended PREVIOUS TRACING : 07/13/2018 17.58 DOCTOR: Ricki Felix Interpretating Date/Time 07/15/2018 14:24:39
[2018-07-15] MEDS: Azithromycin Inj 250 MG in Sodium Chlor 0.9% Inj 250 ML IV.SIG SCH (16:05)
[2018-07-15] MEDS: ALPRAZolam 0.5 MG Tablet PO SCH (20:15)
[2018-07-15] MEDS: Sod Chloride 0.9% Inj 1,000 ML IV.CONT SCH (20:16)
[2018-07-16] MEDS: Chlorhexidine Gluconate 2% 1 Pack (2 Cloths) TOPICAL SCH (05:54)
[2018-07-16] MEDS: FLUoxetine 10 MG Capsule PO SCH (08:32)
[2018-07-16] MEDS: MethylPREDNISolone Sod Succinate Inj 40 MG/ML Vial IV.PUSH SCH (08:33)
[2018-07-16] MEDS: Budesonide-Formoterol 160/4.5 MCG 6 GM Inhaler INH SCH ×2 (08:34→20:00)
[2018-07-16] MEDS: Insulin NovoLOG Aspart Correctional Sugar Inj SQ SCH ×4 (08:45→20:06)
--- NOTE | 2018-07-16 12:14 | P.PNID ---
Subjective Remarks: pt is doing OK He is on NC O2 afebrile caregiver @ b/s, per her pt MS is at b/l Antibiotics: azothromycin CFTX vanco Allergies/Adverse Reactions: Allergies memantine Allergy (Unknown, Verified 07/13/18 17:17) Rash MRI PRECAUTION Adverse Reaction (Severe, Uncoded 04/01/17 19:48) shrapnel in brain and orbit mpw per Dr Rincon Objective Vital Signs 07/15/18 13:00 07/15/18 14:00 07/15/18 14:49 Temperature Pulse Rate 76 84 87 Respiratory Rate 18 19 Blood Pressure 125/60 Pulse Oximetry 93 L 07/15/18 16:00 07/15/18 18:00 07/15/18 19:00 Temperature Pulse Rate 94 H 102 H 98 H Respiratory Rate 14 18 Blood Pressure 120/61 132/44 L Pulse Oximetry 94 L 95 07/15/18 19:15 07/15/18 20:00 07/15/18 21:00 Temperature 97.7 F Pulse Rate 97 H 94 H 90 Respiratory Rate 18 18 25 H Blood Pressure 125/64 107/57 L Pulse Oximetry 96 97 98 07/15/18 22:00 07/15/18 23:00 07/16/18 00:00 Temperature 98.3 F Pulse Rate 90 90 80 Respiratory Rate 21 18 Blood Pressure 120/57 L 139/61 Pulse Oximetry 95 98 07/16/18 02:00 07/16/18 04:00 07/16/18 05:00 Temperature 97.7 F Pulse Rate 76 82 66 Respiratory Rate 28 H 18 Blood Pressure 117/51 L 125/49 L Pulse Oximetry 94 L 94 L 07/16/18 06:00 07/16/18 08:00 Temperature 98.1 F Pulse Rate 70 79 Respiratory Rate 22 Blood Pressure 117/51 L Pulse Oximetry 93 L Intake & Output 07/15/18 07/16/18 07/16/18 18:59 06:59 18:59 Intake Total 1010 / 1010 805 / 805 Output Total 500 / 500 700 / 700 Balance 510 / 510 105 / 105 Weight 76.4 kg Intake: IV 450 / 450 805 / 805 NS Inj 1,000 ML @ 42 mls/hr IV. 555 / 555 CONT .[id number] [facility] Rx#: [id number] Azithromycin Inj 250 MG In NS 250 / 250 Inj 250 ML @ 250 mls/hr IV.SIG Q24H [facility] Rx#:[id number] Maxipime Inj 2,000 MG In NS Inj 100 / 100 100 ML @ 200 mls/hr IV.SIG Q8H [facility] Rx#:[id number] Vancomycin Inj 1,000 MG In NS 250 / 250 Inj 250 ML @ 250 mls/hr IV.SIG Q18H [facility] Rx#:[id number] Rocephin Inj 2,000 MG In NS Inj 100 / 100 100 ML @ 200 mls/hr IV.SIG Q24H [facility] Rx#:[id number] Oral 560 / 560 Output: Urine 500 / 500 700 / 700 Other: Date of Last Bowel Movement 07/15/18 07/15/18 07/15/18 # Bowel Movements 1 07/14/18 17:10 Blood - Peripheral Aerobic Blood Culture - Preliminary No growth in 2 days 07/14/18 17:10 Blood - Peripheral Anaerobic Blood Culture - Preliminary No growth in 2 days 07/14/18 17:15 Blood - Peripheral Aerobic Blood Culture - Preliminary No growth in 2 days 07/14/18 17:15 Blood - Peripheral Anaerobic Blood Culture - Preliminary No growth in 2 days 07/13/18 18:05 Blood - Peripheral Aerobic Blood Culture - Preliminary gram negative rods 07/13/18 18:05 Blood - Peripheral Anaerobic Blood Culture - Preliminary gram negative rods 07/13/18 18:00 Blood - Peripheral Aerobic Blood Culture - Preliminary 07/13/18 18:00 Blood - Peripheral Anaerobic Blood Culture - Preliminary gram negative rods 07/13/18 18:00 Clean Catch Urine Urine Culture - Final Klebsiella pneumoniae 07/13/18 09:00 Urine - Clean Catch Urine Streptococcus pneumoniae Antigen ( M - Final Presumptive negative for streptococcus pneumoniae antigen, suggesting no current or recent infection. Infection due to Streptococcus pneumoniae cannot be ruled out since the antigen present in the sample may be below the detection limit of the test. 07/13/18 09:00 Urine - Clean Catch Urine Legionella Antigen - Final Presumptive negative for Legionella pneumophila serogroup 1 antigen in urine, suggesting no recent or recurrent infection. Infection due to Legionella cannot be ruled out since other serogroups and species may cause disease, antigen may not be present in urine in early infection, and the level of antigen present in the urine may be below the detection limit of the test. 07/13/18 18:30 Nasal Wash Influenza Types A,B Antigen - Final Negative for FLU A and B antigen Infection due to influenza A or B cannot be ruled out since the antigen present in the sample may be below the detection limit of the test. Lab - Chemistry Results 07/14/18 07/14/18 07/14/18 08:08 08:08 12:58 Creatinine Estimated GFR POC Glucose 265 H Procalcitonin 0.80 H TSH 1.290 07/14/18 07/14/18 07/15/18 17:13 21:14 04:18 Creatinine 0.86 Estimated GFR 86 L POC Glucose 296 H 274 H Procalcitonin TSH 07/15/18 07/15/18 07/15/18 08:03 12:30 18:40 Creatinine Estimated GFR POC Glucose 248 H 279 H 361 H Procalcitonin TSH 07/15/18 07/16/18 22:02 08:41 Creatinine Estimated GFR POC Glucose 294 H 217 H Procalcitonin TSH Imaging: ITS Impressions Chest CT 07/13/18 00:00 CONCLUSION: 1. Stable mild airspace consolidation and associated volume loss consistent with atelectasis/scarring. 2. No significant new parenchymal consolidation to suggest pneumonia as questioned. 3. Prominent coronary artery calcifications with postsurgical features of prior median sternotomy and aortic valve replacement. Head CT 07/13/18 17:34 CONCLUSION: 1. Extensive encephalomalacia involving the right temporal lobe is stable. Encephalomalacia is also noted involving right frontal lobe. 2. Ventriculomegaly is again noted consistent with central cerebral atrophy versus hydrocephalus. 3. Moderate periventricular and subcortical white matter small vessel ischemic changes are noted bilaterally. 4. Metallic foreign body is noted within the posterior fossa and is unchanged. 5. No acute hemorrhage, acute infarct, midline shift or extra-axial bleed is noted. 6. There is no significant change compared to 03/28/2018. . Chest X-Ray 07/14/18 00:00 CONCLUSION: 1. Stable focal infiltrate in the right lung base along with elevation of the right hemidiaphragm. 2. Otherwise, no significant changes are noted compared to the prior study. Physical Exam: GENERAL: NAD SKIN: Warm and dry. HEAD: Atraumatic. Normocephalic. ENT: No nasal bleeding or discharge. Mucous membranes pink and moist. CARDIOVASCULAR: Regular rate and rhythm. RESPIRATORY: No accessory muscle use. Clear to auscultation. Breath sounds equal bilaterally. GASTROINTESTINAL: Abdomen soft, non-tender, nondistended. Hepatic and splenic margins not palpable. MUSCULOSKELETAL: Extremities without clubbing, cyanosis, or edema. No obvious deformities. : no bladder distention NEUROLOGICAL: Awake and alert. Non focal. Speech difficult to understand PSYCHIATRIC: calm, coperative Assessment and Plan - Plan Kleb pneumo sepsis from UTI clinically improved Likely PNA ? aspirtion change CFTX to zosyn cont azitromycin chk sputum clx fu CXR dw RN
[2018-07-16] MEDS ORDERED: Piperacil/Tazo 3.375 GM Premix 50 ML IV.SIG SCH (14:00)
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
[2018-07-16] MEDS: Azithromycin Inj 250 MG in Sodium Chlor 0.9% Inj 250 ML IV.SIG SCH (19:41)
[2018-07-16] MEDS: predniSONE 20 MG Tablet PO SCH ×2 (19:43→21:20)
[2018-07-16] MEDS: Sod Chloride 0.9% Inj 1,000 ML IV.CONT SCH (19:44)
[2018-07-16] MEDS: ALPRAZolam 0.5 MG Tablet PO SCH (20:00)
[2018-07-16] MEDS ORDERED: Pharmacy Ordered Lab Info OTHER ONE (20:45)
[2018-07-16] MEDS: Piperacil/Tazo 3.375 GM Premix 50 ML IV.SIG SCH (20:46)
[2018-07-16 21:50] LABS: % Iron Saturation 4.9 % (20-50)
--- NOTE | 2018-07-16 23:03 | CT ---
EXAM DATE: 07/16/2018 10:53 PM EST AGE/SEX: 78 years / Male INDICATIONS: Pleural effusion. CLINICAL DATA: This is the patient's subsequent encounter. Patient reports that signs and symptoms h ave been present for 3 days and indicates a pain score of 0/10. MEDICAL/SURGICAL HISTORY: Chronic obstructive pulmonary disease. Hypertension. . Aortic valve. RADIATION DOSE: 17.54 CTDI (mGy) COMPARISON: [facility], CT CHEST W/O CONTRAST, 07/13/2018. . TECHNIQUE: Multiple contiguous axial images were obtained through the chest without contrast. Image s were obtained in suspended respiration using multiple row detector helical technique. Using automa ania exposure control and adjustment of the mA and/or kV according to patient size, radiation dose was kept as low as reasonably achievable to obtain optimal diagnostic quality images. DICOM format imag e data is available electronically for review and comparison. FINDINGS: Lungs: Chronic elevation of the right hemidiaphragm with linear atelectasis involving the right base . This is stable from the prior exam. Small focal geographic areas of groundglass opacity seen within the upper lobes bilaterally. These are new from the prior study. Scattered areas of mild interlobula r septal thickening involving the subpleural aspects of the lungs. No mass. No bronchiectasis.. Mediastinum: The heart is normal in size. Pronounced calcifications involving the aortic valve and m itral valve. Prominent coronary artery and aortic atherosclerotic calcifications. Aorta and pulmonary arteries are normal in caliber. No adenopathy or mass.. Pleurae: No evidence of focal thickening or pleural effusion. Axillae: Unremarkable. Bony Structures: Chronic fractures involving the posterior lateral right 10th and 11th ribs. There i s lack of union. No acute fractures seen. A degenerative thoracic spine.. Miscellaneous: The examination was extended to include the upper abdomen, and a 2 cm left adrenal gl and nodule is noted. Right adrenal glands unremarkable. Gallbladder surgically absent. Partial visual ization of a right renal cyst.. CONCLUSION: 1. Subtle small focal areas of groundglass opacity involving both upper lobes is new from the prior study. Differential diagnostic considerations would include focal edema versus an infectious etiolog y. 2. 2 cm nonspecific left adrenal gland nodule. 3. Coronary artery atherosclerotic calcifications. 4. 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 Electronically signed by: Tae Pedraza MD 07/16/2018 11:02 PM EST
[2018-07-17] MEDS ORDERED: QUEtiapine 25 MG Tablet PO ONE (00:48)
[2018-07-17] MEDS: Piperacil/Tazo 3.375 GM Premix 50 ML IV.SIG SCH ×4 (03:06→19:24)
[2018-07-17] MEDS: Chlorhexidine Gluconate 2% 1 Pack (2 Cloths) TOPICAL SCH (04:07)
--- NOTE | 2018-07-17 07:00 | PQ ---
Physician Query Response Document PATIENT: Kar Estrada : 1940 ADMIT DATE: 07/13/2018 7:04 PM DISCH DATE: RESPONDING PROVIDER #: RSMILLER QUERY TEXT: CDS Clarification Acute respiratory failure in the setting of respiratory distress and COPD requiring treatment with ox ygen supplementation via VM @6L, Solumedrol IV, Lasix IV, DuoNeb, and ICU admit. Other explanation of clinical findings. Unable to determine (no explanation for clinical findings). The patient's Clinical Indicators include: The medical record reflects the following clinical findings, treatment, and risk factors. * Clinical Indicators: RR 25; pH 7.45, pO2 59, pCO2 35, O2 sat 90% on 3L NC; accesory muscle use * Risk Factors: resp distress and COPD * Treatment: oxygen supplementation via VM, Solumedrol IV, Lasix IV, DuoNeb, and ICU admit Please clarify and document your clinical opinion in the progress notes and discharge summary includi ng the definitive and/or presumptive diagnosis (suspected or probable), related to the above clinical findings. Please include clinical findings supporting your diagnosis. Patient Unit: [facility] Room: 84 Thank you, Jazlyn Evans RN CDIS Contact Number: [phone] Query created by: Jazlyn Evans on 07/15/2018 4:46 PM RESPONSE TEXT: Patient with acute episode of dyspnea and SOB in the setting of respiratory distress from suspected C OPD and superimposed fluid overload from fluid resuscitation during treatment for sepsis secondary to acute urinary tract infection. Patient subsequently treated with lasix IV, oxygen, duonebulizer samuel tments with clinical stabilization. Patient subsequently transferred to icu/stepdown for closer clini crys monitoring. Electronically signed by: Delano Marsh MD 07/17/2018 6:56 AM
[2018-07-17] MEDS: Budesonide-Formoterol 160/4.5 MCG 6 GM Inhaler INH SCH ×2 (08:20→20:59)
[2018-07-17] MEDS: predniSONE 20 MG Tablet PO SCH ×2 (08:34→20:57)
[2018-07-17] MEDS: FLUoxetine 10 MG Capsule PO SCH (08:34)
[2018-07-17] MEDS: Insulin NovoLOG Aspart Correctional Sugar Inj SQ SCH ×4 (08:35→21:00)
[2018-07-17] MEDS: Azithromycin Inj 250 MG in Sodium Chlor 0.9% Inj 250 ML IV.SIG SCH (14:50)
[2018-07-17 16:15] LABS: Baso % (Auto) 0.1 % (0.0-2.0); Eos % (Auto) 0.1 % (0.0-4.0); Hematocrit 24.6 % (39.0-51.0); Hemoglobin 7.3 gm/dL (13.0-17.0); Lymph # (Auto) 0.4 th/mm3 (1.0-4.8); Lymph % (Auto) 3.2 % (9.0-44.0); Mean Corpuscular Hemoglobin 21.6 pg (27.0-34.0); Mean Corpuscular Volume 72.2 fL (80.0-100.0); Mean Platelet Volume 7.8 fL (7.0-11.0); Mono # (Auto) 0.5 th/mm3 (0.0-0.9); Mono % (Auto) 4.5 % (0.0-8.0); Neut # (Auto) 10.6 th/mm3 (1.8-7.7); Neut % (Auto) 92.1 % (16.0-70.0); Platelet Count 327 th/mm3 (150-450); White Blood Count 11.5 th/mm3 (4.0-11.0)
[2018-07-17 16:33] LABS: Mean Corpuscular HGB Conc 29.9 % (32.0-36.0)
[2018-07-17 17:22] LABS: Platelet Estimate Normal (Normal); Platelet Morphology Normal (Normal)
[2018-07-17] MEDS: Sod Chloride 0.9% Inj 1,000 ML IV.CONT SCH (19:25)
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
[2018-07-17] MEDS: ALPRAZolam 0.5 MG Tablet PO SCH (20:58)
[2018-07-17] MEDS: Polysaccharide Iron Complex 150 MG Capsule PO SCH (21:00)
[2018-07-18 00:49] VITALS: O2SAT 98
[2018-07-18] MEDS: Piperacil/Tazo 3.375 GM Premix 50 ML IV.SIG SCH ×3 (01:50→13:22)
[2018-07-18] MEDS: Chlorhexidine Gluconate 2% 1 Pack (2 Cloths) TOPICAL SCH (04:00)
[2018-07-18 04:46] LABS: Baso % (Auto) 0.1 % (0.0-2.0); Eos % (Auto) 0.1 % (0.0-4.0); Hematocrit 23.6 % (39.0-51.0); Hemoglobin 7.2 gm/dL (13.0-17.0); Lymph # (Auto) 0.6 th/mm3 (1.0-4.8); Lymph % (Auto) 5.5 % (9.0-44.0); Mean Corpuscular Hemoglobin 21.7 pg (27.0-34.0); Mean Corpuscular Volume 70.9 fL (80.0-100.0); Mean Platelet Volume 6.8 fL (7.0-11.0); Mono # (Auto) 0.6 th/mm3 (0.0-0.9); Mono % (Auto) 6.2 % (0.0-8.0); Neut # (Auto) 9.1 th/mm3 (1.8-7.7); Neut % (Auto) 88.1 % (16.0-70.0); Platelet Count 343 th/mm3 (150-450); Red Blood Count 3.32 mil/mm3 (4.50-5.90); White Blood Count 10.3 th/mm3 (4.0-11.0)
[2018-07-18 05:02] LABS: Mean Corpuscular HGB Conc 30.5 % (32.0-36.0)
[2018-07-18 05:45] LABS: Dimorphic RBC Present; Ovalocytes 1+
[2018-07-18] MEDS: predniSONE 20 MG Tablet PO SCH (08:52)
[2018-07-18] MEDS: Polysaccharide Iron Complex 150 MG Capsule PO SCH (08:52)
[2018-07-18] MEDS: FLUoxetine 10 MG Capsule PO SCH (08:53)
[2018-07-18] MEDS ORDERED: Multivitamin/Minerals Therapeutic Tablet PO SCH (09:00)
[2018-07-18] MEDS: Insulin NovoLOG Aspart Correctional Sugar Inj SQ SCH ×3 (09:51→16:52)
[2018-07-18] MEDS: Budesonide-Formoterol 160/4.5 MCG 6 GM Inhaler INH SCH (09:52)
[2018-07-18] MEDS: Azithromycin Inj 250 MG in Sodium Chlor 0.9% Inj 250 ML IV.SIG SCH (13:22)
[2018-07-18] MEDS ORDERED: amLODIPine 5 MG Tablet PO SCH (14:00)
[2018-07-18 16:03] VITALS: RESP 25
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
[2018-07-18 16:28] VITALS: BP 170/79
[2018-07-18 16:29] VITALS: TEMP 98.6
[2018-07-18 17:56] VITALS: PULSE 78
== END 2018-07-18 18:00 | disposition home or self-care (01) ==
LOC: PHEFT 17:04 → PHEDA 19:04 → PH3 20:16 → PHICU 07-14 08:46
PROVIDERS: ADMIT Hospitalist; ATTEND Hospitalist